=== PATIENT | female | born 1935 | race Caucasian/White ===

== ENCOUNTER 2017-11-30 11:02 | Observation (INO) | payer MEDICARE, BC ==
[2017-11-30 11:38] LABS: #Basophils 0.1 thou/uL (0.0-0.2); #Eosinphils 0.1 thou/uL (0.0-0.7); #Lymphocytes 1.1 thou/uL (1.20-3.40); #Monocytes 0.3 thou/uL (0.11-0.59); #Neutrophils 5.5 thou/uL (1.40-6.50); %Basophils 0.9 % (0.0-1.0); %Eosinophils 1.6 % (0.0-10.0); %Lymphocytes 15.9 % (21.0-51.0); %Monocytes 4.6 % (0.0-10.0); Mean Corpuscular HGB CONC 33.8 g/dL (32.0-36.0); Mean Corpuscular Hemoglobin 32.5 pg (27.0-31.0); Mean Corpuscular Volume 96.4 fL (78.0-98.0); Mean Platelet Volume 7.6 fL (7.4-10.4); Platelet Count 227 thou/uL (130-400); RBC Distribution Width 12.3 % (11.5-14.5); White Blood Cell (WBC) Count 7.1 thou/uL (4.8-10.8)
[2017-11-30 12:03] LABS: ALT (SGPT) 22 U/L (8-55); AST (SGOT) 25 U/L (5-34); Albumin 3.9 g/dL (3.4-4.8); Alkaline Phosphatase 94 U/L (40-150); Anion Gap 17 mmol/L (10-20); BUN (Urea Nitrogen) 90 mg/dL (9.8-20.1); Bilirubin, Total 0.4 mg/dL (0.2-1.2); Calc. Creatinine Clearance 0 mL/min (70-130); Calcium 9.6 mg/dL (7.8-10.44); Carbon Dioxide 29 mmol/L (23-31); Chloride 95 mmol/L (98-107); Estimated GFR-MDRD 16; Globulin 3.6 g/dL (2.4-3.5); Glucose 349 mg/dL (83-110); Potassium 4.6 mmol/L (3.5-5.1); Protein, Total 7.5 g/dL (6.0-8.3); Sodium 136 mmol/L (136-145)
[2017-11-30 12:06] LABS: CKMB 3.1 ng/mL (0-6.6); Troponin I Less than 0.010 ng/mL (< 0.028)
[2017-11-30 13:34] LABS: Bilirubin Negative (Negative); Blood, Urine Negative (Negative); Clarity CLEAR (Clear); Glucose, Urine (Dipstick) 100 mg/dL (Negative); Leukocyte Trace (Negative); Nitrite Negative (Negative); Protein, Urine (Dipstick) Negative (Neg-Trace); Specific Gravity, Urine 1.007 (1.002-1.036); Urobilinogen 0.2 mg/dL (0.2-1.0); pH, Urine 5.5 (5.0-9.0)
--- NOTE | 2017-11-30 13:34 | CT ---
NONCONTRAST CT HEAD: Date: 11-30-17 History: Headache. Weakness. Onset of symptoms 4 days ago. Comparison: 09-17-16 FINDINGS: Again noted are chronic small vessel ischemic changes greater involving the left cerebral hemisphere. Remote lacunar infarctions are also again seen involving each basal ganglia. There is no evidence of an acute cortical infarction, hemorrhage, mass effect or midline shift. Mild cerebral volume loss is present. Ventricular system is normal in size, shape, and position. There is mucosal thickening invo lving left sided ethmoidal air cells. Calvarial structures are intact. There has been no interval matilde nge from the prior exam. IMPRESSION: 1. No acute intracranial abnormalities demonstrated. 2. Chronic small vessel ischemic changes and remote lacunar infarctions in each basal ganglia. 3. Mild cerebral volume loss. POS: [facility]
[2017-11-30 13:36] LABS: Bacteria/HPF None Seen HPF (None Seen); Hyaline Casts/LPF 0-3 HYALINE CAST LPF (0-3 Hyaline); RBC/HPF 0-3 HPF (0-3); Squamous Epithelial 0-3 HPF (0-3); WBC/HPF 0-3 HPF (0-3)
[2017-11-30] MEDS ORDERED: cefTRIAXone\\ROCEPHIN 2 GM VIAL ONE (14:51)
[2017-11-30] MEDS ORDERED: Dextrose 50% Abboject 50 ML SYRINGE IVP PRN (20:06)
[2017-11-30] MEDS ORDERED: Dextrose 5% in Water 1,000 ML IV PRN (20:06)
[2017-11-30] MEDS ORDERED: Acetaminophen 500 MG TAB PO PRN (20:13)
[2017-11-30] MEDS ORDERED: Senokot S 8.6-50 MG TAB PO PRN (20:13)
[2017-11-30] MEDS ORDERED: Oxymetazoline HCl 0.05% ( 15 ML ) NASAL PRN (20:17)
[2017-11-30] MEDS ORDERED: Ondansetron ODT 4 MG TAB PO PRN (20:17)
[2017-11-30] MEDS: Sodium Chloride 0.45% 1,000 ML IV SCH (20:42)
[2017-11-30] MEDS: Atorvastatin Calcium 40 MG TAB PO SCH (20:42)
[2017-11-30] MEDS: Carvedilol 3.125 MG TAB PO SCH (20:43)
[2017-11-30] MEDS: Zolpidem Tartrate 5 MG TAB PO PRN (20:43)
[2017-11-30] MEDS: Citalopram 20 MG TAB PO SCH (20:43)
[2017-11-30] MEDS ORDERED: PRAMIPEXOLE DI HCL 2.25 MG PO SCH (21:00)
--- NOTE | 2017-11-30 23:15 | HP ---
DATE OF OBSERVATION: 11/30/2017 CHIEF COMPLAINT: Fall, hitting head with weakness. HISTORY OF PRESENT ILLNESS: The patient is an 82-year-old female who lives with her son. She has be en following throughout the previous week. She had had a blood sugar over 500 as late as Monday and has had come down somewhat since that time, but she has been having significant weakness coming over the last 4 days with elevated blood sugars. On this particular episode, she had fallen at home, brett ing her head and EMS was called. She is on aspirin and Plavix and in the emergency room, CTs of the head were performed, which did not show any internal bleeding or trauma. She denies nausea, vomiting , diarrhea, fever, and actually feel stronger and better now. She cannot explain why she has been so weak. She has had some dysuria as well, but urinary analysis returned normal. PAST MEDICAL HISTORY: Significant for Restless leg syndrome, multiple falls with mild obstructive sl eep apnea with noncompliance was on CPAP, hypothyroidism, dyslipidemia, insulin-dependent diabetes, c hronic insomnia, renal insufficiency, gastroesophageal reflux disease, osteoarthritis, atrial fibrill ation, history of V-tach, DVT, coronary artery disease, pancreatitis, and episodes of hypoglycemia as recently as 09/27/2016, rectal cancer, recent falls. 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 PAST SURGICAL HISTORY: Includes abdominal hysterectomy, cholecystectomy, rotator cuff repair, barrow ry artery bypass graft, colostomy reversal from removal of her rectal cancer, bilateral cataract garth ramone, fracture of right wrist, no surgical repair. PSYCHIATRIC HISTORY: Anxiety and depression. ALLERGIES: CODEINE. CURRENT MEDICATIONS: Acetaminophen 650 p.r.n. arthritic pain oxymetazoline 0.5% nasal spray 2 sprays a day, MiraLax daily, docusate sodium daily, Talwin 1-1/2 tab q.6 h. p.r.n. pain, Zofran ODT p.r.n. nausea, levothyroxine 75 mcg a day, aspirin 81 mg daily, ferrous sulfate 325 mg daily, Plavix 75 mg d aily, Lyrica 150 mg daily, Protonix 40 mg daily, Mirapex 1-1/2 tabs daily, Lunesta 3 mg daily, Lipito r 80 mg at bedtime, citalopram 40 mg daily, and Coreg 3.125 mg daily. REVIEW OF SYSTEMS: Patient denies any weakness, chills, fever, but does report a lot of lethargy and general malaise. HEENT: Negative for blurred vision, trouble hearing, discharge from ears, nose or throat, mouth pain. Neck: Denies any adenopathy or mass. Chest: Denies shortness of breath or co ugh. Cardiovascular: Denies chest pain or palpitations. Abdomen: Denies nausea, vomiting, diarrhe a. : Reports dysuria, but no blood in urine or stool. Skin: No new rashes or lesions. Neurolog ic: Reports dizziness and headache and tiredness. Endocrine: Negative for edema, lymph nodes. Psy chiatric: No new anxiety, feelings of depression or confusion. PHYSICAL EXAMINATION: VITAL SIGNS: On admission, blood pressure 144/73, pulse 81, respirations 18, temperature 97.7. Pain scale is 0 and O2 saturation is at 97%. GENERAL: This is an obese elderly female, alert, oriented, and cooperative, in no acute distress at this time, states she feels pretty good. HEENT: Normocephalic and atraumatic. Arcus senilis bilaterally with pupils equal, round, and reacti ve to light, with reactivity fixed or slowed. Pupils at 2 mm bilaterally. TMs, nares, pharynx are c lear. NECK: No mass or tenderness. CHEST: Clear to auscultation. Breast exam deferred. HEART: Regular rate and rhythm. ABDOMEN: Soft, nontender, no appreciable organomegaly. GENITOURINARY: Deferred. EXTREMITIES: With only 1+ edema bilaterally. Some mild erythema around a shallow abrasion on the ri ght thornton, but otherwise general mild muscle wasting, but normal range of motion. There is deformity of the previously mentioned fractured wrist. SKIN: The aforementioned erythema at the right thornton otherwise negative. NEUROLOGIC: Cranial nerves are intact. Sensory exam is intact. Mental status is baseline clear and unable to test gait and cerebellar function at this time. LABORATORY AND X-RAY FINDINGS: Lab work thus far shows sodium 136, potassium 4.6, chloride 95, CO2 2 9, BUN 90, creatinine 2.86, glucose 349, total bilirubin 0.4, AST 25, ALT 22, alkaline phosphatase 94 . BNP 101.8. Troponins negative. Urinary analysis unremarkable. WBC 7.1, hemoglobin 12, hematocri t 35.6 with platelets at 227. CT of the brain showed no acute intracranial abnormalities with small vessel disease and remote lacunar infarction in each basal ganglia, mild cerebral volume loss. ASSESSMENT: 1. Generalized weakness with fall. 2. Renal insufficiency with mild dehydration. History a year ago of hospitalization with a BUN of 1 57 and creatinine 4.86, but of recent, she has been running BUN of 40 with a creatinine almost 2. PLAN: Gentle IV hydration, reevaluation of her kidney functions and serial evaluation of her blood s ugars.
[2017-12-01 04:57] LABS: Anion Gap 16 mmol/L (10-20); BUN (Urea Nitrogen) 80 mg/dL (9.8-20.1); Calc. Creatinine Clearance 26 mL/min (70-130); Carbon Dioxide 26 mmol/L (23-31); Cardiac Risk 3.4 (Less than 4.5); Chloride 101 mmol/L (98-107); Cholesterol 139 mg/dl (< 200 Desired); Estimated GFR-MDRD 21; Glucose 143 mg/dL (83-110); HDL Cholesterol 41 mg/dL (>60 Neg Risk); LDL Cholesterol, Calculated 75 mg/dL; Potassium 4.2 mmol/L (3.5-5.1); Sodium 139 mmol/L (136-145); Triglycerides 117 mg/dL (Less than 150)
[2017-12-01] MEDS: Levothyroxine Sodium 75 MCG TAB PO SCH (05:38)
[2017-12-01] MEDS: Sodium Chloride 0.45% 1,000 ML IV SCH ×2 (05:40→18:43)
[2017-12-01] MEDS: Aspirin 81 mg Enteric Coated Tablet PO SCH (08:59)
[2017-12-01] MEDS: Pregabalin 75 MG CAP PO SCH (08:59)
[2017-12-01] MEDS: Clopidogrel Bisulfate 75 MG TAB PO SCH (09:00)
[2017-12-01] MEDS: Calcium Carbonate 500 MG TAB PO SCH ×2 (09:00→18:44)
[2017-12-01] MEDS: Multivitamin W/ Minerals 1 TAB PO SCH (09:00)
[2017-12-01] MEDS: Carvedilol 3.125 MG TAB PO SCH ×2 (09:00→22:24)
[2017-12-01] MEDS: Insulin Glargine 35 UNITS in Pre-Filled Syringe 1 EACH SC SCH (09:00)
[2017-12-01] MEDS: Calcitriol 0.25 MCG CAP PO SCH (09:00)
[2017-12-01] MEDS: Insulin Regular 300 UNITS/3 ML VIAL SC PRN ×3 (11:42→22:25)
[2017-12-01 14:06] VITALS: BMI 34.3
[2017-12-01] MEDS: Atorvastatin Calcium 40 MG TAB PO SCH (22:24)
[2017-12-01] MEDS: Citalopram 20 MG TAB PO SCH (22:24)
[2017-12-01] MEDS: Zolpidem Tartrate 5 MG TAB PO PRN (22:24)
[2017-12-02] MEDS: Sodium Chloride 0.45% 1,000 ML IV SCH (04:57)
[2017-12-02] MEDS: Levothyroxine Sodium 75 MCG TAB PO SCH (04:57)
[2017-12-02 05:16] LABS: Anion Gap 16 mmol/L (10-20); BUN (Urea Nitrogen) 63 mg/dL (9.8-20.1); Calc. Creatinine Clearance 30 mL/min (70-130); Calcium 9.4 mg/dL (7.8-10.44); Carbon Dioxide 26 mmol/L (23-31); Chloride 103 mmol/L (98-107); Estimated GFR-MDRD 24; Glucose 101 mg/dL (83-110); Potassium 4.2 mmol/L (3.5-5.1); Sodium 141 mmol/L (136-145)
[2017-12-02] MEDS: Pregabalin 75 MG CAP PO SCH (07:50)
[2017-12-02] MEDS: Aspirin 81 mg Enteric Coated Tablet PO SCH (07:51)
[2017-12-02] MEDS: Calcitriol 0.25 MCG CAP PO SCH (07:51)
[2017-12-02] MEDS: Calcium Carbonate 500 MG TAB PO SCH (07:51)
[2017-12-02] MEDS: Multivitamin W/ Minerals 1 TAB PO SCH (07:51)
[2017-12-02] MEDS: Clopidogrel Bisulfate 75 MG TAB PO SCH (07:52)
[2017-12-02] MEDS: Carvedilol 3.125 MG TAB PO SCH (07:52)
[2017-12-02] MEDS: Insulin Glargine 35 UNITS in Pre-Filled Syringe 1 EACH SC SCH (07:53)
[2017-12-02 08:20] VITALS: BP 139/66; TEMP 97.4
--- NOTE | 2017-12-02 17:01 | EKG ---
Test Reason : CP Blood Pressure : / mmHG Vent. Rate : 085 BPM Atrial Rate : 085 BPM P-R Int : 000 ms QRS Dur : 076 ms QT Int : 376 ms P-R-T Axes : 000 001 051 degrees QTc Int : 447 ms Normal sinus rhythm ST abnormality Motion artifact Confirmed by MARANDA GRAF DO ([id number]), copy editor KADEEM FONSECA ([id number] on 12/02/2017 5:00:35 PM Referred By: Confirmed By:MARANDA GRAF DO
--- NOTE | 2017-12-04 02:10 | DIS ---
DATE OF INITIAL OBSERVATION: 11/30/2017 DATE OF DISCHARGE: 12/02/2017 CHIEF COMPLAINT ON ADMISSION: Fall, weakness and head trauma. HOSPITAL COURSE: The patient was placed in observation telemetry bed where every heart beat was monitored. Vital signs were monitored as well as blood sugar. Prior to arrival on the floor, she has had a CT of her head which did not show any acute trauma. She was noted to have renal insufficiency from the ER. A year ago, she has been hospitalized with a BUN of 157, creatinine 4.86, but on this hospitalization, her initial BUN and creatinine were 90 and 2.86. Treatment plan included hydration as well as serial reevaluation. Initial blood glucoses were good at 164. After 24 hours of hydration, her BUN came down to 80 and creatinine improved to 2.28. Vital signs remained stable. The patient had no specific complaints and so an additional day of observation to make sure she would continue to improve, was allowed hydration continued and on the day of discharge, her BUN had improved to 63, creatinine has improved to 2. She felt fine, had her strength back, had been walking without difficulty, was ready to be discharged home. DIAGNOSES: At the time of discharge, 1. Acute kidney injury secondary to dehydration. 2. Weakness due to dehydration. 3. Head trauma due to fall due to weakness. 4. Insulin-dependent diabetes. PLAN: The patient will be discharged back to her usual home environment. She lives with her son. She will leave off the daily diuretic that she has been using which was torsemide 20 mg every day. She is now going to use that strictly when she has edema developed in her legs on a short term day basis to discontinue it once the edema resolves. This should help her kidneys rebound doing better; other than that, she will be maintained on her usual medications. She is to follow up with Dr. Doyle in 1-2 weeks for reassessment. The time required to review the chart, examine the patient, answered both the patient and her son's questions completely, then prepare the chart for discharge including reconciliation of all her medication and this dictation came to 40 minutes. She is discharged in stable condition. JANNETH
== END 2017-12-02 08:58 | disposition home or self-care (01) ==
LOC: ERS 11:02 → ERHOLD 14:49 → 2SW 17:53
PROVIDERS: ADMIT Specialist; ATTEND Specialist
DX: E86.0 Dehydration (principal); N17.9 Acute kidney failure, unspecified; R53.1 Weakness; S09.90XA Unspecified injury of head, initial encounter; G25.81 Restless legs syndrome; G47.33 Obstructive sleep apnea (adult) (pediatric); E03.9 Hypothyroidism, unspecified; E78.5 Hyperlipidemia, unspecified; E11.9 Type 2 diabetes mellitus without complications; G47.00 Insomnia, unspecified; K21.9 Gastro-esophageal reflux disease without esophagitis; M19.90 Unspecified osteoarthritis, unspecified site; I48.91 Unspecified atrial fibrillation; F41.8 Other specified anxiety disorders; Z86.718 Personal history of other venous thrombosis and embolism; I25.10 Atherosclerotic heart disease of native coronary artery without angina pectoris; Z86.73 Personal history of transient ischemic attack (TIA), and cerebral infarction without residual deficits; Z85.048 Personal history of other malignant neoplasm of rectum, rectosigmoid junction, and anus; Z91.81 History of falling; Z79.02 Long term (current) use of antithrombotics/antiplatelets; Z79.4 Long term (current) use of insulin; Z79.82 Long term (current) use of aspirin; Z79.899 Other long term (current) drug therapy; Z88.5 Allergy status to narcotic agent; Z91.19 Patient's noncompliance with other medical treatment and regimen; W19.XXXA Unspecified fall, initial encounter
CPT/HCPCS: 70450; 80048 ×2; 80053; 80061; 82553; 82962 ×2; 83880; 84443; 84484; 85025; 87086; 93005; 93306; 94760; 96361 ×4; 96365; 97139; 99285; G0378 ×2; 36415; 36416; 81003; 81015; J0696; J1815

== ENCOUNTER 2017-12-27 10:15 | Inpatient (IN) | payer MEDICARE, BC ==
[2017-12-27 10:52] LABS: Mean Corpuscular HGB CONC 31.8 g/dL (32.0-36.0); Mean Corpuscular Hemoglobin 31.3 pg (27.0-31.0); Mean Corpuscular Volume 98.5 fL (78.0-98.0); Mean Platelet Volume 7.3 fL (7.4-10.4); Platelet Count 310 thou/uL (130-400); RBC Distribution Width 12.8 % (11.5-14.5); Red Blood Cell (RBC) Count 3.21 mill/uL (4.20-5.40); White Blood Cell (WBC) Count 11.3 thou/uL (4.8-10.8)
[2017-12-27 11:06] LABS: Bilirubin Moderate (Negative); Blood, Urine Moderate (Negative); Glucose, Urine (Dipstick) Negative (Negative); Leukocyte Negative (Negative); Nitrite Negative (Negative); Protein, Urine (Dipstick) 100 mg/dL (Neg-Trace); Urobilinogen 0.2 mg/dL (0.2-1.0); pH, Urine 5.5 (5.0-9.0)
[2017-12-27 11:07] LABS: Clarity Hazy (Clear); Specific Gravity, Urine 1.019 (1.002-1.036)
[2017-12-27 11:14] LABS: CKMB 2.1 ng/mL (0-6.6); Troponin I 0.034 ng/mL (< 0.028)
[2017-12-27] MEDS ORDERED: Ondansetron HCl/PF 4 MG/2 ML Vial ONE (11:20)
--- NOTE | 2017-12-27 11:20 | RAD ---
CHEST ONE VIEW: HISTORY: Cough. COMPARISON: Radiograph from 11/29/2016. FINDINGS: Heart size is enlarged. Mild pulmonary vascular congestion. Some patchy infiltrates in the upper lo bes and lower lobes. IMPRESSION: 1. Cardiomegaly with mild pulmonary vascular congestion. 2. Some faint opacities in the upper and lower lobes bilaterally. Symptoms could reflect developing edema or infection. POS: [facility]
[2017-12-27 11:21] LABS: Bacteria/HPF None Seen HPF (None Seen); RBC/HPF 0-3 HPF (0-3); Squamous Epithelial 0-3 HPF (0-3); Transitional Epithelial 0-3 HPF (0-3); WBC/HPF 0-3 HPF (0-3)
[2017-12-27 11:22] LABS: Band 20 % (5-11); Lymphocytes 9 % (21-51); MDiff Complete? YES; Monocytes 2 % (0-10); Neutrophil 69 % (42-75); PLT Morphology Comment Appears Adequate
[2017-12-27 11:22] LABS: Crystals/HPF 3+ AMORPH URATES HPF (Negative); Hyaline Casts/LPF 4-6 HYALINE CAST LPF (0-3 Hyaline); Other Casts/LPF 7-10 COARSE GRAN LPF (0-3 Hyaline)
[2017-12-27 11:40] LABS: ALT (SGPT) 47 U/L (8-55); AST (SGOT) 68 U/L (5-34); Albumin 3.4 g/dL (3.4-4.8); Alkaline Phosphatase 101 U/L (40-150); Anion Gap 20 mmol/L (10-20); BUN (Urea Nitrogen) 49 mg/dL (9.8-20.1); CK (CPK) 195 U/L (29-168); Calc. Creatinine Clearance 0 mL/min (70-130); Calcium 8.4 mg/dL (7.8-10.44); Carbon Dioxide 21 mmol/L (23-31); Chloride 103 mmol/L (98-107); Estimated GFR-MDRD 23; Globulin 3.2 g/dL (2.4-3.5); Glucose 178 mg/dL (83-110); Lipase Less than 4 U/L (8-78); Potassium 3.6 mmol/L (3.5-5.1); Protein, Total 6.6 g/dL (6.0-8.3); Sodium 140 mmol/L (136-145)
[2017-12-27] MEDS ORDERED: Piperacillin/Tazobactam 4.5 GM VIAL ONE (12:34)
[2017-12-27] MEDS ORDERED: Furosemide 20 MG/2 ML VIAL ONE ×2 (12:34→13:52)
--- NOTE | 2017-12-27 13:26 | CT ---
CT OF ABDOMEN AND PELVIS PERFORMED WITHOUT CONTRAST ENHANCEMENT: Date: 12/27/17 HISTORY: Abdominal pain and diarrhea x2 days. FINDINGS: There are some pneumonitis type changes in both lower lobes, lingula, and lateral segment of the righ t middle lobe. This would suggest an infectious type process. The liver and spleen are unremarkable. The pancreas is atrophic. Gallbladder appears to have been rem paco. There is some extrahepatic ductal prominence noted. Right and left adrenal glands are normal in appearance. Right and left kidneys are normal in size and not obstructed. There is some perinephric fat stranding which is symmetric. There are vascular calci fications noted. There is no significant periaortic or mesenteric lymphadenopathy. There are no signs of bowel obstruction. I do not appreciate any bowel wall edema on this examination. There are postop erative changes of the distal ileum region. CT of pelvis was performed without contrast enhancement. There is a small paraumbilical hernia and th ere does appear to be some minimal herniation of bowel, but there is no obstruction associated with t his. The appendix region appears unremarkable. I do not definitively identify an appendix, but see no inflammatory change. There is some sigmoid diverticular disease without evidence of any inflammatory process. There are arthritic changes of the spine. IMPRESSION: 1. Small paraumbilical hernia. 2. Bibasilar lung changes that would suggest infiltrate. This includes some patchy parenchymal larry es in both lower lobes, lingula, and right middle lobe. 3. Extensive vascular calcifications. POS: [facility]
[2017-12-27] MEDS ORDERED: Ondansetron ODT 4 MG TAB SL PRN (15:10)
[2017-12-27] MEDS ORDERED: Ondansetron HCl/PF 4 MG/2 ML Vial IVP PRN (15:10)
[2017-12-27] MEDS ORDERED: HYDROcodone/Acetaminophen 5/325 mg Tablet PO PRN ×2 (15:10)
[2017-12-27] MEDS ORDERED: Acetaminophen 325 MG TAB PO PRN (15:10)
[2017-12-27] MEDS ORDERED: Carvedilol 3.125 MG TAB PO SCH ×2 (19:15→21:30)
[2017-12-27] MEDS ORDERED: Ondansetron ODT 4 MG TAB PO PRN (21:19)
[2017-12-27] MEDS ORDERED: Diphenoxylate HCl/Atropine Tablet PO PRN (21:26)
[2017-12-27] MEDS ORDERED: Citalopram 20 MG TAB PO SCH (21:30)
[2017-12-27] MEDS ORDERED: Zolpidem Tartrate 5 MG TAB PO SCH (21:30)
[2017-12-27] MEDS ORDERED: Pramipexole Di-HCl 1 MG TAB PO SCH (21:30)
[2017-12-27] MEDS: Sodium Chloride 0.45% 1,000 ML IV SCH (23:27)
[2017-12-28] MEDS: Piperacillin/Tazobactam 2.25 GM in Sodium Chloride 0.9% 100 ML IVPB SCH ×5 (00:44→23:36)
--- NOTE | 2017-12-28 00:59 | CON ---
DATE OF CONSULTATION: 12/27/2017 CARDIOLOGY CONSULTATION DATE OF ADMISSION: 12/27/2017 INDICATION FOR CONSULTATION: This is an 82-year-old female with intermittent atrial fibrillation. W e were asked to see her due to the atrial fibrillation with rapid ventricular response. She presente d with some diarrhea and coughing was felt to have possible pneumonia was presented and was admitted to the hospital. We were asked to see her due to the atrial fibrillation. At this time, she remains in sinus rhythm. HISTORY OF PRESENT ILLNESS: This very pleasant 82-year-old female, I have followed for quite some ti me. She recently was in the office back in November of this year and she has been complaining of some discomfort in her lower extremities when she used a walker stating she was getting out and she will h ave some shortness of breath during the day, but otherwise has been doing quite well. She did have a cardiac catheterization in 2009 which showed a 20% stenosis in left anterior descending artery. The stress test in 2013 showed a normal ejection fraction with no evidence of ischemia. She has had a h istory of DVTs and PEs before. She has been on Jantoven, but this was discontinued and her Plavix wa s started due to history of hypertension and PEs. She had a venous duplex study in 12/2016, which sh owed no evidence of DVT. 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 Flores. She had been actually on a trip in [place] a nd she started feeling very badly. She thought she has just sinus congestion, but then she developed some diarrhea, then came home and she continued to have some coughing. She returned from [facility] yesterday and due to her symptoms, she presented to the hospital since she continued to have diar damion. Since being in the hospital, the diarrhea had seemed to have resolved. She was given some I b elieve antibiotics in the emergency room and the coughing also has improved and she is not having any complaints at this time. PAST MEDICAL HISTORY: Significant for dyslipidemia, hypertension, diabetes, history of TIA, CVA. 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 She has had a right hip fracture. She has history of pulmona ry embolus, right lower extremity DVT. She has had a history of rectal cancer with ileostomy, which was later reversed. She has seasonal allergies. ALLERGIES: She is allergic to CODEINE and DIMENHYDRINATE. FAMILY HISTORY: Noncontributory. MEDICATIONS: Prior to admission included Plavix 75 mg a day, citalopram 40 mg half tablet daily, Tyl enol. She was on Coreg 3.125 mg b.i.d. She was taking antacids, calcium plus simethicone, atorvasta tin 80 mg a day, torsemide 20 mg a day, fluconazole 100 mg as needed, Lantus insulin, NovoLog 70/30 i nsulin, calcitriol 1 capsule 0.25 mg daily, iron tablets 325 mg a day, pantoprazole 40 mg a day, Lyri ca 150 mg daily, aspirin 81 mg a day, levothyroxine 75 mcg a day. She also has taken insulin aspart 100 units per mL as needed for sliding scale, Mirapex ER 2.25 mg extended-release, Lunesta 3 mg q.p.m . REVIEW OF SYSTEMS: A 12-point review of systems unremarkable except she has had some problems with s ome floaters in her eyes. She has had some congestion as noted above. She has decreased hearing. S he has had a cough and she has diarrhea. Otherwise, she denied any chest pain or any significant matilde nges in her shortness of breath or other symptoms. PHYSICAL EXAMINATION: GENERAL: Reveals a well-developed, well-nourished female. She does appear to be fatigued. VITAL SIGNS: Her blood pressure 100/50. She is afebrile, heart rate 86 and regular, respiratory rat e 16. O2 saturation 92%. HEENT: Shows head to be normocephalic and atraumatic. Carotid pulses are present. I do not hear an y significant bruits. There is no JVD. The thyroid did not appear to be enlarged. Oral mucosa is a ctually pink and moist. She has no other significant abnormalities. CHEST: I did not hear any rales, rhonchi, or wheezing at this time. CARDIOVASCULAR: Exam reveals a regular rate and rhythm. She has a normal S1, S2. I cannot hear any significant murmurs, heaves, thrills, bruits, or rubs. ABDOMEN: Shows obesity with positive bowel sounds, somewhat hyperactive bowel sounds. Well-healed s urgical incisions are present. EXTREMITIES: Showed no clubbing or cyanosis. She had mild ankle edema, otherwise no significant jethro ma was noted. Pedal pulses are present. NEUROLOGIC: She appears to be intact. SKIN: Warm and dry at this time. LABORATORY DATA: Indicates WBC of 11.3, hemoglobin of 10, platelet count was 310,000. Her chemistri es show sodium of 140, her potassium is 3.6, creatinine is 2.06 with a BUN of 49, blood sugar was 166 . Her troponin I was slightly elevated at 0.034. BNP was 732. Urinalysis, she had no significant b acteria noted. IMPRESSION: 1. Episode of intermittent atrial fibrillation, which appears to have resolved. We will continue he r Plavix and aspirin and monitor very carefully. She may need to have further anticoagulation. Oral anticoagulation in the form of either Coumadin or Eliquis should she continue to have any further emeka uts of atrial fibrillation. 2. History of some congestive heart failure, this appears to be relatively stable at this time. We will ask for an echocardiogram to evaluate her left ventricular systolic function. Her last echocard iogram in the office was 09/2016, which showed ejection fraction of 50%-55% with grade 2 diastolic dy sfunction was moderately dilated left atrium, [id number] mitral and tricuspid valve regurgitati on. Her EKGs in the office previously has showed normal sinus rhythm with no previous history of atr ial fibrillation that I can determine from review of our records from the office, but there was some note previously from the impression and plan in the office that she did have an episode of paroxysmal atrial fibrillation, but she has remained stable. 3. History of hypertension. This is also under good control at this time. 4. History of chronic kidney disease. This appears to be also stable at this time, I would not leonardo ge her medications. She does have slight elevation of the creatinine; however, this appears to have remained stable and actually is doing well compared to what it was in November of this year, which was 2.0 and August it was 2.1, appears to be in line with these measurements and otherwise appears to be doi ng stable. At this time, I would continue her medications. She has been given antibiotics for possi ble pneumonia in the emergency room, these have not been continued. At this time, she is just taking pain medications as well as Tylenol and some Zofran. We will need to reinstate her medications for her hypertension, whereas the blood pressure starts to increase and also she will need to be on insul in for her diabetes. However, at this time, she has not been eating very much and blood sugars not a ppear to be significantly elevated. This will be dealt with by the primary care service. 5. History of some diarrhea, this appears to have been resolved at this time. As far as her other m edications, she is on torsemide as well as atorvastatin, however, she does not need the torsemide at this time since she has been having diarrhea and we can certainly hold off on the Lipitor also at thi s time. Her Coreg, would need to be reinstated and now I will write the order for that for today. F johnther recommendations will depend on the results of the echocardiogram or whether or not she develop s any further arrhythmias.
--- NOTE | 2017-12-28 01:58 | HP ---
DATE OF ADMISSION: 12/27/2017 CHIEF COMPLAINT ON ADMISSION: CHF, DKA, new onset atrial fibrillation and pneumonia. HISTORY OF PRESENT ILLNESS: The patient is an 82-year-old female who just finished a long vacation [facility]. She has gotten back in town the day before admission. Over the last several days, she h as had constant profuse diarrhea that would not stop or respond to Imodium A-D. She also developed a cough while coming back from [place]. It was productive of some phlegm. She states she also had f ever, fatigue, weakness and because of that persistence and no symptoms, her son brought her to the e mergency room for further evaluation. There in the ER, she was noted to have ketones and beta hydrox ybutyrate 2.5. Her white count was slightly elevated at 11.3 with bandemia and her blood sugar was o nly found to be 178 at that time, but her BNP was also elevated at 732. CT scan was ordered of the a [facility] and on that they noted lower lobe opacities bilaterally. On chest x-ray, there was found to b e opacities in the upper and lower lobes bilaterally indicating that she probably had pneumonia and/o r developing pulmonary vascular congestion. With history of fever and productive cough, pneumonia is very likely. Dr. Doyle was contacted for admission and accepted admission. Blood cultures have bee n drawn. Antibiotics have been started and careful hydration is being administered so as to diminish the DKA, yet not put her into heart failure worse than she already is. There is cardiomegaly and mi ld pulmonary vascular congestion noted on the chest x-ray as well. PAST MEDICAL HISTORY: Included a recent hospitalization in 11/30/2017 for fall, hitting her head and general weakness. She also has restless legs syndrome, obstructive sleep apnea with noncompliance. She is adamant that she will not wear a CPAP. 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 PAST SURGICAL HISTORY: Includes hysterectomy, cholecystectomy, rotator cuff repair, coronary artery disease, bypass graft, colostomy, reversal from removal of her rectal cancer, bilateral cataract garth ramone, fracture of her right wrist without surgical correction. PSYCHIATRIC HISTORY: Significant for anxiety and depression. ALLERGIES: She is allergic to CODEINE. MEDICATIONS: On admission include acetaminophen 650 mg q.6 hours as needed for pain, Afrin nasal spr ay 2 sprays daily, MiraLax daily, Colace daily, Talwin 1-1/2 tab q.6 hours p.r.n. pain, Zofran ODT p. r.n. nausea, levothyroxine 75 mcg a day, aspirin 81 mg a day, Calcitriol 0.25 mg daily, ferrous sulfa te 324 mg daily, Plavix 75 mg daily, Lyrica 150 mg daily, Protonix 40 mg daily, Demadex or torsemide 20 mg daily, vitamin D supplementation daily, Mirapex 1.5 mg that she takes -/2 at bedtime, Lunesta 3 mg at bedtime, Lipitor 80 mg at bedtime, citalopram 40 mg at bedtime and Coreg 3.125 mg b.i.d. REVIEW OF SYSTEMS: Patient admits to general weakness, chills, fever, fatigue and diarrhea. HEENT: Denies trouble with her eyes with drainage or pain. Nose has been congested with drainage, but no p haryngeal lesions. Neck: No painful range of motion. Chest: She has had cough and mild shortness of breath, especially with exertion. Cardiovascular: Denies chest pain or palpitations. Gastrointe stinal: Has had profuse diarrhea, occasional nausea, no vomiting. Genitourinary: Denies dysuria or blood in urine or stool. Musculoskeletal: Has general aches and pains all over. Skin: Without ac roberto rashes or lesions, denies that. Endocrine: Has not checked her blood sugar in days and denies e marlo. Neurologic: Denies paresthesias or anesthesias that are not being treated by the Lyrica. She does have a peripheral neuropathy that is responding to that. Psychiatric: Denies any depression o r anxiety at this time. PHYSICAL EXAMINATION: VITAL SIGNS: Blood pressure is 102/56, pulse is 76, respirations 16, temperature 98.7. Pain scale i s 0, O2 at 100% on 3 liters oxygen. GENERAL: This is an obese elderly female, alert and cooperative. HEENT: Normocephalic and atraumatic. Pupils with diminished reactivity to light. Both pupils at 2- 3 mm each. Arcus senilis bilaterally. TMs, nares and pharynx are clear. Membranes are moist. CHEST: Has faint rales bilaterally mixed with upper lobe rhonchi. HEART: Regular rate and rhythm. BREASTS: Exam deferred. ABDOMEN: Soft, no appreciable organomegaly, nontender to exam. GENITOURINARY: Deferred. EXTREMITIES: Without clubbing, cyanosis or edema. Normal range of motion present except for the fra ctured wrist and has deviated wrist. SKIN: Shows good turgor. No acute rashes or lesions. NEUROLOGIC: Cranial nerves are grossly intact. Sensory exam is intact. Unable to test gait and cer ebellar function at this time. Mental status is at baseline, intact and nonfocal. She does show ashish dence of inability to maintain recent memory and cannot recall details of her own illness just within the last couple of days. LABORATORY DATA: Lab work thus far shows WBCs at 11.3, hemoglobin 10, hematocrit 31.6 with platelets at 310,000, 69 segs, 20 bands, 9 lymphs. Sodium is 140, potassium 3.6, chloride 103, CO2 21, BUN 49 , creatinine 2.06, glucose at 178, AST 68. CK at 195. Troponin indeterminate at 0.34. BNP elevated at 732. Urinalysis is positive for ketones at 15 as well as moderate bilirubin and moderate blood. The beta hydroxybutyrate is 2.7. IMAGING: Chest x-ray shows cardiomegaly with upper and lower lobe opacities bilaterally. The CT of the abdomen shows small periumbilical hernia, extensive vascular calcifications and bibasilar lung ch anges suggesting infiltrate involving lingula and right middle lobe. ASSESSMENT: 1. Pneumonia. 2. Diabetic ketoacidosis, early. 3. Dehydration. 4. Profuse diarrhea and weakness. 5. Insulin-dependent diabetic. 6. Obstructive sleep apnea -- noncompliance. 7. Atrial fibrillation. 8. Congestive heart failure, diastolic dysfunction, so it is acute on chronic. PLAN: To continue IV antibiotics, gentle IV hydration, sliding scale insulin. Serial reevaluation. Lomotil for loose stools and complete stool studies to see if she has got Clostridium difficile or i s this the possible side effect of citalopram or Lipitor or one of her regular medicines that are gen thi is causing the intolerance. We will consult Dr. Nogueira for Cardiology opinion.
[2017-12-28] MEDS ORDERED: Insulin Glargine 35 UNITS in Pre-Filled Syringe 1 EACH SC SCH ×2 (02:45→09:00)
[2017-12-28 05:38] LABS: #Eosinphils 0.1 thou/uL (0.0-0.7); #Lymphocytes 0.8 thou/uL (1.20-3.40); #Monocytes 0.7 thou/uL (0.11-0.59); #Neutrophils 7.6 thou/uL (1.40-6.50); %Basophils 0.2 % (0.0-1.0); %Eosinophils 0.7 % (0.0-10.0); %Lymphocytes 8.9 % (21.0-51.0); %Monocytes 7.6 % (0.0-10.0); %Neutrophils 82.6 % (42.0-75.0); Hemoglobin 8.7 g/dL (12.0-16.0); Mean Corpuscular Hemoglobin 31.3 pg (27.0-31.0); Mean Platelet Volume 6.9 fL (7.4-10.4); Platelet Count 244 thou/uL (130-400); RBC Distribution Width 12.7 % (11.5-14.5); Red Blood Cell (RBC) Count 2.76 mill/uL (4.20-5.40); White Blood Cell (WBC) Count 9.2 thou/uL (4.8-10.8)
[2017-12-28] MEDS: Levothyroxine Sodium 75 MCG TAB PO SCH (05:47)
[2017-12-28 05:53] LABS: Anion Gap 16 mmol/L (10-20); BUN (Urea Nitrogen) 53 mg/dL (9.8-20.1); Calc. Creatinine Clearance 25 mL/min (70-130); Calcium 8.3 mg/dL (7.8-10.44); Carbon Dioxide 24 mmol/L (23-31); Cardiac Risk 3.8 (Less than 4.5); Chloride 103 mmol/L (98-107); Cholesterol 83 mg/dl (< 200 Desired); Estimated GFR-MDRD 21; Glucose 142 mg/dL (83-110); HDL Cholesterol 22 mg/dL (>60 Neg Risk); LDL Cholesterol, Calculated 46 mg/dL; Potassium 3.7 mmol/L (3.5-5.1); Sodium 139 mmol/L (136-145); Triglycerides 77 mg/dL (Less than 150)
[2017-12-28] MEDS: Apixaban 2.5 MG TAB PO SCH ×2 (09:44→20:58)
[2017-12-28] MEDS: Carvedilol 3.125 MG TAB PO SCH ×2 (09:44→18:14)
[2017-12-28] MEDS: Sodium Chloride 0.45% 1,000 ML IV SCH ×3 (09:44→21:04)
[2017-12-28] MEDS: Aspirin 81 mg Enteric Coated Tablet PO SCH (09:45)
[2017-12-28] MEDS: Pregabalin 75 MG CAP PO SCH (09:45)
[2017-12-28] MEDS: HumaLOG 300 UNITS/3 ML VIAL SC SCH ×3 (09:46→18:02)
[2017-12-28 10:31] LABS: Bilirubin Small (Negative); Blood, Urine Trace (Negative); Clarity CLOUDY (Clear); Glucose, Urine (Dipstick) Negative (Negative); Leukocyte Moderate (Negative); Nitrite Negative (Negative); Protein, Urine (Dipstick) 100 mg/dL (Neg-Trace); Specific Gravity, Urine 1.022 (1.002-1.036)
[2017-12-28 10:39] LABS: Bacteria/HPF None Seen HPF (None Seen); Pathc Cast-AUWi Flag 1.45 (0-2.49); RBC/HPF 0-3 HPF (0-3); Squamous Epithelial 0-3 HPF (0-3)
[2017-12-28 10:40] LABS: Yeast-AUWi Flag 148.8 (0-25.0)
[2017-12-28 10:54] LABS: Hyaline Casts/LPF 0-3 HYALINE CAST LPF (0-3 Hyaline); Transitional Epithelial 0-3 HPF (0-3)
[2017-12-28 10:55] LABS: Renal Epithelial 0-3 HPF (0-3)
[2017-12-28] MEDS ORDERED: Dextrose 50% Abboject 50 ML SYRINGE IVP PRN (20:59)
[2017-12-28] MEDS: Pramipexole Di-HCl 1 MG TAB PO SCH (20:59)
[2017-12-28] MEDS: Zolpidem Tartrate 5 MG TAB PO SCH (20:59)
[2017-12-28] MEDS ORDERED: Dextrose 5% in Water 1,000 ML IV PRN (20:59)
[2017-12-28] MEDS: Citalopram 20 MG TAB PO SCH (20:59)
[2017-12-28] MEDS ORDERED: Citalopram 20 MG TAB PO SCH (21:00)
[2017-12-29] MEDS: Levothyroxine Sodium 75 MCG TAB PO SCH (06:00)
[2017-12-29] MEDS: Piperacillin/Tazobactam 2.25 GM in Sodium Chloride 0.9% 100 ML IVPB SCH (06:00)
[2017-12-29 06:14] LABS: #Eosinphils 0.1 thou/uL (0.0-0.7); #Lymphocytes 0.8 thou/uL (1.20-3.40); #Monocytes 0.7 thou/uL (0.11-0.59); #Neutrophils 7.5 thou/uL (1.40-6.50); %Basophils 0.3 % (0.0-1.0); %Eosinophils 0.9 % (0.0-10.0); %Lymphocytes 8.7 % (21.0-51.0); %Monocytes 7.8 % (0.0-10.0); %Neutrophils 82.3 % (42.0-75.0); Hemoglobin 8.5 g/dL (12.0-16.0); Mean Corpuscular HGB CONC 30.4 g/dL (32.0-36.0); Mean Corpuscular Hemoglobin 30.5 pg (27.0-31.0); Mean Platelet Volume 7.3 fL (7.4-10.4); Platelet Count 272 thou/uL (130-400); Red Blood Cell (RBC) Count 2.81 mill/uL (4.20-5.40); White Blood Cell (WBC) Count 9.1 thou/uL (4.8-10.8)
[2017-12-29 06:30] LABS: Anion Gap 16 mmol/L (10-20); BUN (Urea Nitrogen) 56 mg/dL (9.8-20.1); Calc. Creatinine Clearance 24 mL/min (70-130); Calcium 8.4 mg/dL (7.8-10.44); Carbon Dioxide 23 mmol/L (23-31); Chloride 101 mmol/L (98-107); Estimated GFR-MDRD 20; Glucose 101 mg/dL (83-110); Potassium 3.5 mmol/L (3.5-5.1); Sodium 136 mmol/L (136-145)
[2017-12-29] MEDS: Pregabalin 75 MG CAP PO SCH (08:32)
[2017-12-29] MEDS: Calcitriol 0.25 MCG CAP PO SCH (08:36)
[2017-12-29] MEDS: Alogliptin 25 MG TAB PO SCH (08:36)
[2017-12-29] MEDS: Aspirin 81 mg Enteric Coated Tablet PO SCH (08:36)
[2017-12-29] MEDS: Bupropion 150 MG XL TAB PO SCH (08:36)
[2017-12-29] MEDS: Apixaban 2.5 MG TAB PO SCH ×2 (08:38→21:30)
[2017-12-29] MEDS: Carvedilol 3.125 MG TAB PO SCH ×2 (08:38→16:09)
[2017-12-29] MEDS: Insulin Glargine 30 UNITS in Pre-Filled Syringe 1 EACH SC SCH (08:39)
[2017-12-29] MEDS: Oxymetazoline HCl 0.05% ( 15 ML ) NASAL SCH (09:43)
[2017-12-29] MEDS: Amoxicillin/Potassium Clav 875 MG TAB PO SCH ×2 (09:43→21:29)
[2017-12-29] MEDS: HYDROcodone/Acetaminophen 5/325 mg Tablet PO PRN ×2 (09:46→16:20)
--- NOTE | 2017-12-29 11:02 | RAD ---
CHEST 2 VIEWS: Date 12/29/17 COMPARISON: 04/12/16, 05/14/16, 12/27/17. HISTORY: New onset CHF or pneumonia. FINDINGS: There is stable atherosclerosis and stable cardiomegaly. Pulmonary vessels are within normal limits. Costophrenic angles are clear. No consolidation or mass. No pneumothorax or osseous abnormalities. IMPRESSION: Cardiomegaly. No acute cardiopulmonary process. POS: [facility]
--- NOTE | 2017-12-29 12:10 | PDOC.CTH ---
<Anastacia Beauchamp - Last Filed: 12/29/17 13:38> Cardiology Progress Note - Subjective The pt seen and examined. No overnight events. NO cardiac complaints. Chronic fatigue and poor appetite; however, she reported her symptoms are slightly improved than yesterday. Contact Isolation for possible Cdiff. - Objective Vital Signs Temp Pulse Resp BP Pulse Ox 12/29/17 08:10 98.5 F 79 17 122/56 L 94 L 12/29/17 04:00 71 20 117/59 L 96 Admit Weight 173 lb 14.4 oz Weight 180 lb 3 oz 12/28/17 12/29/17 12/30/17 06:59 06:59 06:59 Intake Total 1545 2885 Output Total 550 1350 Balance 995 1535 - Physical Examination General/Neuro: alert & oriented x3 Neck: no JVD present Lungs: other: (diminished at bases) Heart: RRR Abdomen: soft Extremities: other: (No edema) - Telemetry Telemetry Rhythm: SR - Labs Result Diagrams: 12/29/17 05:47 12/29/17 05:47 Troponin/CKMB CK-MB (CK-2) 2.1 ng/mL (0-6.6) 12/27/17 10:32 Troponin I 0.034 ng/mL (< 0.028) H 12/27/17 10:32 - Assessment/Plan 1. Paroxysmal Afib - remains in SR. On Coreg and Eliquis 2.5mg BID due to age and CKD. 2. Acute on Chronic Diastolic HF - Stable; On BBlocker. Not on Diuretic due to hypotesive. Not on ADRIAN/ARB due to hx of CKD. 3. CKD - worsened today. Cont. to monitor 4. 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 PNA - stable 6. HTN - hypotensive; cont. to monitor 7. Hyperlipidemia - on Statin 8. Sleep Apea - 9. Hx of TIA/CVA - stable 10. Diarrhea - stable MAR reviewed * Echo in 11/2017 showed EF 50-55%, restrictive diastolic dysfunction, mod bilat. dilated atriums, mild-mod MR, mild MR, mild WI, and mild-mod TR. Review of Systems - Review of Systems Constitutional: reports: weakness EENTM: reports: no symptoms reported Respiratory: reports: no symptoms reported Cardiac (ROS): reports: no symptoms reported ABD/GI: reports: no symptoms reported : reports: no symptoms reported Musculoskeletal: reports: no symptoms reported Skin: reports: no symptoms reported <Jair Barlow - Last Filed: 12/29/17 19:20> Cardiology Progress Note - Objective Vital Signs Temp Pulse Resp BP Pulse Ox 12/29/17 16:15 96.6 F L 73 15 107/51 L 97 12/29/17 12:20 98.3 F 75 15 102/55 L 97 12/29/17 08:10 98.5 F 79 17 122/56 L 94 L Admit Weight 173 lb 14.4 oz Weight 180 lb 3 oz 12/28/17 12/29/17 12/30/17 06:59 06:59 06:59 Intake Total 1545 2885 Output Total 550 1350 Balance 995 1535 - Labs Result Diagrams: 12/29/17 05:47 12/29/17 05:47 Troponin/CKMB CK-MB (CK-2) 2.1 ng/mL (0-6.6) 12/27/17 10:32 Troponin I 0.034 ng/mL (< 0.028) H 12/27/17 10:32 - Assessment/Plan 11. Anemia. Multifactorial. Anemia of chronic disease and assoc. with CKD. Pt. seen and eval. by me. I agree with the A/P by the BI DEVELOPER. She is more alert today but still complains of fatigue. No diarhea or BM's since admission.Overall cardiac function is stable. I will sign off. If any further cardiac problems then please consult me again.I will see her in the office in the next 2-4 weeks.
[2017-12-29] MEDS: Sodium Chloride 0.45% 1,000 ML IV SCH ×2 (14:44→21:31)
[2017-12-29] MEDS: Pramipexole Di-HCl 1 MG TAB PO SCH (21:29)
[2017-12-29] MEDS: Citalopram 20 MG TAB PO SCH (21:30)
[2017-12-29] MEDS: Atorvastatin Calcium 40 MG TAB PO SCH (21:30)
[2017-12-29] MEDS: Zolpidem Tartrate 5 MG TAB PO SCH (21:30)
[2017-12-30] MEDS: Sodium Chloride 0.45% 1,000 ML IV SCH ×2 (05:03→17:29)
[2017-12-30] MEDS: Levothyroxine Sodium 75 MCG TAB PO SCH (05:03)
[2017-12-30 06:14] LABS: Anion Gap 16 mmol/L (10-20); BUN (Urea Nitrogen) 57 mg/dL (9.8-20.1); Calc. Creatinine Clearance 23 mL/min (70-130); Calcium 8.4 mg/dL (7.8-10.44); Carbon Dioxide 20 mmol/L (23-31); Chloride 99 mmol/L (98-107); Estimated GFR-MDRD 19; Glucose 120 mg/dL (83-110); Potassium 3.8 mmol/L (3.5-5.1); Sodium 131 mmol/L (136-145)
[2017-12-30 06:31] LABS: Band 4 % (5-11); Hemoglobin 8.7 g/dL (12.0-16.0); Hypochromia SLIGHT = 6-15 cells (100X) (0-5/hpf); Lymphocytes 7 % (21-51); MDiff Complete? YES; Mean Corpuscular HGB CONC 31.4 g/dL (32.0-36.0); Mean Corpuscular Hemoglobin 31.3 pg (27.0-31.0); Mean Corpuscular Volume 99.6 fL (78.0-98.0); Mean Platelet Volume 7.2 fL (7.4-10.4); Monocytes 2 % (0-10); Neutrophil 87 % (42-75); PLT Morphology Comment Appears Adequate; Platelet Count 320 thou/uL (130-400); RBC Distribution Width 12.9 % (11.5-14.5); Red Blood Cell (RBC) Count 2.78 mill/uL (4.20-5.40); White Blood Cell (WBC) Count 10.8 thou/uL (4.8-10.8)
[2017-12-30] MEDS: Carvedilol 3.125 MG TAB PO SCH ×2 (08:20→16:00)
[2017-12-30] MEDS: Pregabalin 75 MG CAP PO SCH (08:21)
[2017-12-30] MEDS: Alogliptin 25 MG TAB PO SCH (08:21)
[2017-12-30] MEDS: Oxymetazoline HCl 0.05% ( 15 ML ) NASAL SCH (08:21)
[2017-12-30] MEDS: Apixaban 2.5 MG TAB PO SCH ×2 (08:22→21:33)
[2017-12-30] MEDS: Amoxicillin/Potassium Clav 875 MG TAB PO SCH ×2 (08:22→21:33)
[2017-12-30] MEDS: Calcitriol 0.25 MCG CAP PO SCH (08:22)
[2017-12-30] MEDS: Bupropion 150 MG XL TAB PO SCH (08:22)
[2017-12-30] MEDS: Insulin Glargine 30 UNITS in Pre-Filled Syringe 1 EACH SC SCH (08:24)
[2017-12-30] MEDS: HYDROcodone/Acetaminophen 5/325 mg Tablet PO PRN (08:24)
[2017-12-30] MEDS: Benzonatate 100 MG CAP PO SCH ×3 (09:16→21:32)
[2017-12-30] MEDS: Albumin 25% 25 GM/100 ML BOT IVPB SCH ×2 (11:33→17:29)
[2017-12-30 11:59] LABS: Bilirubin Negative (Negative); Blood, Urine Negative (Negative); Clarity CLEAR (Clear); Glucose, Urine (Dipstick) Negative (Negative); Leukocyte Trace (Negative); Nitrite Negative (Negative); Protein, Urine (Dipstick) Trace mg/dL (Neg-Trace); Specific Gravity, Urine 1.014 (1.002-1.036)
[2017-12-30 12:02] LABS: Bacteria/HPF None Seen HPF (None Seen); Hyaline Casts/LPF 0-3 HYALINE CAST LPF (0-3 Hyaline); Pathc Cast-AUWi Flag 0.43 (0-2.49); Squamous Epithelial 0-3 HPF (0-3)
[2017-12-30 12:03] LABS: Yeast-AUWi Flag 26.6 (0-25.0)
[2017-12-30 12:15] LABS: RBC/HPF 0-3 HPF (0-3); Transitional Epithelial 0-3 HPF (0-3); Yeast-All Forms None Seen HPF (None Seen)
--- NOTE | 2017-12-30 12:19 | CON ---
DATE OF CONSULTATION: 12/30/2017 HISTORY OF PRESENT ILLNESS: Ms. Mullen is an 82-year-old white female with known multiple medical pr oblems, chronic renal failure, was admitted with complaints of palpitations. She was found to be hav ing intermittent atrial fibrillation. Also, the consideration for ? of CHF. CT scan was said to hav e been ordered, which showed lower lobe opacities bilaterally. Please note that the chest x-ray on 0 12/29/2017 showed slightly improved finding. She has been treated for CHF and for pneumonia. We are being consulted for her chronic renal failure . I noted the creatinine was worsening. Empiric volume repletion is being given with this patient. This morning, she voices no new complaints, no chest pain, no shortness of breath. REVIEW OF SYSTEMS: No syncopal episode, no productive cough, no fever or chills, no abdominal pain. Appetite and energy level is decreased. No hematochezia, no melena, no dysuria, no urinary frequenc y. MEDICATIONS: [place] 5/325 q.4 p.r.n., alogliptin 25 mg daily, Augmentin 875 mg p.o. b.i.d., Eliquis 2 .5 mg p.o. b.i.d., Lipitor 80 mg at bedtime, Tessalon Perles p.r.n., Wellbutrin XL 75 mg once a day, calcitriol 0.25 mcg tab daily, Coreg 3.125 mg b.i.d., Celexa 40 mg at bedtime, glucagon p.r.n., insul in glargine 30 units subcu q.a.m., Levaquin 250 mg p.o. daily, Synthroid 75 mcg daily, Protonix 40 mg tab once a day, Mirapex 1.5 mg at bedtime, Lyrica 150 mg once a day, half normal saline 100 mL per h alejandro, Sandy p.r.n. PAST MEDICAL HISTORY: 1. Chronic renal failure from diabetic nephropathy. 2. Type 2 diabetes mellitus. 3. Diabetic neuropathy. 4. Rectal cancer in remission. 5. Status post CHF. 6. Intermittent AFib. 7. Restless legs syndrome. 8. Hypertension. 9. Depression. 10. Hyperlipidemia. 11. Diabetic retinopathy. 12. GERD. 13. Hypothyroidism. PAST SURGICAL HISTORY: Status post resection of rectal cancer, status post colonoscopy, status post ileostomy with subsequent takedown, status post cardiac catheterization, status post hysterectomy, st atus post open cholecystectomy, status post excision of skin cancer, status post left rotator cuff lawson rgery, status post laser therapy for diabetic retinopathy. ALLERGIES: CODEINE. TRAUMA: None. IMMUNIZATIONS: Up to date. HOSPITALIZATIONS: Please see past medical history. FAMILY HISTORY: No family history of ESRD. SOCIAL HISTORY: The patient lives in the [place] area. She is and lives with her son. Smoked for 40 years, 1 pack a day. 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 No blood transfusion. No IV drug abuse. Alcoh ol, none. Sedentary lifestyle. Education, high school. PHYSICAL EXAMINATION: VITAL SIGNS: Blood pressure is noted at 114/57, heart rate 73, respiratory rate 16, temperature 98, pulse ox 98%. GENERAL: Noted to be awake, alert, comfortable, not in distress. SKIN: Adequate turgor. HEENT: Pinkish conjunctivae. Anicteric sclerae. NECK: No neck mass, no carotid bruits, no JVD. CHEST: No deformities. LUNGS: Decreased breath sounds. HEART: Normal sinus rhythm. No murmur, no gallops, no rubs. ABDOMEN: Globular, soft, nontender. No masses. EXTREMITIES: No edema, no deformities. LABORATORY DATA: Laboratories of 12/30/2017, white count 10.8, hemoglobin 8.7. Sodium 131, potassiu m 3.8, chloride 99, carbon dioxide 20, BUN 57, creatinine 2.5, glucose 120, calcium 8.4. Further rev iew of her serum creatinine shows the followin12/29/2017, 2.38; 12/28/2017, creatinine 2.27; 12/09, creatinine 2.06. ASSESSMENT AND PLAN: 1. Acute kidney injury -- consider hemodynamically mediated renal dysfunction on top of her chronic renal failure. A repeat urinalysis has been done to rule out an acute tubular necrosis. I have deci ded to add salt poor albumin 25 grams IV q.6 with this patient. Continue to hold off any ADRIAN inhibit ors or ARB. 2. Intermittent atrial fibrillation. I think Cardiology is following. 3. Acute bronchitis -- currently on Levaquin. Agree with supportive management. There is no indication for any dialytic intervention.
--- NOTE | 2017-12-30 12:25 | EKG ---
Test Reason : Blood Pressure : / mmHG Vent. Rate : 100 BPM Atrial Rate : 122 BPM P-R Int : 000 ms QRS Dur : 074 ms QT Int : 364 ms P-R-T Axes : 000 005 105 degrees QTc Int : 469 ms Atrial fibrillation with premature ventricular or aberrantly conducted complexes Nonspecific ST and T wave abnormality Abnormal ECG Confirmed by FRANCISCO BETHEA ([id number]), fan mail editor JANAE DURHAM ([id number]) on 12/30/2017 12:24:54 PM Referred By: Confirmed By:FRANCISCO BETHEA
--- NOTE | 2017-12-30 13:33 | RAD ---
TWO VIEWS OF THE CHEST: COMPARISON: 12/29/17. HISTORY: Pneumonia and atelectasis. FINDINGS: Two views of the chest show an enlarged but stable cardiomediastinal silhouette with atherosclerotic calcifications in the aorta. Increased interstitial markings are present. Opacity is seen on the la teral image in the posterior thorax which may represent an infiltrate in one of the lower lobes. The right lower lobe is favored. Stable wedge compression deformity of a vertebral body at the thoracol umbar junction is seen. IMPRESSION: Posterior pneumonia. POS: [facility]
--- NOTE | 2017-12-30 13:35 | RAD ---
FOUR VIEWS OF THE SINUSES: COMPARISON: None. HISTORY: Coughing and obstructive sleep apnea. FINDINGS: Multiple views of the sinuses show complete aeration of the frontal, maxillary, ethmoid, and sphenoid sinuses. No significant increased density of the bones is seen surrounding the sinuses to suggest c hronic sinus disease. IMPRESSION: No evidence of sinus opacification. POS: [facility]
[2017-12-30] MEDS: Pramipexole Di-HCl 1 MG TAB PO SCH (21:31)
[2017-12-30] MEDS: Atorvastatin Calcium 40 MG TAB PO SCH (21:32)
[2017-12-30] MEDS: Citalopram 20 MG TAB PO SCH (21:33)
[2017-12-30] MEDS: Zolpidem Tartrate 5 MG TAB PO SCH (21:33)
[2017-12-31] MEDS: Albumin 25% 25 GM/100 ML BOT IVPB SCH ×4 (00:52→17:57)
[2017-12-31] MEDS: Benzonatate 100 MG CAP PO SCH ×4 (04:37→22:12)
[2017-12-31 05:59] LABS: #Eosinphils 0.1 thou/uL (0.0-0.7); #Lymphocytes 0.5 thou/uL (1.20-3.40); #Monocytes 0.6 thou/uL (0.11-0.59); #Neutrophils 8.7 thou/uL (1.40-6.50); %Eosinophils 0.7 % (0.0-10.0); %Monocytes 5.7 % (0.0-10.0); %Neutrophils 88.6 % (42.0-75.0); Hemoglobin 8.4 g/dL (12.0-16.0); Mean Corpuscular HGB CONC 31.1 g/dL (32.0-36.0); Mean Corpuscular Hemoglobin 30.7 pg (27.0-31.0); Mean Corpuscular Volume 98.7 fL (78.0-98.0); Mean Platelet Volume 6.7 fL (7.4-10.4); Platelet Count 323 thou/uL (130-400); RBC Distribution Width 12.8 % (11.5-14.5); Red Blood Cell (RBC) Count 2.73 mill/uL (4.20-5.40); White Blood Cell (WBC) Count 9.9 thou/uL (4.8-10.8)
[2017-12-31] MEDS: Levothyroxine Sodium 75 MCG TAB PO SCH (06:06)
[2017-12-31] MEDS: Sodium Chloride 0.45% 1,000 ML IV SCH ×2 (06:07→14:44)
[2017-12-31 06:08] LABS: Anion Gap 16 mmol/L (10-20); BUN (Urea Nitrogen) 55 mg/dL (9.8-20.1); Calc. Creatinine Clearance 26 mL/min (70-130); Calcium 8.7 mg/dL (7.8-10.44); Carbon Dioxide 21 mmol/L (23-31); Chloride 100 mmol/L (98-107); Estimated GFR-MDRD 19; Glucose 151 mg/dL (83-110); Potassium 4.1 mmol/L (3.5-5.1); Sodium 133 mmol/L (136-145)
[2017-12-31] MEDS: Insulin Glargine 30 UNITS in Pre-Filled Syringe 1 EACH SC SCH (08:15)
[2017-12-31] MEDS: Apixaban 2.5 MG TAB PO SCH ×2 (08:22→22:22)
[2017-12-31] MEDS: Pregabalin 75 MG CAP PO SCH (08:22)
[2017-12-31] MEDS: Calcitriol 0.25 MCG CAP PO SCH (08:22)
[2017-12-31] MEDS: Bupropion 150 MG XL TAB PO SCH (08:22)
[2017-12-31] MEDS: Amoxicillin/Potassium Clav 875 MG TAB PO SCH ×2 (08:23→22:12)
[2017-12-31] MEDS: Alogliptin 25 MG TAB PO SCH (08:23)
[2017-12-31] MEDS: Carvedilol 3.125 MG TAB PO SCH ×2 (08:23→17:57)
[2017-12-31] MEDS: Oxymetazoline HCl 0.05% ( 15 ML ) NASAL SCH (08:24)
--- NOTE | 2017-12-31 12:34 | PRG ---
DATE OF SERVICE: 12/31/2017 SERVICE: Renal Medicine. SUBJECTIVE: Ms. Mullen is an 82-year-old white female who was admitted for intermittent palpitation s/atrial fibrillation. We are following this patient for her acute kidney injury on top of her chron ic renal failure. Renal function has been stabilizing. She has been started on salt poor albumin. Of interest on 12/30/2017, chest x-ray showed posterior pneumonia. The patient is currently receivin g antibiotics. No other complaints today. PHYSICAL EXAMINATION: VITAL SIGNS: Blood pressure 153/69, heart rate 76, respiratory rate 16, temperature 98.3, pulse ox 9 3%. GENERAL: Awake, alert, supine, comfortable, not in overt distress. SKIN: Adequate turgor. HEENT: Slightly pale conjunctivae, anicteric sclerae. NECK: No neck mass, no carotid bruits, no JVD. LUNGS: Decreased breath sounds. HEART: Normal sinus rhythm. No murmur, no gallops, no rubs. ABDOMEN: Globular, soft, nontender. EXTREMITIES: No edema, no deformities. MEDICATIONS: Of 12/31/2017 was reviewed. LABORATORY DATA: Of 12/31/2017, sodium 133, potassium 4.1, chloride 100, carbon dioxide 21, BUN 55, creatinine 2.43, GFR 19 mL per minute, glucose 151, calcium 8.7. White count 9.9, hemoglobin 8.4. ASSESSMENT AND PLAN: 1. Acute kidney injury on top of her chronic renal failure - superimposed hemodynamically mediated r enal dysfunction. Currently, on empiric repletion. The urinalysis on 12/30/2017 was relativel y benign. No pigmented granular cast was noted at this time. We will continue current management. No indication for any dialytic intervention. 2. Pneumonia, on antibiotics. 3. Anemia - continue to observe. We will be rechecking base met and CBC in a.m.
[2017-12-31] MEDS: Insulin Regular 300 UNITS/3 ML VIAL SC PRN (18:14)
[2017-12-31] MEDS: Ondansetron ODT 4 MG TAB PO PRN (18:23)
[2017-12-31] MEDS: Atorvastatin Calcium 40 MG TAB PO SCH (22:12)
[2017-12-31] MEDS: Citalopram 20 MG TAB PO SCH (22:13)
[2017-12-31] MEDS: Zolpidem Tartrate 5 MG TAB PO SCH (22:13)
[2017-12-31] MEDS: Pramipexole Di-HCl 1 MG TAB PO SCH (22:16)
[2018-01-01] MEDS: Albumin 25% 25 GM/100 ML BOT IVPB SCH ×5 (01:02→23:35)
[2018-01-01] MEDS: HYDROcodone/Acetaminophen 5/325 mg Tablet PO PRN ×2 (01:03→20:13)
[2018-01-01] MEDS: Benzonatate 100 MG CAP PO SCH ×4 (02:27→20:12)
[2018-01-01 05:47] LABS: Anion Gap 14 mmol/L (10-20); BUN (Urea Nitrogen) 54 mg/dL (9.8-20.1); Calc. Creatinine Clearance 26 mL/min (70-130); Calcium 8.8 mg/dL (7.8-10.44); Carbon Dioxide 22 mmol/L (23-31); Chloride 98 mmol/L (98-107); Estimated GFR-MDRD 20; Glucose 162 mg/dL (83-110); Potassium 4.3 mmol/L (3.5-5.1); Sodium 130 mmol/L (136-145)
[2018-01-01 06:37] LABS: Hemoglobin 8.5 g/dL (12.0-16.0); Hypochromia SLIGHT = 6-15 cells (100X) (0-5/hpf); Lymphocytes 5 % (21-51); MDiff Complete? YES; Mean Corpuscular HGB CONC 31.5 g/dL (32.0-36.0); Mean Corpuscular Hemoglobin 31.1 pg (27.0-31.0); Mean Corpuscular Volume 98.6 fL (78.0-98.0); Mean Platelet Volume 6.7 fL (7.4-10.4); Monocytes 6 % (0-10); Neutrophil 89 % (42-75); PLT Morphology Comment Appears Adequate; Platelet Count 365 thou/uL (130-400); RBC Distribution Width 12.9 % (11.5-14.5); Red Blood Cell (RBC) Count 2.75 mill/uL (4.20-5.40)
[2018-01-01] MEDS: Levothyroxine Sodium 75 MCG TAB PO SCH (06:43)
[2018-01-01] MEDS: Calcitriol 0.25 MCG CAP PO SCH (08:35)
[2018-01-01] MEDS: Carvedilol 3.125 MG TAB PO SCH ×2 (08:35→17:39)
[2018-01-01] MEDS: Pregabalin 75 MG CAP PO SCH (08:36)
[2018-01-01] MEDS: Alogliptin 25 MG TAB PO SCH (08:37)
[2018-01-01] MEDS: Apixaban 2.5 MG TAB PO SCH ×2 (08:39→20:13)
[2018-01-01] MEDS: Amoxicillin/Potassium Clav 875 MG TAB PO SCH ×2 (08:39→20:10)
[2018-01-01] MEDS: Insulin Glargine 30 UNITS in Pre-Filled Syringe 1 EACH SC SCH (08:40)
[2018-01-01] MEDS: Bupropion 150 MG XL TAB PO SCH (08:45)
[2018-01-01] MEDS: Oxymetazoline HCl 0.05% ( 15 ML ) NASAL SCH (08:47)
[2018-01-01] MEDS: Metolazone 5 MG TAB PO SCH (08:47)
[2018-01-01] MEDS: cefTRIAXone\\ROCEPHIN 2 GM in Sodium Chloride 0.9% 100 ML IVPB SCH (08:48)
[2018-01-01] MEDS ORDERED: Furosemide 40 MG/4 ML VIAL SLOW IVP SCH (09:15)
--- NOTE | 2018-01-01 09:26 | PRG ---
DATE OF SERVICE: 01/01/2018 SERVICE: Renal Medicine. SUBJECTIVE: Ms. Mullen is an 82-year-old white female, who was admitted for pneumonia. This morning , she is complaining of some shortness of breath. Denies any chest pain with this. Please note, we will be empirically volume repleting her for volume depletion. OBJECTIVE: VITAL SIGNS: Blood pressure is 169/79, heart rate is 102, respiratory rate 18, temperature 96.1, pul se ox 93%. GENERAL EXAM: Noted to be awake, supine, comfortable, not in overt distress. SKIN: Adequate turgor. HEENT: She has slightly pale conjunctivae, anicteric sclerae. NECK: No neck mass, no carotid bruits, no JVD. CHEST: No deformities. LUNGS: Clear. Decreased breath sounds. HEART: Normal sinus rhythm. No murmur, no gallops, no rubs. ABDOMEN: Globular, soft, nontender, no masses. EXTREMITIES: No edema, no deformities. Medications of 01/01/2018 were reviewed. LABORATORY DATA: Laboratories of 01/01/2018, white count 12, hemoglobin 8.5. Sodium 130, potassium 4.3, chloride 98, carbon dioxide 22, BUN 54, creatinine 2.34, glucose 162, calcium 8.8. ASSESSMENT AND PLAN: 1. Pneumonia, currently on antibiotics. 2. Mild shortness of breath - this could be underlying pneumonia. However, we will empirically give her 1-time dose of Lasix 40 mg IV. Please note, she is off her normal saline and this was discontin ued yesterday. Recheck basic metabolic panel and CBC in a.m.
--- NOTE | 2018-01-01 15:31 | RAD ---
PA AND LATERAL CHEST: HISTORY: Worsening pneumonia. COMPARISON: 12/30/2017 FINDINGS: Heart size is enlarged. Mild vascular engorgement is noted. Parenchymal changes in the right mid ana ng field, which appear to be more related to the posterior segment of the right upper lobe, are perha ps slightly increased. There is increased elevation of the right hemidiaphragm. The changes in the region of the posterior basal segment of the lower lobes appear less prominent than on the prior exam , but it may be that it is just being obscured by the overlying elevated hemidiaphragm and does not r epresent a reveal interval change. IMPRESSION: 1. Cardiomegaly with mild vascular engorgement, slightly increased in appearance to the right upper lobe parenchymal changes seen in the right mid lung field. 2. The right hemidiaphragm is more elevated. There are some infiltrative appearing changes in the p osterior sulcus region on the previous lateral examination. I am not certain whether these are impro nola or just being more obscured by the elevated hemidiaphragm. POS: [facility]
[2018-01-01] MEDS: Insulin Regular 300 UNITS/3 ML VIAL SC PRN (17:39)
[2018-01-01] MEDS: Pramipexole Di-HCl 1 MG TAB PO SCH (20:10)
[2018-01-01] MEDS: Atorvastatin Calcium 40 MG TAB PO SCH (20:14)
[2018-01-01] MEDS: Citalopram 20 MG TAB PO SCH (20:14)
[2018-01-01] MEDS: Zolpidem Tartrate 5 MG TAB PO SCH (20:16)
[2018-01-01] MEDS ORDERED: Docusate 100 MG CAP PO SCH (22:00)
[2018-01-01] MEDS: Docusate 100 MG CAP PO SCH (23:31)
[2018-01-02] MEDS: Benzonatate 100 MG CAP PO SCH ×5 (03:52→21:33)
[2018-01-02] MEDS ORDERED: cloNIDine 0.1 MG TAB PO PRN (04:28)
[2018-01-02] MEDS: Albumin 25% 25 GM/100 ML BOT IVPB SCH (05:25)
[2018-01-02] MEDS: Levothyroxine Sodium 75 MCG TAB PO SCH (05:25)
[2018-01-02 06:01] LABS: Anion Gap 17 mmol/L (10-20); BUN (Urea Nitrogen) 56 mg/dL (9.8-20.1); Calc. Creatinine Clearance 32 mL/min (70-130); Calcium 9.8 mg/dL (7.8-10.44); Carbon Dioxide 22 mmol/L (23-31); Chloride 99 mmol/L (98-107); Estimated GFR-MDRD 23; Glucose 164 mg/dL (83-110); Potassium 4.4 mmol/L (3.5-5.1); Sodium 134 mmol/L (136-145)
[2018-01-02 06:07] LABS: Band 15 % (5-11); Hemoglobin 8.9 g/dL (12.0-16.0); Lymphocytes 1 % (21-51); MDiff Complete? YES; Mean Corpuscular HGB CONC 32.4 g/dL (32.0-36.0); Mean Corpuscular Hemoglobin 31.7 pg (27.0-31.0); Mean Platelet Volume 6.7 fL (7.4-10.4); Monocytes 1 % (0-10); Myelocyte 2 % (0-0); Neutrophil 81 % (42-75); PLT Morphology Comment Appears Adequate; Platelet Count 392 thou/uL (130-400); RBC Distribution Width 13.1 % (11.5-14.5); White Blood Cell (WBC) Count 11.2 thou/uL (4.8-10.8)
[2018-01-02] MEDS: Oxymetazoline HCl 0.05% ( 15 ML ) NASAL SCH (07:59)
[2018-01-02] MEDS: Metolazone 5 MG TAB PO SCH (08:26)
[2018-01-02] MEDS: Amoxicillin/Potassium Clav 875 MG TAB PO SCH ×2 (08:27→21:32)
[2018-01-02] MEDS: Apixaban 2.5 MG TAB PO SCH ×2 (08:27→21:32)
[2018-01-02] MEDS: Carvedilol 3.125 MG TAB PO SCH ×2 (08:27→17:05)
[2018-01-02] MEDS ORDERED: Furosemide 40 MG/4 ML VIAL SLOW IVP SCH (08:30)
[2018-01-02] MEDS: cefTRIAXone\\ROCEPHIN 2 GM in Sodium Chloride 0.9% 100 ML IVPB SCH (08:36)
[2018-01-02] MEDS: Furosemide 100 MG/10 ML VIAL SLOW IVP SCH ×2 (08:57→12:42)
--- NOTE | 2018-01-02 09:01 | PRG ---
DATE OF SERVICE: 01/02/2018 SERVICE: Renal Medicine. SUBJECTIVE: Ms. Mullen is an 82-year-old white female who was seen by the Renal Service for her acut e kidney injury on top of her chronic renal failure. Initially, she was being volume repleted to imp rove renal function, which has improved over time. However, on further evaluation, she also has pneu monia. Last night, the patient was noted to be more short of breath. For this reason, we have start ed the patient on Lasix 80 mg IV q.12 hours. OBJECTIVE: VITAL SIGNS: Blood pressure is noted at 197/88, heart rate is 101, respiratory rate 18, pulse ox 93% on Venturi mask. GENERAL: Noted to be awake, alert, in mild respiratory distress. SKIN: Adequate turgor. HEENT: She has slightly pale conjunctivae, anicteric sclerae. NECK: No neck mass, no carotid bruits, no JVD. CHEST: No deformities. LUNGS: Decreased breath sounds. HEART: Normal sinus rhythm. No murmur, no gallops or rubs. ABDOMEN: Globular, soft, nontender. No masses. EXTREMITIES: No edema. No deformities. LABORATORY DATA: Of 01/02/2018, white count 11.2, hemoglobin 8.9, hematocrit 27.4, sodium 134, potas sium 4.4, chloride 99, carbon dioxide 22, BUN 25, creatinine 2.09, glucose 164, calcium 9.8. ASSESSMENT AND PLAN: 1. Acute kidney injury on top of her chronic renal failure - stable renal function. Creatinine is a ctually slightly improved to 2.09 from 2.34 yesterday. Please note that the patient's creatinine pea ked at the value of 2.5. 2. Shortness of breath - rule out congestive heart failure. Chest x-ray has been ordered. Empiric Lasix 80 mg IV q.12 hours. We have inserted a Stern catheter with this patient. 3. Anemia. Continue to observe. We will recheck base met and CBC in a.m. 4. Pneumonia, on antibiotics.
[2018-01-02] MEDS: Insulin Glargine 30 UNITS in Pre-Filled Syringe 1 EACH SC SCH (09:14)
[2018-01-02] MEDS: Alogliptin 25 MG TAB PO SCH (09:14)
[2018-01-02] MEDS: Pregabalin 75 MG CAP PO SCH (09:14)
[2018-01-02] MEDS: Bupropion 150 MG XL TAB PO SCH (09:15)
[2018-01-02] MEDS: Calcitriol 0.25 MCG CAP PO SCH (09:16)
--- NOTE | 2018-01-02 10:11 | RAD ---
PORTABLE CHEST ONE VIEW: Date: 01-02-18 Time: 7:32 a.m. History: CHF. FINDINGS/IMPRESSION: Comparison is made with exam of previous day. The heart is enlarged. There is mild pulmonary vascular congestion. There is continued elevation of t he right hemidiaphragm. Patchy infiltrates are seen in the right mid and lower lung zones with interv al worsening since the last exam. Small right pleural effusion is seen. No pneumothoraces are identif ied. POS: [facility]
[2018-01-02 11:41] LABS: Actual Bicarbonate (HCO3a) 19.9 mEq/L (22-28); Base Excess (BEa) -7.2 mEq/L (-2.0 to +3.0); CO2 Tension 47.5 mmHg (35.0-45.0); Carboxyhemoglobin (COHb) 1.4 gm% (0.0-3.0); O2 Tension (PaO2) 81.1 mmHg (> 60.0); Potassium - ABG Lab 4.32 mmol/L (3.70-5.30)
[2018-01-02 11:46] LABS: pH, Arterial 7.24 (7.35-7.45)
[2018-01-02 11:47] LABS: ALV-art Gradient 59.165 (0-20); Peep/CPAP 7.3 cmH2O; Puncture Site LRA
--- NOTE | 2018-01-02 12:20 | PRG ---
DATE OF SERVICE: 01/02/2018 Ms. Mullen is complaining of pretty severe back pain and she is having intractable nausea. She has b een hemodynamically stable. Dr. Powers has seen and recommends dialysis today. PHYSICAL EXAMINATION: VITAL SIGNS: Blood pressure is 86/58, heart rate is 105, respirations are 21. She is afebrile. She has had a small urinary void and a bowel movement. ABDOMEN: Her abdomen is soft, it is distended and she has ascites on exam. No guarding or rebound. LABORATORY DATA: White blood cell count is 11, hemoglobin 8.7 that is down from 9.4 on admission. P latelets are 328. Sodium 134, creatinine is 2.93, bilirubin is 1.7. ASSESSMENT: 1. History of metastatic ovarian cancer and carcinomatosis. 2. Splenic laceration, small. PLAN: Continue to watch H&H. She will probably be ready to be discharged from here in the next day or two.
--- NOTE | 2018-01-02 13:59 | PDOC.CTH ---
<QuynhAnastacia - Last Filed: 01/02/18 13:56> Cardiology Progress Note - Subjective The pt seen and examined. No overnight events. No cardiac complaints. She feels better after Lasix and Cpap. Plan to tx to [facility]. - Objective Vital Signs Temp Pulse Resp BP BP Pulse Ox 01/02/18 12:31 100 01/02/18 11:43 97.8 F 88 22 H 166/74 H 100 01/02/18 10:53 73 24 H 92 L 01/02/18 08:28 93 136/67 98 01/02/18 08:24 32 H 100 01/02/18 08:05 97.4 F L 97 24 H 155/74 H 98 01/02/18 06:58 93 L 01/02/18 06:56 101 H 18 94 L 01/02/18 04:45 197/88 H 01/02/18 04:00 96.4 F L 89 22 H 197/88 H 92 L 01/02/18 02:41 92 L Admit Weight 173 lb 14.4 oz Weight 205 lb 1.6 oz 01/01/18 01/02/18 01/03/18 06:59 06:59 06:59 Intake Total 1770 370 Output Total 9044 934 5480 Balance 550 -480 -1000 - Physical Examination General/Neuro: alert & oriented x3 Neck: no JVD present Lungs: other: (diminished at bases) Heart: RRR Abdomen: soft Extremities: other: (No edema) - Telemetry Telemetry Rhythm: SR 80s - Labs Result Diagrams: 01/02/18 05:03 01/02/18 05:03 Troponin/CKMB CK-MB (CK-2) 2.1 ng/mL (0-6.6) 12/27/17 10:32 Troponin I 0.034 ng/mL (< 0.028) H 12/27/17 10:32 - Assessment/Plan 1. Paroxysmal Afib - remains in SR. On Coreg and Eliquis 2.5mg BID due to age and CKD. 2. Acute on Chronic Diastolic HF - lasix IV was increased to 80mg BID by Dr Flores today. Stable. On BBlocker. Not on ADRIAN/ARB due to hx of CKD. 3. CKD - improving; managed by Dr Flores. 4. 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 PNA - cont. IV antibiotics by PCP. 6. HTN - Hypertensive; diuretic was increased from today. cont. to monitor 7. Hyperlipidemia - on Statin 8. Sleep Apea - wearing hoem Cpap now. Instructed to wear Cpap at home. 9. Hx of TIA/CVA - stable 10. Diarrhea - stable 11. Anemia. Multifactorial. Anemia of chronic disease and assoc. with CKD. 12. Constipation - Colace was given MAR reviewed * Echo in 11/2017 showed EF 50-55%, restrictive diastolic dysfunction, mod bilat. dilated atriums, mild-mod MR, mild MR, mild UT, and mild-mod TR. Review of Systems - Review of Systems Constitutional: reports: no symptoms reported EENTM: reports: no symptoms reported Respiratory: reports: no symptoms reported Cardiac (ROS): reports: no symptoms reported ABD/GI: reports: no symptoms reported : reports: no symptoms reported Musculoskeletal: reports: no symptoms reported <Jair Barlow - Last Filed: 01/02/18 16:08> Cardiology Progress Note - Objective Vital Signs Temp Pulse Resp BP BP Pulse Ox 01/02/18 14:50 89 24 H 98 01/02/18 12:31 100 01/02/18 11:43 97.8 F 88 22 H 166/74 H 100 01/02/18 10:53 73 24 H 92 L 01/02/18 08:28 93 136/67 98 01/02/18 08:24 32 H 100 01/02/18 08:05 97.4 F L 97 24 H 155/74 H 98 01/02/18 06:58 93 L 01/02/18 06:56 101 H 18 94 L 01/02/18 04:45 197/88 H Admit Weight 173 lb 14.4 oz Weight 205 lb 1.6 oz 01/01/18 01/02/18 01/03/18 06:59 06:59 06:59 Intake Total 1770 370 Output Total 8005 856 8728 Balance 550 480 1000 - Labs Result Diagrams: 01/02/18 05:03 01/02/18 05:03 Troponin/CKMB CK-MB (CK-2) 2.1 ng/mL (0-6.6) 12/27/17 10:32 Troponin I 0.034 ng/mL (< 0.028) H 09/19/18 10:32 - Assessment/Plan pt. seen and eval. by me. Events of last 24 hours reviewed. She became vol. overloaded. She is responding well to the diuretics. She has diastolic dysfunction and CKD. This makes it difficult to control the vol. status. I agree with the increased diuretics. Continue Coreg and diuretics. I agree with the A/P by the BIOLOGICAL SCIENCES PROFESSOR. we will continue to follow the pt. with you.
[2018-01-02] MEDS: Ondansetron ODT 4 MG TAB PO PRN (18:40)
[2018-01-02] MEDS: Pramipexole Di-HCl 1 MG TAB PO SCH (21:32)
[2018-01-02] MEDS: Atorvastatin Calcium 40 MG TAB PO SCH (21:32)
[2018-01-02] MEDS: Zolpidem Tartrate 5 MG TAB PO SCH (21:32)
[2018-01-02] MEDS: Docusate 100 MG CAP PO SCH (21:32)
[2018-01-02] MEDS: Citalopram 20 MG TAB PO SCH (21:33)
[2018-01-03] MEDS ORDERED: Lorazepam 1 MG TAB PO SCH (00:30)
[2018-01-03] MEDS ORDERED: Furosemide 40 MG/4 ML VIAL SLOW IVP SCH ×3 (00:30→06:00)
[2018-01-03] MEDS: Benzonatate 100 MG CAP PO SCH ×4 (04:08→20:51)
[2018-01-03] MEDS ORDERED: Furosemide 40 MG/4 ML VIAL ONE (04:25)
[2018-01-03 06:03] LABS: #Eosinphils 0.1 thou/uL (0.0-0.7); #Lymphocytes 0.3 thou/uL (1.20-3.40); #Monocytes 0.4 thou/uL (0.11-0.59); #Neutrophils 9.8 thou/uL (1.40-6.50); %Basophils 0.1 % (0.0-1.0); %Eosinophils 0.5 % (0.0-10.0); %Lymphocytes 3.2 % (21.0-51.0); %Monocytes 3.4 % (0.0-10.0); %Neutrophils 92.7 % (42.0-75.0); Mean Corpuscular HGB CONC 31.9 g/dL (32.0-36.0); Mean Corpuscular Hemoglobin 31.3 pg (27.0-31.0); Mean Platelet Volume 6.8 fL (7.4-10.4); Platelet Count 373 thou/uL (130-400); RBC Distribution Width 13.2 % (11.5-14.5); Red Blood Cell (RBC) Count 2.88 mill/uL (4.20-5.40); White Blood Cell (WBC) Count 10.6 thou/uL (4.8-10.8)
[2018-01-03 06:29] LABS: Anion Gap 19 mmol/L (10-20); BUN (Urea Nitrogen) 62 mg/dL (9.8-20.1); Calc. Creatinine Clearance 30 mL/min (70-130); Calcium 9.6 mg/dL (7.8-10.44); Carbon Dioxide 23 mmol/L (23-31); Chloride 97 mmol/L (98-107); Estimated GFR-MDRD 22; Glucose 181 mg/dL (83-110); Potassium 4.3 mmol/L (3.5-5.1); Sodium 135 mmol/L (136-145)
[2018-01-03] MEDS: Levothyroxine Sodium 75 MCG TAB PO SCH ×2 (06:35→06:47)
[2018-01-03] MEDS: Insulin Regular 300 UNITS/3 ML VIAL SC PRN (06:49)
--- NOTE | 2018-01-03 08:53 | PRG ---
DATE OF SERVICE: 01/03/2018 SUBJECTIVE: Ms. Mullen is an 82-year-old white female followed up for her chronic renal failure/acut e kidney injury. Yesterday went into respiratory distress. She was empirically started on IV Lasix at 80 mg IV q.12 hours. She may have gone to diastolic dysfunction leading to some degree of CHF. S he is feeling better. The patient has been seen by her gas engine operator. No new complaints today. PHYSICAL EXAMINATION: VITAL SIGNS: Blood pressure is 117/64, heart rate 125, temperature 97.4, pulse ox 100%, respiratory rate 15. GENERAL: Awake, supine, comfortable, not in overt distress. SKIN: Adequate turgor. HEENT: Slightly pale conjunctivae, anicteric sclerae. NECK: No neck mass, no carotid bruits, no JVD. CHEST: No deformities. LUNGS: Decreased breath sounds. HEART: Tachycardic. ABDOMEN: Globular, soft, nontender. No masses. EXTREMITIES: No edema, no deformities. MEDICATIONS: 01/03/2018 - Reviewed. LABORATORY: 01/03/2018 - White count 10.6, hemoglobin 9, sodium 135, potassium 4.3, chloride 97, car bon dioxide 23, BUN 62, creatinine 2.15, glucose 181, calcium 9.6. 01/02/2018 - Chest x-ray showed mild pulmonary vascular congestion. Patchy infiltrates seen in the r ight and lower lung zones suggestive of pneumonia. . ASSESSMENT AND PLAN: 1. Shortness of breath - consider a superimposed congestive heart failure. Currently on IV Lasix. Adjust as needed. 2. Acute kidney injury/chronic renal failure, stabilizing renal function. No indication for any jasmin lytic intervention. Currently on diuretics. 3. Pneumonia, on antibiotics. We will recheck base met and CBC in a.m.
[2018-01-03] MEDS: Metolazone 5 MG TAB PO SCH (09:35)
[2018-01-03] MEDS: Calcitriol 0.25 MCG CAP PO SCH (09:35)
[2018-01-03] MEDS: Apixaban 2.5 MG TAB PO SCH ×2 (09:35→20:52)
[2018-01-03] MEDS: Bupropion 150 MG XL TAB PO SCH (09:36)
[2018-01-03] MEDS: Pregabalin 75 MG CAP PO SCH (09:36)
[2018-01-03] MEDS: Amoxicillin/Potassium Clav 875 MG TAB PO SCH (09:37)
[2018-01-03] MEDS: Docusate 100 MG CAP PO SCH ×2 (09:37→20:49)
[2018-01-03] MEDS: Carvedilol 3.125 MG TAB PO SCH (09:37)
[2018-01-03] MEDS: cefTRIAXone\\ROCEPHIN 2 GM in Sodium Chloride 0.9% 100 ML IVPB SCH (09:38)
[2018-01-03] MEDS: Furosemide 100 MG/10 ML VIAL SLOW IVP SCH ×2 (09:38→20:51)
[2018-01-03] MEDS: Alogliptin 25 MG TAB PO SCH (09:38)
[2018-01-03] MEDS: Oxymetazoline HCl 0.05% ( 15 ML ) NASAL SCH (09:39)
[2018-01-03] MEDS: Insulin Glargine 30 UNITS in Pre-Filled Syringe 1 EACH SC SCH (09:39)
[2018-01-03] MEDS: Furosemide 100 MG, Admixture Fee 1 EACH in Sodium Chloride 0.9% 90 ML IVPB SCH ×2 (09:40→19:18)
--- NOTE | 2018-01-03 12:25 | PDOC.CTH ---
<Anastacia Beauchamp - Last Filed: 01/03/18 12:23> Cardiology Progress Note - Subjective The pt was seen and examined. Converted back to Afib with HR 110-140s since 1839 on 01/02/18. She did not wear Cpap last night her family's report. The pt is very drowsy. - Objective Vital Signs Temp Pulse Resp BP Pulse Ox 01/03/18 12:00 97 01/03/18 11:38 97.8 F 127 H 19 115/56 L 99 01/03/18 10:47 119 H 20 01/03/18 08:01 125 H 20 01/03/18 07:59 100 01/03/18 07:36 97.4 F L 126 H 15 117/64 100 01/03/18 05:10 98 01/03/18 05:00 117 H 16 100 01/03/18 04:35 97.4 F L 126 H 20 159/92 H 95 01/03/18 04:00 145 H 35 H 195/111 H 88 L 01/03/18 02:32 91 L Admit Weight 173 lb 14.4 oz Weight 198 lb 6.4 oz 01/02/18 01/03/18 01/04/18 06:59 06:59 06:59 Intake Total 370 320 Output Total 850 4600 Balance -480 -4280 - Physical Examination General/Neuro: alert & oriented x3 Neck: no JVD present Lungs: CTA, other: (coarses and diminished at bases) Heart: other: (irregular) Abdomen: soft Extremities: other: (No edema) - Telemetry Telemetry Rhythm: AFib 110-130s - Labs Result Diagrams: 01/03/18 05:51 01/03/18 05:51 Troponin/CKMB CK-MB (CK-2) 2.1 ng/mL (0-6.6) 12/27/17 10:32 Troponin I 0.034 ng/mL (< 0.028) H 12/27/17 10:32 - Assessment/Plan 1. Paroxysmal Afib - converted back to Afib since 1839 on 01/02/18. Increase Coreg from 3.125mg BID to 6.25mg BID. Also Dig 0.5mg IV x1 will be given. On Eliquis 2.5mg BID due to age and CKD. 2. Acute on Chronic Diastolic HF - Lasix IV was changed cont. IV 10mg/h. Not on ADRIAN/ARB due to hx of CKD. 3. CKD - worsened today. Managed by Dr Flores. 4. 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 PNA - cont. IV antibiotics by PCP. 6. HTN - Hypertensive; diuretic was increased from today. cont. to monitor 7. Hyperlipidemia - on Statin 8. Sleep Apea - wearing hoem Cpap now. Instructed to wear Cpap at home. 9. Hx of TIA/CVA - stable 10. Diarrhea - stable 11. Anemia. Multifactorial. Anemia of chronic disease and assoc. with CKD. 12. Constipation - Colace was given MAR reviewed * Echo in 11/2017 showed EF 50-55%, restrictive diastolic dysfunction, mod bilat. dilated atriums, mild-mod MR, mild MR, mild IN, and mild-mod TR. Review of Systems - Review of Systems Constitutional: reports: no symptoms reported, see HPI EENTM: reports: no symptoms reported, see HPI Respiratory: reports: see HPI Cardiac (ROS): reports: see HPI ABD/GI: reports: see HPI : reports: see HPI Musculoskeletal: reports: see HPI <Jair Barlow - Last Filed: 01/03/18 17:45> Cardiology Progress Note - Objective Vital Signs Temp Pulse Resp BP BP Pulse Ox 01/03/18 16:58 104/79 01/03/18 16:00 98 01/03/18 15:50 97.9 F 97 18 133/59 L 94 L 01/03/18 15:43 111 H 24 H 91 L 01/03/18 12:43 121 H 01/03/18 12:00 97 01/03/18 11:38 97.8 F 127 H 19 115/56 L 99 01/03/18 10:47 119 H 20 01/03/18 08:01 125 H 20 01/03/18 07:59 100 01/03/18 07:36 97.4 F L 126 H 15 117/64 100 Admit Weight 173 lb 14.4 oz Weight 198 lb 6.4 oz 01/02/18 01/03/18 01/04/18 06:59 06:59 06:59 Intake Total 370 320 Output Total 850 4600 Balance -374 -7936 - Labs Result Diagrams: 01/03/18 05:51 01/03/18 05:51 Troponin/CKMB CK-MB (CK-2) 2.1 ng/mL (0-6.6) 12/27/17 10:32 Troponin I 0.034 ng/mL (< 0.028) H 12/27/17 10:32 - Assessment/Plan Pt. seen and eval. by me. I agree with the A/P by the TIMBER INSPECTOR.She has diuresed well and is breathing better. Also has a CPAP mask. with hte diastolic dysfunction we will need to be careful not to overdiurese her. Chest: bilateral rales stil present. RRR.Minimal edema.
[2018-01-03] MEDS ORDERED: Digoxin 0.5 MG/2 ML AMP SLOW IVP SCH (12:30)
[2018-01-03] MEDS ORDERED: Carvedilol 3.125 MG TAB PO SCH (12:30)
[2018-01-03] MEDS: Carvedilol 6.25 MG TAB PO SCH (16:58)
[2018-01-03] MEDS ORDERED: Bisacodyl 10 MG SUPP PR SCH (17:45)
[2018-01-03] MEDS: Atorvastatin Calcium 40 MG TAB PO SCH (20:49)
[2018-01-03] MEDS: Zolpidem Tartrate 5 MG TAB PO SCH (20:49)
[2018-01-03] MEDS: Citalopram 20 MG TAB PO SCH (20:49)
[2018-01-03] MEDS: Pramipexole Di-HCl 1 MG TAB PO SCH (20:50)
[2018-01-04] MEDS: Benzonatate 100 MG CAP PO SCH ×4 (02:14→20:05)
[2018-01-04 04:11] LABS: #Eosinphils 0.1 thou/uL (0.0-0.7); #Lymphocytes 0.6 thou/uL (1.20-3.40); #Monocytes 0.5 thou/uL (0.11-0.59); %Basophils 0.2 % (0.0-1.0); %Eosinophils 1.5 % (0.0-10.0); %Lymphocytes 6.1 % (21.0-51.0); %Monocytes 5.4 % (0.0-10.0); %Neutrophils 86.9 % (42.0-75.0); Mean Corpuscular HGB CONC 31.3 g/dL (32.0-36.0); Mean Corpuscular Hemoglobin 30.8 pg (27.0-31.0); Mean Corpuscular Volume 98.3 fL (78.0-98.0); Mean Platelet Volume 6.6 fL (7.4-10.4); Platelet Count 381 thou/uL (130-400); RBC Distribution Width 13.4 % (11.5-14.5); Red Blood Cell (RBC) Count 2.91 mill/uL (4.20-5.40); White Blood Cell (WBC) Count 9.2 thou/uL (4.8-10.8)
[2018-01-04 04:29] LABS: Anion Gap 13 mmol/L (10-20); BUN (Urea Nitrogen) 67 mg/dL (9.8-20.1); Calc. Creatinine Clearance 27 mL/min (70-130); Calcium 9.8 mg/dL (7.8-10.44); Carbon Dioxide 30 mmol/L (23-31); Chloride 99 mmol/L (98-107); Estimated GFR-MDRD 20; Glucose 85 mg/dL (83-110); Potassium 3.9 mmol/L (3.5-5.1); Sodium 138 mmol/L (136-145)
[2018-01-04] MEDS: Levothyroxine Sodium 75 MCG TAB PO SCH (05:39)
[2018-01-04] MEDS: Furosemide 100 MG, Admixture Fee 1 EACH in Sodium Chloride 0.9% 90 ML IVPB SCH (05:39)
--- NOTE | 2018-01-04 09:01 | PDOC.CTH ---
<Anastacia Beauchamp - Last Filed: 01/04/18 08:57> Cardiology Progress Note - Subjective The pt seen and examined. No overnight events. No cardiac complaints. However , she complains of chronic fatigue. She also stated she can breath better this AM since she worn Cpap last night. - Objective Vital Signs Temp Pulse Resp BP BP Pulse Ox 01/04/18 08:13 96.4 F L 84 23 H 130/69 96 01/04/18 08:00 98 01/04/18 07:52 84 22 H 99 01/04/18 07:50 87 19 100 01/04/18 04:00 96.7 F L 87 17 118/55 L 99 01/04/18 02:31 80 16 98 01/04/18 00:35 82 16 100 01/04/18 00:00 96.6 F L 82 17 117/44 L 98 01/03/18 23:15 83 18 97 Admit Weight 173 lb 14.4 oz Weight 199 lb 1.6 oz 01/03/18 01/04/18 01/05/18 06:59 06:59 06:59 Intake Total 320 696.1 Output Total 4600 1500 Balance -4280 -803.9 - Physical Examination General/Neuro: alert & oriented x3 Neck: no JVD present Lungs: other: (coarses) Heart: RRR Abdomen: soft Extremities: other: (1+ pitting BLE edema) - Telemetry Telemetry Rhythm: SR 80s - Labs Result Diagrams: 01/04/18 03:40 01/04/18 03:40 Troponin/CKMB CK-MB (CK-2) 2.1 ng/mL (0-6.6) 12/27/17 10:32 Troponin I 0.034 ng/mL (< 0.028) H 12/27/17 10:32 - Assessment/Plan 1. Paroxysmal Afib - converted back to SR since 1500 on 01/03/18. On Coreg 6.25mg BID and Eliquis 2.5mg BID due to age and CKD. 2. Acute on Chronic Diastolic HF - Lasix IV was changed cont. IV 10mg/h. Output yesterday was > 4600ml. Not on ADRIAN/ARB due to hx of CKD. 3. CKD - worsened today. Managed by Dr Flores. 4. 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 PNA - cont. IV antibiotics by PCP. 6. HTN - stable with current med. Cont. to monitor 7. Hyperlipidemia - on Statin 8. Sleep Apea - wearing mme Cpap now. Instructed to wear Cpap at home. 9. Hx of TIA/CVA - stable 10. Diarrhea - stable 11. Anemia. Multifactorial. Anemia of chronic disease and assoc. with CKD. 12. Constipation - On Colace MAR reviewed * Echo in 11/2017 showed EF 50-55%, restrictive diastolic dysfunction, mod bilat. dilated atriums, mild-mod MR, mild MR, mild MA, and mild-mod TR. Review of Systems - Review of Systems Constitutional: reports: see HPI EENTM: reports: no symptoms reported Respiratory: reports: see HPI Cardiac (ROS): reports: no symptoms reported ABD/GI: reports: no symptoms reported : reports: no symptoms reported Musculoskeletal: reports: back pain Skin: reports: no symptoms reported <Jair Barlow - Last Filed: 01/04/18 17:54> Cardiology Progress Note - Objective Vital Signs Temp Pulse Resp BP BP BP Pulse Ox 01/04/18 17:16 139/55 L 01/04/18 15:51 96.6 F L 82 16 120/41 L 98 01/04/18 14:47 82 16 97 01/04/18 12:00 98.1 F 83 15 133/53 L 95 01/04/18 11:33 96.8 F L 89 21 H 131/53 L 98 01/04/18 11:28 85 18 97 01/04/18 09:23 139/55 L 01/04/18 08:13 96.4 F L 84 23 H 130/69 96 01/04/18 08:00 98 01/04/18 07:52 84 22 H 99 01/04/18 07:50 87 19 100 Admit Weight 173 lb 14.4 oz Weight 199 lb 1.6 oz 01/03/18 01/04/18 01/05/18 06:59 06:59 06:59 Intake Total 320 696.1 Output Total 4600 1500 1300 Balance -4280 -803.9 -1300 - Labs Result Diagrams: 01/04/18 03:40 01/04/18 03:40 Troponin/CKMB CK-MB (CK-2) 2.1 ng/mL (0-6.6) 12/27/17 10:32 Troponin I 0.034 ng/mL (< 0.028) H 12/27/17 10:32 - Assessment/Plan Pt. seen and eval. by me. I agree with the A/P by the RAILROAD WHEELS AND AXLE INSPECTOR. She is fatigued. The CXR continues to indicated congestion. Her renal and fluid management is by Nephrology.
--- NOTE | 2018-01-04 09:18 | PRG ---
DATE OF SERVICE: 01/04/2018 SERVICE: Renal Medicine. SUBJECTIVE: Ms. Mullen is an 82-year-old white female followed up for acute kidney injury on top of her chronic renal failure. In the interim, the patient has developed acute respiratory failure. She has been started on diuretics. Currently, she is on Lasix 80 mg IV b.i.d. She most likely has a di astolic dysfunction. This morning, she feels tired. Denies any worsening shortness of breath. OBJECTIVE: VITAL SIGNS: Blood pressure is 130/69, heart rate 84, respiratory rate 23, temperature 96.4, pulse o x 96%. GENERAL: Noted to be awake, alert, supine, comfortable, not in distress. SKIN: Adequate turgor. HEENT: Pinkish conjunctivae. Anicteric sclerae. NECK: No neck mass, no carotid bruits, no JVD. CHEST: No deformities. LUNGS: Decreased breath sounds. HEART: Normal sinus rhythm. No murmur, no gallops or rubs. ABDOMEN: Globular, soft, nontender. No masses. EXTREMITIES: Trace edema, but no deformities. MEDICATIONS: Of 01/04/2018 was reviewed. LABORATORY DATA: Of 01/04/2018, sodium 138, potassium 3.9, chloride 99, carbon dioxide 30, BUN 67, c reatinine 2.37, glucose 85, calcium 9.8, white count 9.2, hemoglobin 9. ASSESSMENT AND PLAN: 1. Acute respiratory failure - multifactorial etiology. Possibility of a superimposed congestive he art failure. Continue diuretic regimen. The patient is so far stable. Consider rechecking a chest x-ray today. 2. Acute kidney injury/chronic renal failure - superimposed prerenal azotemia. Patient currently on Lasix 80 mg IV q.12 hours. Continue to observe. Renal function is slightly worsened. This is to b e expected with the current diuretic regimen. We will review a chest x-ray and see if we need to adj ust Lasix/furosemide downwards. There is no indication for any emergent dialysis with this patient. Continue supportive care.
[2018-01-04] MEDS: Furosemide 100 MG/10 ML VIAL SLOW IVP SCH (09:22)
--- NOTE | 2018-01-04 09:22 | RAD ---
PORTABLE CHEST: History: Shortness of breath. Comparison: 01-02-18 FINDINGS: Heart size appears slightly enlarged. There has been development of increased mainly parahilar lung m arkings, also opacification of the right base most suggestive of pulmonary edema. IMPRESSION: Cardiomegaly with worsening pulmonary edema type change with opacification of the right base, probabl y related to associated effusion. Right sided infiltrate is not totally excluded. POS: [facility]
[2018-01-04] MEDS: Pregabalin 75 MG CAP PO SCH (09:23)
[2018-01-04] MEDS: Apixaban 2.5 MG TAB PO SCH ×2 (09:23→20:06)
[2018-01-04] MEDS: Calcitriol 0.25 MCG CAP PO SCH (09:23)
[2018-01-04] MEDS: Carvedilol 6.25 MG TAB PO SCH ×2 (09:23→17:16)
[2018-01-04] MEDS: Docusate 100 MG CAP PO SCH ×2 (09:24→20:05)
[2018-01-04] MEDS: Metolazone 5 MG TAB PO SCH (09:24)
[2018-01-04] MEDS: Bupropion 150 MG XL TAB PO SCH (09:24)
[2018-01-04] MEDS: Alogliptin 6.25 MG TAB PO SCH (09:24)
[2018-01-04] MEDS: Oxymetazoline HCl 0.05% ( 15 ML ) NASAL SCH (09:25)
[2018-01-04] MEDS: cefTRIAXone\\ROCEPHIN 2 GM in Sodium Chloride 0.9% 100 ML IVPB SCH (09:25)
[2018-01-04] MEDS: Insulin Glargine 30 UNITS in Pre-Filled Syringe 1 EACH SC SCH (09:26)
[2018-01-04] MEDS: Acetaminophen 325 MG TAB PO PRN (12:46)
--- NOTE | 2018-01-04 16:24 | PDOC.PN ---
- Subjective Encounter Start Date: 01/04/18 Encounter Start Time: 11:30 Subjective: pt up in bed no complains - Objective Vital Signs & Weight: Vital Signs (12 hours) Temp Pulse Resp BP BP BP Pulse Ox 01/04/18 15:51 96.6 F L 82 16 120/41 L 98 01/04/18 14:47 82 16 97 01/04/18 12:00 98.1 F 83 15 133/53 L 95 01/04/18 11:33 96.8 F L 89 21 H 131/53 L 98 01/04/18 11:28 85 18 97 01/04/18 09:23 139/55 L 01/04/18 08:13 96.4 F L 84 23 H 130/69 96 01/04/18 08:00 98 01/04/18 07:52 84 22 H 99 01/04/18 07:50 87 19 100 Weight Admit Weight 173 lb 14.4 oz Weight 199 lb 1.6 oz I&O: 01/03/18 01/04/18 01/05/18 06:59 06:59 06:59 Intake Total 320 696.1 Output Total 4600 1500 Balance -4280 -803.9 Result Diagrams: 01/04/18 03:40 01/04/18 03:40 Additional Labs: Accuchecks 01/04/18 01/04/18 01/03/18 10:27 05:38 19:45 POC Glucose 109 91 122 H 01/03/18 16:28 POC Glucose 133 H Phys Exam - Physical Examination Neck: no nodes, no JVD, supple, full ROM Respiratory: no wheezing, no rales, no rhonchi, wheezing present, clear to auscultation bilateral Cardiovascular: RRR, no significant murmur, no rub, gallop, irregular Gastrointestinal: soft, non-tender, no distention, positive bowel sounds mild to lower ext Dx/Plan (1) Chronic Diastolic Congestive Heart Failure, Nyha Class 4 Code(s): I50.32 - CHRONIC DIASTOLIC (CONGESTIVE) HEART FAILURE Status: Acute Comment: Decompensated- fluid overloaded- lasix 100 mg IVP in clinic today- will increase coreg next week if euvolemic (2) Acute on chronic renal insufficiency Code(s): N28.9 - DISORDER OF KIDNEY AND URETER, UNSPECIFIED; N18.9 - CHRONIC KIDNEY DISEASE, UNSPECIFIED Status: Acute Comment: Check BMP today (3) Hypertension Code(s): I10 - ESSENTIAL (PRIMARY) HYPERTENSION Status: Acute Comment: Fluid overloaded -Increase coreg next week (4) Pneumonia Code(s): J18.9 - PNEUMONIA, UNSPECIFIED ORGANISM Status: Acute - Plan will decrease lasix dose since her creatinine is worsening -: will contine abx -: PT/OT for possible rehab * . Review of Systems - Review of Systems ENT: negative: Ear Pain, Ear Discharge, Nose Pain, Nose Discharge, Nose Congestion, Mouth Pain, Mouth Swelling, Throat Pain, Throat Swelling, Other Respiratory: negative: Cough, Dry, Shortness of Breath, Hemoptysis, SOB with Excertion, Pleuritic Pain, Sputum, Wheezing Cardiovascular: negative: chest pain, palpitations, orthopnea, paroxysmal nocturnal dyspnea, edema, light headedness, other Gastrointestinal: negative: Nausea, Vomiting, Abdominal Pain, Diarrhea, Constipation, Melena, Hematochezia, Other - Medications/Allergies Allergies/Adverse Reactions: Allergies Allergy/AdvReac Type Severity Reaction Status Date / Time codeine Allergy Rash Verified 12/30/17 21:02 Medications: Current Medications Acetaminophen (Tylenol) 650 mg PO Q6H PRN PRN Reason: Pain 1-3 Last Admin: 01/04/18 12:46 Dose: 650 mg Hydrocodone Bitart/Acetaminophen ([place] 5/325) 1 tab PO Q4H PRN PRN Reason: Pain Last Admin: 01/01/18 20:13 Dose: 1 tab Albuterol/Ipratropium (Duoneb) 3 ml NEB QID-RT [facility] Last Admin: 01/04/18 14:47 Dose: 3 ml Albuterol/Ipratropium (Duoneb) 3 ml NEB Q2H PRN PRN Reason: SOB &/or Wheezing Last Admin: 01/01/18 02:46 Dose: 3 ml Alogliptin Benzoate (Alogliptin) 6.25 mg PO DAILY [facility] Last Admin: 01/04/18 09:24 Dose: Not Given Apixaban (Eliquis) 2.5 mg PO BID [facility] Last Admin: 01/04/18 09:23 Dose: 2.5 mg Atorvastatin Calcium (Lipitor) 80 mg PO HS [facility] Last Admin: 01/03/18 20:49 Dose: 80 mg Benzonatate (Tessalon) 100 mg PO 0300,0900,1500,2100 [facility] Last Admin: 01/04/18 16:09 Dose: Not Given Bupropion HCl (Wellbutrin Xl) 75 mg PO DAILY [facility] Last Admin: 01/04/18 09:24 Dose: 75 mg Calcitriol (Rocaltrol) 0.25 mcg PO DAILY [facility] Last Admin: 01/04/18 09:23 Dose: 0.25 mcg Carvedilol (Coreg) 6.25 mg PO BID-[facility] Last Admin: 01/04/18 09:23 Dose: 6.25 mg Citalopram Hydrobromide (Celexa) 40 mg PO HS [facility] Last Admin: 01/03/18 20:49 Dose: 40 mg Clonidine (Catapres) 0.1 mg PO Q1H PRN PRN Reason: SBP > 180 Last Admin: 01/02/18 04:45 Dose: 0.1 mg Dextrose/Water (Dextrose 50%) 25 gm IVP PRN PRN PRN Reason: HYPOGLYCEMIA PROTOCOL Diphenoxylate HCl/Atropine (Lomotil) 1 tab PO PRN PRN PRN Reason: Diarrhea/Loose Stools Docusate Sodium (Colace) 100 mg PO BID [facility] Last Admin: 01/04/18 09:24 Dose: 100 mg Furosemide (Lasix) 80 mg SLOW IVP DAILY [facility] Glucagon (Glucagon) 1 mg IM PRN PRN PRN Reason: HYPOGLYCEMIA PROTOCOL Insulin Glargine 30 units/ (Miscellaneous Medication) 0.3 mls @ 0 mls/hr SC QAM [facility] Last Admin: 01/04/18 09:26 Dose: 0.3 mls Dextrose/Water (D5w) 1,000 mls @ 0 mls/hr IV INF PRN PRN Reason: HYPOGLYCEMIA PROTOCOL Ceftriaxone Sodium 2 gm/ (Sodium Chloride) 100 mls @ 200 mls/hr IVPB Q24HR [facility] Last Admin: 01/04/18 09:25 Dose: 100 mls Levofloxacin 250 mg/ Device 50 mls @ 100 mls/hr IVPB 1000 [facility] Last Admin: 01/04/18 09:22 Dose: 50 mls Insulin Human Regular (Humulin R) 0 units SC .MILD SLIDING PRN; Protocol PRN Reason: MILD SLIDING SCALE Last Admin: 01/03/18 06:49 Dose: 2 units Levothyroxine Sodium (Synthroid) 75 mcg PO 0600 [facility] Last Admin: 01/04/18 05:39 Dose: 75 mcg Metolazone (Zaroxolyn) 5 mg PO 0830 [facility] Last Admin: 01/04/18 09:24 Dose: 5 mg Ondansetron HCl (Zofran Odt) 8 mg PO Q6H PRN PRN Reason: Nausea/Vomiting Last Admin: 01/02/18 18:40 Dose: 8 mg Oxymetazoline HCl (Oxymetazoline Hcl) 0 sprays NASAL DAILY [facility] Last Admin: 01/04/18 09:25 Dose: Not Given Pantoprazole Sodium (Protonix) 40 mg PO DAILY [facility] Last Admin: 01/04/18 09:25 Dose: 40 mg Pramipexole Dihydrochloride (Mirapex) 1.5 mg PO HS [facility] Last Admin: 01/03/18 20:50 Dose: 1.5 mg Pregabalin (Lyrica) 150 mg PO DAILY [facility] Last Admin: 01/04/18 09:23 Dose: 150 mg Sodium Chloride (Flush - Normal Saline) 10 ml IVF Q12HR [facility] Last Admin: 01/04/18 09:26 Dose: 10 ml Sodium Chloride (Flush - Normal Saline) 10 ml IVF PRN PRN PRN Reason: Saline Flush Last Admin: 01/01/18 20:16 Dose: 10 ml Zolpidem Tartrate (Ambien) 5 mg PO HS [facility] Last Admin: 01/03/18 20:49 Dose: 5 mg
[2018-01-04] MEDS: Atorvastatin Calcium 40 MG TAB PO SCH (20:05)
[2018-01-04] MEDS: Zolpidem Tartrate 5 MG TAB PO SCH (20:05)
[2018-01-04] MEDS: Citalopram 20 MG TAB PO SCH (20:05)
[2018-01-04] MEDS: Pramipexole Di-HCl 1 MG TAB PO SCH (20:06)
[2018-01-05] MEDS: Benzonatate 100 MG CAP PO SCH ×4 (03:11→21:40)
[2018-01-05 05:07] LABS: #Lymphocytes 0.6 thou/uL (1.20-3.40); #Monocytes 0.5 thou/uL (0.11-0.59); #Neutrophils 6.6 thou/uL (1.40-6.50); %Basophils 0.5 % (0.0-1.0); %Eosinophils 0.6 % (0.0-10.0); %Lymphocytes 7.2 % (21.0-51.0); %Monocytes 6.9 % (0.0-10.0); %Neutrophils 84.8 % (42.0-75.0); Hemoglobin 9.1 g/dL (12.0-16.0); Mean Corpuscular HGB CONC 31.5 g/dL (32.0-36.0); Mean Corpuscular Hemoglobin 31.2 pg (27.0-31.0); Mean Corpuscular Volume 99.1 fL (78.0-98.0); Mean Platelet Volume 6.5 fL (7.4-10.4); Platelet Count 323 thou/uL (130-400); RBC Distribution Width 13.4 % (11.5-14.5); Red Blood Cell (RBC) Count 2.92 mill/uL (4.20-5.40); White Blood Cell (WBC) Count 7.8 thou/uL (4.8-10.8)
[2018-01-05 05:20] LABS: Anion Gap 13 mmol/L (10-20); BUN (Urea Nitrogen) 75 mg/dL (9.8-20.1); Calc. Creatinine Clearance 25 mL/min (70-130); Calcium 9.6 mg/dL (7.8-10.44); Carbon Dioxide 32 mmol/L (23-31); Chloride 99 mmol/L (98-107); Digoxin 1.03 ng/mL (0.8-2.0); Estimated GFR-MDRD 18; Potassium 3.6 mmol/L (3.5-5.1); Sodium 140 mmol/L (136-145)
[2018-01-05 05:35] LABS: Glucose 54 mg/dL (83-110)
[2018-01-05] MEDS: Levothyroxine Sodium 75 MCG TAB PO SCH (06:07)
[2018-01-05] MEDS: Insulin Glargine 30 UNITS in Pre-Filled Syringe 1 EACH SC SCH (09:30)
[2018-01-05] MEDS: Furosemide 100 MG/10 ML VIAL SLOW IVP SCH (09:31)
[2018-01-05] MEDS: Metolazone 5 MG TAB PO SCH (09:37)
[2018-01-05] MEDS: Carvedilol 6.25 MG TAB PO SCH ×2 (09:38→18:02)
[2018-01-05] MEDS: Pregabalin 75 MG CAP PO SCH (09:38)
[2018-01-05] MEDS: Docusate 100 MG CAP PO SCH ×2 (09:38→21:37)
[2018-01-05] MEDS: Apixaban 2.5 MG TAB PO SCH ×2 (09:40→21:37)
[2018-01-05] MEDS: Alogliptin 6.25 MG TAB PO SCH (09:40)
[2018-01-05] MEDS: Calcitriol 0.25 MCG CAP PO SCH (09:41)
[2018-01-05] MEDS: Bupropion 150 MG XL TAB PO SCH (09:43)
[2018-01-05] MEDS: HYDROcodone/Acetaminophen 5/325 mg Tablet PO PRN ×2 (09:46→18:01)
--- NOTE | 2018-01-05 10:20 | PRG ---
DATE OF SERVICE: 01/05/2018 RENAL MEDICINE SUBJECTIVE: Ms. Mullen is an 82-year-old white female admitted for shortness of breath from pneumoni a. She developed some degree of CHF. During this hospitalization, she was started on diuretics. Du e to the worsening renal dysfunction, Lasix has been adjusted downwards. We are following her up for acute kidney injury on top of her chronic renal failure. This morning, voices no new complaints, bu t still feels tired. Shortness of breath is not any worse. PHYSICAL EXAMINATION: VITAL SIGNS: Blood pressure 130/45, heart rate 83, respiratory rate 14, temperature 97.8, pulse ox 9 7%. GENERAL: Noted to be awake, alert, comfortable, not in distress. SKIN: Adequate turgor. HEENT: She has slightly pale conjunctivae, anicteric sclerae. NECK: No neck mass, no carotid bruits, no JVD. CHEST: No deformities. LUNGS: Decreased breath sounds. HEART: Normal sinus rhythm. No murmurs, no gallops, no rubs. ABDOMEN: Globular, soft, nontender, no masses. EXTREMITIES: Positive for edema. MEDICATIONS: Medications of 01/05/2018 was reviewed. LABORATORY DATA: Laboratories of 01/05/2018; white count 7.8, hemoglobin 9.1. Sodium 140, potassium 3.6, chloride 99, carbon dioxide 32, BUN 75, creatinine 2.56, glucose 54. ASSESSMENT AND PLAN: 1. Acute kidney injury on top of her chronic renal failure, slightly higher creatinine now at 2.56 a nd yesterday this was 2.37. Please note we have adjusted her diuretic regimen. She is now on Lasix at 80 mg daily instead of b.i.d. dosing. My bias is to hold off her metolazone today. We will reche ck another basic metabolic panel and CBC in a.m. 2. Congestive heart failure, clinically improved. 3. Pneumonia, on antibiotics.
--- NOTE | 2018-01-05 10:52 | PDOC.CTH ---
<Anastacia Beauchamp - Last Filed: 01/05/18 10:53> Cardiology Progress Note - Subjective the tp seen and examined. No overnight events. No cardiac complaints. Per family, the pt is very fatigue and she did not wear CPAP over last night. - Objective Vital Signs Temp Pulse Resp BP Pulse Ox 01/05/18 10:43 74 15 99 01/05/18 07:30 97.8 F 83 14 130/45 L 97 01/05/18 06:48 97 01/05/18 06:47 82 14 97 01/05/18 04:00 97.9 F 81 14 130/53 L 99 01/05/18 02:54 78 9 L 97 01/04/18 23:46 96.8 F L 79 20 128/52 L 99 Admit Weight 173 lb 14.4 oz Weight 191 lb 6.4 oz 01/04/18 01/05/18 01/06/18 06:59 06:59 06:59 Intake Total 696.1 500 Output Total 1500 1950 Balance -803.9 -1450 - Physical Examination General/Neuro: alert & oriented x3 Neck: no JVD present Lungs: other: (diminished at bases) Heart: RRR Abdomen: soft Extremities: other: (No edema) - Telemetry Telemetry Rhythm: SR - Labs Result Diagrams: 01/05/18 04:41 01/05/18 04:41 Troponin/CKMB CK-MB (CK-2) 2.1 ng/mL (0-6.6) 12/27/17 10:32 Troponin I 0.034 ng/mL (< 0.028) H 12/27/17 10:32 - Assessment/Plan 1. Paroxysmal Afib - converted back to SR since 1500 on 01/03/18. On Coreg 6.25mg BID and Eliquis 2.5mg BID due to age and CKD. 2. Acute on Chronic Diastolic HF - Lasix IV 10mg/h was changed to Lasix 80mg IV daily. Output yesterday was > 1900ml. Not on ADRIAN/ARB due to hx of CKD. 3. CKD - worsened today. Managed by Dr Flores. 4. 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 PNA - cont. IV antibiotics by PCP. 6. HTN - stable with current med. Cont. to monitor 7. Hyperlipidemia - on Statin 8. Sleep Apea - wearing mme Cpap now. Instructed to wear Cpap at HS and home. 9. Hx of TIA/CVA - stable 10. Diarrhea - stable 11. Anemia. Multifactorial. Anemia of chronic disease and assoc. with CKD. 12. Constipation - On Colace MAR reviewed * Echo in 11/2017 showed EF 50-55%, restrictive diastolic dysfunction, mod bilat. dilated atriums, mild-mod MR, mild MR, mild HI, and mild-mod TR. * Her renal and fluid management is by Nephrology. Review of Systems - Review of Systems Constitutional: reports: weakness EENTM: reports: no symptoms reported Respiratory: reports: no symptoms reported Cardiac (ROS): reports: no symptoms reported ABD/GI: reports: no symptoms reported : reports: no symptoms reported Musculoskeletal: reports: no symptoms reported <Jair Barlow - Last Filed: 01/05/18 14:50> Cardiology Progress Note - Objective Vital Signs Temp Pulse Pulse Pulse Resp BP BP 01/05/18 11:17 97.1 F L 75 12 01/05/18 10:43 74 15 01/05/18 10:23 73 80 107/38 L 131/52 L 01/05/18 07:30 97.8 F 83 14 01/05/18 06:48 01/05/18 06:47 82 14 01/05/18 04:00 97.9 F 81 14 01/05/18 02:54 78 9 L BP Pulse Ox Pulse Ox Pulse Ox 01/05/18 11:17 107/38 L 98 01/05/18 10:43 99 01/05/18 10:23 100 99 01/05/18 07:30 130/45 L 97 01/05/18 06:48 97 01/05/18 06:47 97 01/05/18 04:00 130/53 L 99 01/05/18 02:54 97 Admit Weight 173 lb 14.4 oz Weight 191 lb 6.4 oz 01/04/18 01/05/18 01/06/18 06:59 06:59 06:59 Intake Total 696.1 500 Output Total 1500 1950 Balance -803.9 -1450 - Labs Result Diagrams: 01/05/18 04:41 01/05/18 04:41 Troponin/CKMB CK-MB (CK-2) 2.1 ng/mL (0-6.6) 12/27/17 10:32 Troponin I 0.034 ng/mL (< 0.028) H 12/27/17 10:32 - Assessment/Plan Pt. seen and eval. by me. 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 The CXR yesterday indicated pulm. edema. The Bun:creat is increasing. She seems to be intravascularly depleted and some third spacing. the urine output has decreased. She has diastolic dysfunction and we will have a very difficult time with her vol. status. Exam: NSR. RRR. , decreased inspiratory effort, few basilar rales but likely worse than clinically evaluated. No significant edema. Poor prognosis.
[2018-01-05] MEDS: cefTRIAXone\\ROCEPHIN 2 GM in Sodium Chloride 0.9% 100 ML IVPB SCH (13:17)
[2018-01-05] MEDS: Oxymetazoline HCl 0.05% ( 15 ML ) NASAL SCH (16:07)
--- NOTE | 2018-01-05 17:58 | PDOC.PN ---
- Subjective Encounter Start Date: 01/05/18 Encounter Start Time: 09:00 Pt seen for followup re: acute on chronic diastolic heart failure. Feels weak. Cough+, no fevers. - Objective MAR Reviewed: Yes Vital Signs & Weight: Vital Signs (12 hours) Temp Pulse Pulse Pulse Resp BP BP 01/05/18 16:00 73 01/05/18 15:29 97.5 F L 73 12 01/05/18 15:03 73 16 01/05/18 14:02 136/71 01/05/18 11:17 97.1 F L 75 12 01/05/18 10:43 74 15 01/05/18 10:23 73 80 107/38 L 131/52 L 01/05/18 07:30 97.8 F 83 14 01/05/18 06:48 01/05/18 06:47 82 14 BP Pulse Ox Pulse Ox Pulse Ox 01/05/18 16:00 123/46 L 100 01/05/18 15:29 123/45 L 100 01/05/18 15:03 99 01/05/18 14:02 100 01/05/18 11:17 107/38 L 98 01/05/18 10:43 99 01/05/18 10:23 100 99 01/05/18 07:30 130/45 L 97 01/05/18 06:48 97 01/05/18 06:47 97 Weight Admit Weight 173 lb 14.4 oz Weight 191 lb 6.4 oz I&O: 01/04/18 01/05/18 01/06/18 06:59 06:59 06:59 Intake Total 696.1 500 Output Total 1500 1950 800 Balance -803.9 -1450 -800 Result Diagrams: 01/06/18 09:19 01/06/18 09:19 Additional Labs: Accuchecks 01/05/18 01/05/18 01/05/18 16:57 10:36 06:11 POC Glucose 135 H 123 H 72 01/04/18 20:04 POC Glucose 87 EKG Reviewed by me: Yes (Tele: NSR) Phys Exam - Physical Examination Constitutional: NAD HEENT: moist MMs Neck: supple Jesús crackles Cardiovascular: RRR Gastrointestinal: soft Neurological: moves all 4 limbs Psychiatric: normal affect Dx/Plan (1) Acute on chronic diastolic CHF (congestive heart failure), NYHA class 3 Code(s): I50.33 - ACUTE ON CHRONIC DIASTOLIC (CONGESTIVE) HEART FAILURE Status : Acute Comment: continue IV furosemide (2) Acute renal failure superimposed on stage 4 chronic kidney disease Code(s): N17.9 - ACUTE KIDNEY FAILURE, UNSPECIFIED; N18.4 - CHRONIC KIDNEY DISEASE, STAGE 4 (SEVERE) Status: Acute Comment: creatinine worse today, nephrology following (3) DM2 (diabetes mellitus, type 2) Status: Chronic Comment: Episode of hypoglycemia earlier today, continue to monitor accuchecks. If recurs or if creatinine does not decrease, may need to decrease lantus insulin dose (4) CAP (community acquired pneumonia) Code(s): J18.9 - PNEUMONIA, UNSPECIFIED ORGANISM Status: Acute Comment: continue IV antibiotics as below (5) Hypertension Code(s): I10 - ESSENTIAL (PRIMARY) HYPERTENSION Status: Chronic Comment: controlled (6) PAF (paroxysmal atrial fibrillation) Code(s): I48.0 - PAROXYSMAL ATRIAL FIBRILLATION Status: Chronic Comment: continue carvedilol, apixaban - Plan * . Review of Systems - Review of Systems Constitutional: weakness Respiratory: Cough, Dry. negative: Shortness of Breath, Hemoptysis, SOB with Excertion, Pleuritic Pain, Sputum, Wheezing Cardiovascular: negative: chest pain, palpitations, orthopnea, paroxysmal nocturnal dyspnea, edema, light headedness - Medications/Allergies Allergies/Adverse Reactions: Allergies Allergy/AdvReac Type Severity Reaction Status Date / Time codeine Allergy Rash Verified 12/30/17 21:02 Medications: Current Medications Acetaminophen (Tylenol) 650 mg PO Q6H PRN PRN Reason: Pain 1-3 Last Admin: 01/04/18 12:46 Dose: 650 mg Hydrocodone Bitart/Acetaminophen ([place] 5/325) 1 tab PO Q4H PRN PRN Reason: Pain Last Admin: 01/05/18 09:46 Dose: 1 tab Albuterol/Ipratropium (Duoneb) 3 ml NEB QID-RT [facility] Last Admin: 01/05/18 15:03 Dose: 3 ml Albuterol/Ipratropium (Duoneb) 3 ml NEB Q2H PRN PRN Reason: SOB &/or Wheezing Last Admin: 01/01/18 02:46 Dose: 3 ml Alogliptin Benzoate (Alogliptin) 6.25 mg PO DAILY [facility] Last Admin: 01/05/18 09:40 Dose: Not Given Apixaban (Eliquis) 2.5 mg PO BID [facility] Last Admin: 01/05/18 09:40 Dose: 2.5 mg Atorvastatin Calcium (Lipitor) [address] [facility] Last Admin: 01/04/18 20:05 Dose: 80 mg Benzonatate (Tessalon) 100 mg PO 0300,0900,1500,2100 [facility] Last Admin: 01/05/18 16:11 Dose: 100 mg Bupropion HCl (Wellbutrin Xl) 75 mg PO DAILY [facility] Last Admin: 01/05/18 09:43 Dose: 75 mg Calcitriol (Rocaltrol) 0.25 mcg PO DAILY [facility] Last Admin: 01/05/18 09:41 Dose: 0.25 mcg Carvedilol (Coreg) 6.25 mg PO BID-[facility] Last Admin: 01/05/18 09:38 Dose: 6.25 mg Citalopram Hydrobromide (Celexa) [address] [facility] Last Admin: 01/04/18 20:05 Dose: 40 mg Clonidine (Catapres) 0.1 mg PO Q1H PRN PRN Reason: SBP > 180 Last Admin: 01/02/18 04:45 Dose: 0.1 mg Dextrose/Water (Dextrose 50%) 25 gm IVP PRN PRN PRN Reason: HYPOGLYCEMIA PROTOCOL Diphenoxylate HCl/Atropine (Lomotil) 1 tab PO PRN PRN PRN Reason: Diarrhea/Loose Stools Docusate Sodium (Colace) 100 mg PO BID [facility] Last Admin: 01/05/18 09:38 Dose: 100 mg Furosemide (Lasix) 80 mg SLOW IVP DAILY [facility] Last Admin: 01/05/18 09:31 Dose: 80 mg Glucagon (Glucagon) 1 mg IM PRN PRN PRN Reason: HYPOGLYCEMIA PROTOCOL Insulin Glargine 30 units/ (Miscellaneous Medication) 0.3 mls @ 0 mls/hr SC QAM [facility] Last Admin: 01/05/18 09:30 Dose: Not Given Dextrose/Water (D5w) 1,000 mls @ 0 mls/hr IV INF PRN PRN Reason: HYPOGLYCEMIA PROTOCOL Ceftriaxone Sodium 2 gm/ (Sodium Chloride) 100 mls @ 200 mls/hr IVPB Q24HR [facility] Last Admin: 01/05/18 13:17 Dose: 100 mls Levofloxacin 250 mg/ Device 50 mls @ 100 mls/hr IVPB 1000 [facility] Last Admin: 01/05/18 09:42 Dose: 50 mls Insulin Human Regular (Humulin R) 0 units SC .MILD SLIDING PRN; Protocol PRN Reason: MILD SLIDING SCALE Last Admin: 01/03/18 06:49 Dose: 2 units Levothyroxine Sodium (Synthroid) 75 mcg PO 0600 [facility] Last Admin: 01/05/18 06:07 Dose: 75 mcg Ondansetron HCl (Zofran Odt) 8 mg PO Q6H PRN PRN Reason: Nausea/Vomiting Last Admin: 01/02/18 18:40 Dose: 8 mg Oxymetazoline HCl (Oxymetazoline Hcl) 0 sprays NASAL DAILY [facility] Last Admin: 01/05/18 16:07 Dose: 2 sprays Pantoprazole Sodium (Protonix) 40 mg PO DAILY [facility] Last Admin: 01/05/18 09:39 Dose: 40 mg Pramipexole Dihydrochloride (Mirapex) 1.5 mg PO HS [facility] Last Admin: 01/04/18 20:06 Dose: 1.5 mg Pregabalin (Lyrica) 150 mg PO DAILY [facility] Last Admin: 01/05/18 09:38 Dose: 150 mg Sodium Chloride (Flush - Normal Saline) 10 ml IVF Q12HR [facility] Last Admin: 01/05/18 09:41 Dose: 10 ml Sodium Chloride (Flush - Normal Saline) 10 ml IVF PRN PRN PRN Reason: Saline Flush Last Admin: 01/01/18 20:16 Dose: 10 ml Zolpidem Tartrate (Ambien) 5 mg PO HS [facility] Last Admin: 01/04/18 20:05 Dose: 5 mg
[2018-01-05] MEDS: Zolpidem Tartrate 5 MG TAB PO SCH (21:37)
[2018-01-05] MEDS: Atorvastatin Calcium 40 MG TAB PO SCH (21:37)
[2018-01-05] MEDS: Pramipexole Di-HCl 1 MG TAB PO SCH (21:40)
[2018-01-05] MEDS: Citalopram 20 MG TAB PO SCH (21:40)
[2018-01-06] MEDS: Benzonatate 100 MG CAP PO SCH ×4 (04:22→20:50)
[2018-01-06] MEDS: Levothyroxine Sodium 75 MCG TAB PO SCH (05:12)
[2018-01-06] MEDS: Bupropion 150 MG XL TAB PO SCH (08:37)
[2018-01-06] MEDS: Pregabalin 75 MG CAP PO SCH (08:38)
[2018-01-06] MEDS: Calcitriol 0.25 MCG CAP PO SCH (08:39)
[2018-01-06] MEDS: Carvedilol 6.25 MG TAB PO SCH ×2 (08:39→18:50)
[2018-01-06] MEDS: Docusate 100 MG CAP PO SCH ×2 (08:40→20:49)
[2018-01-06] MEDS: Alogliptin 6.25 MG TAB PO SCH (08:41)
[2018-01-06] MEDS: Apixaban 2.5 MG TAB PO SCH ×2 (08:42→20:50)
[2018-01-06] MEDS: Furosemide 100 MG/10 ML VIAL SLOW IVP SCH (08:43)
[2018-01-06] MEDS: Insulin Glargine 30 UNITS in Pre-Filled Syringe 1 EACH SC SCH (08:51)
[2018-01-06] MEDS: Oxymetazoline HCl 0.05% ( 15 ML ) NASAL SCH (08:52)
[2018-01-06 09:26] LABS: #Basophils 0.1 thou/uL (0.0-0.2); #Lymphocytes 0.6 thou/uL (1.20-3.40); #Monocytes 0.5 thou/uL (0.11-0.59); #Neutrophils 7.7 thou/uL (1.40-6.50); %Basophils 0.7 % (0.0-1.0); %Eosinophils 0.2 % (0.0-10.0); %Lymphocytes 6.8 % (21.0-51.0); %Monocytes 5.8 % (0.0-10.0); %Neutrophils 86.5 % (42.0-75.0); Hemoglobin 9.6 g/dL (12.0-16.0); Mean Corpuscular HGB CONC 30.6 g/dL (32.0-36.0); Mean Corpuscular Hemoglobin 30.4 pg (27.0-31.0); Mean Corpuscular Volume 99.5 fL (78.0-98.0); Mean Platelet Volume 6.5 fL (7.4-10.4); Platelet Count 289 thou/uL (130-400); RBC Distribution Width 13.1 % (11.5-14.5); Red Blood Cell (RBC) Count 3.14 mill/uL (4.20-5.40); White Blood Cell (WBC) Count 8.9 thou/uL (4.8-10.8)
--- NOTE | 2018-01-06 09:27 | PRG ---
DATE OF SERVICE: 01/06/2018 SERVICE: Renal Medicine. SUBJECTIVE: Ms. Mullen is an 82-year-old white female, seen by the Renal service for her acute kidne y injury on top of her chronic renal failure. In the interim, she developed congestive heart failure . Currently, on a diuretic regimen. Due to the slightly worsening renal dysfunction, her diuretics have been adjusted downwards. She continues to receive IV Lasix at 80 mg IV daily. In addition, she is also being treated for a presumptive pneumonia. She is currently on IV antibioti cs. This morning, she is feeling a little better, although the shortness of breath is still there. It is not any worse and actually improved according to the patient. No acute events noted last night . PHYSICAL EXAMINATION: VITAL SIGNS: Blood pressure 138/50, heart rate 75, respiratory rate 16, temperature 97.7, pulse ox 9 9%. GENERAL EXAM: Awake, supine, comfortable, not in overt distress. SKIN: Adequate turgor. HEENT: Slightly pale conjunctivae. Anicteric sclerae. NECK: No neck mass, no carotid bruits, no JVD. CHEST: No deformities. LUNGS: Decreased breath sounds. HEART: Normal sinus rhythm. No murmur, no gallops, no rubs. ABDOMEN: Globular, soft, nontender, no masses. EXTREMITIES: Positive for edema. Medications of 01/06/2018 were reviewed. LABORATORY DATA: Laboratories of 01/05/2018, white count 7.8, hemoglobin 9.1. Sodium 140, potassium 3.6, chloride 99, carbon dioxide 32, BUN 75, creatinine 2.56, calcium 9.6. ASSESSMENT AND PLAN: 1. Acute kidney injury on top of chronic renal failure - superimposed prerenal azotemia, secondary t o a diuretic regimen use as well as congestive heart failure. Continue current diuretic regimen of L asix at 80 mg IV daily. There is no indication for any dialytic intervention with this patient. Con tinue supportive care. 2. Shortness of breath, multifactorial - congestive heart failure/pneumonia. On diuretics and antib iotics. 3. Borderline anemia. Continue to observe. We will be rechecking a basic metabolic panel and CBC t mey and tomorrow.
[2018-01-06 09:45] LABS: Anion Gap 12 mmol/L (10-20); BUN (Urea Nitrogen) 78 mg/dL (9.8-20.1); Calc. Creatinine Clearance 24 mL/min (70-130); Calcium 9.7 mg/dL (7.8-10.44); Carbon Dioxide 35 mmol/L (23-31); Chloride 97 mmol/L (98-107); Estimated GFR-MDRD 19; Glucose 162 mg/dL (83-110); Potassium 3.9 mmol/L (3.5-5.1); Sodium 140 mmol/L (136-145)
[2018-01-06] MEDS: cefTRIAXone\\ROCEPHIN 2 GM in Sodium Chloride 0.9% 100 ML IVPB SCH (12:12)
[2018-01-06] MEDS: Insulin Regular 300 UNITS/3 ML VIAL SC PRN ×2 (12:16→20:53)
--- NOTE | 2018-01-06 13:11 | PDOC.CTH ---
Cardiology Progress Note - Subjective No new issues. Breathing improved. - Objective Vital Signs Temp Pulse Resp BP Pulse Ox 01/06/18 10:28 75 20 97 01/06/18 08:00 138/50 L 01/06/18 07:32 97.7 F 75 16 130/44 L 99 01/06/18 06:21 100 01/06/18 06:18 75 20 100 01/06/18 03:28 97.0 F L 73 17 123/46 L 95 Admit Weight 173 lb 14.4 oz Weight 189 lb 01/05/18 01/06/18 01/07/18 06:59 06:59 06:59 Intake Total 500 240 Output Total 1950 2020 Balance -1450 -1780 - Physical Examination General/Neuro: alert & oriented x3, NAD Neck: no JVD present Lungs: unlabored respirations Heart: other: (Irregular) Abdomen: NT/ND Extremities: other: (no edema) - Telemetry Telemetry Rhythm: Afib HR 80's. - Labs Result Diagrams: 01/06/18 09:19 01/06/18 09:19 Troponin/CKMB CK-MB (CK-2) 2.1 ng/mL (0-6.6) 12/27/17 10:32 Troponin I 0.034 ng/mL (< 0.028) H 12/27/17 10:32 - Assessment/Plan 1. Paroxysmal Afib On Coreg 6.25mg BID and Eliquis 2.5mg BID due to age and CKD. 2. Acute on Chronic Diastolic HF - Lasix 80mg IV daily. Not on ADRIAN/ARB due to CKD. 3. CKD 4. Insulin dependent DM 5. PNA - cont. IV antibiotics by primary team. 6. HTN 7. Hyperlipidemia 8. Sleep [place]a - CPAP. 9. Hx of TIA/CVA
[2018-01-06] MEDS: Ondansetron ODT 4 MG TAB PO PRN (13:34)
--- NOTE | 2018-01-06 14:43 | PDOC.PN ---
- Subjective Encounter Start Date: 01/06/18 Encounter Start Time: 09:40 Pt seen for followup re: acute on chronic diastolic congestive heart failure. Denies chest pain. Shortness of breath is better. - Objective MAR Reviewed: Yes Vital Signs & Weight: Vital Signs (12 hours) Temp Pulse Resp BP Pulse Ox 01/06/18 13:58 73 20 99 01/06/18 13:54 98.1 F 73 20 136/53 L 99 01/06/18 10:28 75 20 97 01/06/18 08:00 138/50 L 01/06/18 07:32 97.7 F 75 16 130/44 L 99 01/06/18 06:21 100 01/06/18 06:18 75 20 100 01/06/18 03:28 97.0 F L 73 17 123/46 L 95 Weight Admit Weight 173 lb 14.4 oz Weight 189 lb I&O: 01/05/18 01/06/18 01/07/18 06:59 06:59 06:59 Intake Total 500 240 Output Total 1950 2019 Balance -1450 -1780 Result Diagrams: 01/07/18 03:48 01/07/18 03:48 Additional Labs: Accuchecks 01/06/18 01/06/18 01/05/18 11:43 06:00 20:13 POC Glucose 191 H 129 H 125 H 01/05/18 16:57 POC Glucose 135 H EKG Reviewed by me: Yes (Tele: NSR) Phys Exam - Physical Examination Obese HEENT: sclera anicteric Neck: supple Jesús crackles Cardiovascular: RRR Gastrointestinal: soft Neurological: moves all 4 limbs Psychiatric: normal affect Dx/Plan (1) Acute on chronic diastolic CHF (congestive heart failure), NYHA class 3 Code(s): I50.33 - ACUTE ON CHRONIC DIASTOLIC (CONGESTIVE) HEART FAILURE Status : Acute Comment: ACC/AHA class C. Improving, continue IV furosemide (2) Acute renal failure superimposed on stage 4 chronic kidney disease Code(s): N17.9 - ACUTE KIDNEY FAILURE, UNSPECIFIED; N18.4 - CHRONIC KIDNEY DISEASE, STAGE 4 (SEVERE) Status: Acute Comment: creatinine improved to 2.49 today, likely due to diuretics, nephrology following (3) DM2 (diabetes mellitus, type 2) Status: Chronic Comment: No recurrence of hypoglycemia, continue to monitor accuchecks. (4) CAP (community acquired pneumonia) Code(s): J18.9 - PNEUMONIA, UNSPECIFIED ORGANISM Status: Acute Comment: continue IV antibiotics as below (5) Hypertension Code(s): I10 - ESSENTIAL (PRIMARY) HYPERTENSION Status: Chronic Comment: controlled (6) PAF (paroxysmal atrial fibrillation) Code(s): I48.0 - PAROXYSMAL ATRIAL FIBRILLATION Status: Chronic Comment: continue carvedilol, apixaban - Plan * . Review of Systems - Review of Systems Respiratory: negative: Cough, Shortness of Breath, SOB with Excertion, Pleuritic Pain, Wheezing Cardiovascular: negative: chest pain, palpitations, orthopnea, paroxysmal nocturnal dyspnea, edema, light headedness - Medications/Allergies Allergies/Adverse Reactions: Allergies Allergy/AdvReac Type Severity Reaction Status Date / Time codeine Allergy Rash Verified 12/30/17 21:02 Medications: Current Medications Acetaminophen (Tylenol) 650 mg PO Q6H PRN PRN Reason: Pain 1-3 Last Admin: 01/04/18 12:46 Dose: 650 mg Hydrocodone Bitart/Acetaminophen ([place] 5/325) 1 tab PO Q4H PRN PRN Reason: Pain Last Admin: 01/05/18 18:01 Dose: 1 tab Albuterol/Ipratropium (Duoneb) 3 ml NEB QID-RT [facility] Last Admin: 01/06/18 13:58 Dose: 3 ml Albuterol/Ipratropium (Duoneb) 3 ml NEB Q2H PRN PRN Reason: SOB &/or Wheezing Last Admin: 01/01/18 02:46 Dose: 3 ml Alogliptin Benzoate (Alogliptin) 6.25 mg PO DAILY [facility] Last Admin: 01/06/18 08:41 Dose: 6.25 mg Apixaban (Eliquis) 2.5 mg PO BID [facility] Last Admin: 01/06/18 08:42 Dose: 2.5 mg Atorvastatin Calcium (Lipitor) 80 mg PO HS [facility] Last Admin: 01/05/18 21:37 Dose: 80 mg Benzonatate (Tessalon) 100 mg PO 0300,0900,1500,2100 [facility] Last Admin: 01/06/18 08:41 Dose: 100 mg Bupropion HCl (Wellbutrin Xl) 75 mg PO DAILY [facility] Last Admin: 01/06/18 08:37 Dose: 75 mg Calcitriol (Rocaltrol) 0.25 mcg PO DAILY [facility] Last Admin: 01/06/18 08:39 Dose: 0.25 mcg Carvedilol (Coreg) 6.25 mg PO BID-[facility] Last Admin: 01/06/18 08:39 Dose: 6.25 mg Citalopram Hydrobromide (Celexa) 40 mg PO HS [facility] Last Admin: 01/05/18 21:40 Dose: 40 mg Clonidine (Catapres) 0.1 mg PO Q1H PRN PRN Reason: SBP > 180 Last Admin: 01/02/18 04:45 Dose: 0.1 mg Dextrose/Water (Dextrose 50%) 25 gm IVP PRN PRN PRN Reason: HYPOGLYCEMIA PROTOCOL Diphenoxylate HCl/Atropine (Lomotil) 1 tab PO PRN PRN PRN Reason: Diarrhea/Loose Stools Docusate Sodium (Colace) 100 mg PO BID [facility] Last Admin: 01/06/18 08:40 Dose: 100 mg Furosemide (Lasix) 80 mg SLOW IVP DAILY [facility] Last Admin: 01/06/18 08:43 Dose: 80 mg Glucagon (Glucagon) 1 mg IM PRN PRN PRN Reason: HYPOGLYCEMIA PROTOCOL Insulin Glargine 30 units/ (Miscellaneous Medication) 0.3 mls @ 0 mls/hr SC QAM [facility] Last Admin: 01/06/18 08:51 Dose: 0.3 mls Dextrose/Water (D5w) 1,000 mls @ 0 mls/hr IV INF PRN PRN Reason: HYPOGLYCEMIA PROTOCOL Ceftriaxone Sodium 2 gm/ (Sodium Chloride) 100 mls @ 200 mls/hr IVPB Q24HR [facility] Last Admin: 01/06/18 12:12 Dose: 100 mls Levofloxacin 250 mg/ Device 50 mls @ 100 mls/hr IVPB 1000 [facility] Last Admin: 01/06/18 08:48 Dose: 50 mls Insulin Human Regular (Humulin R) 0 units SC .MILD SLIDING PRN; Protocol PRN Reason: MILD SLIDING SCALE Last Admin: 01/06/18 12:16 Dose: 2 units Levothyroxine Sodium (Synthroid) 75 mcg PO 0600 [facility] Last Admin: 01/06/18 05:12 Dose: 75 mcg Ondansetron HCl (Zofran Odt) 8 mg PO Q6H PRN PRN Reason: Nausea/Vomiting Last Admin: 01/06/18 13:34 Dose: 8 mg Oxymetazoline HCl (Oxymetazoline Hcl) 0 sprays NASAL DAILY [facility] Last Admin: 01/06/18 08:52 Dose: 2 sprays Pantoprazole Sodium (Protonix) 40 mg PO DAILY [facility] Last Admin: 01/06/18 08:39 Dose: 40 mg Pramipexole Dihydrochloride (Mirapex) 1.5 mg PO HS [facility] Last Admin: 01/05/18 21:40 Dose: 1.5 mg Pregabalin (Lyrica) 150 mg PO DAILY [facility] Last Admin: 01/06/18 08:38 Dose: 150 mg Sodium Chloride (Flush - Normal Saline) 10 ml IVF Q12HR [facility] Last Admin: 01/06/18 12:15 Dose: Not Given Sodium Chloride (Flush - Normal Saline) 10 ml IVF PRN PRN PRN Reason: Saline Flush Last Admin: 01/01/18 20:16 Dose: 10 ml Zolpidem Tartrate (Ambien) 5 mg PO HS [facility] Last Admin: 01/05/18 21:37 Dose: 5 mg
[2018-01-06] MEDS: Pramipexole Di-HCl 1 MG TAB PO SCH (20:48)
[2018-01-06] MEDS: Atorvastatin Calcium 40 MG TAB PO SCH (20:50)
[2018-01-06] MEDS: Citalopram 20 MG TAB PO SCH (20:51)
[2018-01-06] MEDS: Zolpidem Tartrate 5 MG TAB PO SCH (20:51)
[2018-01-07] MEDS: Benzonatate 100 MG CAP PO SCH ×4 (03:09→20:37)
[2018-01-07 04:39] LABS: #Eosinphils 0.1 thou/uL (0.0-0.7); #Monocytes 0.6 thou/uL (0.11-0.59); #Neutrophils 6.5 thou/uL (1.40-6.50); %Basophils 0.4 % (0.0-1.0); %Eosinophils 0.8 % (0.0-10.0); %Lymphocytes 11.8 % (21.0-51.0); %Monocytes 7.7 % (0.0-10.0); %Neutrophils 79.3 % (42.0-75.0); Hemoglobin 9.2 g/dL (12.0-16.0); Mean Corpuscular HGB CONC 30.9 g/dL (32.0-36.0); Mean Corpuscular Hemoglobin 30.9 pg (27.0-31.0); Mean Platelet Volume 6.9 fL (7.4-10.4); Platelet Count 285 thou/uL (130-400); RBC Distribution Width 13.1 % (11.5-14.5); Red Blood Cell (RBC) Count 2.99 mill/uL (4.20-5.40); White Blood Cell (WBC) Count 8.2 thou/uL (4.8-10.8)
[2018-01-07 04:52] LABS: BUN (Urea Nitrogen) 78 mg/dL (9.8-20.1); Calc. Creatinine Clearance 26 mL/min (70-130); Calcium 9.9 mg/dL (7.8-10.44); Estimated GFR-MDRD 20; Glucose 144 mg/dL (83-110)
[2018-01-07 05:02] LABS: Anion Gap 17 mmol/L (10-20); Carbon Dioxide 34 mmol/L (23-31); Chloride 97 mmol/L (98-107); Potassium 3.9 mmol/L (3.5-5.1); Sodium 144 mmol/L (136-145)
[2018-01-07] MEDS: Levothyroxine Sodium 75 MCG TAB PO SCH (05:33)
[2018-01-07] MEDS: Apixaban 2.5 MG TAB PO SCH ×2 (08:30→20:37)
[2018-01-07] MEDS: Alogliptin 6.25 MG TAB PO SCH (08:30)
[2018-01-07] MEDS: Calcitriol 0.25 MCG CAP PO SCH (08:30)
[2018-01-07] MEDS: Furosemide 100 MG/10 ML VIAL SLOW IVP SCH (08:31)
[2018-01-07] MEDS: Insulin Glargine 30 UNITS in Pre-Filled Syringe 1 EACH SC SCH (08:31)
[2018-01-07] MEDS: Pregabalin 75 MG CAP PO SCH (08:31)
[2018-01-07] MEDS: Carvedilol 6.25 MG TAB PO SCH ×2 (08:32→17:11)
[2018-01-07] MEDS: Docusate 100 MG CAP PO SCH ×2 (08:32→20:36)
[2018-01-07] MEDS: Oxymetazoline HCl 0.05% ( 15 ML ) NASAL SCH (08:33)
[2018-01-07] MEDS: cefTRIAXone\\ROCEPHIN 2 GM in Sodium Chloride 0.9% 100 ML IVPB SCH (08:41)
[2018-01-07] MEDS: Bupropion 150 MG XL TAB PO SCH (08:42)
--- NOTE | 2018-01-07 09:54 | PRG ---
DATE OF SERVICE: 01/07/2018 SERVICE: Renal Medicine. SUBJECTIVE: Ms. Mullen is an 82-year-old female who was seen by the Renal Service for her acute kidn ey injury on top of her chronic renal failure. She was initially admitted for presumed pneumonia. S he developed congestive heart failure. Diuretics have been started. Due to the slightly worsening r enal dysfunction, diuretics have been adjusted downwards. No new complaints today. She is feeling b radha. The shortness of breath is slightly improved today. Last cardiac echo showed a normal EF wit h this patient. Her appetite is slightly improved this morning. OBJECTIVE: VITAL SIGNS: Blood pressure 138/43, heart rate 82, respiratory rate 18, temperature 98.7, pulse ox 9 5%. GENERAL: Awake, supine, comfortable, not in distress SKIN: Adequate turgor. HEENT: She has slightly pale conjunctivae, anicteric sclerae. NECK: No neck mass, no carotid bruits, no JVD. CHEST: No deformities. LUNGS: Decreased breath sounds. No wheezing, no crackles. HEART: Normal sinus rhythm. No murmur, no gallops, no rubs. ABDOMEN: Globular, soft, nontender. No masses. EXTREMITIES: Trace edema. MEDICATIONS: Of 01/07/2018 was reviewed. LABORATORY DATA: Of 01/07/2018, white count 8.2, hemoglobin 9.2. Sodium 144, potassium 3.9, chlorid e 97, carbon dioxide 34, BUN 78, creatinine 2.32, glucose 144, calcium is 9.9. ASSESSMENT AND PLAN: 1. Acute kidney injury on top of her chronic renal failure - superimposed hemodynamically mediated r enal dysfunction. There is no indication for any dialytic intervention. Renal function is actually slightly improved. Adjustments of diuretics have been made. 2. Shortness of breath - multifactorial. Superimposed congestive heart failure/pneumonia. Continui ng IV diuretics. Currently on Lasix at 80 mg IV daily. Also on antibiotics at the present time. 3. Borderline anemia. Continue to observe. P.r.n. blood transfusion. Overall, agree with current management. We will be rechecking base met and CBC in a.m.
[2018-01-07] MEDS: Insulin Regular 300 UNITS/3 ML VIAL SC PRN ×2 (11:54→17:11)
--- NOTE | 2018-01-07 12:51 | PDOC.PN ---
- Subjective Encounter Start Date: 01/07/18 Encounter Start Time: 10:00 Pt seen for followup re: diastolic CHF exacerbation. Feels better. No chest pain, fevers or chills. - Objective MAR Reviewed: Yes Vital Signs & Weight: Vital Signs (12 hours) Temp Pulse Resp BP BP Pulse Ox 01/07/18 10:44 97.3 F L 76 20 135/51 L 100 01/07/18 10:14 75 20 100 01/07/18 08:32 138/43 L 01/07/18 07:12 98.7 F 80 18 111/52 L 95 01/07/18 06:16 98 01/07/18 06:15 83 20 98 01/07/18 03:47 98.1 F 73 18 116/56 L 97 01/07/18 03:07 97 Weight Admit Weight 173 lb 14.4 oz Weight 187 lb 9.6 oz I&O: 01/06/18 01/07/18 01/08/18 06:59 06:59 06:59 Intake Total 240 320 Output Total 2019 2399 Balance -1779 Result Diagrams: 01/07/18 03:48 01/07/18 03:48 Additional Labs: Accuchecks 01/07/18 01/07/18 01/06/18 10:26 05:34 20:38 POC Glucose 208 H 143 H 214 H 01/06/18 17:46 POC Glucose 166 H EKG Reviewed by me: Yes (Tele: NSR) Phys Exam - Physical Examination Constitutional: NAD HEENT: moist MMs Neck: supple Jesús crackles Cardiovascular: RRR Neurological: moves all 4 limbs Psychiatric: normal affect Dx/Plan (1) Acute on chronic diastolic CHF (congestive heart failure), NYHA class 3 Code(s): I50.33 - ACUTE ON CHRONIC DIASTOLIC (CONGESTIVE) HEART FAILURE Status : Acute Comment: ACC/AHA class C. Improving, continue IV furosemide 80 mg daily (2) Acute renal failure superimposed on stage 4 chronic kidney disease Code(s): N17.9 - ACUTE KIDNEY FAILURE, UNSPECIFIED; N18.4 - CHRONIC KIDNEY DISEASE, STAGE 4 (SEVERE) Status: Acute Comment: creatinine improved to 2.33 today (3) DM2 (diabetes mellitus, type 2) Status: Chronic Comment: continue accuchecks, insulin sliding scale (4) CAP (community acquired pneumonia) Code(s): J18.9 - PNEUMONIA, UNSPECIFIED ORGANISM Status: Acute Comment: continue IV ceftriaxone, levofloxacin (5) Hypertension Code(s): I10 - ESSENTIAL (PRIMARY) HYPERTENSION Status: Chronic Comment: controlled (6) PAF (paroxysmal atrial fibrillation) Code(s): I48.0 - PAROXYSMAL ATRIAL FIBRILLATION Status: Chronic Comment: will continue carvedilol, apixaban - Plan * . Review of Systems - Review of Systems Respiratory: SOB with Excertion. negative: Cough, Shortness of Breath, Pleuritic Pain, Wheezing Cardiovascular: negative: chest pain, palpitations, orthopnea, paroxysmal nocturnal dyspnea, edema, light headedness - Medications/Allergies Allergies/Adverse Reactions: Allergies Allergy/AdvReac Type Severity Reaction Status Date / Time codeine Allergy Rash Verified 12/30/17 21:02 Medications: Current Medications Acetaminophen (Tylenol) 650 mg PO Q6H PRN PRN Reason: Pain 1-3 Last Admin: 01/04/18 12:46 Dose: 650 mg Albuterol/Ipratropium (Duoneb) 3 ml NEB QID-RT [facility] Last Admin: 01/07/18 10:14 Dose: 3 ml Albuterol/Ipratropium (Duoneb) 3 ml NEB Q2H PRN PRN Reason: SOB &/or Wheezing Last Admin: 01/01/18 02:46 Dose: 3 ml Alogliptin Benzoate (Alogliptin) 6.25 mg PO DAILY [facility] Last Admin: 01/07/18 08:30 Dose: 6.25 mg Apixaban (Eliquis) 2.5 mg PO BID [facility] Last Admin: 01/07/18 08:30 Dose: 2.5 mg Atorvastatin Calcium (Lipitor) 80 mg PO HS [facility] Last Admin: 01/06/18 20:50 Dose: 80 mg Benzonatate (Tessalon) 100 mg PO 0300,0900,1500,2100 [facility] Last Admin: 01/07/18 08:32 Dose: 100 mg Bupropion HCl (Wellbutrin Xl) 75 mg PO DAILY [facility] Last Admin: 01/07/18 08:42 Dose: 75 mg Calcitriol (Rocaltrol) 0.25 mcg PO DAILY [facility] Last Admin: 01/07/18 08:30 Dose: 0.25 mcg [facility]vedilol (Coreg) 6.25 mg PO BID[facility] Last Admin: 01/07/18 08:32 Dose: 6.25 mg Citalopram Hydrobromide (Celexa) 40 mg PO HS [facility] Last Admin: 01/06/18 20:51 Dose: 40 mg Clonidine (Catapres) 0.1 mg PO Q1H PRN PRN Reason: SBP > 180 Last Admin: 01/02/18 04:45 Dose: 0.1 mg Dextrose/Water (Dextrose 50%) 25 gm IVP PRN PRN PRN Reason: HYPOGLYCEMIA PROTOCOL Diphenoxylate HCl/Atropine (Lomotil) 1 tab PO PRN PRN PRN Reason: Diarrhea/Loose Stools Docusate Sodium (Colace) 100 mg PO BID [facility] Last Admin: 01/07/18 08:32 Dose: 100 mg Furosemide (Lasix) 80 mg SLOW IVP DAILY [facility] Last Admin: 01/07/18 08:31 Dose: 80 mg Glucagon (Glucagon) 1 mg IM PRN PRN PRN Reason: HYPOGLYCEMIA PROTOCOL Insulin Glargine 30 units/ (Miscellaneous Medication) 0.3 mls @ 0 mls/hr SC QAM [facility] Last Admin: 01/07/18 08:31 Dose: 0.3 mls Dextrose/Water (D5w) 1,000 mls @ 0 mls/hr IV INF PRN PRN Reason: HYPOGLYCEMIA PROTOCOL Ceftriaxone Sodium 2 gm/ (Sodium Chloride) 100 mls @ 200 mls/hr IVPB Q24HR [facility] Last Admin: 01/07/18 08:41 Dose: 100 mls Levofloxacin 250 mg/ Device 50 mls @ 100 mls/hr IVPB 1000 [facility] Last Admin: 01/07/18 08:33 Dose: 50 mls Insulin Human Regular (Humulin R) 0 units SC .MILD SLIDING PRN; Protocol PRN Reason: MILD SLIDING SCALE Last Admin: 01/07/18 11:54 Dose: 3 units Levothyroxine Sodium (Synthroid) 75 mcg PO 0600 [facility] Last Admin: 01/07/18 05:33 Dose: 75 mcg Ondansetron HCl (Zofran Odt) 8 mg PO Q6H PRN PRN Reason: Nausea/Vomiting Last Admin: 01/06/18 13:34 Dose: 8 mg Oxymetazoline HCl (Oxymetazoline Hcl) 0 sprays NASAL DAILY [facility] Last Admin: 01/07/18 08:33 Dose: 2 sprays Pantoprazole Sodium (Protonix) 40 mg PO DAILY [facility] Last Admin: 01/07/18 08:32 Dose: 40 mg Pramipexole Dihydrochloride (Mirapex) 1.5 mg PO HS [facility] Last Admin: 01/06/18 20:48 Dose: 1.5 mg Pregabalin (Lyrica) 150 mg PO DAILY [facility] Last Admin: 01/07/18 08:31 Dose: 150 mg Sodium Chloride (Flush - Normal Saline) 10 ml IVF Q12HR [facility] Last Admin: 01/07/18 08:34 Dose: 10 ml Sodium Chloride (Flush - Normal Saline) 10 ml IVF PRN PRN PRN Reason: Saline Flush Last Admin: 01/01/18 20:16 Dose: 10 ml Zolpidem Tartrate (Ambien) 5 mg PO HS [facility] Last Admin: 01/06/18 20:51 Dose: 5 mg
--- NOTE | 2018-01-07 17:50 | PDOC.CTH ---
Cardiology Progress Note - Subjective No new issues. Breathing at baseline. - Objective Vital Signs Temp Pulse Resp BP BP Pulse Ox 01/07/18 17:11 138/43 L 01/07/18 14:59 97.9 F 69 18 117/48 L 100 01/07/18 14:16 67 20 100 01/07/18 10:44 97.3 F L 76 20 135/51 L 100 01/07/18 10:14 75 20 100 01/07/18 08:32 138/43 L 01/07/18 07:12 98.7 F 80 18 111/52 L 95 01/07/18 06:16 98 01/07/18 06:15 83 20 98 Admit Weight 173 lb 14.4 oz Weight 187 lb 9.6 oz 01/06/18 01/07/18 01/08/18 06:59 06:59 06:59 Intake Total 240 320 Output Total 2019 2399 Balance -1779 -2079 - Physical Examination General/Neuro: alert & oriented x3, NAD Neck: no JVD present Lungs: unlabored respirations Heart: RRR Abdomen: NT/ND Extremities: other: (on edema) - Telemetry Telemetry Rhythm: Afib -->NSR - Labs Result Diagrams: 01/07/18 03:48 01/07/18 03:48 Troponin/CKMB CK-MB (CK-2) 2.1 ng/mL (0-6.6) 12/27/17 10:32 Troponin I 0.034 ng/mL (< 0.028) H 12/27/17 10:32 - Assessment/Plan 1. Paroxysmal Afib On Coreg 6.25mg BID and Eliquis 2.5mg BID due to age and CKD. 2. Acute on Chronic Diastolic HF - Lasix to PO. 3. CKD 4. Insulin dependent DM 5. PNA - cont. IV antibiotics by primary team. 6. HTN 7. Hyperlipidemia 8. Sleep Apea - CPAP. 9. Hx of TIA/CVA
[2018-01-07] MEDS: Citalopram 20 MG TAB PO SCH (20:36)
[2018-01-07] MEDS: Atorvastatin Calcium 40 MG TAB PO SCH (20:36)
[2018-01-07] MEDS: Pramipexole Di-HCl 1 MG TAB PO SCH (20:36)
[2018-01-07] MEDS: Zolpidem Tartrate 5 MG TAB PO SCH (20:37)
[2018-01-07] MEDS: Acetaminophen 325 MG TAB PO PRN (20:37)
[2018-01-08 03:53] LABS: #Basophils 0.1 thou/uL (0.0-0.2); #Lymphocytes 1.1 thou/uL (1.20-3.40); #Monocytes 0.6 thou/uL (0.11-0.59); #Neutrophils 8.2 thou/uL (1.40-6.50); %Basophils 0.7 % (0.0-1.0); %Eosinophils 0.2 % (0.0-10.0); %Lymphocytes 11.1 % (21.0-51.0); %Monocytes 6.3 % (0.0-10.0); %Neutrophils 81.6 % (42.0-75.0); Hemoglobin 10.1 g/dL (12.0-16.0); Mean Corpuscular HGB CONC 30.5 g/dL (32.0-36.0); Mean Corpuscular Hemoglobin 30.5 pg (27.0-31.0); Mean Corpuscular Volume 99.9 fL (78.0-98.0); Mean Platelet Volume 6.7 fL (7.4-10.4); Platelet Count 256 thou/uL (130-400); RBC Distribution Width 13.2 % (11.5-14.5)
[2018-01-08 04:14] LABS: BUN (Urea Nitrogen) 79 mg/dL (9.8-20.1); Calc. Creatinine Clearance 25 mL/min (70-130); Calcium 9.9 mg/dL (7.8-10.44); Estimated GFR-MDRD 20; Glucose 160 mg/dL (83-110)
[2018-01-08 04:24] LABS: Anion Gap 19 mmol/L (10-20); Carbon Dioxide 32 mmol/L (23-31); Chloride 97 mmol/L (98-107); Potassium 4.1 mmol/L (3.5-5.1); Sodium 144 mmol/L (136-145)
[2018-01-08] MEDS: Benzonatate 100 MG CAP PO SCH ×4 (04:55→20:28)
[2018-01-08] MEDS: Levothyroxine Sodium 75 MCG TAB PO SCH (05:21)
--- NOTE | 2018-01-08 09:46 | PRG ---
DATE OF SERVICE: 01/08/2018 SUBJECTIVE: Ms. Mullen is an 82-year-old white female who was admitted for shortness of breath. Ini michelle, it was felt that she may have a pneumonia. Cardiology reevaluated the patient and the jono g that she may also have developed CHF. She was started on IV diuretics. Diuretics have now been de creased in dose and placed on p.o. due to the improved CHF. She is feeling better this morning. Alecia rtness of breath is not any worse, it is at baseline. No chest pain. Appetite is slowly improving. OBJECTIVE: VITAL SIGNS: Blood pressure 142/56, heart rate 76, respiratory rate 18, temperature 98.1, pulse ox 9 7%. GENERAL: Awake, alert, supine, comfortable, not in distress. SKIN: Adequate turgor. HEENT: Slightly pale conjunctivae, anicteric sclerae. NECK: No neck mass, no carotid bruits, no JVD. CHEST: No deformities. LUNGS: Decreased breath sounds. HEART: Normal sinus rhythm. No murmur, no gallops, no rubs. ABDOMEN: Globular, soft, nontender, no masses. EXTREMITIES: No edema, no deformities. MEDICATIONS: 01/08/2018 - Reviewed. LABORATORY: 01/08/2018 - White count 10, hemoglobin 10.1. Sodium 144, potassium 4.1, chloride 97, c arbon dioxide 32, BUN 79, creatinine 2.38, glucose 160, calcium 9.9. ASSESSMENT AND PLAN: 1. Acute kidney injury on top of her chronic renal failure, stabilizing renal function. Creatinine 2.38 - stable. Currently, on p.o. diuretic regimen. Lasix has been converted to 40 mg p.o. No nellie cation for any dialytic intervention. I agree with current management. Continue current diuretic re gimen. 2. Congestive heart failure, clinically improved. 3. Pneumonia, on IV antibiotics. 4. Anemia. Continue to observe. No indication for any blood transfusion. We will recheck a base met and CBC in a.m.
[2018-01-08] MEDS: Furosemide 40 MG TAB PO SCH ×2 (10:29→14:27)
[2018-01-08] MEDS: Bupropion 150 MG XL TAB PO SCH (10:29)
[2018-01-08] MEDS: Docusate 100 MG CAP PO SCH ×2 (10:29→20:29)
[2018-01-08] MEDS: Calcitriol 0.25 MCG CAP PO SCH (10:29)
[2018-01-08] MEDS: Carvedilol 6.25 MG TAB PO SCH ×2 (10:29→17:14)
[2018-01-08] MEDS: Pregabalin 75 MG CAP PO SCH (10:30)
[2018-01-08] MEDS: Alogliptin 6.25 MG TAB PO SCH (10:34)
[2018-01-08] MEDS: Apixaban 2.5 MG TAB PO SCH ×2 (10:35→20:28)
[2018-01-08] MEDS: cefTRIAXone\\ROCEPHIN 2 GM in Sodium Chloride 0.9% 100 ML IVPB SCH (10:35)
[2018-01-08] MEDS: Insulin Glargine 30 UNITS in Pre-Filled Syringe 1 EACH SC SCH (10:41)
[2018-01-08] MEDS ORDERED: Metolazone 5 MG TAB PO SCH (10:45)
[2018-01-08] MEDS: Insulin Regular 300 UNITS/3 ML VIAL SC PRN ×2 (12:52→18:31)
[2018-01-08] MEDS: Oxymetazoline HCl 0.05% ( 15 ML ) NASAL SCH (13:05)
--- NOTE | 2018-01-08 14:21 | PDOC.CTH ---
Cardiology Progress Note - Subjective Pt. seen and eval. More alert today than when I saw her on Monday. No new events. - Objective Vital Signs Temp Pulse Pulse Pulse Resp BP BP 01/08/18 10:54 67 17 01/08/18 09:50 70 73 128/51 L 135/53 L 01/08/18 08:03 01/08/18 08:02 76 18 01/08/18 07:33 98.1 F 79 20 01/08/18 03:49 97.6 F 68 18 BP Pulse Ox Pulse Ox Pulse Ox 01/08/18 10:54 99 01/08/18 09:50 97 99 01/08/18 08:03 97 01/08/18 08:02 97 01/08/18 07:33 142/56 H 98 01/08/18 03:49 116/54 L 98 Admit Weight 173 lb 14.4 oz Weight 188 lb 1.6 oz 01/07/18 01/08/18 01/09/18 06:59 06:59 06:59 Intake Total 320 1090 Output Total 2400 1650 425 Balance -2080 -560 -425 - Physical Examination General/Neuro: alert & oriented x3 Neck: no JVD present Lungs: CTA Heart: RRR Abdomen: NT/ND Extremities: other: (minimal edema.) - Telemetry Telemetry Rhythm: sinus.7 beats WCTachy yest. AM. - Labs Result Diagrams: 01/08/18 03:48 01/08/18 03:48 Troponin/CKMB CK-MB (CK-2) 2.1 ng/mL (0-6.6) 12/27/17 10:32 Troponin I 0.034 ng/mL (< 0.028) H 12/27/17 10:32 - Assessment/Plan 1. Paroxysmal Afib On Coreg 6.25mg BID and Eliquis 2.5mg BID due to age and CKD. 2. Acute on Chronic Diastolic HF - Lasix to PO. Zaroxolyn was added. Watch for urine output and renal function. 3. CKD 4. Insulin dependent DM 5. PNA - cont. IV antibiotics by primary team. 6. HTN 7. Hyperlipidemia 8. Sleep Apea - CPAP. 9. Hx of TIA/CVA 10. deconditioned. Meds reviewed.
[2018-01-08] MEDS: Citalopram 20 MG TAB PO SCH (20:28)
[2018-01-08] MEDS: Atorvastatin Calcium 40 MG TAB PO SCH (20:28)
[2018-01-08] MEDS: Zolpidem Tartrate 5 MG TAB PO SCH (20:29)
[2018-01-08] MEDS: Pramipexole Di-HCl 1 MG TAB PO SCH (20:31)
[2018-01-09 04:22] LABS: #Eosinphils 0.1 thou/uL (0.0-0.7); #Lymphocytes 1.2 thou/uL (1.20-3.40); #Monocytes 0.6 thou/uL (0.11-0.59); #Neutrophils 8.2 thou/uL (1.40-6.50); %Basophils 0.3 % (0.0-1.0); %Eosinophils 0.6 % (0.0-10.0); %Lymphocytes 11.5 % (21.0-51.0); %Monocytes 6.1 % (0.0-10.0); %Neutrophils 81.6 % (42.0-75.0); Hemoglobin 9.9 g/dL (12.0-16.0); Mean Corpuscular HGB CONC 30.5 g/dL (32.0-36.0); Mean Corpuscular Hemoglobin 30.5 pg (27.0-31.0); Platelet Count 251 thou/uL (130-400); RBC Distribution Width 13.3 % (11.5-14.5); Red Blood Cell (RBC) Count 3.23 mill/uL (4.20-5.40)
[2018-01-09 04:38] LABS: BUN (Urea Nitrogen) 74 mg/dL (9.8-20.1); Calc. Creatinine Clearance 30 mL/min (70-130); Calcium 10.4 mg/dL (7.8-10.44); Estimated GFR-MDRD 24; Glucose 127 mg/dL (83-110)
[2018-01-09] MEDS: Benzonatate 100 MG CAP PO SCH ×4 (04:52→20:08)
[2018-01-09 04:53] LABS: Chloride 96 mmol/L (98-107); Potassium 4.1 mmol/L (3.5-5.1); Sodium 144 mmol/L (136-145)
[2018-01-09 04:56] LABS: Anion Gap 18 mmol/L (10-20); Carbon Dioxide 34 mmol/L (23-31)
[2018-01-09] MEDS: Levothyroxine Sodium 75 MCG TAB PO SCH (06:24)
--- NOTE | 2018-01-09 09:22 | PRG ---
DATE OF SERVICE: 01/09/2018 SUBJECTIVE: Ms. Mullen is an 82-year-old white female, who was admitted for shortness of breath. Sh smith was initially treated for pneumonia. During this hospitalization developed CHF. She currently und erwent diuretic regimen, which improved shortness of breath. In addition, diuretics had been adjuste d downwards. Patient is currently on furosemide at 40 mg tab b.i.d. She continues to receive IV ant ibiotics. The patient states that she is feeling better, denies any chest pain, shortness of breath. OBJECTIVE: VITAL SIGNS: Blood pressure 120/46, heart rate 80, respiratory rate 15, temperature 97.9, pulse ox 9 7%. GENERAL: Noted to be awake, supine, comfortable, not in distress. SKIN: Adequate turgor. HEENT: She has slightly pale conjunctivae, anicteric sclerae. NECK: No neck mass, no carotid bruits, no JVD. CHEST: No deformities. LUNGS: Decreased breath sounds. HEART: Normal sinus rhythm. No murmur, no gallops, no rubs. ABDOMEN: Globular, soft, nontender, no masses. EXTREMITIES: No edema, no deformities. MEDICATIONS: On 01/09/2018 - reviewed. LABORATORY DATA: On 01/09/2018 - White count 10, hemoglobin 9.9, hematocrit 32.4. Sodium 144, potas sium 4.1, chloride 96, carbon dioxide 34, BUN 74, creatinine 2, glucose 127, calcium 10.4. ASSESSMENT AND PLAN: 1. Acute kidney injury on top of her chronic renal failure - superimposed prerenal azotemia, much im proved. Most recent creatinine now is noted at 2.0. Please note that creatinine peaked at the value of 2.56. Diuretics have been adjusted. There is no indication for any dialytic intervention. Cont inue supportive care. 2. Shortness of breath, multifactorial etiology. Pneumonia/heart failure. Currently on antibiotics and diuretics. 3. Anemia, stable. Continue to observe. We will recheck base met and CBC in a.m. Agree with current management.
[2018-01-09] MEDS: Alogliptin 6.25 MG TAB PO SCH (09:40)
[2018-01-09] MEDS: Insulin Glargine 30 UNITS in Pre-Filled Syringe 1 EACH SC SCH (09:40)
[2018-01-09] MEDS: Pregabalin 75 MG CAP PO SCH (09:41)
[2018-01-09] MEDS: Furosemide 40 MG TAB PO SCH ×2 (09:41→15:22)
[2018-01-09] MEDS: Metolazone 5 MG TAB PO SCH (09:42)
[2018-01-09] MEDS: Docusate 100 MG CAP PO SCH ×2 (09:42→20:08)
[2018-01-09] MEDS: Calcitriol 0.25 MCG CAP PO SCH (09:42)
[2018-01-09] MEDS: Bupropion 150 MG XL TAB PO SCH (09:42)
[2018-01-09] MEDS: Carvedilol 6.25 MG TAB PO SCH ×2 (09:43→17:46)
[2018-01-09] MEDS: Oxymetazoline HCl 0.05% ( 15 ML ) NASAL SCH (09:43)
[2018-01-09] MEDS: Cefdinir 300 MG CAP PO SCH ×2 (09:53→20:08)
[2018-01-09] MEDS: cefTRIAXone\\ROCEPHIN 2 GM in Sodium Chloride 0.9% 100 ML IVPB SCH (11:06)
[2018-01-09] MEDS: Apixaban 2.5 MG TAB PO SCH ×2 (11:49→20:07)
[2018-01-09] MEDS: Insulin Regular 300 UNITS/3 ML VIAL SC PRN ×2 (11:49→20:42)
--- NOTE | 2018-01-09 13:05 | PDOC.CTH ---
<Anastacia Beauchamp - Last Filed: 01/09/18 13:03> Cardiology Progress Note - Subjective The pt seen and examined. No overnight events. No cardiac complaints. She is more alerted today. She stated she has more energy today. - Objective Vital Signs Temp Pulse Resp BP BP BP Pulse Ox 01/09/18 11:17 98.3 F 73 12 133/53 L 97 01/09/18 10:51 76 16 93 L 01/09/18 09:43 133/59 L 01/09/18 08:00 100 01/09/18 07:40 97.9 F 80 15 120/46 L 97 01/09/18 06:45 77 18 98 01/09/18 04:00 97.6 F 75 16 141/50 H 100 Admit Weight 173 lb 14.4 oz Weight 188 lb 11.2 oz 01/08/18 01/09/18 01/10/18 06:59 06:59 06:59 Intake Total 1090 190 Output Total 1650 2175 Balance -560 -1984 - Physical Examination General/Neuro: alert & oriented x3 Neck: no JVD present Lungs: other: (diminished at bases) Heart: RRR Abdomen: soft Extremities: other: (No edema) - Telemetry Telemetry Rhythm: SR 70-80s - Labs Result Diagrams: 01/09/18 03:31 01/09/18 03:31 Troponin/CKMB CK-MB (CK-2) 2.1 ng/mL (0-6.6) 12/27/17 10:32 Troponin I 0.034 ng/mL (< 0.028) H 12/27/17 10:32 - Assessment/Plan 1. Paroxysmal Afib - converted back to SR since 1500 on 01/03/18. On Coreg 6.25mg BID and Eliquis 2.5mg BID due to age and CKD. 2. Acute on Chronic Diastolic HF - Stable with Lasix 40mg PO BID. Not on ADRIAN/ ARB due to hx of CKD. 3. CKD - improving; Managed by Dr Flores. 4. 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 PNA - cont. IV antibiotics by PCP. 6. HTN - stable with current med. Cont. to monitor 7. Hyperlipidemia - on Statin 8. Sleep Apea - wearing Cpap now. Instructed to wear Cpap at HS and home. 9. Hx of TIA/CVA - stable 10. Diarrhea - stable 11. Anemia. Multifactorial. Anemia of chronic disease and assoc. with CKD. 12. Constipation - On Colace MAR reviewed * Echo in 11/2017 showed EF 50-55%, restrictive diastolic dysfunction, mod bilat. dilated atriums, mild-mod MR, mild MR, mild NC, and mild-mod TR. * Her renal and fluid management is by Nephrology. Review of Systems - Review of Systems Constitutional: reports: see HPI, weakness EENTM: reports: no symptoms reported Respiratory: reports: no symptoms reported Cardiac (ROS): reports: no symptoms reported ABD/GI: reports: no symptoms reported : reports: no symptoms reported <Jair Barlow - Last Filed: 01/10/18 15:27> Cardiology Progress Note - Objective Vital Signs Temp Pulse Pulse Pulse Pulse Resp BP 01/10/18 15:21 97.6 F 73 18 01/10/18 15:03 79 16 01/10/18 11:00 74 16 01/10/18 10:54 97.9 F 71 18 01/10/18 10:08 116/47 L 01/10/18 09:53 116/47 L 01/10/18 09:02 79 76 81 01/10/18 08:00 01/10/18 07:58 75 16 01/10/18 07:43 97.7 F 75 19 01/10/18 04:18 97.0 F L 79 14 BP BP BP BP BP BP Pulse Ox 01/10/18 15:21 88/46 L 94 L 01/10/18 15:03 01/10/18 11:00 97 01/10/18 10:54 121/49 L 01/10/18 10:08 01/10/18 09:53 01/10/18 09:02 121/53 L 123/47 L 114/42 L 114/44 L 01/10/18 08:00 97 01/10/18 07:58 01/10/18 07:43 116/48 L 01/10/18 04:18 129/47 L 96 Pulse Ox Pulse Ox Pulse Ox 01/10/18 15:21 01/10/18 15:03 01/10/18 11:00 01/10/18 10:54 01/10/18 10:08 01/10/18 09:53 01/10/18 09:02 95 99 91 L 01/10/18 08:00 01/10/18 07:58 01/10/18 07:43 01/10/18 04:18 Admit Weight 173 lb 14.4 oz Weight 190 lb 01/09/18 01/10/18 01/11/18 06:59 06:59 06:59 Intake Total 190 1000 Output Total 2295 1384 Balance -1984 - Labs Result Diagrams: 01/10/18 03:38 01/10/18 03:38 Troponin/CKMB CK-MB (CK-2) 2.1 ng/mL (0-6.6) 12/27/17 10:32 Troponin I 0.034 ng/mL (< 0.028) H 12/27/17 10:32 - Assessment/Plan Pt. seen and eval. by me.I agree with the A/P by the EXERCISE EQUIPMENT SPECIALIST. She did sit in the chair today. The BUN:Creat is increasing. She may be intravascularly dry. No further edema. Will need to be careful with the diuretics not to dehydrate with the diastolic dysfunction.
[2018-01-09] MEDS: Atorvastatin Calcium 40 MG TAB PO SCH (20:07)
[2018-01-09] MEDS: Pramipexole Di-HCl 1 MG TAB PO SCH (20:08)
[2018-01-09] MEDS: Zolpidem Tartrate 5 MG TAB PO SCH (20:08)
[2018-01-09] MEDS: Citalopram 20 MG TAB PO SCH (20:08)
[2018-01-10] MEDS: Benzonatate 100 MG CAP PO SCH ×4 (03:20→20:09)
[2018-01-10 04:22] LABS: #Basophils 0.1 thou/uL (0.0-0.2); #Lymphocytes 1.3 thou/uL (1.20-3.40); #Monocytes 0.6 thou/uL (0.11-0.59); #Neutrophils 8.6 thou/uL (1.40-6.50); %Basophils 0.6 % (0.0-1.0); %Eosinophils 0.4 % (0.0-10.0); %Lymphocytes 12.2 % (21.0-51.0); %Monocytes 5.6 % (0.0-10.0); %Neutrophils 81.3 % (42.0-75.0); Hemoglobin 9.4 g/dL (12.0-16.0); Mean Corpuscular HGB CONC 30.9 g/dL (32.0-36.0); Mean Corpuscular Hemoglobin 30.9 pg (27.0-31.0); Mean Platelet Volume 7.1 fL (7.4-10.4); Platelet Count 213 thou/uL (130-400); RBC Distribution Width 13.2 % (11.5-14.5); Red Blood Cell (RBC) Count 3.05 mill/uL (4.20-5.40); White Blood Cell (WBC) Count 10.5 thou/uL (4.8-10.8)
[2018-01-10 04:25] LABS: BUN (Urea Nitrogen) 79 mg/dL (9.8-20.1); Calc. Creatinine Clearance 30 mL/min (70-130); Calcium 10.3 mg/dL (7.8-10.44); Estimated GFR-MDRD 24; Glucose 142 mg/dL (83-110)
[2018-01-10 04:35] LABS: Anion Gap 18 mmol/L (10-20); Carbon Dioxide 37 mmol/L (23-31); Chloride 93 mmol/L (98-107); Potassium 4.2 mmol/L (3.5-5.1); Sodium 144 mmol/L (136-145)
[2018-01-10] MEDS: Levothyroxine Sodium 75 MCG TAB PO SCH (05:53)
[2018-01-10] MEDS ORDERED: Carvedilol 6.25 MG TAB PO SCH (08:00)
[2018-01-10] MEDS ORDERED: Furosemide 40 MG/4 ML VIAL SLOW IVP SCH (09:15)
--- NOTE | 2018-01-10 09:42 | PRG ---
DATE OF SERVICE: 01/10/2018 SUBJECTIVE: Ms. Mullen is an 82-year-old white female seen for her acute kidney injury on top of her chronic renal failure. She was initially admitted for a presumed pneumonia. She developed CHF duri ng this hospitalization. She was diuresed. Renal function has been stabilizing. She is feeling str onger and better. Appetite is improving. No new complaints today. PHYSICAL EXAMINATION: VITAL SIGNS: Blood pressure 116/48, heart rate 75, respiratory rate 19, temperature 97.7, pulse ox i s 96%. GENERAL: Awake, supine, comfortable, not in distress. SKIN: Adequate turgor. HEENT: She has slightly pale conjunctivae, anicteric sclerae. NECK: No neck mass, no carotid bruits, no JVD. CHEST: No deformities. LUNGS: Decreased breath sounds. HEART: Normal sinus rhythm. No murmur, no gallops or rubs. ABDOMEN: Globular, soft, nontender. EXTREMITIES: No edema. MEDICATIONS: 01/10/2018 - Reviewed. LABORATORY DATA: 01/10/2018 - Was also reviewed. ASSESSMENT AND PLAN: Acute kidney injury/chronic renal failure, stable. Creatinine noted at 2.0. T here is no indication for any dialytic intervention. Continue current management. Diuretics have be en adjusted in the past and currently furosemide has been discontinued. Overall, I agree with current management. No indication for any dialytic intervention.
[2018-01-10] MEDS: Insulin Glargine 30 UNITS in Pre-Filled Syringe 1 EACH SC SCH (09:45)
[2018-01-10] MEDS: Oxymetazoline HCl 0.05% ( 15 ML ) NASAL SCH (09:45)
[2018-01-10] MEDS: Pregabalin 75 MG CAP PO SCH (09:46)
[2018-01-10] MEDS: Bupropion 150 MG XL TAB PO SCH (09:46)
[2018-01-10] MEDS: Docusate 100 MG CAP PO SCH ×2 (09:46→20:08)
[2018-01-10] MEDS: Cefdinir 300 MG CAP PO SCH ×2 (09:46→20:09)
[2018-01-10] MEDS: Metolazone 5 MG TAB PO SCH ×2 (09:47→10:08)
[2018-01-10] MEDS: Calcitriol 0.25 MCG CAP PO SCH (09:47)
[2018-01-10] MEDS: Alogliptin 6.25 MG TAB PO SCH (09:48)
[2018-01-10] MEDS: Apixaban 2.5 MG TAB PO SCH ×2 (09:48→20:10)
[2018-01-10] MEDS: Furosemide 40 MG TAB PO SCH ×2 (09:49→15:17)
[2018-01-10] MEDS: Carvedilol 6.25 MG TAB PO SCH ×2 (10:08→17:37)
[2018-01-10] MEDS: Insulin Regular 300 UNITS/3 ML VIAL SC PRN ×2 (11:16→21:10)
--- NOTE | 2018-01-10 15:32 | PDOC.CTH ---
Cardiology Progress Note - Objective Vital Signs Temp Pulse Pulse Pulse Pulse Resp BP 01/10/18 15:21 97.6 F 73 18 01/10/18 15:03 79 16 01/10/18 11:00 74 16 01/10/18 10:54 97.9 F 71 18 01/10/18 10:08 116/47 L 01/10/18 09:53 116/47 L 01/10/18 09:02 79 76 81 01/10/18 08:00 01/10/18 07:58 75 16 01/10/18 07:43 97.7 F 75 19 01/10/18 04:18 97.0 F L 79 14 BP BP BP BP BP BP Pulse Ox 01/10/18 15:21 88/46 L 94 L 01/10/18 15:03 01/10/18 11:00 97 01/10/18 10:54 121/49 L 01/10/18 10:08 01/10/18 09:53 01/10/18 09:02 121/53 L 123/47 L 114/42 L 114/44 L 01/10/18 08:00 97 01/10/18 07:58 01/10/18 07:43 116/48 L 01/10/18 04:18 129/47 L 96 Pulse Ox Pulse Ox Pulse Ox 01/10/18 15:21 01/10/18 15:03 01/10/18 11:00 01/10/18 10:54 01/10/18 10:08 01/10/18 09:53 01/10/18 09:02 95 99 91 L 01/10/18 08:00 01/10/18 07:58 01/10/18 07:43 01/10/18 04:18 Admit Weight 173 lb 14.4 oz Weight 190 lb 01/09/18 01/10/18 01/11/18 06:59 06:59 06:59 Intake Total 190 1000 Output Total 4684 5342 Balance -1984 -763 - Labs Result Diagrams: 01/10/18 03:38 01/10/18 03:38 Troponin/CKMB CK-MB (CK-2) 2.1 ng/mL (0-6.6) 12/27/17 10:32 Troponin I 0.034 ng/mL (< 0.028) H 12/27/17 10:32 - Assessment/Plan 1. Paroxysmal Afib - converted back to SR since 1500 on 01/03/18. On Coreg 6.25mg BID and Eliquis 2.5mg BID due to age and CKD. 2. Acute on Chronic Diastolic HF - Stable with Lasix 40mg PO BID. Not on ADRIAN/ ARB due to hx of CKD. 3. CKD - improving; Managed by Dr Flores. the BUN: creat. is elevated indicating that she may be becoming dehydrated. She has responded well to the diuretics. She will probably need PRN zaroxolyn and daily lasix.. 4. 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 PNA - cont. IV antibiotics by PCP. 6. HTN - hypotensive with current med. I will decrease the dose of the Coreg and try to increase in the future if the BP tolerates.Cont. to monitor 7. Hyperlipidemia - on Statin 8. Sleep Apea - wearing Cpap now. Instructed to wear Cpap at HS and home. 9. Hx of TIA/CVA - stable 10. Diarrhea - stable 11. Anemia. Multifactorial. Anemia of chronic disease and assoc. with CKD. 12. Constipation - On Colace MAR reviewed * Echo in 11/2017 showed EF 50-55%, restrictive diastolic dysfunction, mod bilat. dilated atriums, mild-mod MR, mild MR, mild NH, and mild-mod TR. * Her renal and fluid management is by Nephrology. She will likely be going to rehab soon. I will see her back in the office in 2- 4 weeks.
[2018-01-10] MEDS: Zolpidem Tartrate 5 MG TAB PO SCH (20:08)
[2018-01-10] MEDS: Citalopram 20 MG TAB PO SCH (20:08)
[2018-01-10] MEDS: Atorvastatin Calcium 40 MG TAB PO SCH (20:08)
[2018-01-10] MEDS: Pramipexole Di-HCl 1 MG TAB PO SCH (20:10)
[2018-01-11] MEDS: Benzonatate 100 MG CAP PO SCH ×4 (03:20→20:54)
[2018-01-11 03:49] LABS: #Basophils 0.1 thou/uL (0.0-0.2); #Lymphocytes 1.5 thou/uL (1.20-3.40); #Monocytes 0.7 thou/uL (0.11-0.59); #Neutrophils 7.2 thou/uL (1.40-6.50); %Basophils 0.6 % (0.0-1.0); %Eosinophils 0.5 % (0.0-10.0); %Lymphocytes 15.8 % (21.0-51.0); %Monocytes 7.5 % (0.0-10.0); %Neutrophils 75.6 % (42.0-75.0); Hemoglobin 9.2 g/dL (12.0-16.0); Mean Corpuscular HGB CONC 30.8 g/dL (32.0-36.0); Mean Corpuscular Hemoglobin 30.8 pg (27.0-31.0); Mean Corpuscular Volume 99.9 fL (78.0-98.0); Mean Platelet Volume 7.3 fL (7.4-10.4); Platelet Count 170 thou/uL (130-400); RBC Distribution Width 13.1 % (11.5-14.5); Red Blood Cell (RBC) Count 2.97 mill/uL (4.20-5.40); White Blood Cell (WBC) Count 9.5 thou/uL (4.8-10.8)
[2018-01-11 04:07] LABS: BUN (Urea Nitrogen) 84 mg/dL (9.8-20.1); Calc. Creatinine Clearance 31 mL/min (70-130); Calcium 10.4 mg/dL (7.8-10.44); Estimated GFR-MDRD 24; Glucose 86 mg/dL (83-110)
[2018-01-11 04:16] LABS: Anion Gap 14 mmol/L (10-20); Chloride 92 mmol/L (98-107); Potassium 4.2 mmol/L (3.5-5.1); Sodium 143 mmol/L (136-145)
[2018-01-11 04:20] LABS: Carbon Dioxide Greater than 37 mmol/L (23-31)
[2018-01-11] MEDS: Levothyroxine Sodium 75 MCG TAB PO SCH (05:54)
--- NOTE | 2018-01-11 09:09 | PRG ---
DATE OF SERVICE: 01/11/2018 SUBJECTIVE: Ms. Mullen is an 82-year-old white female followed up by the Renal Service for her chron ic renal failure/acute kidney injury, stabilizing renal function. Patient diagnosed with pneumonia w ith a superimposed congestive heart failure. Diuretics have been given. Adjustment with the diureti cs being done. Due to the very high bicarbonate with this patient, I decided to hold off the metolaz one temporarily. However, she will continue with the current Lasix at 40 mg p.o. b.i.d. No complaints of chest pain. Shortness of breath is not any worse. OBJECTIVE: VITAL SIGNS: Blood pressure is 127/42, heart rate 81, respiratory rate 12, temperature 97.8, pulse o x 94% on 1 liter. GENERAL: Noted to be awake, sitting comfortable, not in overt distress. SKIN: Adequate turgor. HEENT: She has slightly pale conjunctivae, anicteric sclerae. NECK: No neck mass, no carotid bruits, no JVD. CHEST: No deformities. LUNGS: Decreased breath sounds. HEART: Normal sinus rhythm. No murmur, no gallops or rubs. ABDOMEN: Globular, soft, nontender. No masses. EXTREMITIES: Trace edema. MEDICATIONS: Medications 01/11/2018 reviewed. LABORATORY DATA: Labs of 01/11/2018 white count 9.5, hemoglobin 9.2. Sodium 143, potassium 4.2, chl oride 92, carbon dioxide is greater than 37, BUN is 84, creatinine 2.0, glucose 86, calcium 10.4. ASSESSMENT AND PLAN: 1. Acute kidney injury/chronic renal failure -- superimposed prerenal azotemia. No indication for a ny dialytic intervention. Creatinine is relatively stable. I have adjusted the diuretics some more. Due to the worsening bicarbonate, I have held off the Zaroxolyn temporarily. 2. Congestive heart failure, clinically asymptomatic. On Lasix 40 mg b.i.d. The patient has underl maribell diastolic dysfunction with a normal EF in the past. Please note due to the increased bicarbonat e, the metolazone has been placed on hold temporarily today. Overall doing better. Awaiting senior living facility/rehab placement. 2. We will check base met and CBC in a.m. and we will do a chest x-ray today.
[2018-01-11] MEDS: Alogliptin 6.25 MG TAB PO SCH (09:45)
[2018-01-11] MEDS: Pregabalin 75 MG CAP PO SCH (09:45)
[2018-01-11] MEDS: Calcitriol 0.25 MCG CAP PO SCH (09:46)
[2018-01-11] MEDS: Cefdinir 300 MG CAP PO SCH ×2 (09:46→20:54)
[2018-01-11] MEDS: Furosemide 40 MG TAB PO SCH ×2 (09:46→13:13)
[2018-01-11] MEDS: Carvedilol 6.25 MG TAB PO SCH ×2 (09:46→17:16)
[2018-01-11] MEDS: Apixaban 2.5 MG TAB PO SCH ×2 (09:46→20:53)
[2018-01-11] MEDS: Docusate 100 MG CAP PO SCH ×2 (09:46→20:55)
[2018-01-11] MEDS: Oxymetazoline HCl 0.05% ( 15 ML ) NASAL SCH (09:47)
[2018-01-11] MEDS: Bupropion 150 MG XL TAB PO SCH (09:51)
--- NOTE | 2018-01-11 09:53 | RAD ---
PA AND LATERAL CHEST RADIOGRAPH: Date: 01-11-18 History: CHF. Comparison: 01-04-18, 01-01-18 FINDINGS: Cardiac silhouette is at the upper limits of normal to borderline enlarged. Pulmonary vasculature has improved from the prior study. Perihilar interstitial densities from the prior exam have also improv ed. Opacity in the right lung has improved, likely related to improvement in right pleural effusion, but there is persistent small right pleural effusion as well as probable left pleural effusion presen t. Vascular calcification in the thoracic aorta. Degenerative changes are again noted in the spine. There is exaggerated kyphosis of the thoracic spine with a stable wedge shaped compression fracture o f the T12 vertebral body. [place] screw overlies the left humeral head. No other interval change. IMPRESSION: 1. Improvement in pulmonary vascular congestion as well as improvement in pulmonary edema. 2. Improvement in right pleural effusion with only a small right pleural effusion seen on today's exa m, primarily at the posterior costophrenic angle with tiny left pleural effusion present. Persistent linear density seen in the right midlung zone which may be related to either minimal scarring or atel ectasis. 3. Wedge shaped compression fracture of T12 vertebral body with exaggerated kyphosis of the thoracic spine at the thoracolumbar junction. POS: [facility]
[2018-01-11] MEDS: Metolazone 5 MG TAB PO SCH (10:06)
[2018-01-11] MEDS: Insulin Glargine 30 UNITS in Pre-Filled Syringe 1 EACH SC SCH (13:12)
[2018-01-11] MEDS: Insulin Regular 300 UNITS/3 ML VIAL SC PRN ×2 (13:12→18:00)
[2018-01-11 13:43] VITALS: BMI 33.7
[2018-01-11] MEDS: Atorvastatin Calcium 40 MG TAB PO SCH (20:53)
[2018-01-11] MEDS: Citalopram 20 MG TAB PO SCH (20:53)
[2018-01-11] MEDS: Zolpidem Tartrate 5 MG TAB PO SCH (20:54)
[2018-01-11] MEDS: Pramipexole Di-HCl 1 MG TAB PO SCH (20:54)
[2018-01-12] MEDS: Benzonatate 100 MG CAP PO SCH ×4 (04:09→21:11)
[2018-01-12 05:12] LABS: #Lymphocytes 1.1 thou/uL (1.20-3.40); #Monocytes 0.8 thou/uL (0.11-0.59); #Neutrophils 11.8 thou/uL (1.40-6.50); %Basophils 0.3 % (0.0-1.0); %Eosinophils 0.3 % (0.0-10.0); %Lymphocytes 8.1 % (21.0-51.0); %Monocytes 5.7 % (0.0-10.0); %Neutrophils 85.5 % (42.0-75.0); Hemoglobin 9.4 g/dL (12.0-16.0); Mean Corpuscular HGB CONC 30.9 g/dL (32.0-36.0); Mean Corpuscular Hemoglobin 30.8 pg (27.0-31.0); Mean Corpuscular Volume 99.7 fL (78.0-98.0); Mean Platelet Volume 8.3 fL (7.4-10.4); Platelet Count 152 thou/uL (130-400); RBC Distribution Width 13.1 % (11.5-14.5); Red Blood Cell (RBC) Count 3.07 mill/uL (4.20-5.40); White Blood Cell (WBC) Count 13.8 thou/uL (4.8-10.8)
[2018-01-12 05:17] LABS: BUN (Urea Nitrogen) 83 mg/dL (9.8-20.1); Calc. Creatinine Clearance 28 mL/min (70-130); Calcium 10.6 mg/dL (7.8-10.44); Estimated GFR-MDRD 24; Glucose 167 mg/dL (83-110)
[2018-01-12 05:26] LABS: Anion Gap 17 mmol/L (10-20); Carbon Dioxide 38 mmol/L (23-31); Chloride 90 mmol/L (98-107); Sodium 141 mmol/L (136-145)
[2018-01-12] MEDS: Levothyroxine Sodium 75 MCG TAB PO SCH (07:16)
[2018-01-12] MEDS: cefTRIAXone\\ROCEPHIN 1 GM in Sodium Chloride 0.9% 100 ML IVPB SCH (09:13)
[2018-01-12] MEDS: Bupropion 150 MG XL TAB PO SCH (09:14)
[2018-01-12] MEDS: Insulin Glargine 30 UNITS in Pre-Filled Syringe 1 EACH SC SCH (09:14)
[2018-01-12] MEDS: Apixaban 2.5 MG TAB PO SCH ×2 (09:14→21:11)
[2018-01-12] MEDS: Pregabalin 75 MG CAP PO SCH (09:17)
[2018-01-12] MEDS: Furosemide 40 MG TAB PO SCH ×2 (09:17→14:50)
[2018-01-12] MEDS: Calcitriol 0.25 MCG CAP PO SCH (09:19)
[2018-01-12] MEDS: Alogliptin 6.25 MG TAB PO SCH (09:19)
[2018-01-12] MEDS: Carvedilol 6.25 MG TAB PO SCH ×2 (09:20→17:56)
[2018-01-12] MEDS: Docusate 100 MG CAP PO SCH ×2 (09:21→21:11)
[2018-01-12] MEDS: Oxymetazoline HCl 0.05% ( 15 ML ) NASAL SCH (09:22)
[2018-01-12] MEDS: Piperacillin/Tazobactam 4.5 GM in Sodium Chloride 0.9% 100 ML IVPB SCH ×2 (12:59→17:56)
[2018-01-12] MEDS: Insulin Regular 300 UNITS/3 ML VIAL SC PRN ×2 (13:07→16:40)
[2018-01-12] MEDS: Pramipexole Di-HCl 1 MG TAB PO SCH (21:10)
[2018-01-12] MEDS: Atorvastatin Calcium 40 MG TAB PO SCH (21:11)
[2018-01-12] MEDS: Citalopram 20 MG TAB PO SCH (21:11)
[2018-01-12] MEDS: Zolpidem Tartrate 5 MG TAB PO SCH (21:11)
[2018-01-13] MEDS: Piperacillin/Tazobactam 4.5 GM in Sodium Chloride 0.9% 100 ML IVPB SCH ×3 (00:18→12:39)
[2018-01-13] MEDS: Benzonatate 100 MG CAP PO SCH ×2 (03:36→08:33)
[2018-01-13] MEDS: Levothyroxine Sodium 75 MCG TAB PO SCH (05:52)
[2018-01-13] MEDS: Bupropion 150 MG XL TAB PO SCH (08:33)
[2018-01-13] MEDS: Alogliptin 6.25 MG TAB PO SCH (08:33)
[2018-01-13] MEDS: Carvedilol 6.25 MG TAB PO SCH (08:33)
[2018-01-13] MEDS: Calcitriol 0.25 MCG CAP PO SCH (08:33)
[2018-01-13] MEDS: Docusate 100 MG CAP PO SCH (08:33)
[2018-01-13] MEDS: Pregabalin 75 MG CAP PO SCH (08:34)
[2018-01-13] MEDS: Oxymetazoline HCl 0.05% ( 15 ML ) NASAL SCH (08:34)
[2018-01-13] MEDS: Furosemide 40 MG TAB PO SCH (08:34)
[2018-01-13] MEDS: cefTRIAXone\\ROCEPHIN 1 GM in Sodium Chloride 0.9% 100 ML IVPB SCH (08:34)
[2018-01-13] MEDS ORDERED: Insulin Glargine 35 UNITS in Pre-Filled Syringe 1 EACH SC SCH (09:00)
[2018-01-13] MEDS: Apixaban 2.5 MG TAB PO SCH (09:33)
[2018-01-13] MEDS: Insulin Regular 300 UNITS/3 ML VIAL SC PRN (12:42)
[2018-01-13 13:48] VITALS: BP 100/63; TEMP 97.4
[2018-01-18 02:15] LABS: Routine O & P Final report (.)
== END 2018-01-13 13:50 | DRG 193 ==
LOC: ERS 10:15 → ERHOLD 13:41 → 2NO 15:08 → IMCU/EMU 01-03 04:43 → T4-A 01-11 10:02
PROVIDERS: ADMIT Specialist; ATTEND Specialist
DX: J18.9 Pneumonia, unspecified organism (principal); E11.10 Type 2 diabetes mellitus with ketoacidosis without coma; I50.33 Acute on chronic diastolic (congestive) heart failure; J96.00 Acute respiratory failure, unspecified whether with hypoxia or hypercapnia; I13.0 Hypertensive heart and chronic kidney disease with heart failure and stage 1 through stage 4 chronic kidney disease, or unspecified chronic kidney disease; N17.9 Acute kidney failure, unspecified; N18.4 Chronic kidney disease, stage 4 (severe); I48.0 Paroxysmal atrial fibrillation; I25.10 Atherosclerotic heart disease of native coronary artery without angina pectoris; E11.22 Type 2 diabetes mellitus with diabetic chronic kidney disease; E11.40 Type 2 diabetes mellitus with diabetic neuropathy, unspecified; E86.0 Dehydration; R19.7 Diarrhea, unspecified; D63.1 Anemia in chronic kidney disease; G47.33 Obstructive sleep apnea (adult) (pediatric); E03.9 Hypothyroidism, unspecified; E78.5 Hyperlipidemia, unspecified; K21.9 Gastro-esophageal reflux disease without esophagitis; G25.81 Restless legs syndrome; K59.00 Constipation, unspecified; M19.90 Unspecified osteoarthritis, unspecified site; F41.8 Other specified anxiety disorders; Z86.718 Personal history of other venous thrombosis and embolism; Z86.711 Personal history of pulmonary embolism; Z85.048 Personal history of other malignant neoplasm of rectum, rectosigmoid junction, and anus; Z86.73 Personal history of transient ischemic attack (TIA), and cerebral infarction without residual deficits; Z79.02 Long term (current) use of antithrombotics/antiplatelets; Z79.4 Long term (current) use of insulin; Z79.82 Long term (current) use of aspirin; Z87.891 Personal history of nicotine dependence
CPT/HCPCS: 36415; 36416; 51701; 70220; 71045; 71046; 74176; 80048; 80053; 80061; 80162; 81001; 81003; 81015; 82010; 82550; 82553; 82805; 83605; 83690; 83880; 84443; 84484; 85025; 87040; 87045; 87046; 87086; 87177; 87324; 87449; 87804; 87899; 93005; 93798; 94640; 94660; 96365; 96375; A4353; G8978-GP-CL; G8978-GP-CM; G8979-GP-CJ; G8979-GP-CK; G8987-GO-CL; G8988-GO-CJ; J0696; J1160; J1815; J1940; J1956; J2270; J2405; J2543; J7050; J7620; P9047; Q0162

== ENCOUNTER 2018-01-19 05:18 | Observation (INO) | payer MEDICARE, BC ==
[2018-01-19] MEDS ORDERED: Acetaminophen 500 MG TAB ONE (07:42)
--- NOTE | 2018-01-19 12:36 | RAD ---
PORTABLE CHEST: HISTORY: Fall. COMPARISON: 01/04/2018 FINDINGS: The heart is mildly enlarged. Mild vascular engorgement. The lungs show no evidence of focal infilt rate or significant edema. The osseous structures appear intact. IMPRESSION: No acute process identified. POS: [facility]
--- NOTE | 2018-01-19 12:38 | RAD ---
LEFT SHOULDER 3 VIEWS: HISTORY: Fall with injury to shoulder. FINDINGS: Radiopaque anchor is seen in the humeral head from prior surgical procedure. There is no evidence of fracture or dislocation. AC joint is normally aligned. IMPRESSION: No acute osseous abnormality identified. POS: [facility]
--- NOTE | 2018-01-19 12:53 | CT ---
CT HEAD NONCONTRAST: INDICATIONS: Fall. Hematoma. FINDINGS: There is multifocal hypoattenuation, indicating chronic ischemic disease, with superimposed lacunar i nfarctions bilaterally, involving the white matter and the bilateral basal ganglia. There is a thin, linear hyperdensity of the medial left frontal parietal region. The possibility of a small volume o f acute minimal subarachnoid hemorrhage is not excluded. No mass effect or midline shift. There is bilateral mastoid fluid. Scattered areas of paranasal sinus opacification are also present. There i s a moderate sized left posterior parietal scalp hematoma. IMPRESSION: Linear increased density of the medial high left frontal lobe region, which may relate to a small vol ume of acute subarachnoid hemorrhage, in light of the patient's recent head injury. Recommend short term follow-up CT head imaging to confirm stability. Findings were conveyed to the trauma care provider, Ted Woodall, at the time of the dictation. POS: [facility]
--- NOTE | 2018-01-19 13:11 | CT ---
CT CERVICAL SPINE NONCONTRAST: Date: 01/19/18 Time: 0641 hours HISTORY: 82-year-old female status post acute cervical trauma from fall. Because of IT malfunction, this study is being submitted for dictation for the first time in the [facility] of 01/19/18. Dr. aNidu gave a preliminary verbal report. FINDINGS: There are no jumped or perched facets. There is no evidence of acute fracture. The vertebral body hei ghts are maintained. There is no prevertebral soft tissue swelling. There is high grade degenerative disc disease at C3-4, C5-6, and C6-7. No high grade degenerative facet changes. There is opacificatio n of most of the bilateral mastoid air cells, left greater than right. IMPRESSION: 1. No evidence of acute fracture or acute traumatic subluxation. 2. Cervical spondylosis: severe degenerative disc disease at 3 levels. cristian [] POS: [facility]
--- NOTE | 2018-01-19 16:24 | CT ---
CT HEAD NONCONTRAST: HISTORY: Intracranial hemorrhage. Followup. COMPARISON: Earlier exam on the same date. FINDINGS: A small, gyriform type focus of increased density along the medial aspect of the left frontal lobe, w ith subtle surrounding edema, is similar in appearance to the prior study. No new areas of hemorrhag e are evident. Old lacunar infarcts and chronic ischemic small vessel disease is stable. The septum pellucidum is midline. The visualized paranasal sinuses remain well aerated. IMPRESSION: Stable CT appearance of the small focus of subarachnoid hemorrhage at the medial aspect of the left f rontal lobe. No new hemorrhage. No new abnormalities. POS: [facility]
[2018-01-19 17:09] LABS: ALT (SGPT) 21 U/L (8-55); AST (SGOT) 30 U/L (5-34); Albumin 3.8 g/dL (3.4-4.8); Alkaline Phosphatase 80 U/L (40-150); BUN (Urea Nitrogen) 70 mg/dL (9.8-20.1); Bilirubin, Total 0.6 mg/dL (0.2-1.2); CK (CPK) 32 U/L (29-168); Calc. Creatinine Clearance 0 mL/min (70-130); Calcium 10.4 mg/dL (7.8-10.44); Carbon Dioxide 36 mmol/L (23-31); Chloride 91 mmol/L (98-107); Estimated GFR-MDRD 21; Globulin 3.5 g/dL (2.4-3.5); Glucose 83 mg/dL (83-110); Protein, Total 7.3 g/dL (6.0-8.3); Sodium 140 mmol/L (136-145)
[2018-01-19 17:10] LABS: Anion Gap 17 mmol/L (10-20)
[2018-01-19 17:22] LABS: Clarity CLOUDY (Clear); Leukocyte Trace (Negative); Specific Gravity, Urine 1.007 (1.002-1.036)
[2018-01-19 17:23] LABS: Bacteria/HPF Rare-Few HPF (None Seen); Bilirubin Negative (Negative); Blood, Urine Negative (Negative); Glucose, Urine (Dipstick) Negative (Negative); Hyaline Casts/LPF 0-3 HYALINE CAST LPF (0-3 Hyaline); Nitrite Negative (Negative); Protein, Urine (Dipstick) Trace mg/dL (Neg-Trace); RBC/HPF 0-3 HPF (0-3); Squamous Epithelial 0-3 HPF (0-3); Urobilinogen 0.2 mg/dL (0.2-1.0); WBC/HPF 0-3 HPF (0-3)
[2018-01-19 17:33] LABS: #Eosinphils 0.1 thou/uL (0.0-0.7); #Monocytes 0.4 thou/uL (0.11-0.59); #Neutrophils 6.3 thou/uL (1.40-6.50); %Basophils 0.6 % (0.0-1.0); %Eosinophils 1.7 % (0.0-10.0); %Lymphocytes 13.1 % (21.0-51.0); %Monocytes 5.5 % (0.0-10.0); %Neutrophils 79.1 % (42.0-75.0); Hemoglobin 9.3 g/dL (12.0-16.0); Mean Corpuscular HGB CONC 31.2 g/dL (32.0-36.0); Mean Corpuscular Hemoglobin 30.8 pg (27.0-31.0); Mean Corpuscular Volume 98.9 fL (78.0-98.0); Mean Platelet Volume 8.2 fL (7.4-10.4); Platelet Count 138 thou/uL (130-400); RBC Distribution Width 12.7 % (11.5-14.5); Red Blood Cell (RBC) Count 3.01 mill/uL (4.20-5.40); White Blood Cell (WBC) Count 7.9 thou/uL (4.8-10.8)
[2018-01-19 18:43] VITALS: BMI 33.7
[2018-01-19 18:57] LABS: Troponin I 0.019 ng/mL (< 0.028)
[2018-01-19 20:13] VITALS: BP 106/58; TEMP 97.8
--- NOTE | 2018-01-19 22:45 | SS ---
DATE OF ADMISSION: 01/19/2018 DATE OF DISCHARGE: 01/19/2018 ADMISSION DIAGNOSES: 1. Status post ground level fall. 2. Small volume acute subarachnoid hemorrhage. 3. Left shoulder contusion. 4. Multiple comorbidities. CONSULTATIONS: Neurosurgery, Dr. Steele. PROCEDURES: None. SUMMARY: The patient is an 82-year-old female who reportedly had a ground level fall in which she st ruck the back of her head. She reported feeling dazed afterwards. She was brought to the emergency department and underwent evaluation and examination and was noted to have the above injuries. She wa s admitted to the surgical floor and have a repeat head CT during the afternoon, which showed stable intracranial hemorrhage. After discussion with Neurosurgery was decided the patient was stable for d ischarge and she will follow up with them in their clinic. At time of discharge, the patient was brayan erating a diet. Her pain was controlled with nonnarcotic pain medicine. She denied dizziness or any syncopal type events. The patient may follow up with the Trauma Clinic as needed. The neurosurgica l clinic will contact her to arrange for followup in 2-3 weeks again sooner as needed.
--- NOTE | 2018-01-27 10:34 | EKG ---
Test Reason : Blood Pressure : / mmHG Vent. Rate : 097 BPM Atrial Rate : 097 BPM P-R Int : 130 ms QRS Dur : 084 ms QT Int : 366 ms P-R-T Axes : 067 006 055 degrees QTc Int : 464 ms Normal sinus rhythm Normal ECG Confirmed by FRANCISCO BETHEA ([id number]), movie editor JANAE DURHAM ([id number]) on 01/27/2018 10:34:35 AM Referred By: Confirmed By:FRANCISCO BETHEA
== END 2018-01-19 21:10 ==
LOC: ERS 05:18 → SJJU 08:55
PROVIDERS: ADMIT Surgery; ATTEND Surgery
DX: S06.6X9A Traumatic subarachnoid hemorrhage with loss of consciousness of unspecified duration, initial encounter (principal); S40.012A Contusion of left shoulder, initial encounter; Z88.5 Allergy status to narcotic agent; Z79.4 Long term (current) use of insulin; Z79.82 Long term (current) use of aspirin; Z79.899 Other long term (current) drug therapy; W19.XXXA Unspecified fall, initial encounter
CPT/HCPCS: 70450; 71045; 72125; 73030; 80053; 82550; 82553; 84484; 85025; 93005; 99284; G0378; 81003; 81015

== ENCOUNTER 2018-02-08 10:23 | Outpatient (CLI) | payer MEDICARE, BC ==
--- NOTE | 2018-02-08 12:30 | CT ---
CT HEAD: 02/08/2018 HISTORY: Subdural hematoma. Recent fall. COMPARISON: 01/19/2018 TECHNIQUE: Serial axial CT imaging obtained at 5 mm intervals, from the skull base through the vertex, without c ontrast. FINDINGS: The imaged paranasal sinuses/mastoid air cells appear well aerated. There is atherosclerotic calcifi cation of the cavernous carotid arteries and the distal vertebral arteries. There is no displaced ca lvarial fracture. The periventricular hypodensity and the hypodensity in the region of the basal ganglia bilaterally lawson ggests small vessel disease/prior infarction. The prior examination demonstrated small volume subarachnoid blood at the medial aspect of the left f rontal lobe. That finding has resolved. No evidence for intracranial hemorrhage is seen. IMPRESSION: No intracranial hemorrhage noted. POS: [facility]
== END 2018-02-08 10:24 | disposition home or self-care (01) ==
LOC: CT 10:23
PROVIDERS: ATTEND Neurological Surgery
DX: S06.5X0A Traumatic subdural hemorrhage without loss of consciousness, initial encounter (principal)
CPT/HCPCS: 70450

== ENCOUNTER 2018-03-15 10:48 | Inpatient (IN) | payer MEDICARE, BC ==
[2018-03-15] MEDS ORDERED: Diltiazem 125 MG/25 ML ONE (11:41)
[2018-03-15 11:44] LABS: Lactate 0.74 mmol/L (0.50-2.20)
[2018-03-15 12:03] LABS: ALT (SGPT) 13 U/L (8-55); AST (SGOT) 18 U/L (5-34); Albumin 3.3 g/dL (3.4-4.8); Alkaline Phosphatase 83 U/L (40-150); Anion Gap 16 mmol/L (10-20); BUN (Urea Nitrogen) 51 mg/dL (9.8-20.1); Bilirubin, Total 0.6 mg/dL (0.2-1.2); Calc. Creatinine Clearance 0 mL/min (70-130); Calcium 9.2 mg/dL (7.8-10.44); Carbon Dioxide 25 mmol/L (23-31); Chloride 103 mmol/L (98-107); Estimated GFR-MDRD 25; Globulin 3.6 g/dL (2.4-3.5); Glucose 71 mg/dL (83-110); Potassium 4.1 mmol/L (3.5-5.1); Protein, Total 6.9 g/dL (6.0-8.3); Sodium 140 mmol/L (136-145)
[2018-03-15 12:24] LABS: Band 8 % (5-11); Lymphocytes 4 % (21-51); MDiff Complete? YES; Mean Corpuscular HGB CONC 32.2 g/dL (32.0-36.0); Mean Corpuscular Volume 96.1 fL (78.0-98.0); Mean Platelet Volume 7.3 fL (7.4-10.4); Monocytes 5 % (0-10); Neutrophil 83 % (42-75); Platelet Count 252 thou/uL (130-400); Platelet Morphology Comment Appears Adequate; RBC Distribution Width 13.2 % (11.5-14.5); Red Blood Cell (RBC) Count 3.21 mill/uL (4.20-5.40); White Blood Cell (WBC) Count 14.3 thou/uL (4.8-10.8)
[2018-03-15 12:30] LABS: Bilirubin Negative (Negative); Blood, Urine Small (Negative); Clarity CLEAR (Clear); Glucose, Urine (Dipstick) Negative (Negative); Leukocyte Trace (Negative); Nitrite Negative (Negative); Protein, Urine (Dipstick) 30 mg/dL (Neg-Trace); Specific Gravity, Urine 1.017 (1.002-1.036); Urobilinogen 0.2 mg/dL (0.2-1.0); pH, Urine 5.5 (5.0-9.0)
[2018-03-15 12:33] LABS: Bacteria/HPF None Seen HPF (None Seen); Hyaline Casts/LPF 0-3 HYALINE CAST LPF (0-3 Hyaline); Pathc Cast-AUWi Flag 0.14 (0-2.49); RBC/HPF 0-3 HPF (0-3); Squamous Epithelial 0-3 HPF (0-3); WBC/HPF None Seen HPF (0-3)
--- NOTE | 2018-03-15 13:34 | RAD ---
PORTABLE CHEST: Date: 03/15/18 PROVIDED CLINICAL HISTORY: Fever, body aches, and loss of appetite. COMPARISON: 01/19/18. FINDINGS: Cardiac silhouette remains enlarged. Vascular calcification involves the aortic arch. No focal consol idation, pleural fluid, or pneumothorax apparent. IMPRESSION: No evidence for an acute cardiopulmonary process. POS: [facility]
--- NOTE | 2018-03-15 15:02 | CT ---
CT OF ABDOMEN AND PELVIS: Date; 03/15/18 COMPARISON: 12/27/17. HISTORY: Diarrhea for 3 weeks. TECHNIQUE: Serial axial CT imaging at 5 mm intervals from lung bases through pubic symphysis without contrast. C oronal reformatted imaging obtained. FINDINGS: The lack of contrast media limits assessment of the viscera, bowel, vascular structures, and for lymp hadenopathy. There is a new, small, incompletely imaged pleural effusion on the right. There is incompletely assessed atherosclerotic calcification of the coronary arteries. No pneumothorax. The liver, spleen, and pancreas appear grossly unremarkable. The gallbladder is not discretely visualized, suggesting prior cholecystectomy. There is a round area of fluid density in the ivis hepatis best seen on coronal image 65 and axial image 30, stable and o f uncertain etiology. This could represent a prominent biliary structure following cholecystectomy. A duplication cyst or mesenteric cyst is a possibility as well. This is also stable when compared to a CT performed 09/25/13. Adrenal gland is unremarkable on the left. There is a small adrenal nodule on the right laterally, measuring approximately 1.1 cm, unchanged sin ce the 2014 examination. 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 Neither kidney appears obstruction. There are vascular calcifications involving the renal arterial st ructures bilaterally. Uterus appears surgically absent. There is a colonic suture line at the level of the rectum. There is abnormal inflammatory stranding of the presacral fat. The colon is diffusely thick-walled, from the level of the cecum through the level of the rectum, and there is extensive pericolonic inflammatory f at stranding, most prominent in the region of the transverse colon and the sigmoid colon. These findi ngs are new and suggest a nonspecific diffuse pancolitis. Limited assessment of the vascular structures without IV contrast demonstrates extensive atherosclero tic calcification of the abdominal aorta and its branches. No evidence for bowel obstruction. Review of the osseous structures demonstrates no worrisome lytic or blastic bone lesion. There is an old anterior wedge compression fracture of T12. There is multilevel degenerative change n oted throughout the imaged spine and involving bilateral hips. IMPRESSION: 1. There is extensive wall thickening of the colon from the level of the cecum through the level of the rectum with extensive pericolonic fat stranding consistent with a prominent nonspecific pancoliti s. No free intraperitoneal air or evidence of bowel obstruction. 2. Atherosclerotic disease. 3. Small, new, incompletely imaged right pleural effusion. POS: [facility]
[2018-03-15] MEDS ORDERED: Ondansetron PF 4 MG/2 ML Vial ONE (15:46)
[2018-03-15] MEDS ORDERED: metroNIDAZOLE 250 MG TAB ONE ×2 (16:29→16:34)
[2018-03-15] MEDS ORDERED: metroNIDAZOLE 500 MG TAB PO SCH (16:45)
[2018-03-15] MEDS ORDERED: Vancomycin HCl 25 MG/ML Oral PO SCH ×2 (16:45→22:00)
[2018-03-15] MEDS ORDERED: Acetaminophen 325 MG TAB ONE (17:35)
[2018-03-15] MEDS ORDERED: Sodium Chloride 0.9% 1,000 ML IV SCH (18:30)
[2018-03-15] MEDS ORDERED: metroNIDAZOLE 500 MG in Premix Bag 1 BAG IVPB SCH (19:00)
[2018-03-15] MEDS ORDERED: Ondansetron PF 4 MG/2 ML Vial IVP PRN (19:36)
[2018-03-15] MEDS ORDERED: Dextrose 50% Abboject 50 ML SYRINGE IVP PRN (19:37)
[2018-03-15] MEDS ORDERED: Dextrose 5% in Water 1,000 ML IV PRN (19:37)
[2018-03-15] MEDS: metroNIDAZOLE 500 MG in Premix Bag 1 BAG IVPB SCH ×2 (19:56→20:14)
[2018-03-15] MEDS: Sodium Chloride 0.45% 1,000 ML IV SCH (20:14)
[2018-03-15] MEDS ORDERED: Insulin Glargine 40 UNITS in Pre-Filled Syringe 1 EACH SC SCH (21:00)
[2018-03-15] MEDS: Carvedilol 3.125 MG TAB PO SCH (21:22)
[2018-03-15] MEDS: Vancomycin HCl 25 MG/ML Oral PO SCH (21:23)
[2018-03-15] MEDS: traMADol HCl 50 MG TAB PO PRN (23:42)
[2018-03-15] MEDS: Acetaminophen 325 MG TAB PO PRN (23:42)
[2018-03-16] MEDS: Sodium Chloride 0.45% 1,000 ML IV SCH (02:58)
[2018-03-16] MEDS: Levothyroxine Sodium 75 MCG TAB PO SCH (02:58)
[2018-03-16] MEDS: Acetaminophen 325 MG TAB PO PRN (04:48)
[2018-03-16] MEDS: metroNIDAZOLE 500 MG in Premix Bag 1 BAG IVPB SCH ×3 (04:48→21:16)
[2018-03-16 06:27] LABS: Hemoglobin A1c 5.6 % (4.0-6.0)
[2018-03-16 06:35] LABS: Anion Gap 19 mmol/L (10-20); BUN (Urea Nitrogen) 47 mg/dL (9.8-20.1); Calc. Creatinine Clearance 35 mL/min (70-130); Calcium 8.2 mg/dL (7.8-10.44); Carbon Dioxide 18 mmol/L (23-31); Chloride 106 mmol/L (98-107); Estimated GFR-MDRD 25; Potassium 4.6 mmol/L (3.5-5.1)
[2018-03-16 06:38] LABS: Glucose 40 mg/dL (83-110)
[2018-03-16 06:45] LABS: Sodium 138 mmol/L (136-145)
[2018-03-16 06:56] LABS: Hemoglobin 8.4 g/dL (12.0-16.0); Mean Corpuscular HGB CONC 31.1 g/dL (32.0-36.0); Mean Corpuscular Volume 96.4 fL (78.0-98.0); Mean Platelet Volume 7.3 fL (7.4-10.4); Platelet Count 210 thou/uL (130-400); RBC Distribution Width 13.1 % (11.5-14.5); Red Blood Cell (RBC) Count 2.78 mill/uL (4.20-5.40); White Blood Cell (WBC) Count 16.5 thou/uL (4.8-10.8)
[2018-03-16 07:54] LABS: Band 28 % (5-11); Lymphocytes 7 % (21-51); MDiff Complete? YES; Monocytes 4 % (0-10); Neutrophil 61 % (42-75); Platelet Morphology Comment Appears Adequate; Polychromasia SLIGHT = 2-3 cells (100X) (0-2/hpf)
[2018-03-16] MEDS: Pregabalin 75 MG CAP PO SCH (08:04)
[2018-03-16] MEDS: Carvedilol 3.125 MG TAB PO SCH ×2 (08:04→21:17)
[2018-03-16] MEDS: Clopidogrel Bisulfate 75 MG TAB PO SCH (08:04)
[2018-03-16] MEDS: Vancomycin HCl 25 MG/ML Oral PO SCH ×4 (08:05→21:38)
--- NOTE | 2018-03-16 08:41 | RAD ---
UPRIGHT PORTABLE CHEST 1 VIEW: Date: 03/16/18 HISTORY: 82-year-old female with history of abdominal pain, diarrhea, follow-up pneumonia. COMPARISON: 03/15/18. FINDINGS: There is some mild bilateral vascular congestion, worsening from the prior study. There are increased markings in the right infrahilar region, which appear to be new or more prominent, probably related to some subsegmental atelectasis, with some blunting of the right costophrenic angle, evidence for ri ght pleural effusion. The left chest is stable. Heart size is within normal limits. IMPRESSION: Evidence for small right pleural effusion with some progressive and worsening vascular congestion, an d some increased markings in the right infrahilar region, possibly subsegmental atelectasis or minima l developing pneumonia or pneumonitis. Stable left chest. Continue short-term follow-up. POS: [facility]
--- NOTE | 2018-03-16 11:06 | HP ---
CHIEF COMPLAINT ON ADMISSION: Pancolitis secondary to C difficile disease and dehydration. HISTORY OF PRESENT ILLNESS: The patient is an 82-year-old female who has been having loose stools for 3-4 weeks now. She was actually discharged from the hospital with pneumonia. Actually on January 19 and basically since the antibiotics from that hospitalization, has had diarrhea and loose stools 4-5 days. She came to see Dr. Doyle on the day prior to coming to the ER where a pyogenic granuloma was removed from her left elbow, and medicines were discontinued and was thought that she might have a side effect of medication causing her diarrhea. She can no longer stand the abdominal pain, swelling, bloating, and developed a fever. Her son brought her to the ER for further evaluation. In the ER, temperatures had gotten from [address] of the abdomen revealed extensive wall thickening of the colon from the level of the cecum through the level of the rectum with extensive pericolonic fat stranding consistent with prominent nonspecific pancolitis. She also has a small right pleural effusion. PAST MEDICAL HISTORY: This patient's most recent hospitalization was January 19 for a ground level fall creating a small acute subarachnoid hemorrhage. She was watched and then released. A followup CT will be rechecked at this time. Also, as previously mentioned, she was hospitalized recently for pneumonia and early diabetic ketoacidosis with dehydration. She was noted to have profuse diarrhea and weakness even at that hospitalization in the middle of December. 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 PAST SURGICAL HISTORY: Includes hysterectomy, cholecystectomy, rotator cuff repair, coronary artery disease bypass grafting, colostomy reversal from removal of her rectal cancer, bilateral cataract removal, fracture of her right wrist without surgical intervention and persistent deformity. PSYCHIATRIC HISTORY: Significant for anxiety and depression. ALLERGIES: CODEINE. MEDICATION ON ADMISSION: Includes, 1. Regular use of Afrin on a nightly basis to each nostril. 2. Recent use of polyethylene glycol 17 g per dose. 3. Levothyroxine 75 mcg daily. 4. Aspirin 81 mg daily. 5. Calcitriol 0.25 mg once a day. 6. Ferrous gluconate 324 mg. 7. Plavix 75 mg daily. 8. Lyrica 150 mg daily. 9. Torsemide 20 mg q.a.m. 10. Mirapex 1.5 tablet, she takes 1-1/2 tablets at bedtime. 11. Lunesta 3 mg p.o. at bedtime. 12. Carvedilol 3.125 mg b.i.d. 13. Lantus SoloStar 35 units subcu daily. 14. Humalog, she will take anywhere from 3 to 28 units subcutaneously with meals. REVIEW OF SYSTEMS: CONSTITUTIONAL: She is reporting fever, diffuse weakness, and fatigue. HEENT: Eyes without drainage or discharge or vision changes. ENT; no sores or discharge. CARDIOVASCULAR: Denies any chest pain, tachycardia, palpitations. RESPIRATORY: Denies cough or shortness of breath. GI: Has diffuse abdominal bloating and pain associated with diarrhea. No visible blood in the stool. GENITOURINARY: No painful urination or frequency. No blood in the urine. MUSCULOSKELETAL: Chronic deformity of the left wrist. No acute muscle aches or pains. SKIN: Recently had surgery on the left elbow, removal of pyogenic granuloma. No other acute lesions or rashes noted. NEUROLOGIC: Denies headaches, anesthesia or paresthesias. HEMOLYMPHATIC/LYMPH: She is developing edema in her lower extremities with some oozing, but no acute lesions or lymph nodes noted. PHYSICAL EXAMINATION: VITAL SIGNS: At the time of admission, blood pressure 133/69, pulse 104, respirations 22, temperature 101.4. GENERAL: This is a well-developed and well-nourished female, alert, oriented, and cooperative. HEENT: Normocephalic, atraumatic. Pupils with diminished reactivity to light. Arcus senilis bilaterally. TMs, nares clear. Pharynx with moist mucous membranes. NECK: Supple. CHEST: Clear to auscultation. BREASTS: Deferred. HEART: Regular rate and rhythm. Tachycardic. ABDOMEN: Diffuse bloating and tenderness. No guarding or rebound. : Deferred. EXTREMITIES: With swelling of the lower extremities. Some mild skin breakdown in the right lower extremity with some clear water oozing. Left upper extremity elbow with well healing surgical site. No erythema, heat, or unusual swelling noted. NEUROLOGIC: Cranial nerves are intact. Mental status is at baseline. Sensory is grossly normal. Unable to test gait and cerebellar function. SKIN: With the aforementioned lesions in the right lower extremity and left elbow. LABORATORY DATA: On admission, WBC is 14.3, hemoglobin 10.0, hematocrit 30.9 with platelets of 252. Sodium 140, potassium 4.4, chloride 103, CO2 of 25, BUN 51, creatinine 1.96 with a glucose of 71. BNP slightly elevated to 539. Troponin negative at 0.22. Liver functions unremarkable. Urinary analysis shows ketones of 15, no other acute findings. C diff antigen positive. Campylobacter Shigella toxins are negative. Stool occult is negative. CT of the abdomen showing diffuse pancolitis with early right pulmonary effusion. Chest x-ray shows no evidence of any acute cardiopulmonary process. ASSESSMENT: 1. Pancolitis with diffuse diarrhea due to Clostridium difficile. 2. Insulin-dependent diabetes. 3. Dehydration. 4. Anemia. 5. Renal insufficiency. PLAN: Care for rehydration as to avoid exacerbation of CHF. IV metronidazole and p.o. vancomycin. Serial re-evaluation. Job ID: [id number] [facility]
[2018-03-16] MEDS: traMADol HCl 50 MG TAB PO PRN (13:08)
--- NOTE | 2018-03-16 14:33 | PQF ---
CLINICAL DOCUMENTATION IMPROVEMENT CLARIFICATION FORM: ICD-10 Updated PLEASE DO AN ADDENDUM TO THE PROGRESS NOTE WITH ANY DOCUMENTATION UPDATES OR ADDITIONS AND CARRY THROUGH TO DC SUMMARY. THANK YOU. DATE: 03/16/18 ATTN: DR. DICKERSON Please exercise your independent, professional judgment in responding to the clarification form. Clinical indicators are provided on the bottom of this form for your review Please check appropriate box(es): [ x ] Sepsis due to: (Pna, UTI, gangrenous gall bladder, etc.) ___Pancolitis from C. difficile Due to: [ ] Device (please specify) [ ] Implant [ ] Graft [ ] Infusion [ ] SIRS due to non-infectious process (please specify etiology) [ ] with organ dysfunction [ ] without organ dysfunction [ ] Severe sepsis with acute organ dysfunction of: (Examples: respiratory failure, encephalopathy, acute kidney failure, other) [ ] Septic Shock [ ] Localized infection without sepsis [ ] Other diagnosis [ ] Unable to determine In addition, please specify: Present on Admission (POA): [ x ] Yes [ ] No [ ] Unable to determine For continuity of documentation, please document condition throughout progress notes and discharge summary. Thank You. CLINICAL INDICATORS - SIGNS / SYMPTOMS / LABS TEMP 101.4 PULSE 113 /6: WBC 14.3 / 03/16: 16.5 12/6: BANDS 8 03/16: 28 RISKS: CDIFF COLITIS RECENT HOSPITALIZATION MULTIPLE COMORBIDITIES ADVANCED AGE TREATMENT: PO VANCOMYCIN (ER-PRESENT) PO FLAGYL (ER-PRESENT) IV FLUIDS (ER-PRESENT) BLOOD, URINE AND STOOL CULTURES SAP Early Childhood [employer] Winform Viewer (This form is maintained as a part of the permanent medical record) 2014 [employer]. All Rights Reserved [email or web address] [email or web address] Office: [phone] JANNETH
[2018-03-16] MEDS ORDERED: Insulin Glargine 40 UNITS in Pre-Filled Syringe 1 EACH SC SCH (21:00)
[2018-03-17] MEDS: metroNIDAZOLE 500 MG in Premix Bag 1 BAG IVPB SCH ×3 (05:47→22:36)
[2018-03-17] MEDS: Levothyroxine Sodium 75 MCG TAB PO SCH (05:47)
[2018-03-17 06:30] LABS: #Eosinphils 0.3 thou/uL (0.0-0.7); #Lymphocytes 0.9 thou/uL (1.20-3.40); #Monocytes 0.8 thou/uL (0.11-0.59); #Neutrophils 17.5 thou/uL (1.40-6.50); %Basophils 0.2 % (0.0-1.0); %Eosinophils 1.4 % (0.0-10.0); %Lymphocytes 4.7 % (21.0-51.0); %Monocytes 4.2 % (0.0-10.0); %Neutrophils 89.5 % (42.0-75.0); Hemoglobin 8.9 g/dL (12.0-16.0); Mean Corpuscular HGB CONC 31.2 g/dL (32.0-36.0); Mean Corpuscular Hemoglobin 30.3 pg (27.0-31.0); Mean Corpuscular Volume 97.2 fL (78.0-98.0); Mean Platelet Volume 7.1 fL (7.4-10.4); Platelet Count 241 thou/uL (130-400); RBC Distribution Width 13.5 % (11.5-14.5); Red Blood Cell (RBC) Count 2.93 mill/uL (4.20-5.40); White Blood Cell (WBC) Count 19.6 thou/uL (4.8-10.8)
[2018-03-17 06:52] LABS: Anion Gap 13 mmol/L (10-20); BUN (Urea Nitrogen) 52 mg/dL (9.8-20.1); Calc. Creatinine Clearance 28 mL/min (70-130); Carbon Dioxide 23 mmol/L (23-31); Chloride 103 mmol/L (98-107); Estimated GFR-MDRD 19; Glucose 175 mg/dL (83-110); Sodium 135 mmol/L (136-145)
[2018-03-17] MEDS: Clopidogrel Bisulfate 75 MG TAB PO SCH (07:52)
[2018-03-17] MEDS: Carvedilol 3.125 MG TAB PO SCH ×2 (07:52→21:04)
[2018-03-17] MEDS: Pregabalin 75 MG CAP PO SCH (07:52)
[2018-03-17] MEDS: Sodium Chloride 0.45% 1,000 ML IV SCH ×2 (07:53→21:02)
[2018-03-17] MEDS: Vancomycin HCl 25 MG/ML Oral PO SCH ×4 (10:38→21:00)
--- NOTE | 2018-03-17 12:18 | EKG ---
Test Reason : ABD PAIN, DIARRHEA Blood Pressure : / mmHG Vent. Rate : 101 BPM Atrial Rate : 119 BPM P-R Int : 000 ms QRS Dur : 078 ms QT Int : 344 ms P-R-T Axes : 000 000 018 degrees QTc Int : 446 ms Atrial fibrillation with rapid ventricular response with premature ventricular or aberrantly conducte d complexes Low voltage QRS Leftward axis Abnormal ECG Confirmed by GEETA MCDANIEL, BAILEE Lou ([id number]), desk editor JANAE DURHAM ([id number]) on 03/17/2018 12:17:57 PM Referred By: Confirmed By:BAILEE CONNOR MD
[2018-03-18] MEDS: traMADol HCl 50 MG TAB PO PRN ×2 (01:27→22:17)
[2018-03-18] MEDS: Sodium Chloride 0.45% 1,000 ML IV SCH (01:45)
[2018-03-18] MEDS: metroNIDAZOLE 500 MG in Premix Bag 1 BAG IVPB SCH ×3 (05:22→22:05)
[2018-03-18] MEDS: Levothyroxine Sodium 75 MCG TAB PO SCH (05:24)
[2018-03-18 08:02] LABS: Anion Gap 12 mmol/L (10-20); BUN (Urea Nitrogen) 60 mg/dL (9.8-20.1); Calc. Creatinine Clearance 25 mL/min (70-130); Calcium 8.1 mg/dL (7.8-10.44); Carbon Dioxide 23 mmol/L (23-31); Chloride 104 mmol/L (98-107); Estimated GFR-MDRD 17; Glucose 125 mg/dL (83-110); Potassium 4.1 mmol/L (3.5-5.1); Sodium 135 mmol/L (136-145)
[2018-03-18 08:23] LABS: Band 16 % (5-11); Hemoglobin 8.6 g/dL (12.0-16.0); Lymphocytes 5 % (21-51); MDiff Complete? YES; Mean Corpuscular HGB CONC 31.1 g/dL (32.0-36.0); Mean Corpuscular Hemoglobin 30.4 pg (27.0-31.0); Mean Corpuscular Volume 97.9 fL (78.0-98.0); Mean Platelet Volume 7.2 fL (7.4-10.4); Monocytes 1 % (0-10); Neutrophil 78 % (42-75); Platelet Count 247 thou/uL (130-400); RBC Distribution Width 13.5 % (11.5-14.5); Red Blood Cell (RBC) Count 2.84 mill/uL (4.20-5.40); White Blood Cell (WBC) Count 14.8 thou/uL (4.8-10.8)
[2018-03-18] MEDS: Pregabalin 75 MG CAP PO SCH (08:34)
[2018-03-18] MEDS: Clopidogrel Bisulfate 75 MG TAB PO SCH (08:35)
[2018-03-18] MEDS: Vancomycin HCl 25 MG/ML Oral PO SCH ×4 (08:35→22:06)
[2018-03-18] MEDS: Carvedilol 3.125 MG TAB PO SCH ×2 (08:39→10:20)
[2018-03-18] MEDS ORDERED: Hyoscyamine Sulfate SL 0.125 mg Tablet SL PRN (10:29)
[2018-03-18] MEDS ORDERED: Insulin Glargine 20 UNITS in Pre-Filled Syringe 1 EACH SC SCH (10:30)
[2018-03-18] MEDS ORDERED: Hyoscyamine Sulfate SL 0.125 mg Tablet SL SCH (10:30)
--- NOTE | 2018-03-18 12:16 | RAD ---
AP VIEW CHEST: HISTORY: Congestive heart failure. FINDINGS: AP view chest is obtained on 03/18/2018. Comparison is made to previous exam from 03/16/2018. AP view chest demonstrates some calcification of the aorta. Mild cardiomegaly is seen. Pulmonary va scular congestion is seen. A small right-sided pleural effusion is seen. There are areas of right perihilar and right lung base as well as minimal left lung base areas of opa cification compatible with pulmonary edema or pneumonia. IMPRESSION: Right perihilar and bibasilar areas of opacities compatible with pneumonia or pulmonary edema. POS: [facility]
[2018-03-18] MEDS: Insulin Regular 300 UNITS/3 ML VIAL SC PRN ×2 (13:17→17:17)
[2018-03-19 05:38] LABS: #Eosinphils 0.2 thou/uL (0.0-0.7); #Lymphocytes 0.7 thou/uL (1.20-3.40); #Monocytes 0.6 thou/uL (0.11-0.59); #Neutrophils 9.7 thou/uL (1.40-6.50); %Basophils 0.4 % (0.0-1.0); %Eosinophils 1.7 % (0.0-10.0); %Lymphocytes 6.6 % (21.0-51.0); %Monocytes 5.1 % (0.0-10.0); %Neutrophils 86.1 % (42.0-75.0); Mean Corpuscular HGB CONC 31.6 g/dL (32.0-36.0); Mean Platelet Volume 6.8 fL (7.4-10.4); Platelet Count 277 thou/uL (130-400); RBC Distribution Width 13.5 % (11.5-14.5); Red Blood Cell (RBC) Count 2.92 mill/uL (4.20-5.40); White Blood Cell (WBC) Count 11.2 thou/uL (4.8-10.8)
[2018-03-19] MEDS: metroNIDAZOLE 500 MG in Premix Bag 1 BAG IVPB SCH ×3 (05:58→20:46)
[2018-03-19] MEDS: Levothyroxine Sodium 75 MCG TAB PO SCH (05:59)
[2018-03-19 06:17] LABS: Anion Gap 11 mmol/L (10-20); BUN (Urea Nitrogen) 64 mg/dL (9.8-20.1); Calc. Creatinine Clearance 25 mL/min (70-130); Carbon Dioxide 25 mmol/L (23-31); Chloride 103 mmol/L (98-107); Estimated GFR-MDRD 16; Glucose 136 mg/dL (83-110); Potassium 4.2 mmol/L (3.5-5.1); Sodium 135 mmol/L (136-145)
--- NOTE | 2018-03-19 08:01 | CON ---
DATE OF CONSULTATION: 03/18/2018 CONSULTING PHYSICIAN: Jenifer Millard MD. REQUESTING PHYSICIAN: Brandon Doyle MD. REASON FOR CONSULTATION: Acute on chronic kidney disease. IMPRESSION: 1. Acute on chronic kidney disease. This is likely in the context of GI loss of fluid due to persistent diarrhea. 2. Chronic kidney disease with a baseline level 4 kidney disease. PLAN: 1. We will continue renal supportive measures. 2. We will hold all antihypertensive medications for now to allow the patient's hemodynamics to improve as relatively low blood pressure in this patient will perpetuate the renal dysfunction; therefore, we will discontinue the carvedilol. 3. The patient seems to be leaning towards hypervolemia. We will discontinue the IV fluid for now. HISTORY: An 82-year-old female patient, who was recently hospitalized and treated for pneumonia with antibiotics, sent home on these antibiotics. However, the patient has been having diarrhea, may continue with all her medications. Recently evaluated for what has been described as pyoderma and sent over because of persistent abdominal discomfort. The patient now has been diagnosed with Clostridium difficile colitis, currently on treatment. Because of the elevation in creatinine above the patient's baseline creatinine level, decision has been taken to involve Renal in the management of this case. PAST MEDICAL HISTORY: Significant for chronic kidney disease, stage 4, followed by Dr. Flores. Recent diagnosis of pneumonia, diabetes mellitus, obstructive sleep apnea, reflux disease, osteoarthritis, DVT, pancreatitis, rectal caner, CVA, hypothyroidism, and dyslipidemia. MEDICATIONS: Reviewed and as documented on [facility]. ALLERGIES: TO CODEINE. REVIEW OF SYSTEMS: As documented in the body of the history. All the other systems were reviewed and found not to be significantly related to present illness. PHYSICAL EXAMINATION: GENERAL: The patient was found not to be in any serious physical or respiratory distress. VITAL SIGNS: Noted with the following vital signs; on admission, temperature of 101.4, respiratory rate of 22, blood pressure 132/69, and pulse of 104. HEENT: Unremarkable. Moist oral mucosa. Neck was supple. No conjunctival injection or icterus. CARDIOVASCULAR: First and second heart sounds were heard. RESPIRATORY: Clear to auscultation anteriorly. DIGESTIVE: Revealed an obese abdomen with some areas of tenderness. EXTREMITIES: Showed mild peripheral edema. SKIN: No new gross rash. LYMPHATICS: No peripheral lymphadenopathy. SUMMARY: An 82-year-old female patient, who presented here with abdominal discomfort, diagnosed with Clostridium difficile colitis and has been having diarrhea, noted with elevated creatinine above her baseline. Thank you for this consultation. We will follow with you. Job ID: [id number]
[2018-03-19] MEDS: Clopidogrel Bisulfate 75 MG TAB PO SCH (09:12)
[2018-03-19] MEDS: Pregabalin 75 MG CAP PO SCH (09:12)
[2018-03-19] MEDS: Vancomycin HCl 25 MG/ML Oral PO SCH ×4 (09:12→20:46)
[2018-03-19] MEDS: Insulin Glargine 20 UNITS in Pre-Filled Syringe 1 EACH SC SCH (09:13)
[2018-03-19] MEDS ORDERED: Fluconazole 100 MG TAB PO ONE (10:45)
[2018-03-19] MEDS ORDERED: Furosemide 40 MG/4 ML VIAL SLOW IVP SCH (11:00)
[2018-03-19 16:10] VITALS: BMI 38.7
--- NOTE | 2018-03-19 16:31 | RAD ---
CHEST 1 VIEW: COMPARISON: 03/18/2018. HISTORY: Pneumonia followup. FINDINGS: Atherosclerosis of the aorta. Stable cardiac silhouette. Stable interstitial and alveolar opacities . No pneumothorax or osseous abnormalities. IMPRESSION: No significant interval change. Persistent predominantly right perihilar interstitial and alveolar i nfiltrate. POS: [facility]
--- NOTE | 2018-03-19 17:20 | CON ---
DATE OF CONSULTATION: 03/19/2018 CONSULTING PHYSICIAN: Dr. Brandon Doyle. REASON FOR CONSULTATION: Clostridium difficile colitis. HISTORY OF PRESENT ILLNESS: The patient is an 82-year-old female with past medical history of diabetes; obstructive sleep apnea; atrial fibrillation, on anticoagulation; congestive heart failure with diastolic dysfunction; hypothyroidism; hyperlipidemia; insomnia; chronic renal insufficiency; GERD; osteoarthritis; deep vein thrombosis; coronary artery disease; prior bout of pancreatitis; TIA/CVA with recent subarachnoid hemorrhage; and rectal cancer, status post treatment, presenting with complaints of diarrhea. Per the chart review, the patient was admitted to the hospital in December 2017, with complaints of cough and findings consistent with pneumonia at that time. She also had a mild increase in her serum creatinine concerning for renal dysfunction. She was ultimately treated with IV fluids and antibiotics with improving of her clinical status. However, upon shortly before that hospitalization, during that hospitalization, and after that hospitalization, she states that she had been having frequent semi-solid to liquid bowel movements per day having approximately 5 to 6 episodes of this. This continued through to the current day, where over the last 2 to 3 weeks, she was having more frequent accidents characterized as soiling her clothes with fecal material. However, also over the last 2 to 3 weeks, she started to experience increased mid epigastric/periumbilical abdominal pain, that would radiate to the right upper quadrant, would characterize as a cramping-type sensation, was intermittent, and would reach a severity of 8/10. There were no clear alleviating or exacerbating factors, but did mildly improve with having her frequent bowel movements. This was associated with increased nausea without overt vomiting. Bright red blood per rectum/hematochezia did occur 2 to 3 times with bright red blood present only on the toilet paper as well as fever over the last 2 days. She also endorsed the appearance of darker-colored stools, that have occurred approximately 4 to 5 times over the last 2 to 3 weeks, but have not been consistent in terms of their appearance. With the development of fever, she was ultimately brought to the [facility] Emergency Room for further evaluation. On evaluation in the ER, she was noted to have a temperature of 101.9 as well as a CT of the abdomen and pelvis revealing extensive wall thickening of the entire colon from the cecum to the rectum, consistent with a nonspecific pancolitis. Microbiology testing was ultimately positive for Clostridium difficile, and she was admitted to the hospital for treatment regarding Clostridium difficile colitis. Today, she states that she is doing better with decreased frequency of stool having approximately 1 to 2 semi-solid to liquid bowel movements today as well as significant improvement of her abdominal pain. She currently denies any nausea, vomiting, fevers, chills, GI bleeding, dysphagia, or odynophagia. REVIEW OF SYSTEMS: A 10-category review of systems was obtained with all responses negative except for the pertinent positives as listed in the HPI. PAST MEDICAL HISTORY: As per HPI. PAST SURGICAL HISTORY: Hysterectomy, cholecystectomy, rotator cuff repair, coronary artery bypass graft, rectal resection with colostomy placement and ultimate reversal with reanastomosis, bilateral cataract removal, and fracture of her left wrist without surgical intervention and persistent deformity. FAMILY HISTORY: Denies any other family members with GI malignancy. SOCIAL HISTORY: Denies any tobacco, alcohol, or illicit drug use. OUTPATIENT MEDICATIONS: Reviewed. ALLERGIES: CODEINE. PHYSICAL EXAMINATION: VITAL SIGNS: Temperature 97.5, pulse 74, blood pressure 97/61, respiratory rate 19, and saturating 98% on room air. GENERAL: The patient was lying in bed, in no acute distress, alert and oriented x4. HEENT: Neck supple. No JVD noted. No scleral icterus noted. CARDIOVASCULAR: Regular rate and rhythm with no discernible murmurs, gallops, or rubs. RESPIRATORY: Clear to auscultation in the upper lung benitez, but mild end-expiratory wheezes heard in the bilateral lower lung benitez. ABDOMEN: Normal active to slightly higher-pitched bowel sounds, especially within the periumbilical region. The abdomen was soft with mild abdominal distention. Tenderness to palpation in the mid epigastric and right upper quadrant regions only. EXTREMITIES: 1+ bilateral lower extremity edema extending to mid thornton. Otherwise, no cyanosis or clubbing. LABORATORY DATA: CBC with a white blood cell count of 11.2, hemoglobin 9, hematocrit 28.6, platelets 277. Chemistry with a sodium of 135, potassium 4.2, chloride 103, CO2 of 25, BUN 64, creatinine 2.81, glucose 136. Albumin on admission was 3.3. IMAGING DATA: A CT of the abdomen and pelvis was obtained on March 15, 2018, which showed diffuse thickening of the entire colon from the level of the cecum through the rectum with extensive pericolonic inflammatory fat stranding with most prominent region in the transverse and sigmoid colon consistent with nonspecific diffuse pancolitis. ASSESSMENT AND PLAN: The patient is an 82-year-old female with past medical history of diabetes, obstructive sleep apnea, atrial fibrillation, congestive heart failure with diastolic dysfunction, hypothyroidism, hyperlipidemia, chronic renal insufficiency, gastroesophageal reflux disease, osteoarthritis, coronary artery disease, prior bout of pancreatitis, cerebrovascular accident, and rectal cancer, status post surgical resection, presenting with Clostridium difficile colitis as well as renal insufficiency. Clostridium difficile colitis. 1. The patient states that she has been having increased liquid bowel movements, that have been present for the last 4 to 6 weeks characterized as having approximately 5 to 6 semi-solid to liquid bowel movements per day with no difficulty with defecation. This was associated with increased fecal soiling of her clothes/fecal urgency as well as subjective nausea without vomiting, bright red blood per rectum only on the toilet paper, and intermittent occurrences of darker/black-colored stools. For the last 2 to 3 days prior to admission, she was also developing fever, which is what ultimately brought her to the emergency room for evaluation. In the ER, she was noted to have a significantly elevated white blood cell count in addition to acute on chronic renal failure/insufficiency in addition to imaging findings consistent with pancolitis. Microbiology testing was positive for Clostridium difficile, and she was ultimately placed on antibiotics. At this point, the symptoms coming on after the onset of broad-spectrum antibiotics related to treatment of pneumonia in December 2017, are most consistent with Clostridium difficile colitis. She does not exhibit any signs of toxicity or megacolon at this time, but given her elevated white blood cell count, elevated BUN/creatinine, and advanced age as well as fever, I would consider this as a complicated/severe course of Clostridium difficile colitis. RECOMMENDATIONS: 1. We would continue to trend H and H and transfuse as necessary to maintain an H and H of 7/21. 2. Continue to monitor clinically for signs of active GI bleeding. 3. We would continue with IV metronidazole 3 times daily as well as oral vancomycin 500 mg four times daily given her severe C. diff colitis. 4. We would obtain serial abdominal exams daily with a possibility of obtaining KUBs daily to assess for worsening of her condition including toxic megacolon. 5. If she does develop symptoms of megacolon, we would consider urgent General Surgery evaluation for total colectomy at that time, although, it is not currently indicated at this time. 6. We would consider addition of Florastor (probiotic) to her current regimen as adjunctive therapy. We will continue to follow. Please call with any questions. Job ID: [id number]
[2018-03-19] MEDS: Insulin Regular 300 UNITS/3 ML VIAL SC PRN (18:37)
[2018-03-19] MEDS: traMADol HCl 50 MG TAB PO PRN (20:45)
--- NOTE | 2018-03-19 21:56 | PRG ---
DATE OF SERVICE: 03/19/2018 OBJECTIVE: VITAL SIGNS: The patient noted with the following vital signs. Temperature 97.6, pulse 76, respiratory rate of 16, O2 saturation 98%, blood pressure 103/66. HEENT EXAMINATION: Unremarkable. CARDIOVASCULAR SYSTEM: First and second heart sounds are well heard. RESPIRATORY SYSTEM: Clear to auscultation. DIGESTIVE SYSTEM: Benign abdomen. EXTREMITIES: No new gross rash. No significant peripheral edema. LABORATORY INVESTIGATION: Showed a hemoglobin of 9.0. Chemistry showed a creatinine of 2.81, BUN of 64. IMPRESSION: 1. Acute on chronic kidney disease, likely component of acute tubular necrosis due to intravascular depletion from acute gastrointestinal loss. 2. Chronic kidney disease stage 4, more or less at baseline. PLAN: 1. Continue current renal supportive measures. Avoid potentially nephrotoxic agents. 2. No indication for renal replacement therapy. In any case, the patient seems to be more or less close to her baseline chronic kidney disease stage 4. Job ID: [id number]
[2018-03-19] MEDS ORDERED: Pramipexole Di-HCl 1 MG TAB PO SCH (22:45)
[2018-03-19] MEDS ORDERED: Furosemide 20 MG/2 ML VIAL SLOW IVP SCH (22:45)
[2018-03-20 05:50] LABS: #Eosinphils 0.2 thou/uL (0.0-0.7); #Lymphocytes 0.8 thou/uL (1.20-3.40); #Monocytes 0.6 thou/uL (0.11-0.59); #Neutrophils 7.6 thou/uL (1.40-6.50); %Basophils 0.5 % (0.0-1.0); %Eosinophils 1.8 % (0.0-10.0); %Lymphocytes 8.3 % (21.0-51.0); %Monocytes 6.9 % (0.0-10.0); %Neutrophils 82.4 % (42.0-75.0); Hemoglobin 8.9 g/dL (12.0-16.0); Mean Corpuscular HGB CONC 30.2 g/dL (32.0-36.0); Mean Corpuscular Hemoglobin 29.7 pg (27.0-31.0); Mean Corpuscular Volume 98.2 fL (78.0-98.0); Platelet Count 305 thou/uL (130-400); RBC Distribution Width 13.4 % (11.5-14.5); White Blood Cell (WBC) Count 9.2 thou/uL (4.8-10.8)
[2018-03-20 05:56] LABS: Anion Gap 11 mmol/L (10-20); BUN (Urea Nitrogen) 67 mg/dL (9.8-20.1); Calc. Creatinine Clearance 27 mL/min (70-130); Carbon Dioxide 24 mmol/L (23-31); Chloride 107 mmol/L (98-107); Estimated GFR-MDRD 17; Glucose 156 mg/dL (83-110); Potassium 4.5 mmol/L (3.5-5.1); Sodium 137 mmol/L (136-145)
[2018-03-20] MEDS: Levothyroxine Sodium 75 MCG TAB PO SCH (06:19)
[2018-03-20] MEDS: metroNIDAZOLE 500 MG in Premix Bag 1 BAG IVPB SCH ×3 (06:19→22:22)
[2018-03-20] MEDS: Insulin Regular 300 UNITS/3 ML VIAL SC PRN ×3 (06:22→17:37)
[2018-03-20] MEDS: Phenazopyridine HCl 97.5 MG TABLET PO SCH ×3 (09:00→17:38)
[2018-03-20] MEDS: Pregabalin 75 MG CAP PO SCH (09:04)
[2018-03-20] MEDS: Clopidogrel Bisulfate 75 MG TAB PO SCH (09:04)
[2018-03-20] MEDS: Fluconazole 100 MG TAB PO SCH (09:04)
[2018-03-20] MEDS: Insulin Glargine 20 UNITS in Pre-Filled Syringe 1 EACH SC SCH (09:05)
[2018-03-20] MEDS: Vancomycin HCl 25 MG/ML Oral PO SCH ×4 (09:09→20:50)
[2018-03-20] MEDS ORDERED: Saccharomyces boulardii 250 MG CAP PO SCH ×2 (14:45→15:00)
[2018-03-20 15:20] LABS: Bilirubin Negative (Negative); Blood, Urine Negative (Negative); Clarity CLEAR (Clear); Glucose, Urine (Dipstick) Negative (Negative); Leukocyte Small (Negative); Nitrite Negative (Negative); Protein, Urine (Dipstick) Negative (Neg-Trace); Urobilinogen 0.2 mg/dL (0.2-1.0)
[2018-03-20 15:21] LABS: Bacteria/HPF None Seen HPF (None Seen); Hyaline Casts/LPF 0-3 HYALINE CAST LPF (0-3 Hyaline); Pathc Cast-AUWi Flag 0.72 (0-2.49); RBC/HPF 0-3 HPF (0-3); Squamous Epithelial 0-3 HPF (0-3); WBC/HPF 21-50 HPF (0-3)
[2018-03-20] MEDS: Pramipexole Di-HCl 1 MG TAB PO SCH (20:50)
--- NOTE | 2018-03-20 21:43 | PRG ---
DATE OF SERVICE: 03/20/2018 OBJECTIVE: VITAL SIGNS: The patient noted with the following vital signs. Temperature 97.7, pulse 76, respiratory rate of 16, O2 saturation 98%, and blood pressure 101/64. HEENT: Unremarkable. CARDIOVASCULAR: First and second heart sounds are well heard. RESPIRATORY SYSTEM: Clear to auscultation. DIGESTIVE SYSTEM: Revealed a benign abdomen. Positive bowel sounds. EXTREMITIES: No peripheral edema. SKIN: No new gross rash. LYMPHATICS: No peripheral lymphadenopathy. LABORATORY INVESTIGATION: Showed a hemoglobin of 8.9. Chemistry showed a creatinine of 2.63, and BUN of 67. IMPRESSION: Acute on chronic kidney disease, stage 4. PLAN: 1. Continue current renal supportive measures. 2. Avoid potential nephrotoxic agents. 3. Further management to be dependent on the clinical course. Job ID: [id number]
[2018-03-20] MEDS: traMADol HCl 50 MG TAB PO PRN (23:18)
--- NOTE | 2018-03-21 02:25 | PRG ---
DATE OF SERVICE: 03/20/2018 REASON FOR CONSULTATION: Clostridium difficile colitis. SUBJECTIVE: The patient did well overnight with no acute events or problems during that time. Today, she states that she continues to have mild abdominal pain, but much improved when compared to the pain experienced on admission. She did have 1 loose bowel movement yesterday evening, but as of the interview with me today, she has not had any subsequent bowel movements. She does complain of some mild abdominal distention, but is currently nonpainful and not any worse than it was on admission. Currently, she denies any nausea, vomiting, fevers, chills, GI bleeding, or constipation. OBJECTIVE: VITAL SIGNS: Temperature 97.6, pulse 76, blood pressure 128/69, respiratory rate 22, and saturating 98% on 1 L nasal cannula. GENERAL: The patient was lying in bed, in no acute distress. Alert and oriented x4. CARDIOVASCULAR: Regular rate and rhythm. RESPIRATORY: Clear to auscultation bilaterally in the upper lung benitez with mild wheezes heard at the bilateral lower lung benitez. ABDOMEN: Normoactive bowel sounds. Soft. Mild tenderness to palpation in the periumbilical region. EXTREMITIES: 1+ bilateral lower extremity edema extending the mid thornton. LABORATORY DATA: CBC with a white blood cell count of 9.2, hemoglobin 8.9, hematocrit 29.4, and platelets 305. Chemistry with a sodium of 137, potassium 4.5, chloride 107, CO2 of 24, BUN 67, creatinine 2.63, and glucose 156. IMAGING DATA: No current GI imaging is available for review. ASSESSMENT AND PLAN: The patient is an 82-year-old female with past medical history of diabetes, obstructive sleep apnea, atrial fibrillation, congestive heart failure with diastolic dysfunction, hypothyroidism, hyperlipidemia, chronic renal insufficiency, gastroesophageal reflux disease, osteoarthritis, coronary artery disease, prior bout of pancreatitis, cerebrovascular accident, and rectal cancer, status post surgical resection, presenting with Clostridium difficile colitis. Clostridium difficile colitis. The patient initially presented with increasing diarrheal bowel movements that had been present for approximately 4 to 6 weeks prior to admission. On admission, infectious stool studies were noted to be positive for Clostridium difficile colitis. Given her advanced age, renal insufficiency, elevated white blood cell count and fever, this was deemed to be a more severe case of Clostridium difficile associated colitis and put on IV metronidazole and oral vancomycin. With the initiation of antibiotic therapy, she has done well with significant decrease in the amount of abdominal pain and having no bowel movements on examination today. At this time, she does not exhibit any signs of toxicity or megacolon making sequelae or complication of this infection unlikely at this time. RECOMMENDATIONS: 1. We would continue IV metronidazole 3 times daily as well as oral vancomycin 500 mg four times daily given her severe C diff colitis. 2. We would obtain serial abdominal exams daily to assess for worsening of her condition. 3. We would add Florastor to her current regimen as adjunctive therapy. We will continue to follow. Please call with any questions. Job ID: [id number]
[2018-03-21] MEDS: metroNIDAZOLE 500 MG in Premix Bag 1 BAG IVPB SCH ×3 (05:28→21:59)
[2018-03-21] MEDS: Levothyroxine Sodium 75 MCG TAB PO SCH (05:29)
[2018-03-21 05:55] LABS: Anion Gap 12 mmol/L (10-20); BUN (Urea Nitrogen) 64 mg/dL (9.8-20.1); Calc. Creatinine Clearance 32 mL/min (70-130); Calcium 8.1 mg/dL (7.8-10.44); Carbon Dioxide 23 mmol/L (23-31); Chloride 107 mmol/L (98-107); Estimated GFR-MDRD 22; Glucose 130 mg/dL (83-110); Potassium 4.6 mmol/L (3.5-5.1); Sodium 137 mmol/L (136-145)
[2018-03-21 06:40] LABS: Mean Corpuscular HGB CONC 30.5 g/dL (32.0-36.0); Mean Corpuscular Hemoglobin 29.8 pg (27.0-31.0); Mean Corpuscular Volume 97.6 fL (78.0-98.0); Mean Platelet Volume 6.8 fL (7.4-10.4); Platelet Count 342 thou/uL (130-400); RBC Distribution Width 13.6 % (11.5-14.5); Red Blood Cell (RBC) Count 3.01 mill/uL (4.20-5.40); White Blood Cell (WBC) Count 10.3 thou/uL (4.8-10.8)
[2018-03-21 06:42] LABS: Band 7 % (5-11); Eosinophils 6 % (0-10); Lymphocytes 12 % (21-51); MDiff Complete? YES; Monocytes 4 % (0-10); Neutrophil 71 % (42-75)
[2018-03-21] MEDS: Fluconazole 100 MG TAB PO SCH (09:25)
[2018-03-21] MEDS: Insulin Glargine 20 UNITS in Pre-Filled Syringe 1 EACH SC SCH (09:25)
[2018-03-21] MEDS: Clopidogrel Bisulfate 75 MG TAB PO SCH (09:25)
[2018-03-21] MEDS: Pregabalin 75 MG CAP PO SCH (09:26)
[2018-03-21] MEDS: Vancomycin HCl 25 MG/ML Oral PO SCH ×4 (09:27→20:40)
[2018-03-21] MEDS: Saccharomyces boulardii 250 MG CAP PO SCH (09:27)
[2018-03-21] MEDS: PRAMIPEXOLE PO SCH ×2 (12:43→12:44)
[2018-03-21] MEDS: Insulin Regular 300 UNITS/3 ML VIAL SC PRN (13:53)
--- NOTE | 2018-03-21 17:57 | PRG ---
DATE OF SERVICE: 03/21/2018 REASON FOR CONSULTATION: Clostridium difficile colitis. SUBJECTIVE: The patient did well overnight with no acute events or problems during that time. However, today she states that she has been having frequent bowel movements to the point where she could not count them. However, the stool consistency has improved with her stool now being more semisolid as opposed to liquid as compared to on admission. Currently, she denies any nausea, vomiting, fevers, chills, GI bleeding, or constipation. OBJECTIVE: VITAL SIGNS: Temperature 97.6, pulse 79, blood pressure 116/66, respiratory rate is 18, and saturating 97% on room air. GENERAL: The patient was lying in bed, in no acute distress. Alert and oriented x4. CARDIOVASCULAR: Regular rate and rhythm. RESPIRATORY: Clear to auscultation bilaterally. ABDOMEN: Normoactive bowel sounds. Soft. Mild tenderness to palpation in the periumbilical region. EXTREMITIES: 1+ bilateral lower extremity edema extending the mid thornton. LABORATORY DATA: CBC with a white blood cell count of 10.3, hemoglobin 9, hematocrit 29.4, and platelets 342. Chemistry with a sodium of 137, potassium 4.6, chloride 107, CO2 23, BUN 64, creatinine 2.17, glucose 130. Imaging data; no current GI imaging is available for review. ASSESSMENT AND PLAN: The patient is an 82-year-old female with multiple medical comorbidities, presenting with Clostridium difficile colitis. Clostridium difficile colitis. The patient initially presented with increased diarrhea characterized as having anywhere between 4 to 6 liquid bowel movements per day for the last 4 to 6 weeks prior to admission. On admission, she was noted to have positive infectious stool studies for Clostridium difficile colitis as well as elevated white blood cell count and elevated creatinine concerning for severe disease. She was subsequently placed on IV metronidazole and oral vancomycin with improvement in her clinical status to this day. She does continue to have frequent bowel movements, but in terms of stool consistency, has improved dramatically since admission. At this time, she does not exhibit any signs of toxicity or megacolon making sequelae or complication of this infection unlikely at this time. RECOMMENDATIONS: 1. We would continue IV metronidazole 3 times daily, but consider discontinuation within the next 24 to 48 hours and transfer to oral vancomycin as monotherapy given her response so far and solidification of her stools. 2. Would continue to obtain serial abdominal exams daily to assess for worsening condition. 3. We would continue for short-term current regimen as adjunctive therapy. We will continue to follow. Please call with any questions. Job ID: [id number]
--- NOTE | 2018-03-21 20:10 | PRG ---
DATE OF SERVICE: 03/21/2018 SUBJECTIVE: The patient is seen and examined with no new complaints. Noted with the following vital signs. OBJECTIVE: VITAL SIGNS: Afebrile, temperature 97.4; pulse 72; respiratory rate of 18; O2 saturation 97% with a blood pressure of 116/69. HEENT: Unremarkable. CARDIOVASCULAR SYSTEM: First and second heart sounds were heard. RESPIRATORY SYSTEM: Clear to auscultation. DIGESTIVE SYSTEM: Revealed a benign abdomen. EXTREMITIES: No peripheral edema. SKIN: No new gross rash. LYMPHATICS: No peripheral lymphadenopathy. LABORATORY INVESTIGATION: Showed a creatinine down to 2.17, BUN of 64. IMPRESSION: 1. Acute on chronic kidney disease, which seems to be improving. 2. Clostridium difficile colitis, on treatment. PLAN: 1. Continue current renal supportive measures. 2. Further management to be dependent on the clinical course. Job ID: [id number]
[2018-03-21] MEDS: Pramipexole Di-HCl 1 MG TAB PO SCH (20:40)
[2018-03-22] MEDS: metroNIDAZOLE 500 MG in Premix Bag 1 BAG IVPB SCH ×2 (05:26→13:10)
[2018-03-22] MEDS: Levothyroxine Sodium 75 MCG TAB PO SCH (05:26)
[2018-03-22 06:10] LABS: #Basophils 0.1 thou/uL (0.0-0.2); #Eosinphils 0.2 thou/uL (0.0-0.7); #Lymphocytes 0.9 thou/uL (1.20-3.40); #Monocytes 0.6 thou/uL (0.11-0.59); #Neutrophils 6.7 thou/uL (1.40-6.50); %Basophils 0.7 % (0.0-1.0); %Eosinophils 2.2 % (0.0-10.0); %Lymphocytes 10.2 % (21.0-51.0); %Monocytes 7.5 % (0.0-10.0); %Neutrophils 79.4 % (42.0-75.0); Hemoglobin 8.9 g/dL (12.0-16.0); Mean Corpuscular HGB CONC 31.2 g/dL (32.0-36.0); Mean Corpuscular Hemoglobin 30.7 pg (27.0-31.0); Mean Corpuscular Volume 98.6 fL (78.0-98.0); Mean Platelet Volume 6.7 fL (7.4-10.4); Platelet Count 344 thou/uL (130-400); RBC Distribution Width 13.7 % (11.5-14.5); White Blood Cell (WBC) Count 8.4 thou/uL (4.8-10.8)
[2018-03-22 06:13] LABS: Anion Gap 11 mmol/L (10-20); BUN (Urea Nitrogen) 57 mg/dL (9.8-20.1); Calc. Creatinine Clearance 38 mL/min (70-130); Calcium 8.4 mg/dL (7.8-10.44); Carbon Dioxide 25 mmol/L (23-31); Chloride 108 mmol/L (98-107); Estimated GFR-MDRD 26; Glucose 113 mg/dL (83-110); Potassium 4.4 mmol/L (3.5-5.1); Sodium 140 mmol/L (136-145)
[2018-03-22] MEDS: Pregabalin 75 MG CAP PO SCH (09:46)
[2018-03-22] MEDS: Clopidogrel Bisulfate 75 MG TAB PO SCH (09:46)
[2018-03-22] MEDS: Insulin Glargine 20 UNITS in Pre-Filled Syringe 1 EACH SC SCH (09:46)
[2018-03-22] MEDS: Fluconazole 100 MG TAB PO SCH (09:46)
[2018-03-22] MEDS: Vancomycin HCl 25 MG/ML Oral PO SCH ×4 (09:47→20:56)
[2018-03-22] MEDS: Saccharomyces boulardii 250 MG CAP PO SCH (09:47)
--- NOTE | 2018-03-22 16:21 | PRG ---
DATE OF SERVICE: 03/22/2018 SUBJECTIVE: The patient is seen and examined, noted with the following vital signs. OBJECTIVE: VITAL SIGNS: Afebrile, temperature 97.6, pulse 76, respiratory rate of 18, O2 saturation of 98%, with blood pressure of 114/68. HEENT: As mentioned, unremarkable. CARDIOVASCULAR: First and second heart sounds were heard. RESPIRATORY: Clear to auscultation. DIGESTIVE: Revealed a benign abdominal with positive bowel sounds. EXTREMITIES: No peripheral edema. SKIN: As mentioned, no new gross rash. LYMPHATICS: No peripheral lymphadenopathy. LABORATORY INVESTIGATION: Showed hemoglobin 8.9. Chemistry showed a creatinine down to 1.87. IMPRESSION: Acute on chronic kidney disease, which seems to be improving, more or less of the patient's, if not below the patient's known baseline. PLAN: 1. Continue current renal supportive measures. 2. Further management to be dependent on the clinical course. Job ID: [id number]
--- NOTE | 2018-03-22 19:24 | PRG ---
DATE OF SERVICE: 03/22/2018 REASON FOR CONSULTATION: Clostridium difficile colitis. SUBJECTIVE: The patient is doing well today with no acute events or problems overnight. She states that the abdominal pain that she had worsening yesterday has completely resolved today. She states that she has had one solid to semi-solid bowel movement today with no difficulty with defecation. She currently denies any nausea, vomiting, fevers, chills, GI bleeding, constipation, or abdominal pain. OBJECTIVE: VITAL SIGNS: Temperature 98.2, pulse 84, blood pressure 144/77, respiratory rate 18, and saturating 100% on room air. GENERAL: The patient lying in bed, in no acute distress. Alert and oriented x4. CARDIOVASCULAR: Regular rate and rhythm. RESPIRATORY: Clear to auscultation bilaterally. ABDOMEN: Normoactive bowel sounds. Soft, nontender, nondistended. EXTREMITIES: Trace bilateral lower extremity edema extending to mid thornton. LABORATORY DATA: CBC with a white blood cell count of 8.4, hemoglobin 8.9, hematocrit 28.5, and platelets 344. Chemistry with a sodium of 140, potassium 4.4, chloride 108, CO2 of 25, BUN 57, creatinine 1.87, and glucose 113. IMAGING DATA: No current GI imaging is available for review. ASSESSMENT AND PLAN: The patient is an 82-year-old female with multiple medical comorbidities, presenting with Clostridium difficile colitis. Clostridium difficile colitis. The patient initially presented with increased diarrhea, characterizes having anywhere between 4 and 6 liquid bowel movements per day for the last 4 to 6 weeks after her discharge from the hospital. On admission, she was noted to have positive infectious stool studies for Clostridium difficile as well as an elevated white blood cell count, fever, and elevated creatinine concerning for severe disease. She was subsequently placed on IV metronidazole and oral vancomycin, and has had a significant improvement in her clinical status. At this point, her stools have solidified indicating good response to treatment at which point, the oral vancomycin is the more power of the 2 medications. Given her improvement in her clinical status, discharge from the hospital soon would be reasonable. RECOMMENDATIONS: 1. Would discontinue the IV metronidazole, but continue the oral vancomycin as monotherapy for a total therapy duration of 10 days. 2. Continue Florastor for adjunctive therapy. 3. Would follow up in the GI clinic in the next 2 to 3 weeks for further management. We will sign off at this time. Please call with any additional questions. Job ID: [id number]
[2018-03-22] MEDS: Pramipexole Di-HCl 1 MG TAB PO SCH (20:55)
[2018-03-23] MEDS: traMADol HCl 50 MG TAB PO PRN (01:46)
[2018-03-23 04:53] LABS: #Basophils 0.1 thou/uL (0.0-0.2); #Eosinphils 0.2 thou/uL (0.0-0.7); #Lymphocytes 1.1 thou/uL (1.20-3.40); #Monocytes 0.6 thou/uL (0.11-0.59); #Neutrophils 5.4 thou/uL (1.40-6.50); %Basophils 0.7 % (0.0-1.0); %Eosinophils 2.5 % (0.0-10.0); %Lymphocytes 15.4 % (21.0-51.0); %Monocytes 8.7 % (0.0-10.0); %Neutrophils 72.7 % (42.0-75.0); Hemoglobin 8.7 g/dL (12.0-16.0); Mean Corpuscular Hemoglobin 30.5 pg (27.0-31.0); Mean Corpuscular Volume 98.3 fL (78.0-98.0); Mean Platelet Volume 6.4 fL (7.4-10.4); Platelet Count 383 thou/uL (130-400); RBC Distribution Width 13.9 % (11.5-14.5); Red Blood Cell (RBC) Count 2.85 mill/uL (4.20-5.40); White Blood Cell (WBC) Count 7.4 thou/uL (4.8-10.8)
[2018-03-23 05:13] LABS: Anion Gap 10 mmol/L (10-20); BUN (Urea Nitrogen) 48 mg/dL (9.8-20.1); Calc. Creatinine Clearance 44 mL/min (70-130); Calcium 8.6 mg/dL (7.8-10.44); Carbon Dioxide 27 mmol/L (23-31); Chloride 110 mmol/L (98-107); Estimated GFR-MDRD 31; Glucose 118 mg/dL (83-110); Potassium 4.6 mmol/L (3.5-5.1); Sodium 142 mmol/L (136-145)
[2018-03-23] MEDS: Levothyroxine Sodium 75 MCG TAB PO SCH (05:50)
[2018-03-23] MEDS: Clopidogrel Bisulfate 75 MG TAB PO SCH (09:53)
[2018-03-23] MEDS: Fluconazole 100 MG TAB PO SCH (09:53)
[2018-03-23] MEDS: Saccharomyces boulardii 250 MG CAP PO SCH (09:53)
[2018-03-23] MEDS: Pregabalin 75 MG CAP PO SCH (09:54)
[2018-03-23] MEDS: Insulin Glargine 20 UNITS in Pre-Filled Syringe 1 EACH SC SCH (09:55)
[2018-03-23] MEDS: Vancomycin HCl 25 MG/ML Oral PO SCH ×3 (10:58→16:14)
[2018-03-23 13:15] VITALS: BP 131/72; TEMP 97.5
--- NOTE | 2018-03-26 09:32 | DIS ---
DATE OF ADMISSION: 03/15/2018 DATE OF DISCHARGE: 03/23/2018 CHIEF COMPLAINT ON ADMISSION: Pancolitis secondary to C diff disease and dehydration. History and physical had previously been dictated. I will resume from there with hospital course. HOSPITAL COURSE: By 03/16, she had 3 loose stools over the last p.m. Her temperature was 99.8, weight at 209. WBC up to 16.5. Abdomen still swollen, tender and firm. We decreased IV fluids to avoid going into fluid overload. By 03/17, she aroused easily, still no appetite, temperature 99.9, weight 208. WBC up to 19.6. Abdomen with decreased swelling, decreased tenderness, and appeared to be overall improving. We tried to begin to get her out of bed. By 03/18, she was much more alert. She was having stomach cramps. White count had finally come down to 14.8. BNP had decreased to 316. Abdomen, tender in the gastric area, but decreased bloating and decreased tenderness overall. We consulted Dr. Flores about her renal functions. The BUN was 60, creatinine 2.73. By 03/19, alert, feeling much better. Vital signs stable. WBC down to 11.2, BUN improved to 64 and 2.3 on creatinine. Portable chest x-ray suggested pulmonary edema, so Lasix was given. Dr. Burgess saw the patient was placed to Dr. Flores who was on vacation. He felt it was acute on chronic kidney disease secondary to GI losses. He did not recommend any specific change in therapy and said he will follow along with this. Also on this date, Dr. Rueda was consulted concerning her C diff. He thought that we should continue to trend the H and H and transfuse if she goes below 7/21 and monitor for active bleeding. Continue the IV Flagyl and oral vancomycin 500 four times daily and use a probiotic to restore her gut farrukh. By 03/20, episodes of dyspnea occurred along with some dysuria. She was generally weak. Aggressive physical therapy was begun as well as Florastor. By 03/21, had rested well, 2 loose stools, decreased pain , WBC down to 10. Abdomen, soft and nontender at this point. The rest of physical therapy was begun and we continued the IV metronidazole as well as the oral vancomycin. By 03/22, WBC down to 8.4. We had to discontinue the thought of IV metronidazole and went with oral treatment. She was able to be discharged home on 03/23. She will be continued on the oral vancomycin 4 times a day for an additional week. She will stay on the metronidazole as well. She was discharged in stable condition. DISCHARGE DIAGNOSES: The diagnoses at the time of discharge were: 1) pancolitis due to Clostridium difficile, 2) insulin-dependent diabetes, 3) pulmonary edema, 4)severe deconditioning, 5) acute on chronic kidney disease, now returned to baseline. The time required to review the chart, examine the patient, answer the patient' s and her son's questions, reconcile all her medications and then write prescriptions and dictation came to 45 minutes. DISCHARGE MEDICATIONS: Vancomycin 250 mg capsules 2 q.i.d. for 10 total days of treatment. FOLLOWUP: She will follow up with Dr. Doyle in 1 week. CONDITION ON DISCHARGE: She was discharged in stable condition. Job ID: [id number] [id number]
== END 2018-03-23 16:35 | disposition home or self-care (01) | DRG 871 ==
LOC: ERS 10:48 → T4-B 16:49
PROVIDERS: ADMIT Specialist; ATTEND Specialist
DX: A41.4 Sepsis due to anaerobes (principal); N17.0 Acute kidney failure with tubular necrosis; A04.72 Enterocolitis due to Clostridium difficile, not specified as recurrent; N18.4 Chronic kidney disease, stage 4 (severe); I13.0 Hypertensive heart and chronic kidney disease with heart failure and stage 1 through stage 4 chronic kidney disease, or unspecified chronic kidney disease; I50.32 Chronic diastolic (congestive) heart failure; E11.22 Type 2 diabetes mellitus with diabetic chronic kidney disease; Z79.4 Long term (current) use of insulin; G47.33 Obstructive sleep apnea (adult) (pediatric); K21.9 Gastro-esophageal reflux disease without esophagitis; M19.90 Unspecified osteoarthritis, unspecified site; Z86.73 Personal history of transient ischemic attack (TIA), and cerebral infarction without residual deficits; Z85.048 Personal history of other malignant neoplasm of rectum, rectosigmoid junction, and anus; E03.9 Hypothyroidism, unspecified; E78.5 Hyperlipidemia, unspecified; Z88.6 Allergy status to analgesic agent; I48.91 Unspecified atrial fibrillation; Z79.01 Long term (current) use of anticoagulants; I25.10 Atherosclerotic heart disease of native coronary artery without angina pectoris; Z95.1 Presence of aortocoronary bypass graft; Z79.82 Long term (current) use of aspirin; E86.0 Dehydration; Z86.718 Personal history of other venous thrombosis and embolism; I25.2 Old myocardial infarction; Z90.49 Acquired absence of other specified parts of digestive tract
CPT/HCPCS: 36415; 36416; 51701; 71045; 74176; 80048; 80053; 81001; 81003; 81015; 82274; 83036; 83605; 83880; 84443; 84484; 85025; 87040; 87045; 87046; 87086; 87149; 87324; 87449; 87899; 90471; 90662; 93005; 94640; 96361; 96374; A4353; G0008; G8978-GP-CK; G8979-GP-CI; J1815; J1940; J2405; J7620

== ENCOUNTER 2018-04-13 11:06 | Observation (INO) | payer MEDICARE, BC ==
[2018-04-13 12:01] LABS: #Eosinphils 0.2 thou/uL (0.0-0.7); #Lymphocytes 0.9 thou/uL (1.20-3.40); #Monocytes 0.7 thou/uL (0.11-0.59); #Neutrophils 4.1 thou/uL (1.40-6.50); %Basophils 0.7 % (0.0-1.0); %Eosinophils 4.1 % (0.0-10.0); %Monocytes 11.6 % (0.0-10.0); %Neutrophils 68.6 % (42.0-75.0); Hemoglobin 10.3 g/dL (12.0-16.0); Mean Corpuscular HGB CONC 31.4 g/dL (32.0-36.0); Mean Corpuscular Hemoglobin 29.8 pg (27.0-31.0); Mean Corpuscular Volume 94.8 fL (78.0-98.0); Mean Platelet Volume 8.2 fL (7.4-10.4); Platelet Count 204 thou/uL (130-400); RBC Distribution Width 14.2 % (11.5-14.5); Red Blood Cell (RBC) Count 3.47 mill/uL (4.20-5.40)
[2018-04-13 12:33] LABS: ALT (SGPT) 10 U/L (8-55); AST (SGOT) 17 U/L (5-34); Albumin 3.5 g/dL (3.4-4.8); Alkaline Phosphatase 78 U/L (40-150); Anion Gap 17 mmol/L (10-20); BUN (Urea Nitrogen) 59 mg/dL (9.8-20.1); Bilirubin, Total 0.5 mg/dL (0.2-1.2); Calc. Creatinine Clearance 0 mL/min (70-130); Calcium 9.5 mg/dL (7.8-10.44); Carbon Dioxide 27 mmol/L (23-31); Chloride 99 mmol/L (98-107); Estimated GFR-MDRD 18; Globulin 4.2 g/dL (2.4-3.5); Glucose 90 mg/dL (83-110); Lipase 4 U/L (8-78); Protein, Total 7.7 g/dL (6.0-8.3); Sodium 139 mmol/L (136-145)
[2018-04-13 12:41] LABS: Bilirubin Negative (Negative); Blood, Urine Small (Negative); Clarity CLOUDY (Clear); Glucose, Urine (Dipstick) Negative (Negative); Leukocyte Moderate (Negative); Nitrite Negative (Negative); Protein, Urine (Dipstick) 30 mg/dL (Neg-Trace); Specific Gravity, Urine 1.016 (1.002-1.036); Urobilinogen 0.2 mg/dL (0.2-1.0); pH, Urine 5.5 (5.0-9.0)
[2018-04-13 12:44] LABS: Bacteria/HPF 2+ HPF (None Seen); Hyaline Casts/LPF 0-3 HYALINE CAST LPF (0-3 Hyaline); Pathc Cast-AUWi Flag 0.14 (0-2.49); RBC/HPF 0-3 HPF (0-3); Squamous Epithelial None Seen HPF (0-3); WBC/HPF 21-50 HPF (0-3)
--- NOTE | 2018-04-13 14:31 | CT ---
CT ABDOMEN AND PELVIS WITHOUT CONTRAST: HISTORY: Abdominal cramping and diarrhea. Recently diagnosed with Clostridium difficile when in the hospital two weeks ago. COMPARISON: 03/15/2018 FINDINGS: Absence of oral and IV contrast reduces the sensitivity of the exam, particularly for evaluation of s olid organs involved. Interval resolution of the right-sided pleural effusion has occurred. Right adrenal myelolipoma is s table. No free air or free fluid is seen in the abdomen or pelvis. There are vascular calcification s without evidence of aneurysmal dilatation of the abdominal aorta. No calculi are noted in the kidn eys, ureters, or urinary bladder. No hydroureteronephrosis is seen on either side. There are degene rative changes in the spine. Old compression fracture of T12 is again seen. There is thickening of the wall of the colon and pericolonic inflammatory changes, which appear impro nola compared to the previous study. IMPRESSION: Interval improvement without complete resolution of pancolitis since 03/15/2018. POS: [facility]
[2018-04-13] MEDS ORDERED: cefTRIAXone\\ROCEPHIN 2 GM VIAL ONE (15:29)
[2018-04-13] MEDS ORDERED: metroNIDAZOLE 500 MG in Premix Bag 1 BAG IVPB SCH (16:30)
[2018-04-13] MEDS ORDERED: Acetaminophen 325 MG TAB PO PRN (17:08)
[2018-04-13] MEDS ORDERED: Ondansetron ODT 4 MG TAB SL PRN (17:08)
[2018-04-13] MEDS ORDERED: Ondansetron PF 4 MG/2 ML Vial IVP PRN ×2 (17:08→19:06)
[2018-04-13] MEDS ORDERED: Sodium Chloride 0.9% 1,000 ML IV SCH (17:08)
[2018-04-13 18:48] VITALS: BMI 30.7
[2018-04-13] MEDS ORDERED: Dextrose 50% Abboject 50 ML SYRINGE IVP PRN (19:05)
[2018-04-13] MEDS ORDERED: Dextrose 5% in Water 1,000 ML IV PRN (19:05)
[2018-04-13] MEDS ORDERED: Pramipexole Di-HCl 0.25 MG TAB PO SCH (19:15)
[2018-04-13] MEDS ORDERED: Pramipexole Di-HCl 1 MG TAB PO SCH (19:15)
[2018-04-13] MEDS: Carvedilol 3.125 MG TAB PO SCH (20:15)
[2018-04-13] MEDS: Zolpidem Tartrate 5 MG TAB PO SCH (20:15)
[2018-04-13] MEDS: Sodium Chloride 0.45% 1,000 ML IV SCH (20:21)
[2018-04-13] MEDS: Acetaminophen 325 MG TAB PO PRN (21:45)
[2018-04-13] MEDS ORDERED: Vancomycin HCl 25 MG/ML Oral PO SCH (21:45)
--- NOTE | 2018-04-14 01:30 | HP ---
CHIEF COMPLAINT: Protracted diarrhea and generalized weakness along with acute renal insufficiency and UTI. HISTORY OF PRESENT ILLNESS: The patient is an 82-year-old female recently discharged from [facility] for C diff associated with pancolitis and protracted diarrhea at that time. The patient was treated with IV metronidazole and vancomycin, and when she had steady improvement, was switched to oral vancomycin and oral metronidazole and discharged. She followed up with Dr. Doyle in the office approximately a week later and has continued to have diarrhea since that time with 10 stools today alone. The history is different from that given to the ER physician, where she states that she had actually improved and the diarrhea began 3 days ago. The historians are her daughter and son-in-law. She has crampy, dull pain across her abdomen. The stools have slime and mucus in them, but no blood. She denies any fever, but the symptoms are now worsening causing her to come to the ER. Nothing has relieved her diarrhea. PAST MEDICAL HISTORY: 1. As previously mentioned, C diff with pancolitis, hospitalized in March for such. 2. Hospitalized prior to that in January 2018 after a ground-level fall creating a small subarachnoid hemorrhage. She was OBs and discharged. 3. She most recently has been hospitalized prior to the c diff hospitalization for pneumonia and early diabetic ketoacidosis and dehydration. Diarrhea was noted during that hospitalization as well. 4. 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 PAST SURGICAL HISTORY: Includes hysterectomy, cholecystectomy, rotator cuff repair, coronary artery disease bypass grafting, colostomy and reversal from removal of her rectal cancer, bilateral cataract removal, fracture of her right wrist without surgical intervention and persistent right arm deformity, diabetic neuropathy. PSYCHIATRIC HISTORY: Significant for anxiety and depression. ALLERGIES: TO CODEINE. MEDICATIONS ON ADMISSION: Include: 1. Oxymetazoline spray 0.05% nasal one spray each nostril 2 times a day. 2. Polyethylene glycol 17 g per day as needed, which she has not needed. 3. Levothyroxine 75 mcg daily. 4. Calcitriol 0.25 mcg orally once a day. 5. Ferrous gluconate 324 mg daily. 6. Plavix 75 mg daily. 7. Lyrica 150 mg once a day for diabetic neuropathy. 8. Demadex 20 mg once a day. 9. Mirapex 1.5 mg, she takes 1-1/2 at bedtime. 10. Lunesta 3 mg at bedtime. 11. Carvedilol 3.125 mg b.i.d. 12. Lantus SoloSTAR, she takes 35 units subcu daily with Humalog JayashreePen, where she will give herself 3-28 units on a sliding scale. REVIEW OF SYSTEMS: At the time of admission: CONSTITUTIONALLY: She has had no fever, malaise, has been generally weak. HEENT: Eyes without drainage or pain or blurred vision. ENT; no sores or drainage from the ear, nose, or throat. CARDIOVASCULAR: Denies chest pain or palpitations. RESPIRATORY: Denies dyspnea, shortness of breath, or cough. GI: Complains of diffuse abdominal bloating and pain with persistent diarrhea. : Reports dysuria, but no blood in the urine or stool. MUSCULOSKELETAL: Denies any significant aches and pains at this time in any of her major joints or muscle groups. SKIN: No acute rashes or lesions. NEUROLOGICAL: Denies headaches and areas of anesthesia, but she does have lower extremity paresthesias. ALLERGIC/IMMUNOLOGIC: No new rashes. HEMOLYTIC/LYMPH: No areas of edema, ecchymosis, or swelling. PHYSICAL EXAMINATION: At the time of admission: VITAL SIGNS: Blood pressure 120/58, pulse 97, respirations 18, temperature 98.2. Pain scale 5/10. O2 saturation 94% on room air. GENERALLY: This is a pale, alert, oriented, cooperative, obese, female. HEENT: Normocephalic, atraumatic. Pupils with diminished reactivity to light at 2-3 mm each with arcus senilis bilaterally. TMs, nares are clear. Pharynx somewhat dry. NECK: Supple. Trachea midline. No mass. CHEST: With good breath sounds bilaterally. BREASTS: Deferred. HEART: Regular rate and rhythm without murmur. ABDOMEN: Diffusely tender, but no specific areas. No guarding or rebound. No hepatosplenomegaly is appreciated. : Deferred. EXTREMITIES: Without clubbing, cyanosis. There is mild 1+ edema in the lower extremities. Upper extremities are normal. Both show normal range of motion. SKIN: Pale. No acute rashes or lesions. LABORATORY DATA: Lab work on admission showed CT scan with actually improved pancolitis. WBCs 6.0, hemoglobin 10.3, hematocrit 32.9 with 204,000 platelets. Sodium 139, potassium 4.0, chloride 99, CO2 27, BUN 59, and creatinine 2.55 with a glucose of 90. Liver functions unremarkable, although lipase is 4. UA shows moderate leukocyte esterase, small amount of blood with 21-50 wbc's. C difficile antigen shows antigen positive for PCR testing performed for toxin and toxigenic C difficile detected by PCR. Campylobacter antigen negative. ASSESSMENT: 1. Persistent treatment-resistant diarrhea with Clostridium difficile. 2. Pancolitis with some improvement. 3. Urinary tract infection. 4. Insulin-dependent diabetic. 5. Mild dehydration. TREATMENT PLAN: GI has been consulted. Dr. Beckwith has already been given a brief case history to let him choose the appropriate treatment for the pancolitis and C diff. She will continue the Rocephin for the urinary tract infection until we have her cultures back to treat her more specifically. We will slowly rehydrate her, so as not to exacerbate her CHF, and we will keep her on a sliding scale with consistent carb diet. Job ID: [id number]
--- NOTE | 2018-04-14 04:21 | CON ---
DATE OF CONSULTATION: 04/13/2018 CHIEF COMPLAINT: Diarrhea and weakness. HISTORY OF PRESENT ILLNESS: Ms. Mullen is an 82-year-old woman who was treated for pneumonia back in December. She in February and March, had several weeks of diarrhea until ultimately she was admitted to the hospital around 03/15/2018 and was diagnosed with C diff colitis. She was treated with IV metronidazole and vancomycin 500 mg four times daily in the hospital initially for severe and complicated C diff. She had a CT scan that showed severe thickening throughout the colon and associated inflammatory changes. She improved after the vancomycin was started. She was ultimately discharged on 03/22/2018. For the first week after discharge, her bowel movements were formed and three times a day; however, after that she started having intermittent diarrhea again, up until this last week, she has had liquidy stools again 5 to 6 times per day. She felt very weak and ultimately came back to the emergency room today for further care. She has had no nausea or vomiting. She gets some cramping diffuse abdominal pain several times a day that lasts for around 30 minutes at a time. She has had no blood in the stool. No chest pain or shortness of breath. No fever. She has been able to still tolerate oral intake. It sounds like she was just taking the vancomycin twice a day after she was discharged and took it for around 6 or 7 days after discharge to complete a 10-day course. PAST MEDICAL HISTORY: Recent C diff colitis, pneumonia back in December around about, obstructive sleep apnea, atrial fibrillation, diabetes mellitus; congestive heart failure with diastolic dysfunction, on chronic anticoagulation; hypothyroidism, hyperlipidemia, chronic renal insufficiency, gastroesophageal reflux disease, insomnia, arthritis, history of DVT, coronary artery disease, past episode of pancreatitis, hemorrhagic stroke, and history of rectal cancer. PAST SURGICAL HISTORY: Hysterectomy, cholecystectomy, shoulder surgery, coronary artery bypass graft, colon resection and colostomy followed by colostomy takedown, and cataract surgery. FAMILY HISTORY: Negative for GI malignancy. SOCIAL HISTORY: No alcohol, tobacco, or drugs. ALLERGIES: CODEINE. MEDICATIONS: Prior to admission, 1. Torsemide. 2. Lyrica. 3. Mirapex. 4. Pentazocine with naloxone. 5. Multiple vitamin. 6. Levothyroxine. 7. Insulin. 8. Ferrous gluconate. 9. Plavix. 10. Lunesta. 11. Cholestyramine. 12. Cholecalciferol. 13. Carvedilol. 14. Calcitriol. 15. Aspirin. 16. Acetaminophen. REVIEW OF SYSTEMS: Negative x10 systems reviewed except as stated in history of present illness. PHYSICAL EXAMINATION: VITAL SIGNS: Temperature 98.8, pulse 111, and blood pressure 119/58. GENERAL: She is in no acute distress. She is alert and oriented x3. HEENT: Eyes have no scleral icterus. Oropharynx is clear without lesions. No cervical or supraclavicular lymphadenopathy. LUNGS: Clear to auscultation bilaterally. HEART: Tachycardic, S1 and S2 without murmur. ABDOMEN: Soft, nontender, nondistended. Bowel sounds are present. EXTREMITIES: No lower extremity edema. NEUROLOGIC: Cranial nerves are grossly intact. LABORATORY DATA: White blood cell count 6.0, hemoglobin 10.3, and platelets 204. INR 1.0. Creatinine 2.55. Bilirubin 0.5, AST 17, ALT 10, alkaline phosphatase 78, albumin 3.5. IMPRESSION: 1. First relapse of Clostridium difficile colitis. She originally was treated with antibiotics for pneumonia back in December and then had several weeks of diarrhea before presenting with severe and complicated Clostridium difficile colitis in March. She did improve with vancomycin treatment; however, after discharge, it does not appear that she took a complete course of the vancomycin, was just taking it twice daily. Her symptoms still did improve and she was having solid stools for the first week after discharge, but then the diarrhea relapsed. Relapse is common with this and retreatment with a longer course of vancomycin is appropriate at this point. Her symptoms are not as severe with this episode; however, she did present with severe dehydration and acute kidney injury. She did have a CT scan today that showed again some thickening of the rojo of the colon and pericolonic inflammatory changes; however, these appeared to improve compared to the prior CT. 2. Acute kidney injury. 3. Coronary artery disease. 4. Congestive heart failure. 5. Atrial fibrillation. 6. Diabetes mellitus. 7. Obstructive sleep apnea. RECOMMENDATIONS: 1. Start vancomycin 250 mg four times daily. When she improves as an inpatient, then she can discharge home on 125 mg four times daily; however, I would complete a 14-day course and verify she has taken four times daily with this episode. If she relapses again, then alternative treatment with Dificid could be considered versus more prolonged vancomycin taper versus fecal transplant. For now, she should respond adequately to a repeat course of vancomycin for 2 weeks. 2. We will add probiotic as well. Job ID: [id number]
[2018-04-14 05:13] LABS: #Eosinphils 0.3 thou/uL (0.0-0.7); #Lymphocytes 1.2 thou/uL (1.20-3.40); #Monocytes 0.6 thou/uL (0.11-0.59); #Neutrophils 2.3 thou/uL (1.40-6.50); %Basophils 0.7 % (0.0-1.0); %Eosinophils 6.6 % (0.0-10.0); %Lymphocytes 26.7 % (21.0-51.0); %Monocytes 12.9 % (0.0-10.0); %Neutrophils 53.1 % (42.0-75.0); Mean Corpuscular Hemoglobin 30.5 pg (27.0-31.0); Mean Corpuscular Volume 95.3 fL (78.0-98.0); Platelet Count 175 thou/uL (130-400); Red Blood Cell (RBC) Count 2.94 mill/uL (4.20-5.40); White Blood Cell (WBC) Count 4.3 thou/uL (4.8-10.8)
[2018-04-14 05:17] LABS: Hemoglobin A1c 6.1 % (4.0-6.0)
[2018-04-14 05:31] LABS: Anion Gap 13 mmol/L (10-20); BUN (Urea Nitrogen) 49 mg/dL (9.8-20.1); Calc. Creatinine Clearance 31 mL/min (70-130); Calcium 8.5 mg/dL (7.8-10.44); Carbon Dioxide 29 mmol/L (23-31); Cardiac Risk 3.4 (Less than 4.5); Chloride 102 mmol/L (98-107); Cholesterol 115 mg/dl (< 200 Desired); Estimated GFR-MDRD 24; Glucose 65 mg/dL (83-110); HDL Cholesterol 34 mg/dL (>60 Neg Risk); LDL Cholesterol, Calculated 60 mg/dL; Potassium 3.4 mmol/L (3.5-5.1); Sodium 141 mmol/L (136-145); Triglycerides 106 mg/dL (Less than 150)
[2018-04-14] MEDS: Levothyroxine Sodium 75 MCG TAB PO SCH (05:45)
[2018-04-14] MEDS: Sodium Chloride 0.45% 1,000 ML IV SCH ×2 (05:46→15:09)
[2018-04-14] MEDS: Vancomycin HCl 25 MG/ML Oral PO SCH ×4 (08:19→20:57)
[2018-04-14] MEDS: Cholestyramine/Aspartame 4 gm Packet PO SCH (08:19)
[2018-04-14] MEDS: Calcitriol 0.25 MCG CAP PO SCH (08:20)
[2018-04-14] MEDS: Clopidogrel Bisulfate 75 MG TAB PO SCH (08:20)
[2018-04-14] MEDS: Pregabalin 75 MG CAP PO SCH (08:21)
[2018-04-14] MEDS: Carvedilol 3.125 MG TAB PO SCH ×2 (08:21→20:56)
[2018-04-14] MEDS ORDERED: Insulin Glargine 35 UNITS in Pre-Filled Syringe 1 EACH SC SCH (09:00)
[2018-04-14] MEDS: Saccharomyces boulardii 250 MG CAP PO SCH ×2 (09:26→20:55)
[2018-04-14] MEDS: Insulin Glargine 20 UNITS in Pre-Filled Syringe 1 EACH SC SCH (11:05)
[2018-04-14] MEDS: Insulin Regular 300 UNITS/3 ML VIAL SC PRN ×3 (11:06→20:56)
[2018-04-14] MEDS: Acetaminophen 325 MG TAB PO PRN (15:05)
--- NOTE | 2018-04-14 15:25 | PRG ---
DATE OF SERVICE: 04/14/2018 SUBJECTIVE: Ms. Mullen is feeling better today. She has had 3 or 4 liquidy bowel movements. She has had no nausea or vomiting. She is tolerating an oral diet so far. OBJECTIVE: VITAL SIGNS: Temperature 97.8, pulse 90, and blood pressure 125/69. GENERAL: She is in no acute distress. Alert and oriented x3. LUNGS: Clear to auscultation bilaterally. HEART: Regular rate and rhythm without murmur. ABDOMEN: Soft, nontender currently, nondistended. Bowel sounds are present. EXTREMITIES: No lower extremity edema. LABORATORY DATA: White blood cell count 4.3, hemoglobin 9.0, and platelets 175. Creatinine 1.98 down from 2.55 yesterday. IMPRESSION: 1. Recurrence or relapse of Clostridium difficile colitis. This episode appears to be milder than previous admission. 2. Acute kidney disease secondary to dehydration from the diarrhea. RECOMMENDATIONS: 1. She continues to improve. Tomorrow, she can be potentially discharged home on vancomycin 125 mg by mouth 4 times daily for a total of 14 days. 2. She can be discharged home on Florastor 250 mg once daily. 3. I will sign off for now. Please call if GI can be of assistance. Job ID: [id number]
[2018-04-14] MEDS: Zolpidem Tartrate 5 MG TAB PO SCH (20:55)
[2018-04-14] MEDS ORDERED: Pramipexole Di-HCl 0.25 MG TAB PO SCH (21:00)
[2018-04-14] MEDS ORDERED: Pramipexole Di-HCl 1 MG TAB PO SCH (21:00)
[2018-04-15] MEDS: Sodium Chloride 0.45% 1,000 ML IV SCH (02:16)
[2018-04-15] MEDS: Levothyroxine Sodium 75 MCG TAB PO SCH (05:30)
[2018-04-15 08:26] VITALS: TEMP 98.1
[2018-04-15] MEDS: Pregabalin 75 MG CAP PO SCH (08:30)
[2018-04-15] MEDS: Saccharomyces boulardii 250 MG CAP PO SCH (08:30)
[2018-04-15] MEDS: Clopidogrel Bisulfate 75 MG TAB PO SCH (08:30)
[2018-04-15] MEDS: Calcitriol 0.25 MCG CAP PO SCH (08:30)
[2018-04-15] MEDS: Carvedilol 3.125 MG TAB PO SCH (08:30)
[2018-04-15] MEDS: Cholestyramine/Aspartame 4 gm Packet PO SCH (08:32)
[2018-04-15] MEDS: Insulin Glargine 20 UNITS in Pre-Filled Syringe 1 EACH SC SCH (08:34)
[2018-04-15 10:18] VITALS: BP 102/59
== END 2018-04-15 11:41 | disposition home or self-care (01) ==
LOC: ERS 11:06 → 2SW 14:47 → SURG B 04-14 09:55
PROVIDERS: ADMIT Specialist; ATTEND Specialist
DX: K52.9 Noninfective gastroenteritis and colitis, unspecified (principal); B96.7 Clostridium perfringens [C. perfringens] as the cause of diseases classified elsewhere; N17.9 Acute kidney failure, unspecified; E86.0 Dehydration; K51.00 Ulcerative (chronic) pancolitis without complications; N39.0 Urinary tract infection, site not specified; I48.91 Unspecified atrial fibrillation; I25.10 Atherosclerotic heart disease of native coronary artery without angina pectoris; E11.9 Type 2 diabetes mellitus without complications; E03.9 Hypothyroidism, unspecified; E78.5 Hyperlipidemia, unspecified; G47.33 Obstructive sleep apnea (adult) (pediatric); K21.9 Gastro-esophageal reflux disease without esophagitis; M19.90 Unspecified osteoarthritis, unspecified site; G47.00 Insomnia, unspecified; F41.9 Anxiety disorder, unspecified; F32.9 Major depressive disorder, single episode, unspecified; Z86.718 Personal history of other venous thrombosis and embolism; Z85.048 Personal history of other malignant neoplasm of rectum, rectosigmoid junction, and anus; Z86.73 Personal history of transient ischemic attack (TIA), and cerebral infarction without residual deficits; Z87.01 Personal history of pneumonia (recurrent); Z91.19 Patient's noncompliance with other medical treatment and regimen; Z90.710 Acquired absence of both cervix and uterus; Z90.49 Acquired absence of other specified parts of digestive tract; Z95.1 Presence of aortocoronary bypass graft; Z88.5 Allergy status to narcotic agent; Z79.02 Long term (current) use of antithrombotics/antiplatelets; Z79.4 Long term (current) use of insulin; Z79.82 Long term (current) use of aspirin; Z79.899 Other long term (current) drug therapy; Z98.890 Other specified postprocedural states
CPT/HCPCS: 74176; 80048; 80053; 80061; 82962 ×3; 83036; 83690; 83880; 85025 ×2; 87045; 87046; 87324; 87449 ×2; 87493; 87899 ×2; 96361 ×3; 96365; 96366; 96367; 99285; G0378 ×2; 36415; 36416; 81003; 81015; A4353; J0696

== ENCOUNTER 2018-05-09 11:12 | Emergency (ER) | payer MEDICARE, BC ==
[2018-05-09 12:08] LABS: Bilirubin Negative (Negative); Blood, Urine Trace (Negative); Clarity CLEAR (Clear); Glucose, Urine (Dipstick) Negative (Negative); Leukocyte Trace (Negative); Nitrite Negative (Negative); Protein, Urine (Dipstick) Negative (Neg-Trace); Specific Gravity, Urine 1.007 (1.002-1.036); Urobilinogen 0.2 mg/dL (0.2-1.0); pH, Urine 6.5 (5.0-9.0)
[2018-05-09 12:10] LABS: Bacteria/HPF None Seen HPF (None Seen); Hyaline Casts/LPF 0-3 HYALINE CAST LPF (0-3 Hyaline); Squamous Epithelial None Seen HPF (0-3)
--- NOTE | 2018-05-09 12:20 | CT ---
CT BRAIN WITHOUT CONTRAST: Date: 05/09/18 INDICATION: History of fall with head injury. COMPARISON: Prior exam dated 02/08/18. FINDINGS: Remote bilateral lacunar infarcts involving the basal ganglia are similar appearing. Chronic small ve ssel white matter ischemic change is similar appearing. No acute infarct, hemorrhage, or hydrocephalu s is present. Septum pellucidum and third ventricle are midline. There are mild partial mastoid effus ions bilaterally. There is mild mucosal thickening within the ethmoid air cells. IMPRESSION: 1. No acute intracranial abnormality. 2. Stable chronic ischemic change. 3. Mild bilateral mastoid effusions appear slightly improved from the prior exam dated 02/08/18. 4. Mild paranasal sinus disease. POS: [facility]
[2018-05-09 12:35] LABS: #Basophils 0.1 thou/uL (0.0-0.2); #Eosinphils 0.2 thou/uL (0.0-0.7); #Lymphocytes 1.2 thou/uL (1.20-3.40); #Monocytes 0.4 thou/uL (0.11-0.59); #Neutrophils 3.1 thou/uL (1.40-6.50); %Basophils 1.1 % (0.0-1.0); %Eosinophils 3.6 % (0.0-10.0); %Lymphocytes 24.5 % (21.0-51.0); %Monocytes 7.7 % (0.0-10.0); %Neutrophils 63.1 % (42.0-75.0); Hemoglobin 10.3 g/dL (12.0-16.0); Mean Corpuscular HGB CONC 31.2 g/dL (32.0-36.0); Mean Corpuscular Hemoglobin 29.6 pg (27.0-31.0); Mean Corpuscular Volume 94.6 fL (78.0-98.0); Platelet Count 195 thou/uL (130-400); Red Blood Cell (RBC) Count 3.47 mill/uL (4.20-5.40)
[2018-05-09 13:00] LABS: ALT (SGPT) 16 U/L (8-55); AST (SGOT) 20 U/L (5-34); Albumin 3.8 g/dL (3.4-4.8); Alkaline Phosphatase 68 U/L (40-150); Anion Gap 16 mmol/L (10-20); BUN (Urea Nitrogen) 112 mg/dL (9.8-20.1); Bilirubin, Total 0.4 mg/dL (0.2-1.2); Calc. Creatinine Clearance 0 mL/min (70-130); Calcium 9.9 mg/dL (7.8-10.44); Carbon Dioxide 28 mmol/L (23-31); Chloride 99 mmol/L (98-107); Estimated GFR-MDRD 11; Globulin 3.9 g/dL (2.4-3.5); Glucose 108 mg/dL (83-110); Potassium 4.5 mmol/L (3.5-5.1); Protein, Total 7.7 g/dL (6.0-8.3); Sodium 138 mmol/L (136-145)
--- NOTE | 2018-05-09 14:33 | RAD ---
RIGHT WRIST 3 VIEWS: INDICATION: History of fall with right wrist pain. IMPRESSION: No acute fracture or subluxation is evident. There is advanced 1st CMC osteoarthrosis. There is uln ar minus configuration of the DRUJ. There is soft tissue swelling of the dorsal wrist. COMMENTS: No comparisons are available. POS: [facility]
== END 2018-05-09 15:10 | disposition home or self-care (01) ==
LOC: ERS 11:12
DX: M25.531 Pain in right wrist (principal); N18.9 Chronic kidney disease, unspecified; E11.9 Type 2 diabetes mellitus without complications; E03.9 Hypothyroidism, unspecified; E78.2 Mixed hyperlipidemia; Z86.73 Personal history of transient ischemic attack (TIA), and cerebral infarction without residual deficits; Z87.891 Personal history of nicotine dependence; Z79.899 Other long term (current) drug therapy; Z79.4 Long term (current) use of insulin; W19.XXXA Unspecified fall, initial encounter
CPT/HCPCS: 36415; 70450; 80053; 81003; 81015; 84484; 85025; 87086; 93005

== ENCOUNTER 2018-09-10 08:23 | Inpatient (IN) | payer MEDICARE, BC ==
--- NOTE | 2018-09-10 09:18 | RAD ---
EXAM: Single view of the chest HISTORY: Fall with chest pain COMPARISON: 03/19/2018 FINDINGS: Single view of the chest shows an enlarged but stable cardiomediastinal silhouette. Athero sclerotic calcific lesions are seen in the aorta. Increased interstitial markings are present. Bilateral perihilar fullness is seen. There is no evidence of consolidation, mass, or pleural effusio n. The bones are unremarkable. IMPRESSION: Cardiomegaly and bilateral perihilar fullness may be secondary to congestive heart failjohn melendrez
[2018-09-10 09:27] LABS: Bilirubin Negative (Negative); Blood, Urine Negative (Negative); Clarity CLOUDY (Clear); Glucose, Urine (Dipstick) Negative (Negative); Leukocyte Small (Negative); Nitrite Negative (Negative); Protein, Urine (Dipstick) Negative (Neg-Trace); Specific Gravity, Urine 1.019 (1.002-1.036); Urobilinogen 0.2 mg/dL (0.2-1.0)
[2018-09-10 09:29] LABS: Bacteria/HPF None Seen HPF (None Seen); RBC/HPF 0-3 HPF (0-3); WBC/HPF 0-3 HPF (0-3)
--- NOTE | 2018-09-10 09:32 | CT ---
CT BRAIN NONCONTRAST: DATE: 09/10/2018 HISTORY: 83-year-old female status post head trauma from fall, with dizziness and headache. COMPARISON: 05/09/2018 FINDINGS: There is no evidence of acute intra-axial or extra-axial hemorrhage. There is no midline shift or any other mass effect. There is no extra-axial fluid collection. There is no evidence of obstructive hydrocephalus. Calvarium is intact. There are multiple small/tiny old lacunar infarctions in the bila teral basal ganglia, internal capsules, and external capsule. There is an approximately 2.5 x 1 cm patch of encephalomalacia and gliosis involving the left basal ganglia, anterior limb of left interna l capsule, adjacent portion of left caudate body and adjacent periventricular white matter. There has been no significant interval change. IMPRESSION: 1. No acute intracranial findings. 2. Small old infarction of left corpus striatum. 3. Multiple tiny old lacunar infarctions of bilateral corpus striatum.
[2018-09-10 09:36] LABS: Pathc Cast-AUWi Flag 2.58 (0-2.49)
[2018-09-10 09:44] LABS: Hyaline Casts/LPF 0-3 HYALINE CAST LPF (0-3 Hyaline); Manual Microscopic Reviewed? No Path Casts Seen; Renal Epithelial 0-3 HPF (0-3); Transitional Epithelial 0-3 HPF (0-3)
[2018-09-10 09:46] LABS: AST (SGOT) 67 U/L (5-34); Anion Gap 15 mmol/L (10-20); Bilirubin, Total 0.7 mg/dL (0.2-1.2); Calcium 8.8 mg/dL (7.8-10.44); Carbon Dioxide 26 mmol/L (23-31); Chloride 107 mmol/L (98-107); Magnesium 1.5 mg/dL (1.6-2.6); Potassium 4.6 mmol/L (3.5-5.1); Sodium 143 mmol/L (136-145)
[2018-09-10 09:49] LABS: Albumin 3.3 g/dL (3.4-4.8)
[2018-09-10 09:51] LABS: #Eosinphils 0.1 thou/uL (0.0-0.7); #Monocytes 0.5 thou/uL (0.11-0.59); #Neutrophils 5.5 thou/uL (1.40-6.50); %Basophils 0.4 % (0.0-1.0); %Eosinophils 1.7 % (0.0-10.0); %Lymphocytes 13.9 % (21.0-51.0); %Monocytes 6.7 % (0.0-10.0); %Neutrophils 77.3 % (42.0-75.0); Hemoglobin 8.4 g/dL (12.0-16.0); Mean Corpuscular HGB CONC 31.9 g/dL (32.0-36.0); Mean Corpuscular Hemoglobin 31.9 pg (27.0-31.0); Mean Platelet Volume 8.2 fL (7.4-10.4); Platelet Count 137 thou/uL (130-400); RBC Distribution Width 14.7 % (11.5-14.5); Red Blood Cell (RBC) Count 2.63 mill/uL (4.20-5.40)
[2018-09-10 09:52] LABS: Globulin 2.6 g/dL (2.4-3.5); Glucose 109 mg/dL (83-110); Protein, Total 5.9 g/dL (6.0-8.3)
[2018-09-10 09:53] LABS: CKMB 2.8 ng/mL (0-6.6)
[2018-09-10 09:54] LABS: Alkaline Phosphatase 82 U/L (40-150)
[2018-09-10 09:55] LABS: Calc. Creatinine Clearance 0 mL/min (70-130); Estimated GFR-MDRD 14
[2018-09-10 09:56] LABS: BUN (Urea Nitrogen) 103 mg/dL (9.8-20.1)
[2018-09-10 09:57] LABS: ALT (SGPT) 70 U/L (8-55)
[2018-09-10] MEDS ORDERED: Ondansetron ODT 4 MG TAB SL PRN (10:00)
[2018-09-10] MEDS ORDERED: Ondansetron PF 4 MG/2 ML Vial IVP PRN (10:00)
[2018-09-10] MEDS ORDERED: Magnesium 2 GM/50 ML BAG (IN WATER) ONE (10:32)
[2018-09-10] MEDS ORDERED: Aspirin Chewable 81 MG TAB ONE (10:32)
[2018-09-10 12:25] LABS: Troponin I 0.045 ng/mL (< 0.028)
[2018-09-10] MEDS ORDERED: Dextrose 5% in Water 1,000 ML IV PRN (14:59)
[2018-09-10] MEDS ORDERED: Dextrose 50% Abboject 50 ML SYRINGE IVP PRN (14:59)
[2018-09-10 15:42] LABS: Troponin I 0.032 ng/mL (< 0.028)
[2018-09-10] MEDS ORDERED: Albumin 25% 25 GM/100 ML BOT IVPB SCH (17:30)
[2018-09-10] MEDS: Ferrous Sulfate 325 MG TAB PO SCH (18:59)
[2018-09-10] MEDS ORDERED: Zolpidem Tartrate 5 MG TAB PO PRN (21:00)
[2018-09-10] MEDS: EPOETIN ALFA-EPBX (ESRD) 4,000 UNIT/ML VIAL SC SCH (22:07)
[2018-09-10] MEDS: Pramipexole Di-HCl 1 MG TAB PO SCH (22:08)
[2018-09-10] MEDS: Atorvastatin Calcium 40 MG TAB PO SCH (22:08)
--- NOTE | 2018-09-11 00:22 | HP ---
CHIEF COMPLAINT ON ADMISSION: Fall with closed head injury and second-degree type 2 heart block as well as acute kidney injury and congestive heart failure exacerbation. HISTORY OF PRESENT ILLNESS: The patient is an 83-year-old female who was in her usual state of health on the day of admission until she was rising to get up when she felt a sudden jerk in her body, which caused her to fall back and hit her head all the way down. Since that time, she has been having dizziness and headache. The leg pain as mentioned is a chronic leg pain she has had from neuropathy, it is not new. She denies loss of consciousness stating she was able to consciously hear and remember everything that happened. She occasionally gets IV Lasix at her home by home health as outpatient treatment for CHF. She had not had that, nor had she had any of her insulin that day. When EMS arrived, they said that she was 30 and they proceeded to give her IV glucose. She arrived in the emergency room with a higher glucose; however, by the time she got into the floor, it dropped back down in the 50s again. She was symptomatic again and required eating crackers and she used to bring it back up. She has a history of numerous falls and while she was in the ER having this worked up, a CT scan was performed that failed to show any acute injuries, but she was noted to be in a type 2 heart block necessitating further workup. It was also noted that her renal functions were significantly worse than usual, yet there was no ketones on evaluation of her urine, so it was felt this was not due to dehydration, but rather end-stage renal disease from a diabetic origin. She is not being compliant with her diet throughout the years that she has been under care and has been very difficult to control her blood sugars and blood pressure. She has multiple risk factors such as hypertension, diabetes, CHF, multiple TIAs/strokes and requires further evaluation. PAST MEDICAL HISTORY: As mentioned above, has insulin-dependent diabetes mellitus, hypertension, hyperlipidemia, anxiety disorder, general medical noncompliance with care, and diet, history of pancolitis due to C. diff, history of small subarachnoid hemorrhage after a fall, obstructive sleep apnea, which she is completely noncompliant, atrial fibrillation, congestive heart failure, potassium with diastolic dysfunction, hypothyroidism, dyslipidemia, chronic insomnia, renal insufficiency, GERD, osteoarthritis, history of ventricular tachycardia, history of DVTs, pancreatitis, coronary artery disease, frequent episodes of hypoglycemia, history of rectal cancer, TIAs with CVAs with bilateral old basal ganglia infarcts, diabetic neuropathy, restless legs syndrome. PAST SURGICAL HISTORY: Includes hysterectomy, cholecystectomy, rotator cuff repair, coronary artery disease, bypass grafting, colostomy and reversal from removal of her rectal cancer, bilateral cataract removal, left arm deformity without surgical intervention, diabetic neuropathy. PSYCHIATRIC HISTORY: Significant for anxiety and depression. ALLERGIES: TO CODEINE. MEDICATION: On admission, this includes: 1. Protonix 40 mg daily. 2. Aspirin 81 mg daily. 3. Citalopram 40 mg daily. 4. Lipitor 80 mg at bedtime. 5. Humalog KwikPen 3-28 units depending on what she is eating for meal. 6. Lantus SoloSTAR 20 units subcu once daily. Carvedilol 3.125 mg b.i.d. 7. Lunesta 3 mg at bedtime. 8. Mirapex 1.5 tablets, she takes one half tablet at bedtime. 9. Torsemide 20 mg q.a.m. 10. Lyrica 150 mg daily. 11. Plavix 75 mg daily. 12. Ferrous gluconate 324 mg daily. 13. Calcitriol 0.25 mcg once daily. 14. Levothyroxine 75 mcg daily. REVIEW OF SYSTEMS: At the time of admission: CONSTITUTIONALLY: Denies fever, chills or general malaise. HEENT: Denies drainage from ears, nose, or throat or pain from such areas. CARDIOVASCULAR: Denies chest pain or shortness of breath. RESPIRATORY: Denies coughing or shortness of breath. GI: Denies nausea, vomiting, or diarrhea. : Denies dysuria, frequency, blood in urine or stool. MUSCULOSKELETAL: Has chronic leg pain and arthritis pain in both knees. SKIN: No new rashes or lesions. NEUROLOGIC: She has dizziness and has a headache and neuropathic changes in her lower extremity. ENDOCRINE: She denies any new edema or ecchymosis. PSYCHIATRIC: There is no new depression or anxiety. PHYSICAL EXAMINATION: At the time of admission: VITAL SIGNS: Blood pressure 115/63, pulse 76, respirations 14, temperature 98.3, pain scale is 0 at the time of admission, O2 saturation 95% on 2 L oxygen. GENERAL: This is an obese, elderly female, alert, oriented, cooperative, complaining of occipital headache. HEENT: Normocephalic, atraumatic. Pupils with diminished reactivity to light at 1-2 mm. Arcus senilis bilaterally. TMs, nares, and pharynx are clear. NECK: Supple. Trachea midline. No mass. No bruit. CHEST: Good breath sounds bilaterally. HEART: Regular rate and rhythm without murmur. ABDOMEN: Obese, nontender, unable to appreciate organomegaly. BREASTS: Deferred. : Deferred. EXTREMITIES: With deformity in the left upper wrist. Otherwise, no clubbing or cyanosis or edema at this time. SKIN: With good turgor. No new bruising. NEUROLOGIC: She has burning and neuropathy changes in the lower extremities. Sensory exam is otherwise intact. Mental status clear. Unable to test gait and cerebellar function at this time. LABORATORY DATA: On admission shows WBC 7, hemoglobin 8.4, hematocrit 26.3 with platelets at 137. Troponins have been indeterminate at 0.45, 0.32. BNP is elevated at 47. Glucose point of care was 30 at home with EMS of 56 at noon. She is now running 99 and 157. Sodium 143, potassium 4.6, chloride 107, CO2 of 26, BUN 103 with a creatinine of 3.25, a GFR of 14. Liver functions slightly elevated at 67 of AST and ALT of 70. Urinalysis unremarkable with small leukocyte esterase. ASSESSMENT: 1. Multiple falls with closed head injury and history of subarachnoid hemorrhage in the past. 2. End-stage renal disease, acute exacerbation. 3. Type 2 Mobitz block. 4. Ulcer. 5. Hypoglycemia. 6. Congestive heart failure. 7. Diastolic dysfunction, mild exacerbation. PLAN: Plan will be serial re-evaluation for monitoring of mental status changes and BUN and creatinine function. Dr. Flores has been consulted concerning her diminished renal function. He has ordered salt poor albumin. We will also monitor her blood sugars off insulin since she may be in a diabetic honeymoon. We will serially re-evaluate her. Job ID: [id number]
[2018-09-11] MEDS: Albumin 25% 25 GM/100 ML BOT IVPB SCH ×3 (05:38→16:07)
[2018-09-11] MEDS: Levothyroxine Sodium 75 MCG TAB PO SCH (05:44)
[2018-09-11 06:09] LABS: #Eosinphils 0.1 thou/uL (0.0-0.7); #Lymphocytes 0.9 thou/uL (1.20-3.40); #Monocytes 0.4 thou/uL (0.11-0.59); #Neutrophils 3.8 thou/uL (1.40-6.50); %Basophils 0.8 % (0.0-1.0); %Eosinophils 2.5 % (0.0-10.0); %Lymphocytes 17.3 % (21.0-51.0); %Monocytes 7.4 % (0.0-10.0); %Neutrophils 72.1 % (42.0-75.0); Hemoglobin 8.5 g/dL (12.0-16.0); Mean Corpuscular HGB CONC 31.6 g/dL (32.0-36.0); Mean Corpuscular Hemoglobin 31.6 pg (27.0-31.0); Mean Platelet Volume 8.2 fL (7.4-10.4); Platelet Count 135 thou/uL (130-400); RBC Distribution Width 14.8 % (11.5-14.5); White Blood Cell (WBC) Count 5.3 thou/uL (4.8-10.8)
[2018-09-11 06:27] LABS: Anion Gap 15 mmol/L (10-20); BUN (Urea Nitrogen) 102 mg/dL (9.8-20.1); Calc. Creatinine Clearance 21 mL/min (70-130); Calcium 8.9 mg/dL (7.8-10.44); Carbon Dioxide 24 mmol/L (23-31); Chloride 108 mmol/L (98-107); Estimated GFR-MDRD 14; Glucose 123 mg/dL (83-110); Potassium 4.5 mmol/L (3.5-5.1); Sodium 142 mmol/L (136-145)
[2018-09-11] MEDS: Ferrous Sulfate 325 MG TAB PO SCH ×2 (08:51→16:07)
[2018-09-11] MEDS: Clopidogrel Bisulfate 75 MG TAB PO SCH (08:51)
[2018-09-11] MEDS: Citalopram 20 MG TAB PO SCH (08:51)
[2018-09-11] MEDS: Pregabalin 75 MG CAP PO SCH (08:52)
[2018-09-11] MEDS: Aspirin Chewable 81 MG TAB PO SCH (08:53)
--- NOTE | 2018-09-11 11:07 | CON ---
DATE OF CONSULTATION: HISTORY OF PRESENT ILLNESS: Ms. Mullen is an 83-year-old white female, who was admitted for a fall with a closed head injury. She was also found to be in mild CHF with some degree of worsening of her chronic renal failure. We were consulted for further management of this chronic renal failure. She was started on albumin infusion yesterday. We have decided not to give normal saline due to the increased lung markings on the chest x-ray suggesting some degree of mild CHF. She was also noted to be hypoglycemic. The feeling is that the hypoglycemia may have caused some degree of partial loss of consciousness for her to have the fall. She was also noted to be on type 2 heart block. REVIEW OF SYSTEMS: Positive for a fall. No chest pain or shortness of breath. Positive for near syncopal episode. No nausea. No vomiting. No diarrhea. No constipation. No productive cough. No dysuria. No urinary frequency. Appetite and energy level are decreased. Occasional joint pains. Occasional leg edema. No diplopia. Denies any overt shortness of breath. MEDICATIONS: The patient is currently on the following, 1. Albumin infusion 25 g IV q.6. 2. Aspirin 81 mg tablet daily. 3. Atorvastatin 80 mg tablet at bedtime. 4. Celexa 40 mg daily. 5. Clopidogrel 75 mg once a day. 6. Epogen 7500 units subcu q.week. 7. Ferrous sulfate 325 mg p.o. b.i.d. 8. Humalog sliding scale. 9. Levothyroxine 75 mcg daily. 10. Protonix 40 mg tablet once a day. 11. Mirapex 1.5 mg p.o. at bedtime. PAST MEDICAL HISTORY: Includes chronic renal failure from diabetic nephropathy, diabetic neuropathy, type 2 diabetes mellitus, GERD, diabetic retinopathy, hyperlipidemia, status post CHF from diastolic dysfunction, intermittent atrial fibrillation, restless legs syndrome, depression, and rectal cancer-remission. PAST SURGICAL HISTORY: Includes status post colonoscopy, status post ileostomy with subsequent takedown, status post resection of rectal cancer, status post cardiac catheterization, status post hysterectomy, status post open cholecystectomy, status post excision of skin cancer, status post laser therapy of retina for diabetic retinopathy, status post left rotator cuff surgery. ALLERGIES: CODEINE. TRAUMA: None. IMMUNIZATION: Up-to-date. HOSPITALIZATION: Please see past medical history. FAMILY HISTORY: No family history of ESRD. SOCIAL HISTORY: The patient lives in [place]. She is , lives with her son. She smoked for 40 years 1 pack a day, currently not smoking. 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 No blood transfusion. No IV drug abuse. Alcohol none. Sedentary lifestyle. Education, high school. PHYSICAL EXAMINATION: VITAL SIGNS: Blood pressure is noted at 103/50, heart rate 98, respiratory rate 17, temperature 97.7, and pulse ox 98%. GENERAL: Awake, alert, comfortable, not in distress. SKIN: Adequate turgor. HEENT: Slightly pale conjunctivae. Anicteric sclerae. NECK: No neck mass. No carotid bruits. No JVD. CHEST: No deformities. LUNGS: Clear breath sounds. HEART: Normal sinus rhythm. No murmur. No gallops. No rubs. ABDOMEN: Globular, soft, nontender. No masses. EXTREMITIES: Trace edema. No deformities. NEUROLOGICAL: Awake, arousable, following commands. LABORATORY DATA: Laboratories of September 11, 2018, white count 5.3, hemoglobin 8.5. Sodium 142, potassium 4.5, chloride 108, carbon dioxide 24, BUN 102, creatinine 3.28, GFR 14 mL/minute, glucose 123, and calcium 8.9. On September 10, 2018, BUN 103, creatinine 3.25. On July 13, 2018, BUN 75, creatinine 2.69. ASSESSMENT AND PLAN: 1. Acute kidney injury on top of her chronic renal failure. Consider a superimposed prerenal azotemia. Off diuretics. Agree to continue current albumin infusion 25 g IV q.6 hours. Please note, blood pressure is also on the low side. This maybe contributing in her worsening renal dysfunction. No indication for any dialytic intervention. Continue supportive care. 2. Anemia. Started on iron supplementation as well as on Epogen. 3. Status post fall. Continue supportive care. 4. History of congestive heart failure-? diastolic dysfunction. Cardiac echo has been reordered to determine most recent ejection fraction. Overall, agree with current management. Job ID: [id number] MTDD
[2018-09-11] MEDS: HumaLOG 300 UNITS/3 ML VIAL SC PRN ×2 (12:18→17:17)
[2018-09-11] MEDS ORDERED: Loratadine 10 MG TAB PO SCH (20:00)
[2018-09-11] MEDS: Atorvastatin Calcium 40 MG TAB PO SCH (21:54)
[2018-09-11] MEDS: Pramipexole Di-HCl 1 MG TAB PO SCH (21:54)
[2018-09-12 05:53] LABS: #Eosinphils 0.1 thou/uL (0.0-0.7); #Lymphocytes 0.9 thou/uL (1.20-3.40); #Monocytes 0.5 thou/uL (0.11-0.59); #Neutrophils 4.4 thou/uL (1.40-6.50); %Basophils 0.4 % (0.0-1.0); %Eosinophils 2.2 % (0.0-10.0); %Lymphocytes 15.8 % (21.0-51.0); %Monocytes 7.8 % (0.0-10.0); %Neutrophils 73.8 % (42.0-75.0); Hemoglobin 8.5 g/dL (12.0-16.0); Mean Corpuscular HGB CONC 31.5 g/dL (32.0-36.0); Mean Corpuscular Hemoglobin 31.6 pg (27.0-31.0); Mean Platelet Volume 8.1 fL (7.4-10.4); Platelet Count 136 thou/uL (130-400); RBC Distribution Width 14.7 % (11.5-14.5); Red Blood Cell (RBC) Count 2.68 mill/uL (4.20-5.40)
[2018-09-12 06:11] LABS: Anion Gap 15 mmol/L (10-20); BUN (Urea Nitrogen) 97 mg/dL (9.8-20.1); Calc. Creatinine Clearance 22 mL/min (70-130); Carbon Dioxide 25 mmol/L (23-31); Chloride 107 mmol/L (98-107); Estimated GFR-MDRD 14; Glucose 122 mg/dL (83-110); Potassium 4.7 mmol/L (3.5-5.1); Sodium 142 mmol/L (136-145)
[2018-09-12] MEDS: Levothyroxine Sodium 75 MCG TAB PO SCH (06:20)
[2018-09-12] MEDS: Loratadine 10 MG TAB PO SCH (09:17)
[2018-09-12] MEDS: Ferrous Sulfate 325 MG TAB PO SCH ×2 (09:17→17:26)
[2018-09-12] MEDS: Clopidogrel Bisulfate 75 MG TAB PO SCH (09:17)
[2018-09-12] MEDS: Citalopram 20 MG TAB PO SCH (09:17)
[2018-09-12] MEDS: Aspirin Chewable 81 MG TAB PO SCH (09:18)
[2018-09-12] MEDS ORDERED: Albumin 25% 25 GM/100 ML BOT IVPB ONE (09:18)
[2018-09-12] MEDS: Pregabalin 75 MG CAP PO SCH (09:18)
--- NOTE | 2018-09-12 10:02 | PRG ---
DATE OF SERVICE: 09/12/2018 SUBJECTIVE: Ms. Mullen is an 83-year-old white female, who was seen by the Renal Service for acute kidney injury on top of her chronic renal failure. The patient was initially admitted due to a fall and closed head injury. This morning, she is feeling better. She denies any complaints of chest pain or shortness of breath. We have started her on albumin infusion. Diuretics are on hold. OBJECTIVE: VITAL SIGNS: Blood pressure is 121/63, heart rate 81, respiratory rate 18, temperature 97.9, and pulse ox 94%. GENERAL: Noted to be awake, alert, and comfortable, not in distress. SKIN: Adequate turgor. HEENT: Slightly pale conjunctivae. Anicteric sclerae. NECK: No neck mass. No carotid bruits. No JVD. CHEST: No deformities. LUNGS: Clear breath sounds. No wheezing. No crackles. HEART: Normal sinus rhythm. No murmurs. No gallops. No rubs. ABDOMEN: Globular, soft, and nontender. EXTREMITIES: Trace edema. MEDICATIONS: Medications of September 12, 2018, reviewed. LABORATORY DATA: Laboratories of September 12, 2018; sodium 142, potassium 4.7, chloride 107, carbon dioxide 25, BUN 97, creatinine 3.16, glucose 122, calcium 9. Cortisol 9.7 and TSH 0.89. ASSESSMENT AND PLAN: 1. Acute kidney injury on top of her chronic renal failure - superimposed hemodynamically-mediated renal dysfunction. We will continue to hold diuretics. Continue albumin infusion 25 g IV q.6. No indication for any dialytic intervention. 2. Anemia - Epogen and iron supplementation have been started. Continue current management. 3. Status post fall - the patient is stable, neurologically intact. 4. Recheck basic metabolic and CBC in a.m. Job ID: [id number]
[2018-09-12] MEDS: Albumin 25% 25 GM/100 ML BOT IVPB SCH ×3 (10:21→21:07)
--- NOTE | 2018-09-12 17:36 | PDOC.CTH ---
Cardiology Progress Note - Subjective The pt seen and examined. No overnight events. No cardiac complaints. - Objective Vital Signs Temp Pulse Pulse Pulse Resp BP BP 09/12/18 16:00 97.5 F L 92 18 09/12/18 13:55 80 97 125/80 156/85 H 09/12/18 11:52 97.9 F 80 18 09/12/18 08:00 97.9 F 81 18 BP BP Pulse Ox 09/12/18 16:00 138/73 91 L 09/12/18 13:55 09/12/18 11:52 125/80 90 L 09/12/18 08:00 121/63 94 L Admit Weight 222 lb 9 oz Weight 222 lb 9 oz 09/11/18 09/12/18 09/13/18 06:59 06:59 06:59 Intake Total 1280 360 Output Total 1011 600 350 Balance 269 -240 -350 - Physical Examination General/Neuro: alert & oriented x3 Neck: no JVD present Lungs: CTA Heart: RRR Abdomen: soft Extremities: other: (No edema) - Telemetry Telemetry Rhythm: SR - Labs Result Diagrams: 09/12/18 04:50 09/12/18 04:50 Troponin/CKMB CK-MB (CK-2) 2.8 ng/mL (0-6.6) 09/10/18 09:00 Troponin I 0.032 ng/mL (< 0.028) H 09/10/18 15:02 - Assessment/Plan 1. Parox. Afib - Intermittent afib and SR with PACs; On ASA 81mg qd 2/2 hx of multiple falls. will start Coreg 3.125mg BID from tonight 2. s/p of multiple falls with s/p subarachnoid hemorrhage on 09/10/2018 - 3. ANGELICA on CKD - managed by Dr Flores 4. DM type 2 - managed by PCP 5. Chronic Diastolic HF with grade III dd in 11/2017 - stable; not on ADRIAN/ARB due to hx of CKD; not on BBlocker 2/2 hypot 6. HTN - will start Coreg 3.125mg BID from tonight 7. HLD - 8. Hypothyroidism - 9. Anemia - On Epogen and Iron supplement 10. 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 Hx of TIA/CVA - MAR reviewed * Echo in 11/2017 with EF 50-55%, restrictive diastolic dysfunction (grade III dd), mod ERA, mild-mod MR and TR, mild AR and TN. Pt. seen and eval. by me. I agree with the A/P by the ANIMAL [employer] CODE ENFORCEMENT OFFICER. Chest clear. RRR at this time. No edema. Remains in NSR. Review of Systems - Review of Systems Constitutional: reports: no symptoms reported EENTM: reports: no symptoms reported Respiratory: reports: no symptoms reported Cardiac (ROS): reports: no symptoms reported ABD/GI: reports: no symptoms reported : reports: no symptoms reported Musculoskeletal: reports: no symptoms reported
[2018-09-12] MEDS ORDERED: Carvedilol 3.125 MG TAB PO SCH (18:30)
[2018-09-12] MEDS: HumaLOG 300 UNITS/3 ML VIAL SC PRN ×2 (18:58→21:07)
--- NOTE | 2018-09-12 20:28 | EKG ---
Test Reason : Blood Pressure : / mmHG Vent. Rate : 083 BPM Atrial Rate : 074 BPM P-R Int : 000 ms QRS Dur : 082 ms QT Int : 376 ms P-R-T Axes : 000 020 058 degrees QTc Int : 441 ms Atrial fibrillation Low voltage QRS Abnormal ECG When compared with ECG of 10-SEP-2018 08:44, (Unconfirmed) No significant change was found Confirmed by JORGE MCDANIEL, . SCipriano ([id number]) on 09/12/2018 8:28:12 PM Referred By: Liliana DICKERSON Confirmed By:DR. Shawna PATEL MD
[2018-09-12] MEDS: Atorvastatin Calcium 40 MG TAB PO SCH (21:06)
[2018-09-12] MEDS: Pramipexole Di-HCl 1 MG TAB PO SCH (21:06)
[2018-09-13] MEDS: Levothyroxine Sodium 75 MCG TAB PO SCH (05:28)
[2018-09-13] MEDS: Albumin 25% 25 GM/100 ML BOT IVPB SCH (05:28)
[2018-09-13 06:15] LABS: #Eosinphils 0.1 thou/uL (0.0-0.7); #Lymphocytes 0.6 thou/uL (1.20-3.40); #Monocytes 0.4 thou/uL (0.11-0.59); #Neutrophils 6.7 thou/uL (1.40-6.50); %Basophils 0.3 % (0.0-1.0); %Eosinophils 1.7 % (0.0-10.0); %Lymphocytes 7.8 % (21.0-51.0); %Monocytes 5.2 % (0.0-10.0); Hemoglobin 9.1 g/dL (12.0-16.0); Mean Corpuscular HGB CONC 31.8 g/dL (32.0-36.0); Mean Corpuscular Hemoglobin 31.3 pg (27.0-31.0); Mean Corpuscular Volume 98.6 fL (78.0-98.0); Mean Platelet Volume 8.1 fL (7.4-10.4); Platelet Count 144 thou/uL (130-400); RBC Distribution Width 14.6 % (11.5-14.5); White Blood Cell (WBC) Count 7.8 thou/uL (4.8-10.8)
[2018-09-13 06:35] LABS: Anion Gap 15 mmol/L (10-20); BUN (Urea Nitrogen) 89 mg/dL (9.8-20.1); Calc. Creatinine Clearance 25 mL/min (70-130); Calcium 9.8 mg/dL (7.8-10.44); Carbon Dioxide 24 mmol/L (23-31); Chloride 109 mmol/L (98-107); Estimated GFR-MDRD 16; Glucose 132 mg/dL (83-110); Potassium 4.7 mmol/L (3.5-5.1); Sodium 143 mmol/L (136-145)
[2018-09-13] MEDS ORDERED: Milk Of Magnesia 30 ML UDCUP PO SCH (08:00)
[2018-09-13] MEDS ORDERED: Carvedilol 3.125 MG TAB PO SCH (08:00)
[2018-09-13] MEDS ORDERED: Ondansetron PF 4 MG/2 ML Vial IVP PRN (08:00)
--- NOTE | 2018-09-13 08:19 | RAD ---
Chest one view HISTORY: CHF. Dyspnea. COMPARISON: 09/10/2018. FINDINGS: Cardiac silhouette is magnified and upper limits of normal in size. Pulmonary vasculature r emains engorged with bilateral perihilar and patchy bibasilar infiltrates similar in appearance to the previous exam. Mediastinum is midline with aortic calcification. No evidence of pneumothorax. Car diac monitor leads overlie the chest. IMPRESSION: Cardiomegaly, pulmonary edema, and other findings are stable.
[2018-09-13] MEDS: Pregabalin 75 MG CAP PO SCH (08:24)
[2018-09-13] MEDS: Docusate Calcium (SURFAK) 240 MG CAP PO SCH ×2 (08:24→20:51)
[2018-09-13] MEDS: Ferrous Sulfate 325 MG TAB PO SCH ×2 (08:25→17:15)
[2018-09-13] MEDS: Loratadine 10 MG TAB PO SCH (08:25)
[2018-09-13] MEDS: Aspirin Chewable 81 MG TAB PO SCH (08:25)
[2018-09-13] MEDS: Citalopram 20 MG TAB PO SCH (08:25)
[2018-09-13] MEDS: Clopidogrel Bisulfate 75 MG TAB PO SCH (08:25)
[2018-09-13] MEDS ORDERED: Furosemide 100 MG/10 ML VIAL SLOW IVP SCH (09:00)
--- NOTE | 2018-09-13 10:33 | PDOC.CTH ---
Cardiology Progress Note - Subjective The pt seen and examined. No overnight events. She complains of pressure to epigastric area. Lasix 40mg IV push will be given today for SOB - Objective Vital Signs Temp Pulse Resp BP BP Pulse Ox 09/13/18 07:43 97.5 F L 89 22 H 146/77 H 94 L 09/13/18 03:53 98.1 F 91 18 140/55 L 90 L 09/13/18 00:00 97.9 F 86 18 138/76 92 L Admit Weight 222 lb 9 oz Weight 221 lb 1 oz 09/12/18 09/13/18 09/14/18 06:59 06:59 06:59 Intake Total 360 120 240 Output Total 600 1825 Balance -240 -1705 240 - Physical Examination General/Neuro: alert & oriented x3 Neck: no JVD present Lungs: other: (diminished at bases) Heart: RRR Abdomen: soft Extremities: other: (2+ pitting edema to BLE around ankles) - Labs Result Diagrams: 09/13/18 06:08 09/13/18 06:08 Troponin/CKMB CK-MB (CK-2) 2.8 ng/mL (0-6.6) 09/10/18 09:00 Troponin I 0.032 ng/mL (< 0.028) H 09/10/18 15:02 - Assessment/Plan 1. Parox. Afib - has been in SR; On ASA 81mg qd 2/2 hx of multiple falls. will increase Coreg from 3.125mg to 6.25mg BID from tonight 2. S/p of multiple falls with s/p subarachnoid hemorrhage on 09/10/2018 - 3. ANGELICA on CKD - managed by Dr Flores 4. DM type 2 - managed by PCP 5. Chronic Diastolic HF with grade III dd in 11/2017 - Lasix 40mg IV x1 today by Dr Flores; On BBlocker; not on ADRIAN/ARB due to hx of CKD; 6. HTN - stable 7. HLD - On Lipitor 80mg qd 8. Hypothyroidism - 9. Anemia - On Epogen and Iron supplement 10. 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 Hx of TIA/CVA - on Plavix MAR reviewed * Echo in 11/2017 with EF 50-55%, restrictive diastolic dysfunction (grade III dd), mod ERA, mild-mod MR and TR, mild AR and NV. * Echo on 09/12/2018 with EF 45-50%, mild ERV, mod-severe dilated LA, mod ERA, mod MR, mild AR, mild NV, and severe TR. Pt. seen and eval. by me.I agree with the A/P by the CRITICAL SYSTEMS TECHNICIAN. She is sleeping a lot today after being given anti-emetic. No chest pain. RRR. chest clear. Mild edema. gjmays Review of Systems - Review of Systems Constitutional: reports: weakness EENTM: reports: no symptoms reported Respiratory: reports: see HPI Cardiac (ROS): reports: no symptoms reported ABD/GI: reports: no symptoms reported : reports: no symptoms reported Musculoskeletal: reports: no symptoms reported
--- NOTE | 2018-09-13 11:35 | PRG ---
DATE OF SERVICE: 09/13/2018 SERVICE: Renal Medicine. SUBJECTIVE: Ms. Mullen is an 83-year-old white female who was admitted for a fall - no acute intracranial bleed was noted, and was noted to be in acute kidney injury on top of her chronic renal failure. She was empirically volume repleted in the last few days; however, this morning, she was complaining of shortness of breath. A chest x-ray was done, which showed chronic CHF, but no worsening. Due to her symptoms, her plan is to give her one time dose of Lasix. Her IV fluid has been placed on hold. No other complaints. No chest pain. OBJECTIVE: VITAL SIGNS: Blood pressure 146/77, heart rate 89, respiratory rate 22, temperature 97.5, and pulse ox is 94%. GENERAL: Noted to be awake, alert, comfortable, not in overt distress. SKIN: Adequate turgor. HEENT: She has slightly pale conjunctivae. Anicteric sclerae. No neck mass. No carotid bruits. No JVD. CHEST: No deformities. LUNGS: Decreased breath sounds. HEART: Normal sinus rhythm. No murmur. No gallops. No rubs. ABDOMEN: Globular, soft, nontender. No masses. EXTREMITIES: No edema. MEDICATIONS: Medications of September 13, 2018, were reviewed. LABORATORY DATA: Laboratories of September 13, 2018, white count 7.8, hemoglobin 9.1. Sodium 143, potassium 4.7, chloride 109, carbon dioxide 24, BUN 89, creatinine 2.77, glucose 132, and calcium 9.8. BNP is 881.6. ASSESSMENT AND PLAN: 1. Mild shortness of breath - we will give a one time dose of Lasix 80 mg IV now. We will also start this patient DuoNeb q.6 as needed. 2. Acute kidney injury/chronic renal failure, improved renal function. She had a superimposed prerenal azotemia. Most recent creatinine was 2.77 and this was noted to have peaked at a value of 3.25. 3. No indication for any dialytic intervention with this patient. 4. Anemia - currently continuing weekly Epogen with the patient. We will recheck basic metabolic and CBC in a.m. Job ID: [id number]
[2018-09-13 13:31] VITALS: BMI 39.1
[2018-09-13] MEDS: Carvedilol 6.25 MG TAB PO SCH (17:15)
[2018-09-13] MEDS: HumaLOG 300 UNITS/3 ML VIAL SC PRN (17:15)
[2018-09-13] MEDS: Atorvastatin Calcium 40 MG TAB PO SCH (20:51)
[2018-09-13] MEDS: Pramipexole Di-HCl 1 MG TAB PO SCH (20:51)
[2018-09-13] MEDS: Acetaminophen 325 MG TAB PO PRN (21:01)
[2018-09-14 05:47] LABS: #Basophils 0.1 thou/uL (0.0-0.2); #Eosinphils 0.1 thou/uL (0.0-0.7); #Lymphocytes 0.9 thou/uL (1.20-3.40); #Monocytes 0.5 thou/uL (0.11-0.59); #Neutrophils 5.4 thou/uL (1.40-6.50); %Basophils 0.7 % (0.0-1.0); %Eosinophils 1.4 % (0.0-10.0); %Monocytes 7.2 % (0.0-10.0); %Neutrophils 77.7 % (42.0-75.0); Hemoglobin 9.1 g/dL (12.0-16.0); Mean Corpuscular HGB CONC 31.6 g/dL (32.0-36.0); Mean Corpuscular Hemoglobin 31.6 pg (27.0-31.0); Mean Platelet Volume 8.2 fL (7.4-10.4); Platelet Count 147 thou/uL (130-400); RBC Distribution Width 14.9 % (11.5-14.5); Red Blood Cell (RBC) Count 2.88 mill/uL (4.20-5.40); White Blood Cell (WBC) Count 6.9 thou/uL (4.8-10.8)
[2018-09-14 06:01] LABS: Anion Gap 17 mmol/L (10-20); BUN (Urea Nitrogen) 94 mg/dL (9.8-20.1); Calc. Creatinine Clearance 24 mL/min (70-130); Calcium 9.5 mg/dL (7.8-10.44); Carbon Dioxide 24 mmol/L (23-31); Chloride 108 mmol/L (98-107); Estimated GFR-MDRD 15; Glucose 120 mg/dL (83-110); Potassium 5.5 mmol/L (3.5-5.1); Sodium 143 mmol/L (136-145)
[2018-09-14] MEDS: Levothyroxine Sodium 75 MCG TAB PO SCH (06:08)
[2018-09-14] MEDS ORDERED: Milk Of Magnesia 30 ML UDCUP PO SCH (08:15)
[2018-09-14] MEDS: Citalopram 20 MG TAB PO SCH (08:33)
[2018-09-14] MEDS: Aspirin Chewable 81 MG TAB PO SCH (08:36)
[2018-09-14] MEDS: Pregabalin 75 MG CAP PO SCH (08:36)
[2018-09-14] MEDS: Loratadine 10 MG TAB PO SCH (08:36)
[2018-09-14] MEDS: Clopidogrel Bisulfate 75 MG TAB PO SCH (08:36)
[2018-09-14] MEDS: Carvedilol 6.25 MG TAB PO SCH ×2 (08:36→17:37)
[2018-09-14] MEDS: Docusate Calcium (SURFAK) 240 MG CAP PO SCH ×2 (08:39→22:17)
--- NOTE | 2018-09-14 10:07 | PRG ---
DATE OF SERVICE: 09/14/2018 SUBJECTIVE: Ms. Mullen is an 83-year-old white female, seen by the Renal Service for acute kidney injury over chronic renal failure. She had a prerenal azotemia, which improved with IV volume repletion. However, developed shortness of breath a few days later. She received a one time dose of furosemide at 80 mg IV. The plan is to resume torsemide 10 mg tablet once a day. She also receive neb treatment. She is feeling better this morning. OBJECTIVE: VITAL SIGNS: Blood pressure 126/70, heart rate 80, respiratory rate 18, temperature 98, and pulse ox 93%. GENERAL: Awake, alert, and comfortable, not in distress, sitting. HEENT: Pinkish conjunctivae. Anicteric sclerae. NECK: No neck mass. No carotid bruits. No JVD. CHEST: No deformities. LUNGS: Decreased breath sounds. HEART: Normal sinus rhythm. No murmurs. No gallops. No rubs. ABDOMEN: Globular, soft, and nontender. No masses. EXTREMITIES: Trace edema. MEDICATIONS: Medications of September 14, 2018, reviewed. LABORATORY DATA: Laboratories of September 14, 2018; hemoglobin 9.1. Potassium 5.5, chloride 108, carbon dioxide 24, sodium 143, BUN 94, creatinine 2.95, and calcium 9.5. ASSESSMENT AND PLAN: 1. Acute kidney injury/chronic renal failure. Creatinine noted to be at 2.95, which is higher from yesterday at 2.77. This is probably a reflection of the IV furosemide. Continue to observe. Due to the shortness of breath/diastolic dysfunction, we will start torsemide 10 mg tablet once a day. 2. Congestive heart failure. Resume torsemide 10 mg tablet once a day. 3. Anemia. Continuing weekly Epogen. Agree with current management. No indication for any dialytic intervention. Job ID: [id number]
--- NOTE | 2018-09-14 10:46 | PDOC.CTH ---
Cardiology Progress Note - Subjective The pt seen and examined. No overnight events. No cardiac complaints. She sits at bedside without any difficulties. She stated she felt better today and wants to go home. - Objective Vital Signs Temp Pulse Resp BP BP Pulse Ox 09/14/18 08:36 126/70 09/14/18 07:51 98.0 F 80 18 126/70 93 L 09/14/18 04:00 97.9 F 81 18 131/72 95 09/14/18 00:00 97.5 F L 72 16 119/62 96 Admit Weight 222 lb 9 oz Weight 221 lb 1 oz 09/13/18 09/14/18 09/15/18 06:59 06:59 06:59 Intake Total 120 1420 Output Total 1825 1050 250 Balance -1705 370 -250 - Physical Examination General/Neuro: alert & oriented x3 Neck: no JVD present Lungs: CTA Heart: RRR Abdomen: soft Extremities: other: (no edema) - Telemetry Telemetry Rhythm: SR with PACs - Labs Result Diagrams: 09/14/18 05:08 09/14/18 05:08 Troponin/CKMB CK-MB (CK-2) 2.8 ng/mL (0-6.6) 09/10/18 09:00 Troponin I 0.032 ng/mL (< 0.028) H 09/10/18 15:02 - Assessment/Plan 1. Parox. Afib - has been in SR; On ASA 81mg qd 2/2 hx of multiple falls. On Coreg 6.25mg BID 2. S/p of multiple falls with s/p subarachnoid hemorrhage on 09/10/2018 - 3. ANGELICA on CKD - managed by Dr Flores 4. DM type 2 - managed by PCP 5. Chronic Diastolic HF with grade III dd in 11/2017 - Lasix 80mg IV x1 today by Dr Flores; Torsemide 10mg qd was resumed from today; On BBlocker; not on ADRIAN/ ARB due to hx of CKD; 6. HTN - stable 7. HLD - On Lipitor 80mg qd 8. Hypothyroidism - 9. Anemia - On Epogen and Iron supplement 10. 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 Hx of TIA/CVA - on Plavix MAR reviewed * Echo in 11/2017 with EF 50-55%, restrictive diastolic dysfunction (grade III dd), mod ERA, mild-mod MR and TR, mild AR and CA. * Echo on 09/12/2018 with EF 45-50%, mild ERV, mod-severe dilated LA, mod ERA, mod MR, mild AR, mild CA, and severe TR. Pt. seen and eval. by me. She is improved since yesterday. No new c/o. Chest : bibasilar rales. RRR. CHF shows some improvement but still lower extremity edema. Review of Systems - Review of Systems Constitutional: reports: no symptoms reported EENTM: reports: no symptoms reported Respiratory: reports: no symptoms reported Cardiac (ROS): reports: no symptoms reported ABD/GI: reports: no symptoms reported : reports: no symptoms reported
[2018-09-14] MEDS: Ferrous Sulfate 325 MG TAB PO SCH ×2 (12:22→17:38)
[2018-09-14] MEDS: HumaLOG 300 UNITS/3 ML VIAL SC PRN ×2 (12:22→17:37)
--- NOTE | 2018-09-14 13:16 | PQF ---
CLINICAL DOCUMENTATION IMPROVEMENT CLARIFICATION FORM: ICD-10 Updated PLEASE DO AN ADDENDUM TO THE PROGRESS NOTE WITH ANY DOCUMENTATION UPDATES OR ADDITIONS AND CARRY THROUGH TO DC SUMMARY. THANK YOU. DATE: 09/14/2018 ATTN: Dr. Brandon Doyle Please exercise your independent, professional judgment in responding to the clarification form. Clinical indicators are provided on the bottom of this form for your review Please check appropriate box(s): [ ] Acute Renal Failure (ARF) / Acute Kidney Injury (ANGELICA) [ x ] Acute on Chronic Renal Failure please specify Stage of CKD ____IV____ (see below) [ ] CKD without ARF/ANGELICA please specify Stage of CKD [ ] ESRD [ ] Other diagnosis [ ] Unable to determine In addition, please specify: Present on Admission (POA): [ x ] Yes [ ] No [ ] Unable to determine For continuity of documentation, please document condition throughout progress notes and discharge summary. Thank You. CLINICAL INDICATORS - SIGNS / SYMPTOMS / LABS 09/13 (Mark) Acute kidney injury/ chronic renal failure, improved renal function. She had a superimposed prerenal azotemia. Most recent creatinine was 2.77 and this was noted to have peaked at a value of 3.25. No indication for any dialytic intervention with this patient. 09/13 (Vivek) CHF exacerbation ESRD RISKS: H&P 09/10: 83 yo. has insulin-dependent diabetes mellitus, HTN. Hx of small subarachnoid hemorrhage after a fall, atrial fibrillation, CHF. renal unsufficiency. TREATMENT: Order 09/10: Renal Consult Order for CMP 09/10 Order for BMP 09/11, 09/12, 09/13, 09/14, 09/15 National Kid[employer] Guidelines for CKD Staging Stage I Kidney damage with normal or increased GFR GFR > 90 Stage II Kidney damage with mildly decreased GFR GFR 60-89 Stage III Kidney damage with moderately decreased GFR GFR 30-59 Stage IV Kidney damage with severely decreased GFR GFR 16-29 Stage V Kidney failure GFR < 15 ESRD End Stage Renal Disease On dialysis Acute Renal Failure/Acute Kidney Failure defined as: Increases in SCr by (>) 0.3 mg/dl within 48 hours OR- Increases in SCr by (>) 1.5 times baseline, known or presumed to have occurred within the prior 7 days OR- Urine volume < 0.5 ml/kg/hour for 6 hours (KDIGO supplement 2012 for RIFLE/DAVID criteria) Thank you, Sobia (This form is maintained as a part of the permanent medical record) 2014 [employer] All Rights Reserved Sobia Kelley RN, BSN [email or web address] Office: [phone] [facility] [email or web address]
[2018-09-14] MEDS: Atorvastatin Calcium 40 MG TAB PO SCH (22:17)
[2018-09-14] MEDS: Pramipexole Di-HCl 1 MG TAB PO SCH (22:18)
[2018-09-14] MEDS: Acetaminophen 325 MG TAB PO PRN (22:19)
[2018-09-15 06:08] LABS: Anion Gap 16 mmol/L (10-20); BUN (Urea Nitrogen) 97 mg/dL (9.8-20.1); Calc. Creatinine Clearance 24 mL/min (70-130); Calcium 9.6 mg/dL (7.8-10.44); Carbon Dioxide 24 mmol/L (23-31); Chloride 109 mmol/L (98-107); Estimated GFR-MDRD 15; Glucose 124 mg/dL (83-110); Potassium 5.7 mmol/L (3.5-5.1); Sodium 143 mmol/L (136-145)
[2018-09-15 06:28] LABS: Band 2 % (5-11); Eosinophils 2 % (0-10); Hemoglobin 8.9 g/dL (12.0-16.0); Lymphocytes 22 % (21-51); MDiff Complete? YES; Mean Corpuscular HGB CONC 31.4 g/dL (32.0-36.0); Mean Corpuscular Hemoglobin 31.8 pg (27.0-31.0); Mean Platelet Volume 7.8 fL (7.4-10.4); Monocytes 9 % (0-10); Neutrophil 65 % (42-75); Platelet Count 134 thou/uL (130-400); RBC Distribution Width 14.8 % (11.5-14.5); Red Blood Cell (RBC) Count 2.79 mill/uL (4.20-5.40); White Blood Cell (WBC) Count 5.8 thou/uL (4.8-10.8)
[2018-09-15] MEDS: Levothyroxine Sodium 75 MCG TAB PO SCH (07:00)
--- NOTE | 2018-09-15 09:17 | RAD ---
XR Chest 1 View Portable History: [Congestive heart failure] Comparison: Radiograph 2 days prior Findings: Heart size is enlarged. Moderate effusions. Moderate pulmonary edema. No pneumothorax. Impression: Similar examination of the chest.
[2018-09-15] MEDS: Citalopram 20 MG TAB PO SCH (09:30)
[2018-09-15] MEDS: Loratadine 10 MG TAB PO SCH (09:30)
[2018-09-15] MEDS: Torsemide 10 MG TAB PO SCH (09:30)
[2018-09-15] MEDS: Clopidogrel Bisulfate 75 MG TAB PO SCH (09:30)
[2018-09-15] MEDS: Carvedilol 6.25 MG TAB PO SCH (09:31)
[2018-09-15] MEDS: Aspirin Chewable 81 MG TAB PO SCH (09:31)
[2018-09-15] MEDS: Ferrous Sulfate 325 MG TAB PO SCH ×2 (09:31→17:45)
[2018-09-15] MEDS: Pregabalin 75 MG CAP PO SCH (09:38)
[2018-09-15] MEDS: Docusate Calcium (SURFAK) 240 MG CAP PO SCH ×2 (09:39→21:00)
[2018-09-15] MEDS: Gentamicin Ophth Soln 0.3% 5 ml Bottle EA EYE SCH ×3 (09:42→21:00)
[2018-09-15] MEDS ORDERED: Furosemide 40 MG/4 ML VIAL SLOW IVP SCH (11:30)
--- NOTE | 2018-09-15 11:44 | PRG ---
DATE OF SERVICE: 09/15/2018 SUBJECTIVE: Ms. Mullen is an 83-year-old white female followed up by the Renal Service for her acute kidney injury on top of her chronic renal failure. Initially, we felt that she had a hemodynamically-mediated renal dysfunction. Creatinine improved with gentle volume repletion. However, in the last few days, she has been having intermittent shortness of breath. We have resumed her torsemide 10 mg tablet once a day. She also received a breathing treatment which helped with her shortness of breath. My plan is to give her a one time dose of Lasix again 40 mg IV. She is to continue her torsemide. OBJECTIVE: VITAL SIGNS: Blood pressure is 125/68, heart rate 83, respiratory rate 20, temperature 98.1, and pulse ox 92%. GENERAL: The patient is sleeping, arousable, comfortable, obese, not in distress. SKIN: Adequate turgor. HEENT: Slightly pale conjunctivae. Anicteric sclerae. No neck mass. No carotid bruits. No JVD. CHEST: No deformities. LUNGS: Decreased breath sounds. HEART: Normal sinus rhythm. No murmur. No gallops or rubs. ABDOMEN: Globular, soft, nontender. No masses. EXTREMITIES: No edema no deformities. MEDICATIONS: Medications of September 15, 2018, reviewed. LABORATORY DATA: Laboratories of September 15, 2018, white count 5.8, hemoglobin 8.9, sodium 143, potassium 5.7, chloride 109, carbon dioxide 24, BUN 97, creatinine 2.94, glucose 124, calcium 9.6, GFR 15 mL/minute. Chest x-ray shows CHF, but relatively stable. ASSESSMENT/PLAN: 1. Shortness of breath, multifactorial etiology. Agree with neb treatment q.6. In addition, we will give one time dose of Lasix 40 mg IV x1 dose. Continue torsemide 10 mg tablet once a day. 2. Acute kidney injury/chronic renal failure. Stable renal function. No indication for any dialytic intervention. Continue supportive care. 3. Anemia, continuing weekly Epogen. 4. Recheck basic metabolic profile and CBC in a.m. Job ID: [id number]
[2018-09-15] MEDS: HumaLOG 300 UNITS/3 ML VIAL SC PRN (12:58)
--- NOTE | 2018-09-15 16:02 | PDOC.CTH ---
Cardiology Progress Note - Subjective The pt seen and examined. No overnight events. Worsening of fatigue this AM. Per family and RN, she has not had enough fluid lately. - Objective Vital Signs Temp Pulse Resp BP BP BP BP 09/15/18 15:45 97.4 F L 67 14 114/64 09/15/18 13:29 87 16 09/15/18 12:10 09/15/18 12:00 106/71 09/15/18 11:55 86/57 L 09/15/18 11:00 97.4 F L 67 18 102/54 L 09/15/18 10:19 83 20 09/15/18 09:31 109/71 09/15/18 08:10 09/15/18 07:00 98.1 F 77 18 125/68 Pulse Ox 09/15/18 15:45 98 09/15/18 13:29 94 L 09/15/18 12:10 97 09/15/18 12:00 09/15/18 11:55 09/15/18 11:00 97 09/15/18 10:19 92 L 09/15/18 09:31 09/15/18 08:10 93 L 09/15/18 07:00 93 L Admit Weight 222 lb 9 oz Weight 221 lb 1 oz 09/14/18 09/15/18 09/16/18 06:59 06:59 06:59 Intake Total 1420 480 150 Output Total 1050 650 Balance 370 -170 150 - Physical Examination General/Neuro: alert & oriented x3 Neck: no JVD present Lungs: other: (diminished at bases) Heart: RRR Abdomen: soft Extremities: other: (1-2+ pitting BLE edema) - Telemetry Telemetry Rhythm: SR 70s - Labs Result Diagrams: 09/15/18 04:26 09/15/18 04:26 Troponin/CKMB CK-MB (CK-2) 2.8 ng/mL (0-6.6) 09/10/18 09:00 Troponin I 0.032 ng/mL (< 0.028) H 09/10/18 15:02 - Assessment/Plan 1. Parox. Afib - has been in SR; On ASA 81mg qd 2/2 hx of multiple falls. On Coreg 6.25mg BID 2. S/p of multiple falls with s/p subarachnoid hemorrhage on 09/10/2018 - 3. ANGELICA on CKD - managed by Dr Flores 4. DM type 2 - managed by PCP 5. Chronic Diastolic HF with grade III dd in 11/2017 - On Torsemide 10mg qd; On BBlocker; not on ADRIAN/ARB due to hx of CKD; 6. HTN - Lasix IV push was held due to Hypotentensive this AM 7. HLD - On Lipitor 80mg qd 8. Hypothyroidism - 9. Anemia - On Epogen and Iron supplement 10. 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 Hx of TIA/CVA - on Plavix MAR reviewed * Echo in 11/2017 with EF 50-55%, restrictive diastolic dysfunction (grade III dd), mod ERA, mild-mod MR and TR, mild AR and [place]. * Echo on 09/12/2018 with EF 45-50%, mild ERV, mod-severe dilated LA, mod ERA, mod MR, mild AR, mild MO, and severe TR. ( diastolic dysfunction still persists) . Pt. seen and eval. by me. I agree with the A/P by the RUBBER AND POUNDER. Deconditioned. Poor prognosis due to multiple medical problems. Continue support. Decreased insp. effort. Sleep apnea. She has a CPAP machine at the bedside and the nurse will help her with the management. [email or web address] Review of Systems - Review of Systems Constitutional: reports: see HPI EENTM: reports: no symptoms reported Respiratory: reports: no symptoms reported Cardiac (ROS): reports: no symptoms reported ABD/GI: reports: no symptoms reported
[2018-09-15] MEDS: Carvedilol 3.125 MG TAB PO SCH (17:45)
[2018-09-15] MEDS: Acetaminophen 325 MG TAB PO PRN (17:45)
[2018-09-15] MEDS: Pramipexole Di-HCl 1 MG TAB PO SCH (20:59)
[2018-09-15] MEDS: Atorvastatin Calcium 40 MG TAB PO SCH (21:00)
[2018-09-15] MEDS: Zolpidem Tartrate 5 MG TAB PO SCH (22:34)
[2018-09-16 06:00] LABS: Anion Gap 18 mmol/L (10-20); BUN (Urea Nitrogen) 102 mg/dL (9.8-20.1); Calc. Creatinine Clearance 23 mL/min (70-130); Calcium 9.1 mg/dL (7.8-10.44); Carbon Dioxide 22 mmol/L (23-31); Chloride 108 mmol/L (98-107); Estimated GFR-MDRD 15; Glucose 122 mg/dL (83-110); Potassium 5.5 mmol/L (3.5-5.1); Sodium 142 mmol/L (136-145)
[2018-09-16] MEDS: Levothyroxine Sodium 75 MCG TAB PO SCH (06:10)
[2018-09-16 06:18] LABS: #Eosinphils 0.2 thou/uL (0.0-0.7); #Monocytes 0.5 thou/uL (0.11-0.59); #Neutrophils 3.9 thou/uL (1.40-6.50); %Basophils 0.5 % (0.0-1.0); %Eosinophils 3.4 % (0.0-10.0); %Lymphocytes 17.4 % (21.0-51.0); %Monocytes 8.9 % (0.0-10.0); %Neutrophils 69.8 % (42.0-75.0); Hemoglobin 9.4 g/dL (12.0-16.0); Mean Corpuscular HGB CONC 31.4 g/dL (32.0-36.0); Mean Corpuscular Hemoglobin 31.8 pg (27.0-31.0); Mean Platelet Volume 8.3 fL (7.4-10.4); Platelet Count 123 thou/uL (130-400); RBC Distribution Width 14.9 % (11.5-14.5); Red Blood Cell (RBC) Count 2.94 mill/uL (4.20-5.40); White Blood Cell (WBC) Count 5.6 thou/uL (4.8-10.8)
[2018-09-16] MEDS: Citalopram 20 MG TAB PO SCH (09:37)
[2018-09-16] MEDS: Aspirin Chewable 81 MG TAB PO SCH (09:37)
[2018-09-16] MEDS: Ferrous Sulfate 325 MG TAB PO SCH ×2 (09:39→16:46)
[2018-09-16] MEDS: Pregabalin 75 MG CAP PO SCH (09:44)
[2018-09-16] MEDS: Torsemide 10 MG TAB PO SCH (09:46)
[2018-09-16] MEDS: Carvedilol 3.125 MG TAB PO SCH ×2 (09:46→16:46)
[2018-09-16] MEDS: Clopidogrel Bisulfate 75 MG TAB PO SCH (09:47)
[2018-09-16] MEDS: Loratadine 10 MG TAB PO SCH (09:48)
[2018-09-16] MEDS: Gentamicin Ophth Soln 0.3% 5 ml Bottle EA EYE SCH ×3 (09:48→20:01)
[2018-09-16] MEDS: Docusate Calcium (SURFAK) 240 MG CAP PO SCH ×2 (09:48→20:00)
--- NOTE | 2018-09-16 10:15 | PRG ---
DATE OF SERVICE: 09/16/2018 SUBJECTIVE: Ms. Mullen is an 83-year-old white female, seen by the Renal Service for her acute kidney injury on top of her chronic renal failure. She was empirically given volume repletion. This improved her creatinine. Unfortunately, she developed some shortness of breath. IV fluid has been placed on hold. She is now being placed on maintenance torsemide 10 mg tablet once a day. She also continues to have DuoNeb. We attempted to give her IV Lasix yesterday, but blood pressure was low, and for that reason, the IV Lasix was placed on hold. This morning, she denies any worsening shortness of breath. She continues to receive her breathing treatments. No chest pain. OBJECTIVE: VITAL SIGNS: Blood pressure 125/77, heart rate 85, respiratory rate 18, temperature 97.5, pulse ox 94%. GENERAL: Awake, alert, comfortable, not in distress. SKIN: Adequate turgor. HEENT: She has a slightly pale conjunctivae. Anicteric sclerae. No neck mass. No carotid bruits. No JVD. CHEST: No deformities. LUNGS: Clear breath sounds. No wheezing. No crackles. HEART: Normal sinus rhythm. No murmur. No gallops. No rubs. ABDOMEN: Globular, soft, nontender. No masses. EXTREMITIES: No edema. No deformities. MEDICATIONS: Medications of September 16, 2018, were reviewed. LABORATORY DATA: Laboratories of September 16, 2018, white count of 5.6, hemoglobin 9.4. Sodium 142, potassium 5.5, chloride 108, carbon dioxide 22, BUN 102, creatinine 3, glucose 122, calcium 9.1. ASSESSMENT AND PLAN: 1. Acute kidney injury/chronic renal failure, fluctuating creatinine. Creatinine today is noted at 3.0 and yesterday this was 2.95. We will continue to observe. Should the renal function further worsen, we can place a hold on torsemide. We will hold off any IV Lasix today. 2. Congestive heart failure, clinically stable. Chest x-ray did not worsen when compared to the last previous x-rays. We will continue current DuoNeb treatment with this patient. Continue torsemide. 3. Anemia. Continuing weekly Epogen. 4. Acute kidney injury/chronic renal failure. She had a superimposed prerenal azotemia on top of her chronic renal failure. Continue supportive care. No indication for any dialytic intervention. Job ID: [id number]
--- NOTE | 2018-09-16 10:18 | PDOC.CTH ---
Cardiology Progress Note - Subjective The pt seen and examined. No overnight events. No cardiac complaints. However , she is still very lethargic and easy to fall sleep during conversation although she worn Cpap last night per family. - Objective Vital Signs Temp Pulse Resp BP BP Pulse Ox 09/16/18 07:42 97.5 F L 85 18 125/77 94 L 09/16/18 06:22 80 16 90 L 09/16/18 04:00 98.3 F 66 16 137/74 95 09/16/18 01:07 109/51 L 09/16/18 00:00 97.4 F L 58 L 12 97 Admit Weight 222 lb 9 oz Weight 215 lb 14.4 oz 09/15/18 09/16/18 09/17/18 06:59 06:59 06:59 Intake Total 480 730 Output Total 650 925 Balance -170 -195 - Physical Examination General/Neuro: alert & oriented x3 Neck: no JVD present Lungs: other: (diminished at bases) Heart: RRR Abdomen: soft Extremities: other: (1+ pitting BLE edema) - Telemetry Telemetry Rhythm: SR - Labs Result Diagrams: 09/16/18 05:06 09/16/18 05:06 Troponin/CKMB CK-MB (CK-2) 2.8 ng/mL (0-6.6) 09/10/18 09:00 Troponin I 0.032 ng/mL (< 0.028) H 09/10/18 15:02 - Assessment/Plan 1. Parox. Afib - has been in SR; On ASA 81mg qd 2/2 hx of multiple falls. On Coreg 6.25mg BID 2. S/p of multiple falls with s/p subarachnoid hemorrhage on 09/10/2018 - 3. ANGELICA on CKD - managed by Dr Flores 4. DM type 2 - managed by PCP 5. Chronic Diastolic HF with grade III dd in 11/2017 - On Torsemide 10mg qd; On BBlocker; not on ADRIAN/ARB due to hx of CKD; 6. HTN - Lasix IV push was held due to Hypotentensive this AM 7. HLD - On Lipitor 80mg qd 8. Hypothyroidism - 9. Anemia - On Epogen and Iron supplement 10. 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 Hx of TIA/CVA - on Plavix MAR reviewed * Echo in 11/2017 with EF 50-55%, restrictive diastolic dysfunction (grade III dd), mod ERA, mild-mod MR and TR, mild AR and [place]. * Echo on 09/12/2018 with EF 45-50%, mild ERV, mod-severe dilated LA, mod ERA, mod MR, mild AR, mild [place], and severe TR. ( diastolic dysfunction still persists) . Review of Systems - Review of Systems Constitutional: reports: no symptoms reported EENTM: reports: no symptoms reported Respiratory: reports: no symptoms reported Cardiac (ROS): reports: no symptoms reported ABD/GI: reports: no symptoms reported : reports: no symptoms reported Musculoskeletal: reports: no symptoms reported
--- NOTE | 2018-09-16 11:21 | PDOC.CTH ---
Cardiology Progress Note - Subjective Pt. seen and eval. by me. no new events. still lethargic. sleeping most of the day. Doesn't want to get out of bed.No cardiac complaints. - Objective Vital Signs Temp Pulse Resp BP BP Pulse Ox 09/16/18 11:06 77 16 98 09/16/18 07:42 97.5 F L 85 18 125/77 94 L 09/16/18 06:22 80 16 90 L 09/16/18 04:00 98.3 F 66 16 137/74 95 09/16/18 01:07 109/51 L 09/16/18 00:00 97.4 F L 58 L 12 97 Admit Weight 222 lb 9 oz Weight 215 lb 14.4 oz 09/15/18 09/16/18 09/17/18 06:59 06:59 06:59 Intake Total 480 730 Output Total 650 925 Balance -170 -195 - Physical Examination General/Neuro: other: (lethargic.) Neck: no JVD present Lungs: CTA Heart: RRR Abdomen: soft - Telemetry Telemetry Rhythm: NSR - Labs Result Diagrams: 09/16/18 05:06 09/16/18 05:06 Troponin/CKMB CK-MB (CK-2) 2.8 ng/mL (0-6.6) 09/10/18 09:00 Troponin I 0.032 ng/mL (< 0.028) H 09/10/18 15:02 - Assessment/Plan 1. Parox. Afib - has been in SR; On ASA 81mg qd 2/2 hx of multiple falls. On Coreg 6.25mg BID 2. S/p of multiple falls with s/p subarachnoid hemorrhage on 09/10/2018 - 3. ANGELICA on CKD - managed by Dr Flores 4. DM type 2 - managed by PCP 5. Chronic Diastolic HF with grade III dd in 11/2017 - On Torsemide 10mg qd; On BBlocker; not on ADRIAN/ARB due to hx of CKD; 6. HTN - stable but on the low side. 7. HLD - On Lipitor 80mg qd 8. Hypothyroidism - 9. Anemia - On Epogen and Iron supplement 10. 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 Hx of TIA/CVA - on Plavix MAR reviewed * Echo in 11/2017 with EF 50-55%, restrictive diastolic dysfunction (grade III dd), mod ERA, mild-mod MR and TR, mild AR and [place]. * Echo on 09/12/2018 with EF 45-50%, mild ERV, mod-severe dilated LA, mod ERA, mod MR, mild AR, mild SD, and severe TR. ( diastolic dysfunction still persists) .
[2018-09-16] MEDS: HumaLOG 300 UNITS/3 ML VIAL SC PRN (16:44)
[2018-09-16] MEDS ORDERED: Milk Of Magnesia 30 ML UDCUP PO SCH (19:45)
[2018-09-16] MEDS: Pramipexole Di-HCl 1 MG TAB PO SCH (19:59)
[2018-09-16] MEDS: Atorvastatin Calcium 40 MG TAB PO SCH (20:00)
[2018-09-16] MEDS: Zolpidem Tartrate 5 MG TAB PO SCH (20:00)
[2018-09-17 05:19] LABS: #Eosinphils 0.1 thou/uL (0.0-0.7); #Lymphocytes 0.9 thou/uL (1.20-3.40); #Monocytes 0.4 thou/uL (0.11-0.59); #Neutrophils 4.9 thou/uL (1.40-6.50); %Basophils 0.7 % (0.0-1.0); %Lymphocytes 13.9 % (21.0-51.0); %Monocytes 5.8 % (0.0-10.0); %Neutrophils 77.6 % (42.0-75.0); Hemoglobin 8.9 g/dL (12.0-16.0); Mean Corpuscular HGB CONC 31.4 g/dL (32.0-36.0); Mean Corpuscular Hemoglobin 31.9 pg (27.0-31.0); Platelet Count 158 thou/uL (130-400); RBC Distribution Width 15.1 % (11.5-14.5); White Blood Cell (WBC) Count 6.3 thou/uL (4.8-10.8)
[2018-09-17 05:46] LABS: Anion Gap 16 mmol/L (10-20); BUN (Urea Nitrogen) 97 mg/dL (9.8-20.1); Calc. Creatinine Clearance 24 mL/min (70-130); Calcium 9.3 mg/dL (7.8-10.44); Carbon Dioxide 23 mmol/L (23-31); Chloride 107 mmol/L (98-107); Estimated GFR-MDRD 16; Glucose 104 mg/dL (83-110); Potassium 5.1 mmol/L (3.5-5.1); Sodium 141 mmol/L (136-145)
[2018-09-17] MEDS: Levothyroxine Sodium 75 MCG TAB PO SCH (06:05)
[2018-09-17] MEDS ORDERED: Gabapentin 100 MG CAP PO PRN (07:52)
[2018-09-17] MEDS: Ferrous Sulfate 325 MG TAB PO SCH ×2 (08:43→16:44)
[2018-09-17] MEDS: Carvedilol 3.125 MG TAB PO SCH ×2 (08:44→16:44)
[2018-09-17] MEDS: Aspirin Chewable 81 MG TAB PO SCH (08:44)
[2018-09-17] MEDS: Torsemide 10 MG TAB PO SCH (08:44)
[2018-09-17] MEDS: Citalopram 20 MG TAB PO SCH (08:45)
[2018-09-17] MEDS: Clopidogrel Bisulfate 75 MG TAB PO SCH (08:46)
[2018-09-17] MEDS: Loratadine 10 MG TAB PO SCH (08:46)
[2018-09-17] MEDS: Gentamicin Ophth Soln 0.3% 5 ml Bottle EA EYE SCH ×2 (08:47→14:40)
[2018-09-17] MEDS: Docusate Calcium (SURFAK) 240 MG CAP PO SCH (08:48)
--- NOTE | 2018-09-17 09:49 | PRG ---
DATE OF SERVICE: 09/17/2018 SUBJECTIVE: Ms. Mullen is an 83-year-old white female with known history of chronic renal failure/seen for her acute kidney injury. This was a hemodynamically-mediated dysfunction. She was empirically given volume repletion, but eventually this was placed on hold due to a mild shortness of breath. She was resumed back on torsemide at a smaller dose. Renal function has been remaining stable. This morning, she is more awake. She voices no new complaints. She has no chest pain or shortness of breath. A cardiac echo was recently done. It showed a normal EF with some evidence of diastolic dysfunction. OBJECTIVE: VITAL SIGNS: Blood pressure 142/71, heart rate 97, respiratory rate 20, temperature 98.2, and pulse ox 94%. GENERAL: She is noted to be awake, alert, comfortable, not in distress. SKIN: Adequate turgor. HEENT: Slightly pale conjunctivae. Anicteric sclerae. NECK: No neck mass. No carotid bruits. No JVD. CHEST: No deformities. LUNGS: Clear breath sounds. HEART: Normal sinus rhythm. No murmur. No gallops. No rubs. ABDOMEN: Globular, soft, nontender. No masses. EXTREMITIES: Trace edema. MEDICATIONS: Medications of September 17, 2018. LABORATORY DATA: Laboratories of September 17, 2018, white count 6.2, hemoglobin 8.9. Sodium 141, potassium 5.1, chloride 107, carbon dioxide 23, BUN 97, creatinine 2.8, glucose 104, calcium 9.3. ASSESSMENT AND PLAN: 1. Acute kidney injury/chronic renal failure. Stable renal function. Creatinine noted at 2.8, which is near baseline. Continue low-dose torsemide. No indication for any dialytic intervention. 2. Congestive heart failure-diastolic dysfunction-stable clinically asymptomatic on low- dose torsemide. 3. Anemia-on weekly Epogen. The patient encouraged to follow up with her roustabout head for Procrit shots. From a renal point of view, the patient can be discharged. Job ID: [id number]
--- NOTE | 2018-09-17 12:47 | PDOC.CTH ---
Cardiology Progress Note - Subjective The pt seen and examined. No overnight events. No cardiac complaints. She is more Alerted this AM. - Objective Vital Signs Temp Pulse Resp BP BP Pulse Ox 09/17/18 12:00 97.4 F L 91 20 123/77 93 L 09/17/18 10:32 95 16 95 09/17/18 08:31 94 L 09/17/18 07:53 98.2 F 97 20 142/71 H 94 L 09/17/18 07:52 90 16 09/17/18 04:00 98.4 F 79 20 135/69 93 L Admit Weight 222 lb 9 oz Weight 216 lb 12.8 oz 09/16/18 09/17/18 09/18/18 06:59 06:59 06:59 Intake Total 730 1020 Output Total 925 1125 Balance -195 -105 - Physical Examination General/Neuro: alert & oriented x3 Neck: no JVD present Lungs: other: (diminished at bases) Heart: RRR Abdomen: soft Extremities: other: (1+ pitting BLE edema) - Telemetry Telemetry Rhythm: SR with PACs - Labs Result Diagrams: 09/17/18 04:35 09/17/18 04:35 Troponin/CKMB CK-MB (CK-2) 2.8 ng/mL (0-6.6) 09/10/18 09:00 Troponin I 0.032 ng/mL (< 0.028) H 09/10/18 15:02 - Assessment/Plan 1. Parox. Afib - has been in SR; On ASA 81mg qd 2/2 hx of multiple falls. On Coreg 6.25mg BID 2. S/p of multiple falls with s/p subarachnoid hemorrhage on 09/10/2018 - 3. ANGELICA on CKD - stable; managed by Dr Flores 4. DM type 2 - managed by PCP 5. Chronic Diastolic HF with grade III dd in 11/2017 - On Torsemide 10mg qd; On BBlocker; not on ADRIAN/ARB due to hx of CKD; 6. HTN - stable 7. HLD - On Lipitor 80mg qd 8. Hypothyroidism - 9. Anemia - On Epogen qwk and Iron supplement 10. 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 Hx of TIA/CVA - on Plavix 12. Sleep Apnea with Cpap at HS - strongly encourage cont. Cpap at HS. MAR reviewed * Echo in 11/2017 with EF 50-55%, restrictive diastolic dysfunction (grade III dd), mod ERA, mild-mod MR and TR, mild AR and [place]. * Echo on 09/12/2018 with EF 45-50%, mild ERV, mod-severe dilated LA, mod ERA, mod MR, mild AR, mild MS, and severe TR. ( diastolic dysfunction still persists) . Pt. seen and eval. by me. I agree with the A/P by the COMMERCIAL REAL ESTATE BROKER. She was feeling better today after a bath but very fatigued. gjmays Review of Systems - Review of Systems Constitutional: reports: weakness EENTM: reports: no symptoms reported Respiratory: reports: no symptoms reported Cardiac (ROS): reports: no symptoms reported ABD/GI: reports: no symptoms reported : reports: no symptoms reported
[2018-09-17] MEDS: HumaLOG 300 UNITS/3 ML VIAL SC PRN ×2 (12:55→16:59)
[2018-09-17 15:47] VITALS: BP 153/89; TEMP 97.7
[2018-09-17] MEDS: EPOETIN ALFA-EPBX (ESRD) 4,000 UNIT/ML VIAL SC SCH (19:36)
== END 2018-09-17 20:17 | disposition home health service (06) | DRG 682 ==
LOC: ERS 08:23 → 2SE 10:03
PROVIDERS: ADMIT Specialist; ATTEND Specialist
DX: N17.9 Acute kidney failure, unspecified (principal); I50.33 Acute on chronic diastolic (congestive) heart failure; I13.0 Hypertensive heart and chronic kidney disease with heart failure and stage 1 through stage 4 chronic kidney disease, or unspecified chronic kidney disease; E11.40 Type 2 diabetes mellitus with diabetic neuropathy, unspecified; N18.4 Chronic kidney disease, stage 4 (severe); E78.5 Hyperlipidemia, unspecified; F41.9 Anxiety disorder, unspecified; G47.33 Obstructive sleep apnea (adult) (pediatric); E03.9 Hypothyroidism, unspecified; G47.00 Insomnia, unspecified; K21.9 Gastro-esophageal reflux disease without esophagitis; M19.90 Unspecified osteoarthritis, unspecified site; I25.10 Atherosclerotic heart disease of native coronary artery without angina pectoris; G25.81 Restless legs syndrome; R29.6 Repeated falls; E11.649 Type 2 diabetes mellitus with hypoglycemia without coma; F32.9 Major depressive disorder, single episode, unspecified; D64.9 Anemia, unspecified; W18.30XA Fall on same level, unspecified, initial encounter; S09.8XXA Other specified injuries of head, initial encounter; I48.0 Paroxysmal atrial fibrillation; E11.22 Type 2 diabetes mellitus with diabetic chronic kidney disease; Z86.718 Personal history of other venous thrombosis and embolism; Z79.82 Long term (current) use of aspirin; Z79.4 Long term (current) use of insulin; Z86.73 Personal history of transient ischemic attack (TIA), and cerebral infarction without residual deficits; Z87.891 Personal history of nicotine dependence; Z79.899 Other long term (current) drug therapy; Z88.5 Allergy status to narcotic agent
CPT/HCPCS: 36415; 36416; 51701; 70450; 71045; 80048; 80053; 81003; 81015; 82533; 82553; 83735; 83880; 84443; 84484; 85025; 93005; 93010; 93306; 93798; 94640; 96365; A4353; J1940; J2405; J3475; J7620; P9047; Q5105

== ENCOUNTER 2019-01-29 06:11 | Emergency (ER) | payer MEDICARE, BC ==
[2019-01-29 07:38] LABS: ALT (SGPT) 24 U/L (8-55); AST (SGOT) 23 U/L (5-34); Albumin 3.3 g/dL (3.4-4.8); Alkaline Phosphatase 60 U/L (40-110); Anion Gap 13 mmol/L (10-20); BUN (Urea Nitrogen) 87 mg/dL (9.8-20.1); Bilirubin, Total 0.5 mg/dL (0.2-1.2); Calc. Creatinine Clearance 0 mL/min (70-130); Carbon Dioxide 29 mmol/L (23-31); Chloride 102 mmol/L (98-107); Estimated GFR-MDRD 16; Globulin 3.6 g/dL (2.4-3.5); Glucose 131 mg/dL (83-110); Potassium 4.2 mmol/L (3.5-5.1); Protein, Total 6.9 g/dL (6.0-8.3); Sodium 140 mmol/L (136-145)
--- NOTE | 2019-01-29 07:39 | RAD ---
Portable frontal chest radiograph: 01/29/2019 COMPARISON: 09/15/2018 HISTORY: Shortness of breath FINDINGS: Mild pulmonary vascular prominence. Heart and mediastinal contours are stable. No lobar con solidation or alveolar edema. Stable postoperative anchor overlies left humeral head. IMPRESSION: No focal consolidation or alveolar edema.
--- NOTE | 2019-01-29 07:40 | RAD ---
EXAM: 3 views of the left wrist HISTORY: Wrist pain; history of distal radius fracture. 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 Surroundin g deformity and soft tissue swelling are seen. Vascular calcifications are present. IMPRESSION: Nonunion of distal radius fracture.
[2019-01-29 07:42] LABS: #Basophils 0.1 thou/uL (0.0-0.2); #Lymphocytes 0.5 thou/uL (1.20-3.40); #Monocytes 0.6 thou/uL (0.11-0.59); #Neutrophils 6.6 thou/uL (1.40-6.50); %Basophils 1.5 % (0.0-1.0); %Eosinophils 0.2 % (0.0-10.0); %Lymphocytes 5.9 % (21.0-51.0); %Monocytes 7.5 % (0.0-10.0); %Neutrophils 84.9 % (42.0-75.0); Hemoglobin 10.7 g/dL (12.0-16.0); MDiff Complete? YES; Mean Corpuscular HGB CONC 31.1 g/dL (32.0-36.0); Mean Corpuscular Volume 96.5 fL (78.0-98.0); Platelet Count 102 thou/uL (130-400); Platelet Morphology Comment Appears Decreased; Polychromasia SLIGHT = 2-3 cells (100X) (0-2/hpf); RBC Distribution Width 14.6 % (11.5-14.5); Red Blood Cell (RBC) Count 3.55 mill/uL (4.20-5.40); Schistocytes SLIGHT = 2-5 cells (100X) (0-1/hpf); White Blood Cell (WBC) Count 7.7 thou/uL (4.8-10.8)
--- NOTE | 2019-01-29 07:50 | CT ---
PRELIMINARY REPORT/[facility]/EMERGENCY AFTER HOURS PROCEDURE PROCEDURE INFORMATION: Exam: CT Lumbar Spine Without Contrast\ Exam date and time: 01/29/2019 6:38 AM Clinical history: 83 years old, female; Injury or trauma; Fall; Initial encounter; Sprain or strain, lumbar ligaments; Additional info: Vr. Er 9. Fell several days ago getting out of bed. Lower back pa in since then TECHNIQUE: Imaging protocol: Computed tomography images of the lumbar spine without contrast. COMPARISON: No relevant prior studies available. FINDINGS: Vertebrae: Compression fracture at T12 is noted resulting in approximately 55% loss of vertebral body height. There is mild anterior wedge deformity resulting from the T12 fracture with slightly increased kyphotic angle of the thoracic spine and 4 mm retropulsion. No significant spinal canal stenosis. Discs/Spinal canal/Neural foramina: See Vertebrae Finding. Vasculature: Vascular calcifications are present. Soft tissues: There are calcifications noted within the subcutaneous fat posterior to the sacrum. IMPRESSION: Compression fracture at T12 is noted resulting in approximately 55% loss of vertebral body height. Thank you for allowing us to participate in the care of your patient. Dictated and Authenticated by: King Sen MD 01/29/2019 6:58 AM Central Time ([place] & [place]) FINAL REPORT FINDINGS/IMPRESSION: I agree with the findings and impression given in the preliminary report per the [facility] physician. T12 compression fracture. Transcribed Date/Time: 01/29/2019 7:53 AM
--- NOTE | 2019-01-29 07:55 | CT ---
PRELIMINARY REPORT/[facility]/EMERGENCY AFTER HOURS PROCEDURE: PROCEDURE INFORMATION: Exam: CT Thoracic Spine Without Contrast Exam date and time: 01/29/2019 6:35 AM Clinical history: 83 years old, female; Injury or trauma; Fall; Initial encounter; Sprain or strain; Additional info: [facility]. Er 9. Fell several days ago getting out of bed. Lower back pain since then TECHNIQUE: Imaging protocol: Computed tomography images of the thoracic spine without contrast. COMPARISON: No relevant prior studies available. FINDINGS: Vertebrae: There is a compression fracture at T12 with approximately 55% loss of vertebral body heigh t. There is mildly abnormal kyphotic alignment of the thoracic spine. Discs/Spinal canal/Neural foramina: No spinal stenosis. Soft tissues: Unremarkable. Pleural space: There are small right pleural effusion. IMPRESSION: 1. compression fracture at T12 with approximately 55% loss of vertebral body height. . 2. is small right pleural effusion. Thank you for allowing us to participate in the care of your patient. Dictated and Authenticated by: King Sen MD 01/29/2019 6:54 AM Central Time ([place] & [place]) FINAL REPORT EMERGENT AFTER HOURS CT OF THORACIC SPINE WITHOUT CONTRAST: FINDINGS/IMPRESSION: I agree with the findings and impression given in the preliminary report per [facility] physician. 1. T12 compression fracture. 2. Small right pleural effusion. POS: [facility]
[2019-01-29 08:01] LABS: CKMB 1.1 ng/mL (0-6.6)
[2019-01-29] MEDS ORDERED: HYDROcodone/Acetaminophen 5/325 mg Tablet ONE (08:45)
[2019-01-29] MEDS ORDERED: Ondansetron ODT 8 MG TAB ONE (08:45)
== END 2019-01-29 11:38 | disposition home or self-care (01) ==
LOC: ERS 06:11
DX: S22.089A Unspecified fracture of T11-T12 vertebra, initial encounter for closed fracture (principal); I48.91 Unspecified atrial fibrillation; E11.9 Type 2 diabetes mellitus without complications; E03.9 Hypothyroidism, unspecified; Z86.73 Personal history of transient ischemic attack (TIA), and cerebral infarction without residual deficits; Z87.891 Personal history of nicotine dependence; W06.XXXA Fall from bed, initial encounter
CPT/HCPCS: 36415; 71045; 72128; 72131; 80053; 82553; 83880; 84484; 85025; 93005

== ENCOUNTER 2019-02-02 11:14 | Inpatient (IN) | payer MEDICARE, BC ==
[~2019-02-02 11:14] MED LIST: Heparin 10,000 UNITS/ 10 ML VIAL ONE
[2019-02-02 11:45] LABS: #Basophils 0.1 thou/uL (0.0-0.2); #Lymphocytes 0.2 thou/uL (1.20-3.40); #Monocytes 0.5 thou/uL (0.11-0.59); #Neutrophils 11.2 thou/uL (1.40-6.50); %Basophils 0.5 % (0.0-1.0); %Eosinophils 0.3 % (0.0-10.0); %Monocytes 4.5 % (0.0-10.0); %Neutrophils 92.7 % (42.0-75.0); Hemoglobin 11.1 g/dL (12.0-16.0); Mean Corpuscular Hemoglobin 30.3 pg (27.0-31.0); Mean Corpuscular Volume 97.9 fL (78.0-98.0); Mean Platelet Volume 8.9 fL (7.4-10.4); Platelet Count 111 thou/uL (130-400); RBC Distribution Width 14.3 % (11.5-14.5); Red Blood Cell (RBC) Count 3.65 mill/uL (4.20-5.40); White Blood Cell (WBC) Count 12.1 thou/uL (4.8-10.8)
--- NOTE | 2019-02-02 11:50 | RAD ---
Portable frontal chest radiograph: 02/02/2019 COMPARISON: 01/29/2019 HISTORY: Altered mental status, cough FINDINGS: There is atherosclerotic calcification of the aortic arch. No pneumothorax or pleural fluid . No focal consolidation or alveolar edema. Stable prominence of the cardiac silhouette. There is atherosclerotic calcification of the aortic arch. IMPRESSION: Stable appearance of the chest.
[2019-02-02 12:03] LABS: ALT (SGPT) 26 U/L (8-55); AST (SGOT) 26 U/L (5-34); Albumin 3.5 g/dL (3.4-4.8); Alkaline Phosphatase 74 U/L (40-110); Anion Gap 17 mmol/L (10-20); BUN (Urea Nitrogen) 97 mg/dL (9.8-20.1); Bilirubin, Total 0.6 mg/dL (0.2-1.2); Calc. Creatinine Clearance 0 mL/min (70-130); Calcium 9.1 mg/dL (7.8-10.44); Carbon Dioxide 28 mmol/L (23-31); Chloride 103 mmol/L (98-107); Estimated GFR-MDRD 14; Glucose 148 mg/dL (83-110); Potassium 5.1 mmol/L (3.5-5.1); Protein, Total 7.5 g/dL (6.0-8.3); Sodium 143 mmol/L (136-145)
--- NOTE | 2019-02-02 12:32 | CT ---
CT ABDOMEN AND PELVIS WITHOUT IV CONTRAST: Date: 02/02/19 HISTORY: Vomiting, fever, shortness of breath, cough. FINDINGS: Comparison made with exam of 04/13/18. There is a moderate size right and tiny left pleural effusion. No free air or free fluid seen in the abdomen or pelvis. No calculi seen in the kidneys, ureters, or urinary bladder. No hydroureteronephro sis noted on either side. There is colonic diverticulosis without diverticulitis. Right adrenal nodule is stable. There are vas cular calcifications without evidence of aneurysmal dilatation of the abdominal aorta. Perinephric in flammatory changes demonstrate interval worsening. There is edema in the subcutaneous fat. There are vascular calcifications without evidence of aneurysmal dilatation of the abdominal aorta. There are d egenerative changes in the spine. Old compression fracture of T12 vertebra is again seen. The small b owel loops are not abnormally dilated. IMPRESSION: 1. Bilateral pleural effusions, right larger than left. 2. No CT evidence of ureteral calculi or obstruction. 3. Colonic diverticulosis. 4. Increased perinephric inflammatory changes since last exam. The possibility of UTI should be cons idered. POS: OFF
[2019-02-02] MEDS ORDERED: Azithromycin 500 MG VIAL ONE (12:47)
[2019-02-02 13:01] LABS: Bacteria/HPF 4+ HPF (None Seen); Bilirubin Negative (Negative); Blood, Urine 1+ (Negative); Clarity Turbid (Clear); Glucose, Urine (Dipstick) Normal (Negative); Leukocyte Negative Leu/uL (Negative); Nitrite Negative (Negative); Protein, Urine (Dipstick) 200 mg/dL (Neg-Trace); RBC/HPF 0-3 HPF (0-3); Squamous Epithelial 0-3 HPF (0-3); Urobilinogen Normal mg/dL (Less than 2); WBC/HPF None Seen HPF (0-3)
[2019-02-02] MEDS ORDERED: cefTRIAXone\\ROCEPHIN 2 GM VIAL ONE (13:17)
[2019-02-02] MEDS ORDERED: valACYclovir 500 MG TAB PO SCH (13:30)
[2019-02-02] MEDS ORDERED: Acetaminophen 325 MG TAB PO PRN (15:25)
[2019-02-02] MEDS ORDERED: Ondansetron PF 4 MG/2 ML Vial SLOW IVP PRN (20:53)
[2019-02-02] MEDS ORDERED: Oxymetazoline HCl 0.05% (30 ML BOT) NS PRN (20:56)
[2019-02-02] MEDS ORDERED: FLU VACC TS2019-20(65YR UP)/PF 180 MCG/0.5 ML SYRINGE IM ONE (21:00)
[2019-02-02] MEDS ORDERED: HumaLOG 300 UNITS/3 ML VIAL SC PRN (21:04)
[2019-02-02] MEDS ORDERED: Dextrose 5% in Water 1,000 ML IV PRN (21:06)
[2019-02-02] MEDS: Sodium Chloride 0.9% 1,000 ML IV SCH (21:43)
[2019-02-02] MEDS: Pramipexole Di-HCl 1 MG TAB PO SCH (21:44)
[2019-02-02] MEDS: Atorvastatin Calcium 40 MG TAB PO SCH (21:44)
[2019-02-02] MEDS: Citalopram 20 MG TAB PO SCH (21:44)
[2019-02-02] MEDS: Pregabalin 75 MG CAP PO SCH (21:45)
[2019-02-02] MEDS: Zolpidem Tartrate 5 MG TAB PO SCH (21:45)
[2019-02-02] MEDS: Carvedilol 25 MG TAB PO SCH (21:45)
[2019-02-03 06:10] LABS: #Lymphocytes 0.5 thou/uL (1.20-3.40); #Monocytes 0.7 thou/uL (0.11-0.59); #Neutrophils 9.9 thou/uL (1.40-6.50); %Basophils 0.2 % (0.0-1.0); %Eosinophils 0.4 % (0.0-10.0); %Lymphocytes 4.2 % (21.0-51.0); %Monocytes 6.3 % (0.0-10.0); %Neutrophils 88.9 % (42.0-75.0); Hemoglobin 10.2 g/dL (12.0-16.0); Mean Corpuscular Hemoglobin 30.5 pg (27.0-31.0); Mean Corpuscular Volume 98.5 fL (78.0-98.0); Mean Platelet Volume 8.8 fL (7.4-10.4); Platelet Count 93 thou/uL (130-400); RBC Distribution Width 14.4 % (11.5-14.5); Red Blood Cell (RBC) Count 3.34 mill/uL (4.20-5.40); White Blood Cell (WBC) Count 11.1 thou/uL (4.8-10.8)
[2019-02-03 06:17] LABS: Anion Gap 17 mmol/L (10-20); BUN (Urea Nitrogen) 102 mg/dL (9.8-20.1); Calc. Creatinine Clearance 22 mL/min (70-130); Calcium 8.8 mg/dL (7.8-10.44); Carbon Dioxide 26 mmol/L (23-31); Chloride 105 mmol/L (98-107); Estimated GFR-MDRD 13; Glucose 115 mg/dL (83-110); Sodium 143 mmol/L (136-145)
[2019-02-03] MEDS: Levothyroxine Sodium 75 MCG TAB PO SCH (06:24)
[2019-02-03] MEDS: Acetaminophen 325 MG TAB PO PRN (08:49)
[2019-02-03] MEDS: Torsemide 20 MG TAB PO SCH ×2 (08:49→10:25)
[2019-02-03] MEDS: Clopidogrel Bisulfate 75 MG TAB PO SCH (08:50)
[2019-02-03] MEDS: Carvedilol 25 MG TAB PO SCH ×2 (08:50→20:23)
[2019-02-03] MEDS: Lactinex Tablet PO SCH (08:50)
[2019-02-03] MEDS: Multivitamin W/ Minerals 1 TAB PO SCH (08:50)
[2019-02-03] MEDS: Aspirin Chewable 81 MG TAB PO SCH (08:50)
[2019-02-03] MEDS: Sodium Chloride 0.9% 1,000 ML IV SCH (08:51)
[2019-02-03] MEDS: Insulin Glargine 15 UNITS in Pre-Filled Syringe 1 EACH SC SCH ×2 (08:56→12:16)
[2019-02-03] MEDS: cefTRIAXone\\ROCEPHIN 1 GM in Sodium Chloride 0.9% 100 ML IVPB SCH (12:20)
--- NOTE | 2019-02-03 12:24 | PRG ---
DATE OF SERVICE: 02/03/2019 SERVICE: Renal Medicine. HISTORY OF PRESENT ILLNESS: Ms. Mullen is an 83-year-old white female, who came in for shortness of breath. According to the patient's daughter, she has been having cough and fever. At the same time, she had some nausea and vomiting with decreased p.o. intake. We are now being consulted for her acute kidney injury on top of her chronic renal failure. Please note, this patient has had a history of CHF in the past and is currently on diuretics. REVIEW OF SYSTEMS: Positive for cough. Positive for questionable fever, occasional nausea, decreased appetite, decreased energy level. No abdominal pain. No gross hematuria. No dysuria. No urinary frequency. No productive cough, but mostly a dry cough. No headache. Appetite and energy level are decreased. No melena. No hematemesis. No abdominal pain. MEDICATIONS: The patient is currently on the following medications; 1. Acetaminophen 650 mg q.4 p.r.n. 2. Aspirin 81 mg tablet daily. 3. Atorvastatin 80 mg at bedtime. 4. Azithromycin 250 mg IV daily. 5. Carvedilol 12.5 mg p.o. b.i.d. 6. Ceftriaxone 1 g IV daily. 7. Vitamin D of 1000 international units daily. 8. Citalopram 40 mg at bedtime. 9. Clopidogrel 75 mg tablet once a day. 10. Humalog 5 units subcu p.r.n. sliding scale. 11. Insulin glargine 15 units subcu q.a.m. 12. Levothyroxine 75 mcg daily. 13. Protonix 40 mg tablet once a day. 14. Zolpidem 8 mg tablet at bedtime. PAST MEDICAL HISTORY: 1. Chronic renal failure from diabetic nephropathy. 2. Type 2 diabetes mellitus. 3. History of CHF. 4. GERD. 5. Diabetic retinopathy. 6. History of diastolic dysfunction. 7. Intermittent atrial fibrillation. 8. Restless legs syndrome. 9. Hypothyroidism. 10. Hyperlipidemia. 11. Rectal cancer-in remission. PAST SURGICAL HISTORY: 1. Status post colonoscopy. 2. Status post ileostomy with subsequent takedown. 3. Status post resection of rectal cancer. 4. Status post cardiac catheterization. 5. Status post hysterectomy. 6. Status post open cholecystectomy. 7. Status post excision of skin cancer. 8. Status post laser therapy for retina for diabetic retinopathy. 9. Status post left rotator cuff surgery. ALLERGIES: CODEINE. TRAUMA: None. IMMUNIZATION: Up-to-date. HOSPITALIZATIONS: Please see past medical history. FAMILY HISTORY: No family history of ESRD. SOCIAL HISTORY: The patient is . She lives in [place], lives with her son. Smoked for 40 years, 1 pack a day, currently not smoking. 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 No blood transfusion. No drug abuse. Sedentary lifestyle. Alcohol, none. Education, high school. PHYSICAL EXAMINATION: VITAL SIGNS: Blood pressure is noted at 135/76, heart rate 76, respiratory rate 20, temperature 98, pulse ox 93%. GENERAL: The patient is awake, alert, comfortable, somewhat lethargic, not in distress. SKIN: Adequate turgor. HEENT: She has pinkish conjunctivae. Anicteric sclerae. NECK: No neck mass. No carotid bruits. No JVD. CHEST: No deformities. LUNGS: Decreased breath sounds. No wheezing. No crackles. HEART: Normal sinus rhythm. No murmur. No gallops. No rubs. ABDOMEN: Globular, soft, nontender. No masses. EXTREMITIES: Trace edema. IMAGING STUDIES: Chest x-ray of February 02, 2019, shows stable appearance. No evidence of CHF. No pleural fluid. CT scan of the abdomen and pelvis shows no renal obstruction. There is a bilateral pleural effusion, right greater than left. No CT evidence of ureter calculi or obstruction. There is colonic diverticulosis, increased perinephric inflammatory changes. LABORATORY DATA: Laboratories of February 02, 2019, urinalysis turbid, white cells none seen, RBCs 0-3. Sodium 143, potassium 5, chloride 105, carbon dioxide 26, BUN 102, creatinine 3.39, calcium is 8.8. ASSESSMENT AND PLAN: 1. Acute kidney injury on top of her chronic renal failure-possibility of a superimposed hemodynamically-mediated renal dysfunction. The patient is currently on torsemide. My plan is to give her albumin infusion 25 g IV q.6 and extend for another day if no significant improvement in renal function. If the renal function further progresses, consider holding off torsemide. There is no indication for any dialytic intervention at the present time. 2. Chronic renal failure. This is secondary to her diabetic nephropathy. Her baseline creatinine is about 2.5 mg%. 3. Fever-unclear etiology, although a bronchitis could be a possibility. Please note, her chest x-ray did not show any evidence of pneumonia. In addition, urinalysis did not show any overt urinary tract infection. Overall agree with current management. We will recheck basic metabolic panel and CBC in a.m. Job ID: [id number]
[2019-02-03] MEDS: Albumin 25% 25 GM/100 ML BOT IVPB SCH ×4 (12:31→23:59)
[2019-02-03] MEDS: Azithromycin 500 MG in Sodium Chloride 0.9% 250 ML 250 ML IVPB SCH (12:31)
[2019-02-03] MEDS: Mupirocin 2% Ointment 22 GM Tube TOP SCH ×2 (12:32→20:23)
[2019-02-03] MEDS: Atorvastatin Calcium 40 MG TAB PO SCH (20:22)
[2019-02-03] MEDS: Pregabalin 75 MG CAP PO SCH (20:22)
[2019-02-03] MEDS: Zolpidem Tartrate 5 MG TAB PO SCH (20:23)
[2019-02-03] MEDS: Citalopram 20 MG TAB PO SCH (20:23)
[2019-02-03] MEDS: Pramipexole Di-HCl 1 MG TAB PO SCH (20:24)
[2019-02-04] MEDS: Sodium Chloride 0.9% 1,000 ML IV SCH (00:06)
[2019-02-04] MEDS: Levothyroxine Sodium 75 MCG TAB PO SCH (05:37)
[2019-02-04] MEDS: Albumin 25% 25 GM/100 ML BOT IVPB SCH ×6 (05:37→21:49)
[2019-02-04 06:32] LABS: Hemoglobin A1c 7.5 % (4.0-6.0)
[2019-02-04 06:34] LABS: Hemoglobin 10.2 g/dL (12.0-16.0); Mean Corpuscular HGB CONC 29.6 g/dL (32.0-36.0); Mean Corpuscular Hemoglobin 29.4 pg (27.0-31.0); Mean Corpuscular Volume 99.4 fL (78.0-98.0); Mean Platelet Volume 9.4 fL (7.4-10.4); Platelet Count 87 thou/uL (130-400); RBC Distribution Width 14.4 % (11.5-14.5); Red Blood Cell (RBC) Count 3.49 mill/uL (4.20-5.40); White Blood Cell (WBC) Count 10.9 thou/uL (4.8-10.8)
[2019-02-04 06:35] LABS: #Lymphocytes 0.4 thou/uL (1.20-3.40); #Monocytes 0.5 thou/uL (0.11-0.59); #Neutrophils 9.9 thou/uL (1.40-6.50); %Basophils 0.2 % (0.0-1.0); %Eosinophils 0.2 % (0.0-10.0); %Lymphocytes 3.3 % (21.0-51.0); %Monocytes 4.9 % (0.0-10.0); %Neutrophils 91.5 % (42.0-75.0)
[2019-02-04 06:48] LABS: Anion Gap 23 mmol/L (10-20); BUN (Urea Nitrogen) 113 mg/dL (9.8-20.1); Calc. Creatinine Clearance 20 mL/min (70-130); Calcium 9.2 mg/dL (7.8-10.44); Carbon Dioxide 18 mmol/L (23-31); Chloride 102 mmol/L (98-107); Estimated GFR-MDRD 12; Glucose 128 mg/dL (83-110); Potassium 5.5 mmol/L (3.5-5.1); Sodium 137 mmol/L (136-145)
[2019-02-04 07:23] LABS: Burr Cells SLIGHT = 2-5 cells (100X) (0-1/hpf); MDiff Complete? YES; Platelet Morphology Comment Appears Decreased; Polychromasia SLIGHT = 2-3 cells (100X) (0-2/hpf)
[2019-02-04] MEDS ORDERED: Albumin 25% 25 GM/100 ML BOT IVPB ONE (08:59)
[2019-02-04] MEDS: Insulin Glargine 15 UNITS in Pre-Filled Syringe 1 EACH SC SCH (09:09)
[2019-02-04] MEDS ORDERED: Sodium Chloride 0.9% 1,000 ML IV SCH (09:11)
--- NOTE | 2019-02-04 09:18 | RAD ---
Exam: Chest one view HISTORY:Pneumonia Comparison: 02/02/2019 FINDINGS: Cardiac silhouette:Cardiomegaly Aorta: Atherosclerosis. Pulmonary vessels: Normal Costophrenic angles: Bilateral pleural effusions, right greater than left LUNGS: Bibasilar opacities. Pneumothorax: None Osseous abnormalities: None IMPRESSION: Bibasilar pleural-parenchymal changes, right greater than left.
[2019-02-04] MEDS: Carvedilol 25 MG TAB PO SCH ×2 (09:55→21:08)
[2019-02-04] MEDS: Aspirin Chewable 81 MG TAB PO SCH (09:55)
[2019-02-04] MEDS: Multivitamin W/ Minerals 1 TAB PO SCH (09:56)
[2019-02-04] MEDS: Clopidogrel Bisulfate 75 MG TAB PO SCH (09:56)
[2019-02-04] MEDS: Lactinex Tablet PO SCH (09:56)
[2019-02-04] MEDS: Mupirocin 2% Ointment 22 GM Tube TOP SCH ×3 (09:57→21:07)
--- NOTE | 2019-02-04 10:01 | PRG ---
DATE OF SERVICE: 02/04/2019 SUBJECTIVE: Ms. Mullen is an 83-year-old white female, followed up by the Renal Service for her chronic renal failure. She also had a superimposed acute kidney injury. Creatinine continues to worsen. She has been given albumin infusion. My plan is to extend it for another day. She is also on normal saline 70 mL/h. We will be discontinuing her torsemide today. The patient was noted to be sleepy. For that reason, the PCP has discontinued the Lyrica. No acute complaints today. OBJECTIVE: VITAL SIGNS: Blood pressure is noted at 132/79, heart rate 82, respiratory rate 20, O2 saturation is 96%, temperature 97.9. GENERAL: The patient is sleepy, but minimally arousable, not in distress. SKIN: Adequate turgor. HEENT: She has slightly pale conjunctivae. Anicteric sclerae. NECK: No neck mass. No carotid bruits. No JVD. CHEST: No deformities. LUNGS: Decreased breath sounds. HEART: Normal sinus rhythm. No murmur. No gallops. No rubs. ABDOMEN: Globular, soft, nontender. No masses. EXTREMITIES: Trace edema. MEDICATIONS: Medications of February 04, 2019, reviewed. LABORATORY DATA: Laboratories of February 04, 2019; white count 10.9, hemoglobin 10.2. Sodium 137, potassium 5.5, chloride 102, carbon dioxide 18, BUN is 113, creatinine 3.68, GFR 12 mL/minute, glucose 115. ASSESSMENT AND PLAN: 1. Acute kidney injury on top of her chronic renal failure, superimposed prerenal azotemia. Albumin infusion will be continued. I would suggest we increase normal saline to at least 125 mL an hour due to the worsening renal dysfunction. Please note, BUN is more than 100. 2. Fever? bronchitis, currently on IV antibiotics. 3. Sleepiness. Agree to hold off Lyrica. 4. No indication for an emergent hemodialysis. Recheck basic metabolic profile and CBC in a.m. Job ID: [id number]
[2019-02-04] MEDS: Torsemide 20 MG TAB PO SCH (10:14)
--- NOTE | 2019-02-04 11:12 | HP ---
CHIEF COMPLAINT: Shortness of breath, pyelonephritis, and acute renal insufficiency. HISTORY OF PRESENT ILLNESS: The patient is an 83-year-old female, who lives at home with the care of her son. Her son most recently has been placed into [facility] for treatment of a cellulitis of his foot. This patient began to feel ill two days prior to arrival with increasing cough, shortness of breath, and finally EMS was called when the other daughter could not move her in her room due to general weakness and feeling sick. She had begun having cough, nausea, vomiting, and fever. When EMS arrived, her O2 saturation was about low 80%. They put her on a non rebreather and got her up to 100% at that point. Her blood pressure was 85/42, pulse rate was in the 130s. Upon arrival at [facility] ER department, she has stabilized significantly with O2 saturation as mentioned previously, 200%, temperature on arrival was 102.3. Initial chest x-ray failed to show any significant illness. However on CT of the abdomen due to generalized abdomen tenderness, bilateral pleural effusions were noted, but most importantly, stranding around the left kidney was noted. The patient's renal function was noted to be BUN 97, creatinine 3.17, and her WBCs were 12.1 with a distinct left shift. Dr. Doyle was contacted for admission. Blood cultures have been obtained, antibiotics begun, and she was placed in the hospital at this point. PAST MEDICAL HISTORY: Significant for insulin-dependent diabetes and obstructive sleep apnea, both of which she is rarely compliant with diet and refuses to wear, CPAP, Auto PAP rather. She has hypertension, hyperlipidemia, and anxiety disorder. She was recently hospitalized for pancolitis due to C diff. 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 She has diabetic neuropathy; restless legs syndrome; congestive heart failure, most recently with an echo this last summer with a 45% to 50% ejection fraction and severely enlarged left atrium, it is more of a diastolic dysfunction. She has atrial fibrillation. She also has hypothyroidism, dyslipidemia, chronic insomnia, renal insufficiency, GERD, and osteoarthritis. She has had ventricular tachycardia and DVTs, pancreatitis, and coronary artery disease. There has been episodes of hyperglycemia due to noncompliance with medication and history of rectal cancer. PAST SURGICAL HISTORY: Includes hysterectomy, cholecystectomy, rotator cuff repair, coronary artery disease with bypass grafting, colostomy and reversal of colostomy due to rectal cancer, bilateral cataract removal, left arm deformity due to fall and fracture persistent, because there was no surgical intervention, it is chronically deformed. PSYCHIATRIC HISTORY: Significant for anxiety and depression. ALLERGIES: SHE IS ALLERGIC TO CODEINE AND ALSO IBUPROFEN. MEDICATIONS: Her list of medications includes; 1. Protonix 40 mg daily. 2. Aspirin 81 mg daily. 3. Citalopram 40 mg daily. 4. Lipitor 80 mg nightly. 5. Humalog KwikPen 23 to 28 units sliding scale. 6. Lantus SoloStar 20 units subcu daily. 7. Carvedilol 12.5 mg b.i.d. 8. Lunesta 3 mg nightly. 9. Mirapex 1.5 mg, taken one-half at bedtime. 10. Torsemide 25 mg every morning. 11. Lyrica 150 mg b.i.d. 12. Plavix 75 mg daily. 13. Levothyroxine 75 mcg daily. She also had not been taking that correctly, but is now taking it correctly. REVIEW OF SYSTEMS: CONSTITUTIONAL: At the time of admission, she was febrile, fatigued, weak, and unable to care for herself. HEENT: Denies sores or drainage from ears, nose, or throat. CHEST: She states that she has cough and chronic dyspnea. CARDIOVASCULAR: Denies chest pain or palpitations at this time. GI: On abdomen exam, she states she has had nausea and vomiting, but denies diarrhea. : Denies dysuria or blood in urine or stool. MUSCULOSKELETAL: Complains of right lower extremity tenderness and swelling which is old, but recently there has been erythema and heat in the right lower extremity. SKIN: She has redness and irritation in the right lower anterior tibia area and most recently this last week, she broke out in a vesicular patch rash on her back with radiation lesions around to the front diagnosed as shingles. NEUROLOGIC: She denies any trouble with mentation, or headaches or blurred vision. PHYSICAL EXAMINATION: VITAL SIGNS: At the time of admission, blood pressure is up to 167/84, pulse 102, respirations are 13, O2 saturation is 100% on non-rebreather, and temperature is 102.3. Unable to rate her pain at this particular time. GENERAL: She appears ill and in mild respiratory distress. This is due to splinting from the pain of inspiring with left flank pain. HEENT: Normocephalic and atraumatic. Pupils are equal, round, and reactive to light with arcus senilis bilaterally. TMs, nares, and pharynx are clear. Membranes are moist. CHEST: Clear breath sounds bilaterally. HEART: Regular rate and rhythm. Tachycardic. BREASTS: Deferred. BACK: Reveals left CVA tenderness and shingles outbreak, radiating around to the front. ABDOMEN: Soft and nontender without hepatosplenomegaly. : Deferred. EXTREMITIES: Without clubbing or cyanosis. There is 3+ edema in bilateral lower extremities with erythema and tenderness on exam. SKIN: The aforementioned shingles outbreak on her back with radicular pattern distribution, there is some drying taking place, right lower extremity to anterior tibia area with redness, tenderness, and heat and erythema. NEUROLOGIC: Cranial nerves are intact. Sensory exam is intact. Unable to test gait and cerebral function at this time. Mental status is at baseline and is nonfocal. LABORATORY DATA: Lab work on admission shows WBCs at 12.1, hemoglobin 11.1, hematocrit 35.8 with platelets at 111, neutrophils 92.7, lymphocytes of 2. Sodium is at 143, potassium 5.1, chloride 103, CO2 is at 28, BUN 97, creatinine 3.17, glucose 148, lactic acid 1.1, calcium 9.1, total bilirubin 0.6, AST 26, ALT 26, and alkaline phos 74. Urine shows 200 protein, ketones with trace, blood 1+. Chest exam shows no acute disease and clear. CT of the abdomen, however reveals, 1. Bilateral pleural effusions, right larger than left. 2. No CT evidence of renal calculi or obstruction. 3. Shows colonic diverticulosis. 4. Shows increased perinephric inflammatory changes indicative of left-sided pyelonephritis. ASSESSMENT: 1. Sepsis. 2. Urinary tract infection, probable early pyelonephritis. 3. Pleural effusion. 4. Acute kidney injury. 5. Insulin-dependent diabetes-noncompliant. 6. Obstructive sleep apnea, noncompliant. 7. Cellulitis of the right lower extremity. 8. Active shingles outbreak. PLAN: 1. Plan will be to continue antibiotics. Provide probiotics to lessen the chance of recurrence of C diff. 2. Call in Nephrology-Dr. Flores to consult on the patient. 3. Serially re-evaluate the patient and prevent exposure to the shingles. Job ID: [id number]
[2019-02-04] MEDS ORDERED: Furosemide 40 MG/4 ML VIAL SLOW IVP SCH (12:00)
[2019-02-04 12:15] LABS: Actual Bicarbonate (HCO3a) 20.4 mEq/L (22-28); Base Excess (BEa) -8.5 mEq/L (-2.0 to +3.0); CO2 Tension 58.7 mmHg (35.0-45.0); Calcium, Ionized 1.13 mmol/L (1.12-1.30); Carboxyhemoglobin (COHb) 0.9 gm% (0.0-3.0); Hemoglobin (Hb) 10.5 g/dL (12.0-16.0); O2 Tension (PaO2) 108.6 mmHg (> 60.0); Potassium - ABG Lab 5.45 mmol/L (3.70-5.30)
[2019-02-04] MEDS ORDERED: Furosemide 100 MG/10 ML VIAL SLOW IVP SCH (12:15)
[2019-02-04 12:22] LABS: Puncture Site LRA; pH, Arterial 7.16 (7.35-7.45)
[2019-02-04 12:23] LABS: ALV-art Gradient 67.575 (0-20)
[2019-02-04] MEDS: Sodium Bicarbonate 140 MEQ in Dextrose 5% in Water 1,000 ML IV SCH (13:11)
[2019-02-04] MEDS: Azithromycin 500 MG in Sodium Chloride 0.9% 250 ML 250 ML IVPB SCH (13:11)
[2019-02-04] MEDS: cefTRIAXone\\ROCEPHIN 1 GM in Sodium Chloride 0.9% 100 ML IVPB SCH (13:34)
--- NOTE | 2019-02-04 14:08 | CON ---
DATE OF CONSULTATION: 02/04/2019 CRITICAL CARE TIME: 35 minutes. REASON FOR CONSULTATION: Acute respiratory failure. HISTORY OF PRESENT ILLNESS: The patient is an 83-year-old female, who was initially admitted to this facility on 02/03/[address] Doyle. She was admitted for sepsis-type syndrome. She was seen in consultation by Nephrology because she had an elevated creatinine. This morning, she was noted to be more lethargic. She was brought to the ICU for initiation of BiPAP. Up to this point, I do not have an ABG result. She has awakened since being placed on BiPAP. PAST MEDICAL HISTORY: 1. Chronic renal insufficiency. 2. ROBERT, noncompliant with CPAP, diastolic cardiac dysfunction with repeated episodes of congestive heart failure, insulin-dependent diabetes mellitus, insomnia, gastroesophageal reflux, chronic atrial fibrillation, deep venous thrombosis, coronary artery disease, and pancreatitis. PAST SURGICAL HISTORY: Hysterectomy, cholecystectomy, right external rotator cuff repair, coronary artery bypass grafting surgery, cancer surgery, and cataract removal. ALLERGIES: CODEINE AND IBUPROFEN. SOCIAL HISTORY: Nonsmoker. Does not consume alcohol. Does not use illicit drugs. MEDICATIONS PRIOR TO ADMISSION: 1. Lunesta. 2. Lipitor. 3. Lantus insulin. 4. Humalog insulin. 5. Pregabalin. 6. Coreg. 7. Mirapex. 8. Celexa. 9. Vitamin D. 10. Protonix. 11. Plavix. 12. Probiotic. 13. Demadex. 14. Aspirin. 15. Synthroid. 16. Talwin. 17. Oxymetazoline nasal spray. CURRENT INPATIENT MEDICATIONS: 1. Acidophilus. 2. Albumin. 3. Aspirin. 4. Lipitor. 5. Azithromycin. 6. Carvedilol. 7. Ceftriaxone. 8. Vitamin D3. 9. Plavix. 10. Humalog insulin. 11. . 12. Synthroid. 13. Zofran. 14. Protonix. 15. Mirapex. PHYSICAL EXAMINATION: VITAL SIGNS: Temperature 97.9, pulse 114, blood pressure 127/87, O2 saturation 94%. She does awaken on BiPAP, but does not follow commands very well. HEENT: Pupils react. Sclerae anicteric. Oropharynx, CPAP mask on. NECK: No adenopathy or JVD. LUNGS: Diminished breath sounds in both bases. CARDIOVASCULAR: S1 and S2, irregularly irregular without murmur. ABDOMEN: Soft, nontender to palpation. EXTREMITIES: No clubbing or cyanosis. She has 2+ edema. LABORATORY DATA: Sodium 137, potassium 5.5, chloride 102, CO2 of 18, BUN 113, creatinine 3.6, and glucose 128. Hemoglobin A1c is 7.5. TSH 2.17. White blood cell count 10.9, hematocrit 34.7, and platelet count 87, and 91% neutrophils. Urinalysis showed no white blood cells. Chest x-ray shows bilateral pulmonary edema, right greater than left. There is a right pleural effusion, which is small. ASSESSMENT: 1. Pulmonary edema versus pneumonia. Based on the fact that she has been receiving aggressive IV fluid resuscitation in the face of chronic kidney disease, I wonder if this is just not all fluid overload. 2. Acute hypoxic respiratory failure, requiring mechanical ventilation. 3. Multiple other problems as listed above. PLAN: 1. I am going to give her one dose of IV Lasix and see how she responds. I would be very cautious in hydrating her. 2. Continue BiPAP. 3. Check ABG. 4. Adjust medications appropriately for compromised renal function. I would probably hold the Mirapex for now as it is renally excreted. If medication needed for restless legs syndrome, then I would choose ropinirole instead. Job ID: [id number]
[2019-02-04 15:06] LABS: Actual Bicarbonate (HCO3a) 18.5 mEq/L (22-28); Base Excess (BEa) -9.2 mEq/L (-2.0 to +3.0); CO2 Tension 48.3 mmHg (35.0-45.0); Calcium, Ionized 1.11 mmol/L (1.12-1.30); Carboxyhemoglobin (COHb) 0.8 gm% (0.0-3.0); Hemoglobin (Hb) 10.3 g/dL (12.0-16.0); O2 Tension (PaO2) 105.2 mmHg (> 60.0); Potassium - ABG Lab 5.35 mmol/L (3.70-5.30)
--- NOTE | 2019-02-04 16:05 | CON ---
DATE OF CONSULTATION: 02/04/2019 REASON FOR CONSULTATION: Atrial fibrillation with rapid ventricular response. PRIMARY GASTROENTEROLOGY NURSE: Gerri Barlow MD HISTORY OF PRESENT ILLNESS: Ms. Mullen is a pleasant 83-year-old woman, who is a patient of Dr. Yuri Barlow. She has a history of chronic atrial fibrillation. She is currently on aspirin and Plavix. She recently presented with fever of 101 and 102 on 2 separate occasions. She was treated for UTI and possible pneumonia. She began having difficulty breathing and had increased heart rate present today. She was then transferred to the ICU for further recommendations. She is currently on a BiPAP. She does awaken to voice, but appears somnolent. PAST MEDICAL HISTORY: Rectal cancer, DVT, PE, hip fracture, previous stroke, hyperlipidemia, diabetes mellitus, hypertension, previous anemia, obstructive sleep apnea, chronic atrial fibrillation. HOME MEDICATIONS: Include: 1. Iron sulfate. 2. Pantoprazole. 3. Aspirin. 4. Plavix. 5. Calcitriol. 6. Coreg. 7. Levothyroxine. 8. NovoLog. 9. Mirapex. 10. Torsemide. 11. Tylenol. 12. Atorvastatin. 13. Lantus. 14. Citalopram. PAST SURGICAL HISTORY: Eye surgery, cholecystectomy, hysterectomy, rotator cuff repair, previous angio in 2009 with mild coronary artery disease. FAMILY HISTORY: Positive for CAD. ALLERGIES: CODEINE. REVIEW OF SYSTEMS: Unobtainable. She is currently sedated and somnolent. PHYSICAL EXAMINATION: GENERAL: She is currently somnolent. VITAL SIGNS: Blood pressure 97/47, pulse 94, and temperature afebrile. NEUROLOGIC: The patient is alert and oriented x3 with no focal neurologic deficits. HEENT: Sclerae without icterus. Mouth has moist mucous membranes with normal pallor. NECK: No JVD. Carotid upstroke brisk. No bruits bilaterally. LUNGS: Clear to auscultation with unlabored respirations. BACK: No scoliosis or kyphosis. CARDIAC: Irregularly irregular rate and rhythm with normal S1 and S2. No S3 or S4 noted. No significant rubs, murmurs, thrills, or gallops noted throughout the precordium. PMI is not displaced. There is no parasternal heave. ABDOMEN: Soft, nontender, nondistended. No peritoneal signs present. No hepatosplenomegaly. No abnormal striae. EXTREMITIES: 2+ femoral and 2+ dorsalis pedis pulses. No cyanosis, clubbing, or edema. SKIN: No gross abnormalities. PERTINENT LABORATORY DATA: Hemoglobin 10.2. Creatinine 3.68, which is up from 3.39. EKG shows atrial fibrillation with nonspecific ST-T wave changes. BNP of 838. IMPRESSION: 1. Atrial fibrillation with rapid ventricular response. 2. Febrile illness of unknown etiology ? pneumonia. 3. Previous history of diastolic dysfunction. 4. Hypertension. 5. Hyperlipidemia. RECOMMENDATIONS: The patient appears to be rate controlled. She is currently not on medications. She initially had increased heart rate likely related to hypoxia. She is currently requiring CPAP and doing well. From a CV standpoint, I would recommend close observation. She is currently on antibiotic therapy. She has received hydration for increase in her creatinine. Otherwise, from a CV standpoint, I have no further recommendations. She is currently getting albumin in addition to a Zithromax. She has received 1 dose of Lasix. Job ID: [id number]
[2019-02-04 17:11] LABS: ALV-art Gradient 83.975 (0-20); Puncture Site LRA
[2019-02-04] MEDS: Atorvastatin Calcium 40 MG TAB PO SCH (21:08)
[2019-02-05] MEDS: Albumin 25% 25 GM/100 ML BOT IVPB SCH ×3 (03:08→21:11)
[2019-02-05 04:33] LABS: Anion Gap 19 mmol/L (10-20); BUN (Urea Nitrogen) 123 mg/dL (9.8-20.1); Calc. Creatinine Clearance 18 mL/min (70-130); Calcium 8.7 mg/dL (7.8-10.44); Carbon Dioxide 23 mmol/L (23-31); Chloride 103 mmol/L (98-107); Estimated GFR-MDRD 11; Glucose 170 mg/dL (83-110); Sodium 140 mmol/L (136-145)
[2019-02-05] MEDS: Levothyroxine Sodium 75 MCG TAB PO SCH (05:26)
[2019-02-05 05:46] LABS: #Eosinphils 0.1 thou/uL (0.0-0.7); #Lymphocytes 0.6 thou/uL (1.20-3.40); #Monocytes 0.5 thou/uL (0.11-0.59); #Neutrophils 6.1 thou/uL (1.40-6.50); %Basophils 0.3 % (0.0-1.0); %Eosinophils 0.9 % (0.0-10.0); %Lymphocytes 8.2 % (21.0-51.0); %Monocytes 6.9 % (0.0-10.0); %Neutrophils 83.8 % (42.0-75.0); Hemoglobin 9.7 g/dL (12.0-16.0); Mean Corpuscular HGB CONC 30.6 g/dL (32.0-36.0); Mean Corpuscular Hemoglobin 29.8 pg (27.0-31.0); Mean Corpuscular Volume 97.6 fL (78.0-98.0); Mean Platelet Volume 9.5 fL (7.4-10.4); Platelet Count 91 thou/uL (130-400); RBC Distribution Width 14.3 % (11.5-14.5); Red Blood Cell (RBC) Count 3.24 mill/uL (4.20-5.40); White Blood Cell (WBC) Count 7.2 thou/uL (4.8-10.8)
[2019-02-05] MEDS ORDERED: Furosemide 20 MG/2 ML VIAL IVP SCH (08:00)
[2019-02-05] MEDS ORDERED: Albumin 25% 25 GM/100 ML BOT IVPB SCH (08:14)
[2019-02-05] MEDS: Multivitamin W/ Minerals 1 TAB PO SCH (08:54)
[2019-02-05] MEDS: Clopidogrel Bisulfate 75 MG TAB PO SCH (08:54)
[2019-02-05] MEDS: Carvedilol 25 MG TAB PO SCH ×2 (08:54→21:11)
[2019-02-05] MEDS: Aspirin Chewable 81 MG TAB PO SCH (08:54)
[2019-02-05] MEDS: Lactinex Tablet PO SCH (08:54)
[2019-02-05] MEDS: Insulin Glargine 15 UNITS in Pre-Filled Syringe 1 EACH SC SCH (08:55)
[2019-02-05] MEDS: Mupirocin 2% Ointment 22 GM Tube TOP SCH ×3 (09:11→21:11)
--- NOTE | 2019-02-05 09:11 | PRG ---
DATE OF SERVICE: 02/05/2019 35 minutes of critical care time. SUBJECTIVE: The patient remains on noninvasive ventilation. She is much more awake than she was yesterday. She has not made any significant urine. OBJECTIVE: VITAL SIGNS: Temperature 97.1, pulse 71, blood pressure 123/69. Intake 1673, output 324, all that through urine. HEENT: Unremarkable. NECK: No adenopathy or JVD. CHEST: Diminished breath sounds at bases. CARDIAC: S1, S2. Regular. ABDOMEN: Soft. EXTREMITIES: Edematous. LABORATORY DATA: Sodium 140, potassium 5, chloride 103, CO2 23, BUN 123, creatinine 4.1, glucose 170. White blood cell count 7.2, hematocrit 31.6, and platelet count 91. ASSESSMENT: 1. Gross fluid overload, which is likely secondary to acute on chronic renal failure with fluid retention. 2. Acute hypoxic respiratory failure. 3. Obstructive sleep apnea, noncompliant with CPAP at home. 4. History of congestive heart failure, diastolic. 5. Insulin-dependent diabetes mellitus. 6. Chronic atrial fibrillation. PLAN: In my opinion, she will probably need dialysis to facilitate fluid removal. I am going to try an additional dose of Lasix, but I doubt that will help. Right now, she is oxygenating and maintaining fine on BiPAP. We will update family when they are available. Job ID: [id number]
[2019-02-05] MEDS: Sodium Bicarbonate 140 MEQ in Dextrose 5% in Water 1,000 ML IV SCH (09:17)
--- NOTE | 2019-02-05 09:25 | PRG ---
DATE OF SERVICE: 02/05/2019 SERVICE: Renal Medicine. SUBJECTIVE: Ms. Lorna Mullen is an 83-year-old white female, followed up by the Renal Service for her chronic renal failure. Yesterday, she became more somnolent and became hypoxemic. She went into acute respiratory distress. She is now transferred to ICU for BiPAP. She still has very minimal urine output. We have empirically volume depleted this patient with albumin, but renal function remains unimproved. Creatinine is higher today at a value of 4.07 with a BUN of 123. Our plan is to empirically continue diuresis for this patient with continuous albumin infusion to enhance the effect of diuretics as well as to maintain intravascular volume. OBJECTIVE: VITAL SIGNS: Blood pressure is 123/69, heart rate 68, respiratory rate 24, pulse oximetry 98%. GENERAL: The patient is awake, on BiPAP, not in distress, obese. SKIN: Adequate turgor. HEENT: She has pinkish conjunctivae. Anicteric sclerae. NECK: No neck mass. No carotid bruits. No JVD. CHEST: No deformities. LUNGS: Clear breath sounds. HEART: Normal sinus rhythm. No murmur. No gallops. No rubs. ABDOMEN: Globular, soft, nontender. No masses. EXTREMITIES: Trace edema. MEDICATIONS: Medications of February 05, 2019 were reviewed. LABORATORY DATA: Laboratories of February 05, 2019; white count 7.2, hemoglobin 9.7, sodium 140, potassium 5, chloride 103, carbon dioxide 23, BUN 123, creatinine 4.0, and calcium 8.7. February 04, 2019, chest x-ray showed bilateral pleural effusions, right greater than left. ASSESSMENT AND PLAN: 1. Acute respiratory distress - stable currently on BiPAP and oxygenating adequately. Start Lasix 80 mg IV q.12. Start also albumin infusion. 2. Acute kidney injury/chronic renal failure. Supportive care superimposed hemodynamically-mediated renal dysfunction. Continue albumin infusion at 25 g IV q.6h. Please note, diuretics has been started. 3. Borderline anemia. We will continue to observe. 4. We will hold dialysis. If no improvement in the next 24 hours, we will consider dialytic intervention. We will discuss this with the patient's son. 5. Overall agree with supportive care. Job ID: [id number]
[2019-02-05] MEDS: Insulin Regular 300 UNITS/3 ML VIAL SC PRN ×2 (11:52→17:22)
--- NOTE | 2019-02-05 12:36 | PQF ---
CLINICAL DOCUMENTATION IMPROVEMENT CLARIFICATION FORM: ICD-10 Updated PLEASE DO AN ADDENDUM TO THE PROGRESS NOTE WITH ANY DOCUMENTATION UPDATES OR ADDITIONS AND CARRY THROUGH TO DC SUMMARY. THANK YOU. DATE: 02/05/19 ATTN: DR. DICKERSON Please exercise your independent, professional judgment in responding to the clarification form. Clinical indicators are provided on the bottom of this form for your review Please check appropriate box(s) to clarify if the following diagnosis has been ruled in or ruled out: "PNEUMONIA" [ ] Ruled in diagnosis [ ] Continue to treat [ ] Resolved [ ] Ruled out diagnosis [ ] Cannot rule out diagnosis [ x] Other diagnosis [ ] Unable to determine In addition, please specify: Present on Admission (POA): [ x] Yes [ ] No [ ] Unable to determine For continuity of documentation, please document condition throughout progress notes and discharge summary. Thank You. CLINICAL INDICATORS - SIGNS / SYMPTOMS / LABS / RESULTS AND LOCATION IN MR CONSULTATION REPORT (PULMONARY) 02/04: "PULMONARY EDEMA VS PNEUMONIA. BASED ON THE FACT THAT SHE HAS BEEN RECEIVING AGGRESSIVE IV FLUID RESUSCITATION IN THE FACE OF CHRONIC KIDNEY DISEASE, I WONDER IF THIS IS JUST NOT ALL FLUID OVERLOAD. " CONSULTATION REPORT (CARDIOLOGY) 02/04: "FEBRILE ILLNESS OF UNKNOWN ETIOLOGY ? PNEUMONIA" NURSING NOTE 02/03: "LEFT LUNG FIELD VERY COARSE" WBC 02/02: 12.1 PULSE 102 (IN ER) TEMP 102.3 RISKS: H/O DIABETES (ER NOTE 02/02) ADVANCED AGE FORMER SMOKER (ER NOTE 02/02) TREATMENT: CHEST XRAY 02/02 NONREBREATHER MASK (IN ER) IV ROCEPHIN (ER-PRESENT) IV AZITHROMYCIN (ER-PRESENT) PULMONARY CONSULT ABGS 02/04 (This form is maintained as a part of the permanent medical record) 2014 [employer]. All Rights Reserved [email or web address] Office: [phone] [facility]
--- NOTE | 2019-02-05 12:46 | PQF ---
CLINICAL DOCUMENTATION IMPROVEMENT CLARIFICATION FORM: ICD-10 Updated PLEASE DO AN ADDENDUM TO THE PROGRESS NOTE WITH ANY DOCUMENTATION UPDATES OR ADDITIONS AND CARRY THROUGH TO DC SUMMARY. THANK YOU. DATE: 02/05/19 ATTN : DR. DICKERSON Please exercise your independent, professional judgment in responding to the clarification form. Clinical indicators are provided on the bottom of this form for your review Please check appropriate box(s): HEART FAILURE: A. ACUITY [ ] Acute [ ] Acute on Chronic [ x ] Chronic B. TYPE [ ] Systolic / HFrEF [ x ] Diastolic / HFpEF [ ] Combined Systolic / Diastolic [ ] Hypertensive Heart and Kidney disease [ ] Hypertensive Heart Disease [ ] Hypertensive Kidney Disease [ ] Other diagnosis [ ] Unable to determine In addition, please specify: Present on Admission (POA): [ x ] Yes [ ] No [ ] Unable to determine For continuity of documentation, please document condition throughout progress notes and discharge summary. Thank You. CLINICAL INDICATORS - SIGNS / SYMPTOMS / LABS / RESULTS AND LOCATION IN EMR CONSULTATION REPORT (PULMONARY) 02/04: "PULMONARY EDEMA VS PNEUMONIA. BASED ON THE FACT THAT SHE HAS BEEN RECEIVING AGGRESSIVE IV FLUID RESUSCITATION IN THE FACE OF CHRONIC KIDNEY DISEASE, I WONDER IF THIS IS JUST NOT ALL FLUID OVERLOAD. " BNP 02/04: 838.4 RISKS: IV FLUID RESUSCITATION (PULMONARY NOTE 02/04) H/O CONGESTIVE HEART FAILURE, DIASTOLIC (PULMONARY PROGRESS NOTE 02/05) ACUTE ON CHRONIC RENAL FAILURE WITH FLUID RETENTION (PULMONARY PROGRESS NOTE ) TREATMENT: IV LASIX (02/04-PRESENT) CHEST XRAY 02/02 SUPPLEMENTAL OXYGEN SAP Regulated Program Manager [employer] (This form is maintained as a part of the permanent medical record) 2014 [email or web address]. All Rights Reserved [email or web address] [email or web address] Office: [phone] [facility]
[2019-02-05] MEDS: Azithromycin 500 MG in Sodium Chloride 0.9% 250 ML 250 ML IVPB SCH (12:57)
[2019-02-05] MEDS: Acetaminophen 325 MG TAB PO PRN ×2 (12:57→21:13)
--- NOTE | 2019-02-05 13:57 | PDOC.CPN ---
- Subjective Date: 02/05/19 Time: 08:30 Interval history: The pt seen and examined. No overnight events. She is very lethargic and did not open her eyes this AM. Responded to pain stimulation - Objective Allergies/Adverse Reactions: Allergies Allergy/AdvReac Type Severity Reaction Status Date / Time codeine Allergy Verified 09/10/18 15:23 ibuprofen [From Motrin] Allergy Verified 02/02/19 15:45 Visit Medications: Current Medications Acetaminophen (Tylenol) 650 mg PO Q4H PRN PRN Reason: Headache/Fever or Pain Last Admin: 02/05/19 12:57 Dose: 650 mg Acidophilus (Floranex) 1 tab PO DAILY [facility] [place] Last Admin: 02/05/19 08:54 Dose: 1 tab Albumin Human (Albumin 25%) 25 gm IVPB 0200,0800,1400,2000 [facility] [place] Stop: 02/06/19 08:01 Albuterol/Ipratropium (Duoneb) 3 ml NEB QID-RT [facility] Last Admin: 02/05/19 11:47 Dose: 3 ml Aspirin (Aspirin Chewable) 81 mg PO QAM-WM [facility] [place] Last Admin: 02/05/19 08:54 Dose: 81 mg Atorvastatin Calcium (Lipitor) 80 mg PO HS [facility] Last Admin: 02/04/19 21:08 Dose: 80 mg Carvedilol (Coreg) 12.5 mg PO BID [facility] [place] Last Admin: 02/05/19 08:54 Dose: 12.5 mg Cholecalciferol (Vitamin D3) 1,000 units PO DAILY [facility] [place] Last Admin: 02/05/19 09:07 Dose: 1,000 units Clopidogrel Bisulfate (Plavix) 75 mg PO DAILY [facility] [place] Last Admin: 02/05/19 08:54 Dose: 75 mg Dextrose/Water (Dextrose 50%) 25 gm IVP PRN PRN PRN Reason: HYPOGLYCEMIA PROTOCOL Furosemide (Lasix) 80 mg SLOW IVP 0600,1400 [facility] Glucagon (Glucagon) 1 mg IM PRN PRN PRN Reason: HYPOGLYCEMIA PROTOCOL Ceftriaxone Sodium 1 gm/ (Sodium Chloride) 100 mls @ 200 mls/hr IVPB 1400 [facility] Last Admin: 02/04/19 13:34 Dose: 100 mls Azithromycin 500 mg/ Sodium (Chloride) 250 mls @ 250 mls/hr IVPB 1300 [facility] Last Admin: 02/05/19 12:57 Dose: 250 mls Dextrose/Water (D5w) 1,000 mls @ 0 mls/hr IV INF PRN PRN Reason: HYPOGLYCEMIA PROTOCOL Insulin Glargine 15 units/ (Miscellaneous Medication) 0.15 mls @ 0 mls/hr SC QAM [facility] [place] Last Admin: 02/05/19 08:55 Dose: 0.15 mls Sodium Bicarbonate 140 meq/ (Dextrose/Water) 1,140 mls @ 50 mls/hr IV .[id number] [facility] [place] Last Admin: 02/05/19 09:17 Dose: 1,140 mls Insulin Human Lispro (Humalog) 5 units SC PRN PRN PRN Reason: BLOOD GLUCOSE > 200 Insulin Human Regular (Humulin R) 0 units SC .MILD SLIDING PRN; Protocol PRN Reason: MILD SLIDING SCALE Last Admin: 02/05/19 11:52 Dose: 2 unit Iron/Minerals/Multivitamins (Theragran M) 1 tab PO DAILY [facility] [place] Last Admin: 02/05/19 08:54 Dose: 1 tab Levothyroxine Sodium (Synthroid) 75 mcg PO 0600 [facility] [place] Last Admin: 02/05/19 05:26 Dose: 75 mcg Mupirocin (Bactroban 2% Ointment) 0 gm TOP TID [facility] [place] Last Admin: 02/05/19 09:11 Dose: 1 applic Ondansetron HCl (Zofran) 4 mg SLOW IVP Q6H PRN PRN Reason: Nausea/Vomiting Oxymetazoline HCl (Nasal Decongestant) 0 ml NS BIDPRN PRN PRN Reason: NASAL CONGESTION Pantoprazole Sodium (Protonix) 40 mg PO DAILY [facility] [place] Last Admin: 02/05/19 08:54 Dose: 40 mg Pentazocine HCl/Naloxone HCl (Talwin Nx) 0.5 tab PO Q6H PRN PRN Reason: Moderate to Severe Pain (6-10) Sodium Chloride (Flush - Normal Saline) 10 ml IVF PRN PRN PRN Reason: Saline Flush Vital Signs & Weight: Vital Signs Temp Pulse Resp Pulse Ox 02/05/19 12:00 97.1 F L 95 02/05/19 11:47 71 19 99 02/05/19 08:00 98.6 F 99 02/05/19 07:16 72 02/05/19 07:14 68 24 H 98 02/05/19 04:00 97.1 F L 02/05/19 02:57 90 Weight 222 lb 7.143 oz - Physical Exam General: other (lethergic) Neck: supple neck Cardiac: regular rate and rhythm, S1/S2 Lungs: decreased breath sounds Skin: clear Musculoskeletal: decreased range of motion - Labs Result Diagrams: 02/05/19 03:32 02/05/19 03:32 - Telemetry Sinus rhythms and dysrhythmias: sinus rhythm - Assessment/Plan Assessment/Plan: 1. Afib with RVR - remains in SR; On ASA and Coreg; 2. Acute on Chronic Diastolic HF with grade III dd in 11/2017 - on Lasix 80mg IV BID and Coreg; not on ADRIAN/ARB due to hx of CKD 3. ANGELICA on CKD - managed by Dr Flores 4. HTN - stable 5. DM type 2 - 6. HLD - on statin 7. Hypothyrodism - 8. Anemia - 9. 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 Hx of TIA/CVA - on Plavix 11. S/p of multiple falls with s/p subarachnoid hemorrhage in 09/2018 - * Echo in 09/2018 with EF 45-50%, mild ERV, mod-severe dilated LA, mod ERA, mod MR, mild AR, mild VT, and severe TR (diastolic dysfunction still persists). Pt. seen and eval. by me.I agree with the A/P by the SENIOR ENGINEERING TEAM LEADER. Family is at bedside. They tell me that dialysis is being considered. She is a little responsive this PM. The afib has converted to NSR. Continue present meds. Chest: bibasilar rales. RRR. 2+ edema. gjmays.
[2019-02-05] MEDS: Furosemide 100 MG/10 ML VIAL SLOW IVP SCH (14:19)
[2019-02-05] MEDS: cefTRIAXone\\ROCEPHIN 1 GM in Sodium Chloride 0.9% 100 ML IVPB SCH (14:20)
[2019-02-05] MEDS: Atorvastatin Calcium 40 MG TAB PO SCH (21:11)
[2019-02-06] MEDS: Albumin 25% 25 GM/100 ML BOT IVPB SCH ×2 (01:23→09:50)
[2019-02-06 05:20] LABS: #Eosinphils 0.1 thou/uL (0.0-0.7); #Lymphocytes 0.5 thou/uL (1.20-3.40); #Monocytes 0.4 thou/uL (0.11-0.59); %Basophils 0.4 % (0.0-1.0); %Eosinophils 1.6 % (0.0-10.0); %Lymphocytes 7.8 % (21.0-51.0); %Monocytes 7.3 % (0.0-10.0); %Neutrophils 82.8 % (42.0-75.0); Hemoglobin 9.7 g/dL (12.0-16.0); Mean Corpuscular Hemoglobin 30.7 pg (27.0-31.0); Mean Corpuscular Volume 95.9 fL (78.0-98.0); Mean Platelet Volume 9.9 fL (7.4-10.4); Platelet Count 81 thou/uL (130-400); RBC Distribution Width 14.6 % (11.5-14.5); Red Blood Cell (RBC) Count 3.17 mill/uL (4.20-5.40)
[2019-02-06 05:32] LABS: Anion Gap 18 mmol/L (10-20); BUN (Urea Nitrogen) 116 mg/dL (9.8-20.1); Calc. Creatinine Clearance 16 mL/min (70-130); Calcium 8.3 mg/dL (7.8-10.44); Carbon Dioxide 27 mmol/L (23-31); Chloride 100 mmol/L (98-107); Estimated GFR-MDRD 10; Glucose 167 mg/dL (83-110); Potassium 4.9 mmol/L (3.5-5.1); Sodium 140 mmol/L (136-145)
[2019-02-06] MEDS: Furosemide 100 MG/10 ML VIAL SLOW IVP SCH ×2 (06:15→14:52)
[2019-02-06] MEDS: Levothyroxine Sodium 75 MCG TAB PO SCH (06:16)
--- NOTE | 2019-02-06 08:13 | PRG ---
DATE OF SERVICE: 02/06/2019 SUBJECTIVE: The patient remains in the CCU. She has required intermittent BiPAP, but is currently off the BiPAP. She continues to feel very short of breath. OBJECTIVE: VITAL SIGNS: On exam, temperature is 98.0, pulse 97, blood pressure 123/64, and O2 saturation generally in the low to mid 90s on nasal cannula. Intake for 24 hours 2817, output 235. Weight is measured at 222 pounds, but I am not sure that is accurate. HEENT: Unremarkable. NECK: No adenopathy or JVD. LUNGS: She has diminished breath sounds in both bases. CARDIAC: S1 and S2. Regular. ABDOMEN: Soft and edematous. EXTREMITIES: 2+ edema throughout. LABORATORY DATA: Sodium 140, potassium 4.9, chloride 100, CO2 of 27, BUN 116, creatinine 4.3, and glucose 167. White blood cell count 6.0, hematocrit 30, and platelet count 81. IMAGING DATA: Chest x-ray shows bilateral infiltrates and a fairly sizable effusion on the right side. ASSESSMENT: 1. Acute kidney injury with continued oliguria. Her BUN and creatinine are steadily increasing despite attempts at volume resuscitating the patient. 2. Obstructive sleep apnea. 3. History of congestive heart failure, diastolic. 4. Insulin-dependent diabetes mellitus. 5. Chronic atrial fibrillation. RECOMMENDATIONS: Basically, the family needs to make a decision regarding dialysis. She is at the point where she either needs to have dialysis or be placed on palliative care. I do think we can take her off the bicarbonate drip. It does not appear that any attempts at diuresis are helping. Job ID: [id number]
[2019-02-06] MEDS ORDERED: Heparin 10,000 UNITS/ 10 ML VIAL ONE (09:00)
--- NOTE | 2019-02-06 09:15 | PRG ---
DATE OF SERVICE: 02/06/2019 SERVICE: Renal Medicine. SUBJECTIVE: Ms. Mullen is an 83-year-old white female, who was initially admitted due to fever and cough. Empiric antibiotics have been given to the patient. During this hospitalization, renal function has worsened. The possibility of a hemodynamically-mediated renal dysfunction remains. However, in spite of volume given to her, she did not improve her renal function, consideration for ATN remains. In addition, the patient has been transferred to ICU for further and closer monitoring. I discussed the case with the family and they want to try everything including dialysis. OBJECTIVE: VITAL SIGNS: Blood pressure is 121/97, heart rate 100, respiratory rate 13, and pulse ox 93%. GENERAL: Noted to be awake, lethargic, not in overt distress. SKIN: Adequate turgor. HEENT: She has pinkish conjunctivae. Anicteric sclerae. NECK: No neck mass. No carotid bruits. No JVD. CHEST: No deformities. LUNGS: Clear breath sounds. No wheezing. No crackles. HEART: Normal sinus rhythm. No murmur. No gallops. No rubs. ABDOMEN: Globular, soft, and nontender. No masses. EXTREMITIES: Trace edema. MEDICATIONS: Medications of February 06, 2019, was reviewed. LABORATORY DATA: Laboratories of February 06, 2019, shows a white count of 6, hemoglobin 9.7. Sodium 140, potassium 4.9, chloride 100, carbon dioxide 27, BUN 116, creatinine 4.37, GFR 10 mL/minute, and calcium 8.3. ASSESSMENT AND PLAN: 1. Acute kidney injury/chronic renal failure, worsening renal dysfunction. Urine output is very minimal. Unresponsive to the current diuretic regimen. We will proceed with dialysis. We will do a 1-hour hemodialysis with 1 L fluid removal only as tolerated. We will consult Dr. Martinez/Cody for placement of a femoral dialysis catheter. 2. Fever/bronchitis, on empiric IV antibiotics. Agree with current management. Overall, prognosis remains poor. Job ID: [id number]
--- NOTE | 2019-02-06 09:20 | RAD ---
PORTABLE CHEST: HISTORY: Pneumonia. CCU followup. COMPARISON: 02/04/2019 FINDINGS: Opacification in the right lung base is unchanged in appearance, indicating effusion and/or right erin g base consolidation and atelectasis. Left lung remains aerated and clear. Cardiomegaly again noted. IMPRESSION: No interval change apparent. POS: OFF
[2019-02-06 09:46] LABS: Hep B Core Total Ab Non-Reactive (NonReactive); Hep B Core Total Index 0.08 S/CO (0-0.79); Hep B Surf AB Non-Reactive (NonReactive); Hep B Surf Ag Non-Reactive S/CO (NonReactive); Hep C IgG Ab Non-Reactive (NonReactive); Hep C Index 0.11 S/CO (0-0.79)
[2019-02-06] MEDS: Aspirin Chewable 81 MG TAB PO SCH (09:50)
[2019-02-06] MEDS: Multivitamin W/ Minerals 1 TAB PO SCH (09:50)
[2019-02-06] MEDS: Clopidogrel Bisulfate 75 MG TAB PO SCH (09:50)
[2019-02-06] MEDS: Acetaminophen 325 MG TAB PO PRN ×2 (09:51→21:18)
[2019-02-06] MEDS: Carvedilol 25 MG TAB PO SCH ×2 (09:51→21:15)
[2019-02-06] MEDS: Insulin Glargine 15 UNITS in Pre-Filled Syringe 1 EACH SC SCH (10:27)
[2019-02-06] MEDS: Lactinex Tablet PO SCH (10:27)
[2019-02-06] MEDS: Mupirocin 2% Ointment 22 GM Tube TOP SCH ×3 (10:28→22:42)
[2019-02-06] MEDS: Azithromycin 500 MG in Sodium Chloride 0.9% 250 ML 250 ML IVPB SCH (12:59)
[2019-02-06] MEDS: cefTRIAXone\\ROCEPHIN 1 GM in Sodium Chloride 0.9% 100 ML IVPB SCH (14:50)
--- NOTE | 2019-02-06 20:00 | OP ---
DATE OF PROCEDURE: 02/06/2019 PREOPERATIVE DIAGNOSIS: Acute renal failure. POSTOPERATIVE DIAGNOSIS: Acute renal failure. PROCEDURE PERFORMED: Placement of right femoral Trialysis catheter. INDICATIONS FOR PROCEDURE: An 83-year-old woman with acute renal failure, requires emergent dialysis. I was asked to place a temporary dialysis access to facilitate the process. DESCRIPTION OF PROCEDURE: Informed consent was obtained from the patient's power of energy attorney. The patient was placed in supine position. Right groin was sterilely prepped and draped in usual fashion. Right femoral artery was palpated at the groin. The skin medial to this was anesthetized with 1% lidocaine. The right femoral vein was then cannulated with an 18-gauge introducer needle, returning dark venous blood. A guidewire was passed through the needle and advanced into the right femoral vein without resistance. Needle was withdrawn over the guidewire. A stab incision was made adjacent to the guidewire using #11-scalpel. The dilator was then passed over the guidewire dilating the subcutaneous tissues. Dilator was removed, and a triple-lumen Trialysis catheter was advanced over the guidewire and placed in the right femoral vein without resistance down to the hub. Guidewire was removed. Dark venous blood was aspirated from all 3 ports, which were individually flushed with saline followed by heparin. The catheter was secured to right groin using 3-0 nylon suture at two points. Sterile dressings were applied. The patient tolerated the procedure without any apparent complication and remains hemodynamically stable following completion of procedure. Job ID: [id number]
[2019-02-06] MEDS: Atorvastatin Calcium 40 MG TAB PO SCH (21:14)
--- NOTE | 2019-02-06 22:37 | PDOC.CPN ---
- Subjective Date: 02/06/19 Time: 18:15 - Review of Systems ROS unobtainable: due to mental status - Objective Allergies/Adverse Reactions: Allergies Allergy/AdvReac Type Severity Reaction Status Date / Time codeine Allergy Verified 09/10/18 15:23 ibuprofen [From Motrin] Allergy Verified 02/02/19 15:45 Visit Medications: Current Medications Acetaminophen (Tylenol) 650 mg PO Q4H PRN PRN Reason: Headache/Fever or Pain Last Admin: 02/06/19 21:18 Dose: 650 mg Acidophilus (Floranex) 1 tab PO DAILY [facility] Last Admin: 02/06/19 10:27 Dose: 1 tab Albuterol/Ipratropium (Duoneb) 3 ml NEB QID-RT [facility] Last Admin: 02/06/19 19:13 Dose: 3 ml Aspirin (Aspirin Chewable) 81 mg PO QAM-WM [facility] Last Admin: 02/06/19 09:50 Dose: 81 mg Atorvastatin Calcium (Lipitor) 80 mg PO HS [facility] Last Admin: 02/06/19 21:14 Dose: 80 mg Carvedilol (Coreg) 12.5 mg PO BID [facility] Last Admin: 02/06/19 21:15 Dose: 12.5 mg Cholecalciferol (Vitamin D3) 1,000 units PO DAILY [facility] Last Admin: 02/06/19 10:27 Dose: Not Given Clopidogrel Bisulfate (Plavix) 75 mg PO DAILY [facility] Last Admin: 02/06/19 09:50 Dose: 75 mg Dextrose/Water (Dextrose 50%) 25 gm IVP PRN PRN PRN Reason: HYPOGLYCEMIA PROTOCOL Furosemide (Lasix) 80 mg SLOW IVP 0600,1400 [facility] Last Admin: 02/06/19 14:52 Dose: 80 mg Glucagon (Glucagon) 1 mg IM PRN PRN PRN Reason: HYPOGLYCEMIA PROTOCOL Ceftriaxone Sodium 1 gm/ (Sodium Chloride) 100 mls @ 200 mls/hr IVPB 1400 [facility] Last Admin: 02/06/19 14:50 Dose: 100 mls Azithromycin 500 mg/ Sodium (Chloride) 250 mls @ 250 mls/hr IVPB 1300 [facility] Last Admin: 02/06/19 12:59 Dose: 250 mls Dextrose/Water (D5w) 1,000 mls @ 0 mls/hr IV INF PRN PRN Reason: HYPOGLYCEMIA PROTOCOL Insulin Glargine 15 units/ (Miscellaneous Medication) 0.15 mls @ 0 mls/hr SC QAM [facility] Last Admin: 02/06/19 10:27 Dose: 0.15 mls Insulin Human Lispro (Humalog) 5 units SC PRN PRN PRN Reason: BLOOD GLUCOSE > 200 Insulin Human Regular (Humulin R) 0 units SC .MILD SLIDING PRN; Protocol PRN Reason: MILD SLIDING SCALE Last Admin: 02/05/19 17:22 Dose: 3 unit Iron/Minerals/Multivitamins (Theragran M) 1 tab PO DAILY [facility] Last Admin: 02/06/19 09:50 Dose: 1 tab Levothyroxine Sodium (Synthroid) 75 mcg PO 0600 [facility] Last Admin: 02/06/19 06:16 Dose: 75 mcg Mupirocin (Bactroban 2% Ointment) 0 gm TOP TID [facility] Last Admin: 02/06/19 15:00 Dose: 1 applic Ondansetron HCl (Zofran) 4 mg SLOW IVP Q6H PRN PRN Reason: Nausea/Vomiting Oxymetazoline HCl (Nasal Decongestant) 0 ml NS BIDPRN PRN PRN Reason: NASAL CONGESTION Pantoprazole Sodium (Protonix) 40 mg PO DAILY [facility] Last Admin: 02/06/19 09:50 Dose: 40 mg Pentazocine HCl/Naloxone HCl (Talwin Nx) 0.5 tab PO Q6H PRN PRN Reason: Moderate to Severe Pain (6-10) Sodium Chloride (Flush - Normal Saline) 10 ml IVF PRN PRN PRN Reason: Saline Flush Vital Signs & Weight: Vital Signs Temp Pulse Pulse Pulse Resp BP BP 02/06/19 20:00 97.4 F L 02/06/19 19:13 103 H 16 02/06/19 19:11 103 H 16 02/06/19 16:00 97.5 F L 02/06/19 15:50 92 02/06/19 15:48 91 17 02/06/19 12:00 97.7 F 02/06/19 11:37 95 96 130/78 120/85 Pulse Ox Pulse Ox Pulse Ox 02/06/19 20:00 02/06/19 19:13 99 02/06/19 19:11 99 02/06/19 16:00 02/06/19 15:50 02/06/19 15:48 98 10/30/19 12:00 02/06/19 11:37 93 L 91 L Weight 222 lb 10.67 oz - CHADS-VASc Congestive heart failure: 1 Hypertension: 1 Age >75: 2 Diabetes mellitus: 1 Stroke/TIA/thrombo-embolism: 2 Female: 1 Risk Score: 8 - Quality Measures Condition: Atrial Fibrillation/Flutter (hx or current) CV meds: Beta Aguilar: Yes, ADRIAN/ARB: No (Acute on chronic renal failure), Statin : No - Physical Exam General: no apparent distress (Has bipap on) HEENT: normocephaly Cardiac: regular rate and rhythm, tachycardia, systolic murmur, other (mildly tachycardic. Appears to be in NSR.) Lungs: bibasilar rales Neuro: no lateralizing findings Abdomen: active bowel sounds Extremities: 2+ LE edema Musculoskeletal: fluid collection - Labs Result Diagrams: 02/06/19 04:24 02/06/19 04:24 - Assessment/Plan Assessment/Plan: 1. Afib with RVR - remains in SR; On ASA and Coreg; 2. Acute on Chronic Diastolic HF with grade III dd in 11/2017 - on Lasix 80mg IV BID and Coreg; not on ADRIAN/ARB due to acute/ CKD 3. ANGELICA on CKD -pt. started on dialysis. managed by Dr Flores 4. HTN - stable 5. DM type 2 - 6. HLD - on statin 7. Hypothyrodism - 8. Anemia - 9. 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 Hx of TIA/CVA - on Plavix 11. S/p of multiple falls with s/p subarachnoid hemorrhage in 09/2018 - * Echo in 09/2018 with EF 45-50%, mild ERV, mod-severe dilated LA, mod ERA, mod MR, mild AR, mild KS, and severe TR (diastolic dysfunction still persists).
[2019-02-07 05:15] LABS: Anion Gap 18 mmol/L (10-20); BUN (Urea Nitrogen) 109 mg/dL (9.8-20.1); Calc. Creatinine Clearance 17 mL/min (70-130); Calcium 8.4 mg/dL (7.8-10.44); Carbon Dioxide 27 mmol/L (23-31); Chloride 101 mmol/L (98-107); Estimated GFR-MDRD 11; Glucose 90 mg/dL (83-110); Potassium 4.4 mmol/L (3.5-5.1); Sodium 142 mmol/L (136-145)
[2019-02-07] MEDS: Furosemide 100 MG/10 ML VIAL SLOW IVP SCH (05:38)
[2019-02-07] MEDS: Levothyroxine Sodium 75 MCG TAB PO SCH (05:39)
[2019-02-07 06:06] LABS: Band 16 % (5-11); Elliptocytes SLIGHT = 2-5 cells (100X) (0-1/hpf); Lymphocytes 5 % (21-51); MDiff Complete? YES; Mean Corpuscular HGB CONC 30.9 g/dL (32.0-36.0); Mean Corpuscular Hemoglobin 29.8 pg (27.0-31.0); Mean Corpuscular Volume 96.4 fL (78.0-98.0); Mean Platelet Volume 10.3 fL (7.4-10.4); Neutrophil 79 % (42-75); Platelet Count 89 thou/uL (130-400); Platelet Morphology Comment Appears Decreased; RBC Distribution Width 14.5 % (11.5-14.5); Red Blood Cell (RBC) Count 3.35 mill/uL (4.20-5.40)
--- NOTE | 2019-02-07 08:02 | RAD ---
XR Chest 1 View Portable History: Pneumonia Comparison: Radiograph prior day Findings: Worsening consolidation left upper lobe. Large bilateral effusions. No apical pneumothorax is appreciated. Heart size continues to be enlarged. Impression: Worsening left upper lobe consolidation versus artifact from overlying hand. Repeat radio graphs recommended.
--- NOTE | 2019-02-07 08:17 | PRG ---
DATE OF SERVICE: 02/07/2019 TIME SPENT: 35 minutes critical care time. SUBJECTIVE: The patient remains on noninvasive ventilation. She is undergoing dialysis this morning. This is our 2nd session. Yesterday she had 700 mL of fluid removed. OBJECTIVE: VITAL SIGNS: Temperature is 97.6, pulse 101, blood pressure 114/67, O2 saturation 100%. Intake for 24 hours 1394, output 425 plus another 700 removed by dialysis. HEENT: Unremarkable. NECK: No adenopathy or JVD. LUNGS: Coarse breath sounds bilaterally. CARDIAC: S1, S2. Slightly tachycardic. ABDOMEN: Soft and nontender. EXTREMITIES: Edematous. LABORATORY DATA: Sodium 142, potassium 4.4, chloride 101, CO2 27, BUN 109, creatinine 4.0, and glucose 90. White count 7, hematocrit 32.3, and platelet count 89. ASSESSMENT: 1. Acute hypoxic respiratory failure, requiring mechanical ventilation. 2. Fluid overloaded secondary to acute kidney injury with oliguria. 3. Acute renal failure. 4. History of congestive heart failure/diastolic. 5. Insulin-dependent diabetes mellitus. 6. Chronic atrial fibrillation. PLAN: I do not believe she is wean-able from the BiPAP at this time until a significant amount of fluid is removed. Her x-ray shows bilateral pulmonary edema, which has continued to worsen as her fluid balance worsens. Overall, I think her prognosis is quite poor. I am desperately trying to keep from intubating her, but ultimately it may come to that. Job ID: [id number]
[2019-02-07] MEDS: Mupirocin 2% Ointment 22 GM Tube TOP SCH ×3 (08:21→20:05)
[2019-02-07] MEDS: Lactinex Tablet PO SCH (08:23)
[2019-02-07] MEDS: Carvedilol 25 MG TAB PO SCH ×2 (08:23→20:02)
[2019-02-07] MEDS: Aspirin Chewable 81 MG TAB PO SCH (08:23)
[2019-02-07] MEDS: Clopidogrel Bisulfate 75 MG TAB PO SCH (08:24)
[2019-02-07] MEDS: Insulin Glargine 15 UNITS in Pre-Filled Syringe 1 EACH SC SCH (08:36)
[2019-02-07] MEDS: Multivitamin W/ Minerals 1 TAB PO SCH (08:39)
--- NOTE | 2019-02-07 08:51 | PRG ---
DATE OF SERVICE: 02/07/2019 SERVICE: Renal Medicine. SUBJECTIVE: Ms. Mullen is an 83-year-old white female, who is being followed up by the Renal Service for her acute kidney injury on top of her chronic renal failure. She was found to be in respiratory distress and currently is in the unit. On chest x-ray, it shows a worsening left upper lobe consolidation and large bilateral effusions. She is currently undergoing hemodialysis due to the progressive azotemia. We were able to remove 1.9 L of fluid today. She is breathing better. OBJECTIVE: VITAL SIGNS: Blood pressure is 126/73, heart rate is 110, respiratory rate 13, pulse oximetry 100%. She is on a nasal BiPAP. GENERAL: She is awake, alert, on nasal BiPAP. HEENT: Pinkish conjunctivae. Anicteric sclerae. No neck mass. No carotid bruits. No JVD. CHEST: No deformities. LUNGS: Decreased breath sounds. HEART: Normal sinus rhythm. No murmurs, gallops, or rubs. ABDOMEN: Globular, soft, nontender. No masses. EXTREMITIES: Positive for edema. MEDICATIONS: Medications of February 07, 2019, reviewed. LABORATORY DATA: Laboratories of February 07, 2019; white count 7, hemoglobin 10, sodium 142, potassium 4.4, chloride 101, carbon dioxide 27, BUN 109, creatinine 4.03, and calcium 8.4. ASSESSMENT AND PLAN: 1. Congestive heart failure/bilateral pleural effusion. We will max out fluid removal with dialysis. She is scheduled for daily dialysis. We removed about 1.9 L of fluid today. 2. Chronic renal failure/acute kidney injury - progressive azotemia. Hemodialysis has been initiated due to volume overload. The patient is scheduled for daily dialysis. As previously mentioned, maxing out fluid removal with dialysis. 3. Overall prognosis remains guarded. Job ID: [id number]
--- NOTE | 2019-02-07 09:14 | PDOC.CPN ---
- Subjective Date: 02/07/19 Time: 09:00 - Review of Systems ROS unobtainable: due to mental status - Objective Allergies/Adverse Reactions: Allergies Allergy/AdvReac Type Severity Reaction Status Date / Time codeine Allergy Verified 09/10/18 15:23 ibuprofen [From Motrin] Allergy Verified 02/02/19 15:45 Visit Medications: Current Medications Acetaminophen (Tylenol) 650 mg PO Q4H PRN PRN Reason: Headache/Fever or Pain Last Admin: 02/06/19 21:18 Dose: 650 mg Acidophilus (Floranex) 1 tab PO DAILY [facility] Last Admin: 02/07/19 08:23 Dose: 1 tab Albuterol/Ipratropium (Duoneb) 3 ml NEB QID-RT [facility] Last Admin: 02/07/19 06:54 Dose: 3 ml Aspirin (Aspirin Chewable) 81 mg PO QAM-WM [facility] Last Admin: 02/07/19 08:23 Dose: 81 mg Atorvastatin Calcium (Lipitor) 80 mg PO HS [facility] Last Admin: 02/06/19 21:14 Dose: 80 mg Carvedilol (Coreg) 12.5 mg PO BID [facility] Last Admin: 02/07/19 08:23 Dose: 12.5 mg Cholecalciferol (Vitamin D3) 1,000 units PO DAILY [facility] Last Admin: 02/07/19 08:23 Dose: 1,000 units Clopidogrel Bisulfate (Plavix) 75 mg PO DAILY [facility] Last Admin: 02/07/19 08:24 Dose: 75 mg Dextrose/Water (Dextrose 50%) 25 gm IVP PRN PRN PRN Reason: HYPOGLYCEMIA PROTOCOL Glucagon (Glucagon) 1 mg IM PRN PRN PRN Reason: HYPOGLYCEMIA PROTOCOL Ceftriaxone Sodium 1 gm/ (Sodium Chloride) 100 mls @ 200 mls/hr IVPB 1400 [facility] Last Admin: 02/06/19 14:50 Dose: 100 mls Dextrose/Water (D5w) 1,000 mls @ 0 mls/hr IV INF PRN PRN Reason: HYPOGLYCEMIA PROTOCOL Insulin Glargine 15 units/ (Miscellaneous Medication) 0.15 mls @ 0 mls/hr SC QAM [facility] Last Admin: 02/07/19 08:36 Dose: 0.15 mls Insulin Human Lispro (Humalog) 5 units SC PRN PRN PRN Reason: BLOOD GLUCOSE > 200 Insulin Human Regular (Humulin R) 0 units SC .MILD SLIDING PRN; Protocol PRN Reason: MILD SLIDING SCALE Last Admin: 02/05/19 17:22 Dose: 3 unit Iron/Minerals/Multivitamins (Theragran M) 1 tab PO DAILY [facility] Last Admin: 02/07/19 08:39 Dose: Not Given Levothyroxine Sodium (Synthroid) 75 mcg PO 0600 [facility] Last Admin: 02/07/19 05:39 Dose: 75 mcg Mupirocin (Bactroban 2% Ointment) 0 gm TOP TID [facility] Last Admin: 02/07/19 08:21 Dose: 1 applic Ondansetron HCl (Zofran) 4 mg SLOW IVP Q6H PRN PRN Reason: Nausea/Vomiting Oxymetazoline HCl (Nasal Decongestant) 0 ml NS BIDPRN PRN PRN Reason: NASAL CONGESTION Pantoprazole Sodium (Protonix) 40 mg PO DAILY [facility] Last Admin: 02/07/19 08:23 Dose: 40 mg Pentazocine HCl/Naloxone HCl (Talwin Nx) 0.5 tab PO Q6H PRN PRN Reason: Moderate to Severe Pain (6-10) Sodium Chloride (Flush - Normal Saline) 10 ml IVF PRN PRN PRN Reason: Saline Flush Vital Signs & Weight: Vital Signs Temp Pulse Resp Pulse Ox 02/07/19 08:00 98.7 F 02/07/19 06:54 101 H 17 99 02/07/19 04:00 97.6 F 02/07/19 00:00 98.3 F Weight 222 lb 3.615 oz - Quality Measures Condition: Atrial Fibrillation/Flutter (hx or current) CV meds: Beta Aguilar: Yes, ADRIAN/ARB: No (Acute on chronic renal failure), Statin : No - Physical Exam General: other (lethargic.) HEENT: normocephaly Neck: no thromegaly Cardiac: irregularly regular, tachycardia Lungs: decreased breath sounds, other (poor inspiratory effort.on high flow O2) Neuro: weakness, other (lethargic, minimally engagement) Abdomen: non-tender, decreased bowel sounds Extremities: 1+ LE edema - Labs Result Diagrams: 02/07/19 04:40 02/07/19 04:40 - Telemetry Supraventricular conduction: atrial fibrillation - Assessment/Plan Assessment/Plan: 1. Afib with RVR - back in atrial fibrillation.rate low 100's to 120; On ASA and Coreg;Will add low dose digoxin to help control the V-response. 2. Acute on Chronic Diastolic HF with grade III dd in 11/2017 - on Lasix 80mg IV BID and Coreg; not on ADRIAN/ARB due to acute/ CKD 3. ANGELICA on CKD -pt. started on dialysis. managed by Dr Flores 4. HTN - stable 5. DM type 2 - 6. HLD - on statin 7. Hypothyrodism - 8. Anemia - 9. 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 Hx of TIA/CVA - on Plavix 11. S/p of multiple falls with s/p subarachnoid hemorrhage in 09/2018 - 12. Severe deconditioning. Pt. not eating. 13. Respiratory insufficiency. On high flow 02 but tachpneic and will place back on bi PAP. * Echo in 09/2018 with EF 45-50%, mild ERV, mod-severe dilated LA, mod ERA, mod MR, mild AR, mild NV, and severe TR (diastolic dysfunction still persists). Overall poor prognosis.
[2019-02-07] MEDS: Digoxin 0.5 MG/2 ML AMP SLOW IVP SCH ×3 (10:10→23:17)
[2019-02-07] MEDS: cefTRIAXone\\ROCEPHIN 1 GM in Sodium Chloride 0.9% 100 ML IVPB SCH (14:01)
[2019-02-07] MEDS: Acetaminophen 325 MG TAB PO PRN (18:07)
[2019-02-07] MEDS: Atorvastatin Calcium 40 MG TAB PO SCH (20:34)
[2019-02-08] MEDS: Acetaminophen 325 MG TAB PO PRN (04:39)
[2019-02-08 04:50] LABS: #Eosinphils 0.1 thou/uL (0.0-0.7); #Lymphocytes 0.6 thou/uL (1.20-3.40); #Monocytes 0.5 thou/uL (0.11-0.59); #Neutrophils 5.1 thou/uL (1.40-6.50); %Basophils 0.4 % (0.0-1.0); %Eosinophils 0.9 % (0.0-10.0); %Lymphocytes 8.8 % (21.0-51.0); %Monocytes 7.9 % (0.0-10.0); Mean Corpuscular HGB CONC 31.1 g/dL (32.0-36.0); Mean Corpuscular Hemoglobin 29.9 pg (27.0-31.0); Mean Corpuscular Volume 96.2 fL (78.0-98.0); Mean Platelet Volume 8.9 fL (7.4-10.4); Platelet Count 101 thou/uL (130-400); RBC Distribution Width 14.4 % (11.5-14.5); Red Blood Cell (RBC) Count 3.35 mill/uL (4.20-5.40); White Blood Cell (WBC) Count 6.2 thou/uL (4.8-10.8)
[2019-02-08 05:08] LABS: Anion Gap 13 mmol/L (10-20); BUN (Urea Nitrogen) 75 mg/dL (9.8-20.1); Calc. Creatinine Clearance 23 mL/min (70-130); Calcium 8.6 mg/dL (7.8-10.44); Carbon Dioxide 31 mmol/L (23-31); Chloride 101 mmol/L (98-107); Estimated GFR-MDRD 15; Potassium 3.8 mmol/L (3.5-5.1); Sodium 141 mmol/L (136-145)
[2019-02-08 05:13] LABS: Glucose 56 mg/dL (83-110)
[2019-02-08] MEDS: Digoxin 0.5 MG/2 ML AMP SLOW IVP SCH (05:23)
[2019-02-08] MEDS: Levothyroxine Sodium 75 MCG TAB PO SCH (05:23)
--- NOTE | 2019-02-08 07:41 | PRG ---
DATE OF SERVICE: 02/08/2019 TIME SPENT: 35 minutes of critical care time. SUBJECTIVE: The patient remains on BiPAP. She has now received 2 sessions of dialysis. She looks somewhat better. OBJECTIVE: VITAL SIGNS: On exam, temperature is 98.1, pulse 81, blood pressure 135/76, and O2 saturation 97% on 30% oxygen. Intake for 24 hours 523, output 1272 for negative fluid balance of 749. Her weight is down to 220 pounds. HEENT: Unremarkable. NECK: No adenopathy or JVD. LUNGS: Inspiratory crackles predominantly at the bases. CARDIAC: S1 and S2. Regular. ABDOMEN: Soft and nontender. EXTREMITIES: No clubbing or cyanosis. She has less peripheral edema. LABORATORY DATA: White blood cell count 6.2, hematocrit 32.2, and platelet count 101. Sodium of 141, potassium 3.8, chloride 101, CO2 of 31, BUN 75, creatinine 3.1, and glucose 56. IMAGING DATA: Her chest x-ray shows gross improvement in the left-sided appearance. Right side still has significant edema and probably a layering pleural effusion. ASSESSMENT: 1. Acute renal failure. 2. Acute respiratory failure, necessitating noninvasive positive-pressure ventilation. 3. History of diastolic congestive heart failure. 4. Diabetes mellitus, chronic atrial fibrillation. PLAN: 1. Continue hemodialysis with fluid removal. 2. Consider right therapeutic thoracentesis if the x-ray does not begin clearing with dialysis. 3. Wean off BiPAP as tolerated. Job ID: [id number]
--- NOTE | 2019-02-08 08:37 | RAD ---
Chest one view HISTORY: Pneumonia. Follow-up. COMPARISON: 02/07/2019. FINDINGS: Cardiac silhouette is magnified, enlarged, and shifted leftward. Increasing opacity through out the right hemithorax. Pulmonary vasculature is engorged. Calcification of the aorta. IMPRESSION: Appearance of developing right pleural effusion, with leftward shift of the mediastinum. Pulmonary vascular congestion. Atherosclerosis.
--- NOTE | 2019-02-08 09:48 | PRG ---
DATE OF SERVICE: 02/08/2019 SUBJECTIVE: Ms. Mullen is an 83-year-old white female, who is being followed up for acute kidney injury over here on top of chronic renal failure. Renal function was worsening and she was in volume overload and that is why she was initiated on dialysis. We removed about 1.9 L of fluid yesterday. The patient is currently to be dialyzed today. We will attempt another 2 L fluid removal as tolerated by the patient. She is actually breathing better. OBJECTIVE: VITAL SIGNS: Blood pressure is 135/76, heart rate 100, respiratory rate 24, pulse ox 97%, currently on BiPAP. GENERAL: Awake, alert, comfortable, not in overt distress. SKIN: Adequate turgor. HEENT: Slightly pale conjunctivae. Anicteric sclerae. NECK: No neck mass. No carotid bruits. No JVD. CHEST: No deformities. LUNGS: Decreased breath sounds. HEART: Normal sinus rhythm. No murmur. No gallops or rubs. ABDOMEN: Globular, soft, nontender. EXTREMITIES: Trace edema. MEDICATIONS: Medications of February 08, 2019, was reviewed. LABORATORY DATA: Laboratories of February 08, 2019, white count 6.2, hemoglobin 10. Sodium 141, potassium 3.8, chloride 101, carbon dioxide 31, BUN 75, creatinine 3.08, calcium 8.6. ASSESSMENT AND PLAN: 1. Acute kidney injury on top of her chronic renal failure, stable, tolerating hemodialysis. In addition, fluid removal will be continued and removed as tolerated by the patient. 2. Congestive heart failure/shortness of breath, clinically much improved. Continue to remove fluid as tolerated by the patient. 3. Acute respiratory failure, much improved. Currently, on p.r.n. BiPAP. 4. Agree with current management. Job ID: [id number]
[2019-02-08] MEDS: Dextrose 50% Abboject 50 ML SYRINGE IVP PRN ×2 (10:40→20:46)
[2019-02-08 10:54] LABS: Fluid, Triglycerides 38 mg/dL (Not Available); Pleural Fluid, Amylase Less than 30 U/L (Not Available); Pleural Fluid, Glucose 67 mg/dL; Pleural Fluid, LDH 140 U/L (Not Available); Pleural Fluid, Protein 3.7 g/dL
[2019-02-08] MEDS: Multivitamin W/ Minerals 1 TAB PO SCH (10:59)
[2019-02-08] MEDS: Lactinex Tablet PO SCH (10:59)
[2019-02-08] MEDS: Clopidogrel Bisulfate 75 MG TAB PO SCH (10:59)
[2019-02-08] MEDS: valACYclovir 500 MG TAB PO SCH (11:00)
[2019-02-08 11:09] LABS: Fluid, pH - Pleural Fld Greater than 7.50 (7.60 - 7.66)
[2019-02-08] MEDS ORDERED: Heparin 1,000 UNITS/ML VIAL ONE (11:11)
[2019-02-08] MEDS: Aspirin Chewable 81 MG TAB PO SCH (11:16)
[2019-02-08] MEDS: Carvedilol 25 MG TAB PO SCH ×2 (11:16→20:35)
[2019-02-08] MEDS: Mupirocin 2% Ointment 22 GM Tube TOP SCH ×3 (11:18→20:36)
[2019-02-08 12:11] LABS: RBC Count-Automated (BF) 1267 /cumm; WBC/Nucleated-Auto (BF) 351 uL
[2019-02-08 12:12] LABS: BF Color Yellow; Body Fluid Source Thoracentesis Fluid; Clarity Hazy (Clear); Tube # 3
[2019-02-08 12:14] LABS: BF Segmented Neutrophils 9 %; Cell Count Non Hematic 84 %; Lymphocytes 7 %
--- NOTE | 2019-02-08 12:34 | OP ---
DATE OF PROCEDURE: 02/08/2019 PROCEDURE PERFORMED: Right thoracentesis. PREOPERATIVE DIAGNOSIS: Right pleural effusion. POSTOPERATIVE DIAGNOSIS: Right pleural effusion. ANESTHESIA: Local, 1% lidocaine without epinephrine. DESCRIPTION OF PROCEDURE: Informed consent was signed by the patient's daughter. Risks were explained and the patient agreed to proceed. The patient was placed in the sitting position. The right posterior hemothorax was first scanned with an ultrasound to identify the location of effusion, which was approximately in the 5th and 6th interspace at the midscapular line posteriorly. The site was then cleansed with chlorhexidine and draped sterilely. The entry site was anesthetized with 1% lidocaine without epinephrine. A Hbwl-U-Vcuerjqg catheter was used to enter the pleural space. Approximately 1.9 L of dark andrea pleural fluid was removed. The patient tolerated the procedure well. Job ID: [id number]
[2019-02-08] MEDS: Pentazocine HCl/Naloxone HCl 50/0.5 MG TAB PO PRN ×2 (13:47→21:06)
--- NOTE | 2019-02-08 14:33 | PDOC.CPN ---
- Subjective Date: 02/08/19 Time: 08:30 Interval history: The pt seen and examined. No overnight events. No Cardiac complaints. She opened her eyes with verbal stimulation. - Objective Allergies/Adverse Reactions: Allergies Allergy/AdvReac Type Severity Reaction Status Date / Time codeine Allergy Verified 09/10/18 15:23 ibuprofen [From Motrin] Allergy Verified 02/02/19 15:45 Visit Medications: Current Medications Acetaminophen (Tylenol) 650 mg PO Q4H PRN PRN Reason: Headache/Fever or Pain Last Admin: 02/08/19 04:39 Dose: 650 mg Acidophilus (Floranex) 1 tab PO DAILY [facility] Last Admin: 02/08/19 10:59 Dose: Not Given Albuterol/Ipratropium (Duoneb) 3 ml NEB QID-RT [facility] Last Admin: 02/08/19 14:28 Dose: 3 ml Aspirin (Aspirin Chewable) 81 mg PO QAM-WM [facility] Last Admin: 02/08/19 11:16 Dose: Not Given Atorvastatin Calcium (Lipitor) 80 mg PO HS [facility] Last Admin: 02/07/19 20:34 Dose: 80 mg Carvedilol (Coreg) 12.5 mg PO BID [facility] Last Admin: 02/08/19 11:16 Dose: Not Given Cholecalciferol (Vitamin D3) 1,000 units PO DAILY [facility] Last Admin: 02/08/19 11:18 Dose: Not Given Clopidogrel Bisulfate (Plavix) 75 mg PO DAILY [facility] Last Admin: 02/08/19 10:59 Dose: Not Given Dextrose/Water (Dextrose 50%) 25 gm IVP PRN PRN PRN Reason: HYPOGLYCEMIA PROTOCOL Last Admin: 02/08/19 10:40 Dose: 25 gm Digoxin (Lanoxin) 0.125 mg SLOW IVP MoWeSa@0900 [facility] Glucagon (Glucagon) 1 mg IM PRN PRN PRN Reason: HYPOGLYCEMIA PROTOCOL Ceftriaxone Sodium 1 gm/ (Sodium Chloride) 100 mls @ 200 mls/hr IVPB 1400 [facility] Last Admin: 02/07/19 14:01 Dose: 100 mls Dextrose/Water (D5w) 1,000 mls @ 0 mls/hr IV INF PRN PRN Reason: HYPOGLYCEMIA PROTOCOL Insulin Human Lispro (Humalog) 5 units SC PRN PRN PRN Reason: BLOOD GLUCOSE > 200 Insulin Human Regular (Humulin R) 0 units SC .MILD SLIDING PRN; Protocol PRN Reason: MILD SLIDING SCALE Last Admin: 02/05/19 17:22 Dose: 3 unit Iron/Minerals/Multivitamins (Theragran M) 1 tab PO DAILY [facility] Last Admin: 02/08/19 10:59 Dose: Not Given Levothyroxine Sodium (Synthroid) 75 mcg PO 0600 [facility] Last Admin: 02/08/19 05:23 Dose: 75 mcg Mupirocin (Bactroban 2% Ointment) 0 gm TOP TID [facility] Last Admin: 02/08/19 11:18 Dose: 1 applic Ondansetron HCl (Zofran) 4 mg SLOW IVP Q6H PRN PRN Reason: Nausea/Vomiting Oxymetazoline HCl (Nasal Decongestant) 0 ml NS BIDPRN PRN PRN Reason: NASAL CONGESTION Pantoprazole Sodium (Protonix) 40 mg PO DAILY [facility] Last Admin: 02/08/19 11:00 Dose: Not Given Pentazocine HCl/Naloxone HCl (Talwin Nx) 0.5 tab PO Q6H PRN PRN Reason: Moderate to Severe Pain (6-10) Last Admin: 02/08/19 13:47 Dose: 0.5 tab Sodium Chloride (Flush - Normal Saline) 10 ml IVF PRN PRN PRN Reason: Saline Flush Valacyclovir HCl (Valtrex) 1,000 mg PO DAILY [facility] Last Admin: 02/08/19 11:00 Dose: Not Given Vital Signs & Weight: Vital Signs Temp Pulse Resp Pulse Ox 02/08/19 14:28 77 13 98 02/08/19 10:34 75 19 98 02/08/19 07:20 100 24 H 97 02/08/19 07:00 96.7 F L 02/08/19 05:23 83 02/08/19 03:00 98.1 F Weight 220 lb 10.923 oz - Quality Measures Condition: Atrial Fibrillation/Flutter (hx or current) CV meds: Beta Aguilar: Yes, ADRIAN/ARB: No (Acute on chronic renal failure), Statin : No - Physical Exam Cardiac: irregularly regular Lungs: decreased breath sounds Musculoskeletal: decreased range of motion - Labs Result Diagrams: 02/08/19 04:27 02/08/19 04:27 - Telemetry Supraventricular conduction: atrial fibrillation - Assessment/Plan Assessment/Plan: 1. Afib with RVR - well controlled HR with Coreg and Digoxin prn ; On ASA 2. Acute on Chronic Diastolic HF with grade III dd in 11/2017 - on HD; On Coreg; not on ADRIAN/ARB due to acute/ CKD 3. ANGELICA on CKD -pt. started on dialysis. managed by Dr Flores 4. HTN - stable 5. DM type 2 - 6. HLD - on statin 7. Hypothyrodism - 8. Anemia - 9. 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 Hx of TIA/CVA - on Plavix 11. S/p of multiple falls with s/p subarachnoid hemorrhage in 09/2018 - 12. Severe deconditioning. Pt. not eating. 13. Respiratory insufficiency - On bi PAP. 14. Pleural effusion - s/p Thoracentesis with 1.9L output by Dr Mcghee on 02/08 * Echo in 09/2018 with EF 45-50%, mild ERV, mod-severe dilated LA, mod ERA, mod MR, mild AR, mild DE, and severe TR (diastolic dysfunction still persists). Overall poor prognosis. Pt. seen and eval. by me. I agree with the A/P by the RADIAL DRILL PRESS OPERATOR. She is very weak, dialysis being performed at this time. Multiple medical problems. The atrial fib has a controlled ventricular response. She has diastolic CHF, continue present management. The right plueral effusion was tapped this AM. She remains on BiPAP. Chest : decreased BS in bases, R>L. Irreg, controlled HR. Minimal lower extremity edema. Overall poor prognosis. link
[2019-02-08] MEDS: cefTRIAXone\\ROCEPHIN 1 GM in Sodium Chloride 0.9% 100 ML IVPB SCH (15:31)
[2019-02-08] MEDS: Atorvastatin Calcium 40 MG TAB PO SCH (20:36)
[2019-02-09 04:58] LABS: #Eosinphils 0.1 thou/uL (0.0-0.7); #Lymphocytes 0.5 thou/uL (1.20-3.40); #Monocytes 0.6 thou/uL (0.11-0.59); %Basophils 0.1 % (0.0-1.0); %Eosinophils 1.6 % (0.0-10.0); %Lymphocytes 5.8 % (21.0-51.0); %Monocytes 7.2 % (0.0-10.0); %Neutrophils 85.3 % (42.0-75.0); Hemoglobin 9.9 g/dL (12.0-16.0); Mean Corpuscular HGB CONC 30.6 g/dL (32.0-36.0); Mean Corpuscular Hemoglobin 29.8 pg (27.0-31.0); Mean Corpuscular Volume 97.4 fL (78.0-98.0); Mean Platelet Volume 8.5 fL (7.4-10.4); Platelet Count 106 thou/uL (130-400); RBC Distribution Width 14.4 % (11.5-14.5); Red Blood Cell (RBC) Count 3.33 mill/uL (4.20-5.40); White Blood Cell (WBC) Count 8.2 thou/uL (4.8-10.8)
[2019-02-09] MEDS: Levothyroxine Sodium 75 MCG TAB PO SCH (05:10)
[2019-02-09 05:12] LABS: Anion Gap 13 mmol/L (10-20); BUN (Urea Nitrogen) 34 mg/dL (9.8-20.1); Calc. Creatinine Clearance 32 mL/min (70-130); Calcium 8.5 mg/dL (7.8-10.44); Carbon Dioxide 31 mmol/L (23-31); Chloride 98 mmol/L (98-107); Estimated GFR-MDRD 21; Glucose 81 mg/dL (83-110); Potassium 3.9 mmol/L (3.5-5.1); Sodium 138 mmol/L (136-145)
--- NOTE | 2019-02-09 07:43 | RAD ---
XR Chest 1 View Portable History: Pneumonia Comparison: Radiograph prior day Findings: Similar appearance large layering right pleural effusion. Small volume of pleural fluid. He art size is enlarged. No pneumothorax. Impression: Similar examination of the chest.
[2019-02-09] MEDS: Carvedilol 25 MG TAB PO SCH ×2 (08:35→20:43)
[2019-02-09] MEDS: Aspirin Chewable 81 MG TAB PO SCH (08:35)
[2019-02-09] MEDS: Clopidogrel Bisulfate 75 MG TAB PO SCH (08:35)
[2019-02-09] MEDS: Pentazocine HCl/Naloxone HCl 50/0.5 MG TAB PO PRN ×2 (08:36→18:02)
--- NOTE | 2019-02-09 08:56 | PRG ---
DATE OF SERVICE: 02/09/2019 SUBJECTIVE: She was able to go without BiPAP last night. She is currently on high-flow oxygen. She is able to talk some today. She is extremely weak and says she does not particularly feel well. OBJECTIVE: VITAL SIGNS: On exam, temperature is 98.6, pulse 67, and blood pressure 141/59. Intake for 24 hours 457, output 2535 including 2 L out by thoracentesis and looks like another 2 L out by dialysis. HEENT: Unremarkable. NECK: No adenopathy or JVD. LUNGS: Diminished breath sounds at the bases. CARDIAC: S1 and S2. Regular. ABDOMEN: Soft and nontender. EXTREMITIES: Decreased edema. DIAGNOSTIC DATA: White blood cell count 8.2, hematocrit 32.5, and platelet count 106. Sodium 138, potassium 3.9, chloride 98, CO2 of 31, BUN 34, creatinine 2.2, and glucose 81. Her pleural fluid met criteria for exudate by total protein, but the LDH was 140. Chest x-ray shows improvement compared to prior to the thoracentesis. ASSESSMENT: 1. Acute on chronic renal failure. 2. Acute respiratory failure, necessitating noninvasive positive-pressure ventilation - status improved after thoracentesis yesterday. 3. History of diastolic congestive heart failure. 4. Pleural effusion. 5. Diabetes mellitus. 6. Chronic atrial fibrillation. PLAN: 1. Up in a chair as tolerated. 2. Try to get her to eat something. 3. Start DVT prophylaxis with heparin since her platelet count has improved. 4. Dialysis if indicated by Nephrology Service. Job ID: [id number]
[2019-02-09] MEDS: Digoxin 0.5 MG/2 ML AMP SLOW IVP SCH (10:06)
[2019-02-09] MEDS: Heparin 5,000 UNITS/ML VIAL SC SCH ×2 (10:14→20:44)
[2019-02-09] MEDS: Lactinex Tablet PO SCH (10:14)
[2019-02-09] MEDS: Mupirocin 2% Ointment 22 GM Tube TOP SCH ×3 (10:16→20:44)
[2019-02-09] MEDS ORDERED: Heparin 1,000 UNITS/ML VIAL ONE (11:11)
[2019-02-09] MEDS: valACYclovir 500 MG TAB PO SCH (12:03)
[2019-02-09] MEDS: Multivitamin W/ Minerals 1 TAB PO SCH (12:04)
[2019-02-09] MEDS: Multivits W-Minerals Liquid 15mL UDCUP PO SCH (12:04)
[2019-02-09] MEDS: Acetaminophen 325 MG TAB PO PRN (12:09)
--- NOTE | 2019-02-09 13:10 | PRG ---
DATE OF SERVICE: 02/09/2019 SERVICE: Nephrology. SUBJECTIVE: An 83-year-old female with CKD 4, coronary artery disease, CHF, and others, admitted due to worsening shortness of breath, cough, and fever. Nephrology is following the patient for vdity-[id number]-[id number] renal failure, requiring hemodialysis. The patient was initiated on hemodialysis on February 06 due to worsening renal function and marked fluid overload. She is still fluid overloaded with little or no urine output. Complains of generalized weakness. The patient had NG tube placement earlier on for feeding. OBJECTIVE: VITAL SIGNS: Temperature 98.7, pulse rate 68, respiratory rate 18, SpO2 of 97% on high-flow nasal cannula oxygen, and blood pressure is 139/53. GENERAL: Obese female, in no obvious distress. Afebrile. Anicteric. Acyanotic. HEENT: Normocephalic, atraumatic. Oral mucosa is dry. CARDIOVASCULAR: Regular rhythm and rate with normal heart sounds one and two. RESPIRATORY: Fair air entry bilaterally, diminished at both bases with scattered crackles and transmitted breath sounds. No rhonchi were appreciated. GI: Abdomen is obese with wall edema. Soft and nontender with normal bowel sounds. UROGENITAL: Stern catheter is in place with little or no urine in urine bag. EXTREMITIES: Marked edema of all the extremities noted. SALAD CHEF: Conscious and alert. Oriented x3. Moves all extremities, but very weakly. DIAGNOSTIC DATA: CBC showed WBC count of 8.2, hemoglobin of 9.9, MCV of 97.4, and platelet of 106. BMP showed sodium of 138, potassium 3.9, chloride 98, CO2 of 31, BUN 34, creatinine 2.21, glucose 81, and calcium 8.5. ASSESSMENT: 1. Tadcr-td-lxqxomz renal failure, requiring hemodialysis. 2. The patient was initiated on hemodialysis on February 06 with last dialysis being yesterday, February 08. 3. Anasarca/generalized edema and fluid overload: Due to congestive heart failure and ksnki-[id number] renal failure with oliguria. 4. Acute respiratory failure: Improved. Currently on high-flow, high-humidity oxygen. 5. Electrolytes: Acceptable. 6. Acid-base derangement: Acceptable. 7. Anemia of chronic kidney disease. PLAN: 1. We will dialyze the patient today for 4 hours with UF as tolerated. See hemodialysis order. 2. We will monitor electrolytes and replete as needed. 3. We will repeat renal function to monitor for renal recovery in the next few days. Other treatment as per primary attending and other specialties. Job ID: [id number]
[2019-02-09] MEDS: cefTRIAXone\\ROCEPHIN 1 GM in Sodium Chloride 0.9% 100 ML IVPB SCH (14:40)
[2019-02-09] MEDS ORDERED: Pancrelipase DR 12000 1 CAP FS PRN (15:13)
[2019-02-09] MEDS ORDERED: Sodium Bicarbonate Tab 325 MG TAB PER TUBE PRN (15:13)
[2019-02-09] MEDS: Atorvastatin Calcium 40 MG TAB PO SCH (20:43)
[2019-02-10] MEDS: Insulin Regular 300 UNITS/3 ML VIAL SC PRN ×3 (04:23→21:32)
[2019-02-10 05:06] LABS: #Eosinphils 0.1 thou/uL (0.0-0.7); #Lymphocytes 0.4 thou/uL (1.20-3.40); #Monocytes 0.6 thou/uL (0.11-0.59); #Neutrophils 8.3 thou/uL (1.40-6.50); %Basophils 0.3 % (0.0-1.0); %Eosinophils 1.2 % (0.0-10.0); %Lymphocytes 3.9 % (21.0-51.0); %Monocytes 6.3 % (0.0-10.0); %Neutrophils 88.2 % (42.0-75.0); Mean Corpuscular HGB CONC 30.5 g/dL (32.0-36.0); Mean Corpuscular Hemoglobin 29.7 pg (27.0-31.0); Mean Corpuscular Volume 97.4 fL (78.0-98.0); Mean Platelet Volume 8.5 fL (7.4-10.4); Platelet Count 113 thou/uL (130-400); RBC Distribution Width 14.3 % (11.5-14.5); Red Blood Cell (RBC) Count 3.35 mill/uL (4.20-5.40); White Blood Cell (WBC) Count 9.4 thou/uL (4.8-10.8)
[2019-02-10] MEDS: Levothyroxine Sodium 75 MCG TAB PO SCH (05:12)
[2019-02-10 05:22] LABS: Anion Gap 12 mmol/L (10-20); BUN (Urea Nitrogen) 18 mg/dL (9.8-20.1); Calc. Creatinine Clearance 39 mL/min (70-130); Calcium 8.3 mg/dL (7.8-10.44); Carbon Dioxide 29 mmol/L (23-31); Chloride 98 mmol/L (98-107); Estimated GFR-MDRD 27; Glucose 205 mg/dL (83-110); Potassium 3.7 mmol/L (3.5-5.1); Sodium 135 mmol/L (136-145)
[2019-02-10] MEDS: Lactinex Tablet PO SCH (08:08)
[2019-02-10] MEDS: Pantoprazole 40 MG GRANULES PACKET PO SCH (08:08)
[2019-02-10] MEDS: Acetaminophen 325 MG TAB PO PRN (08:08)
[2019-02-10] MEDS: Carvedilol 25 MG TAB PO SCH ×2 (08:08→21:04)
[2019-02-10] MEDS: Clopidogrel Bisulfate 75 MG TAB PO SCH (08:08)
[2019-02-10] MEDS: Aspirin Chewable 81 MG TAB PO SCH (08:08)
[2019-02-10] MEDS: Heparin 5,000 UNITS/ML VIAL SC SCH ×2 (08:08→21:07)
[2019-02-10] MEDS: Multivits W-Minerals Liquid 15mL UDCUP PO SCH (08:09)
[2019-02-10] MEDS: Mupirocin 2% Ointment 22 GM Tube TOP SCH ×3 (08:20→21:12)
[2019-02-10] MEDS: valACYclovir 500 MG TAB PO SCH (08:38)
[2019-02-10] MEDS: Pentazocine HCl/Naloxone HCl 50/0.5 MG TAB PO PRN ×3 (08:53→21:19)
--- NOTE | 2019-02-10 09:01 | PRG ---
DATE OF SERVICE: 02/10/2019 SUBJECTIVE: She remains in the ICU. She has been on high-flow oxygen overnight. She says she is having difficulty breathing. OBJECTIVE: VITAL SIGNS: Temperature is 98.6, O2 saturation 100%, respiratory rate 20, pulse 70, blood pressure 137/52. Intake 1334, output 4000 by dialysis. HEENT: Unremarkable. NECK: No adenopathy or JVD. CHEST: Fairly clear anteriorly bilaterally. CARDIAC: S1, S2 regular. ABDOMEN: Soft. EXTREMITIES: No edema. LABORATORY DATA: White blood cell count 9.4, hematocrit 30.7, and platelet count 113. Sodium 135, potassium 3.7, chloride 98, CO2 of 29, BUN 18, creatinine 1.7, glucose 205. ASSESSMENT: 1. Acute respiratory failure requiring mechanical ventilation, now on high-flow nasal cannula. 2. Pleural effusion-now status post thoracentesis. 3. History of diastolic congestive heart failure. 4. Acute renal failure. 5. Chronic atrial fibrillation. 6. Diabetes mellitus. PLAN: 1. Up in a chair as tolerated. 2. Wean high-flow as tolerated. 3. Volume status seems to be much better with the dialysis therapy. 4. Stop antibiotics after tomorrow if she is stable. Job ID: [id number]
[2019-02-10] MEDS: cefTRIAXone\\ROCEPHIN 1 GM in Sodium Chloride 0.9% 100 ML IVPB SCH (13:59)
--- NOTE | 2019-02-10 15:11 | PRG ---
DATE OF SERVICE: 02/10/2019 SERVICE: Nephrology. SUBJECTIVE: An 83-year-old female with known history of CKD, congestive heart failure, and others, admitted due to worsening shortness of breath and generalized edema. Renal function worsened associated with severe anasarca and respiratory distress and the patient was initiated on hemodialysis. She is more awake and conversational, but however continued to be oxygen dependent. Last hemodialysis was yesterday and the patient tolerated the procedure well. OBJECTIVE: VITAL SIGNS: Temperature 98.4, pulse rate 68, respiratory rate 12, SpO2 100% on high-flow nasal cannula, and blood pressure is 124/51. GENERAL: Obese female, in no obvious distress. Afebrile. Anicteric. HEENT: Normocephalic and atraumatic. Oral mucosa is moist. CARDIOVASCULAR: Regular rhythm and rate with normal heart sounds. RESPIRATORY: Fair air entry bilaterally, diminished at both bases with crackles and transmitted breath sounds. No rhonchi or use of accessory muscles appreciated. GI: Obese, soft, and nontender with normal bowel sounds. UROGENITAL: Stern catheter is in place. EXTREMITIES: Moderate edema of both lower extremities noted. LEGAL INSTRUCTOR: Conscious and alert and oriented x3. Moves all extremities, but weakly. DIAGNOSTIC DATA: CBC showed WBC count of 9.3, hemoglobin of 10, MCV of 97.4, platelet of 113. BMP showed sodium of 135, potassium 3.7, chloride 98, CO2 of 29, BUN 18, creatinine 1.78, glucose 205, and calcium 8.3. ASSESSMENT: 1. Aexpo-ad-qslvsgk renal failure, now on hemodialysis. 2. Anasarca/generalized edema/fluid overload due to congestive heart failure and paokn-fx-fiadeem renal failure. 3. Acute respiratory failure with hypoxia. 4. Nrrxp-ji-ejwsfzh congestive heart failure. 5. Anemia of chronic kidney disease. PLAN: Electrolytes and acid-base are acceptable. The patient is still fluid overloaded, but this has improved greatly. Respiratory status also has improved. There is no immediate need for hemodialysis today. We will give the patient a break and monitor renal function for renal recovery. We will also monitor intake and output. Tube feeding to continue as per Pulmonary and Critical Care. Job ID: [id number]
[2019-02-10] MEDS: Atorvastatin Calcium 40 MG TAB PO SCH (21:04)
[2019-02-11] MEDS: Levothyroxine Sodium 75 MCG TAB PO SCH (05:26)
[2019-02-11] MEDS: Insulin Regular 300 UNITS/3 ML VIAL SC PRN ×2 (05:30→21:51)
[2019-02-11 05:32] LABS: #Eosinphils 0.2 thou/uL (0.0-0.7); #Lymphocytes 0.5 thou/uL (1.20-3.40); #Monocytes 0.7 thou/uL (0.11-0.59); #Neutrophils 8.3 thou/uL (1.40-6.50); %Basophils 0.3 % (0.0-1.0); %Eosinophils 1.6 % (0.0-10.0); %Lymphocytes 5.6 % (21.0-51.0); %Monocytes 6.9 % (0.0-10.0); %Neutrophils 85.7 % (42.0-75.0); Mean Corpuscular HGB CONC 30.2 g/dL (32.0-36.0); Mean Corpuscular Hemoglobin 29.9 pg (27.0-31.0); Mean Corpuscular Volume 98.8 fL (78.0-98.0); Mean Platelet Volume 8.8 fL (7.4-10.4); Platelet Count 122 thou/uL (130-400); RBC Distribution Width 14.7 % (11.5-14.5); Red Blood Cell (RBC) Count 3.36 mill/uL (4.20-5.40); White Blood Cell (WBC) Count 9.7 thou/uL (4.8-10.8)
[2019-02-11 05:58] LABS: Anion Gap 13 mmol/L (10-20); BUN (Urea Nitrogen) 30 mg/dL (9.8-20.1); Calc. Creatinine Clearance 24 mL/min (70-130); Calcium 8.5 mg/dL (7.8-10.44); Carbon Dioxide 30 mmol/L (23-31); Chloride 96 mmol/L (98-107); Estimated GFR-MDRD 17; Glucose 187 mg/dL (83-110); Potassium 4.1 mmol/L (3.5-5.1); Sodium 135 mmol/L (136-145)
--- NOTE | 2019-02-11 07:22 | PRG ---
DATE OF SERVICE: 02/11/2019 SUBJECTIVE: This patient remains on high-flow oxygen, but overall continues to slowly look better. OBJECTIVE: VITAL SIGNS: On exam, temperature is 97.8, pulse 68, blood pressure 123/49, and O2 saturation 100% on high-flow oxygen set at 38%. HEENT: Unremarkable. NECK: No adenopathy or JVD. CHEST: Clear anteriorly. CARDIAC: S1 and S2. Regular. ABDOMEN: Soft. EXTREMITIES: Question of some exudate around a right femoral dialysis catheter. LABORATORY DATA: White blood cell count 9.7, hematocrit 33.2, and platelet count 122. Sodium 135, potassium 4.1, chloride 96, CO2 of 30, BUN 30, creatinine 2.6, and glucose 187. ASSESSMENT: 1. Acute renal failure. 2. Pleural effusion - status post thoracentesis. 3. Diastolic heart failure. 4. Chronic atrial fibrillation. 5. Diabetes mellitus. PLAN: 1. She is going to need a more long-term dialysis catheter placed. I have communicated with Dr. Martinez. The catheter was originally placed by Dr. Goodman. Dr. Goodman is out of town. Dr. Martinez will be out of town. We will have to wait until Dr. Ross gets back tomorrow and ask her to see if she can place a long-term dialysis catheter. At the current time, the patient is on antibiotic. She is afebrile and has not manifested a white count. 2. Pain control is an issue. She is currently on Tolin for pain control. In the past, she has been on Lyrica. It is also noted that she has been on Celexa. We will go ahead and add those two back, increase her time in a chair as tolerated. Job ID: [id number]
[2019-02-11] MEDS ORDERED: Insulin Glargine 10 UNITS in Pre-Filled Syringe 1 EACH SC SCH (08:15)
--- NOTE | 2019-02-11 08:28 | RAD ---
FRONTAL VIEW CHEST: COMPARISON: 02/09/2019. INDICATION: Pneumonia. FINDINGS: Diffuse hazy density of the right lung remains. There is left basilar density superimposed upon enlar ged cardiac silhouette. Vascular congestion is present, similar. IMPRESSION: 1. Bilateral pleural effusions remain, right greater than left, similar in appearance. 2. Congestive heart failure.. Transcribed Date/Time: 02/11/2019 8:39 AM
[2019-02-11] MEDS: valACYclovir 500 MG TAB PO SCH (08:40)
[2019-02-11] MEDS: Multivits W-Minerals Liquid 15mL UDCUP PO SCH (08:40)
[2019-02-11] MEDS: Lactinex Tablet PO SCH (08:41)
[2019-02-11] MEDS: Pregabalin 75 MG CAP PER TUBE SCH (08:41)
[2019-02-11] MEDS: Digoxin 0.5 MG/2 ML AMP SLOW IVP SCH (08:41)
[2019-02-11] MEDS: Pantoprazole 40 MG GRANULES PACKET PO SCH (08:41)
[2019-02-11] MEDS: Clopidogrel Bisulfate 75 MG TAB PO SCH (08:41)
[2019-02-11] MEDS: Aspirin Chewable 81 MG TAB PO SCH (08:41)
[2019-02-11] MEDS: Heparin 5,000 UNITS/ML VIAL SC SCH ×2 (08:42→20:05)
[2019-02-11] MEDS: Carvedilol 25 MG TAB PO SCH ×2 (08:42→20:04)
[2019-02-11] MEDS: Citalopram 20 MG TAB PER TUBE SCH (08:42)
[2019-02-11] MEDS: Mupirocin 2% Ointment 22 GM Tube TOP SCH ×3 (08:43→20:05)
--- NOTE | 2019-02-11 09:12 | PRG ---
DATE OF SERVICE: 02/11/2019 SUBJECTIVE: Ms. Mullen is an 83-year-old white female, followed up by the Renal Service for acute kidney injury on top of her chronic renal failure. Due to volume overload, this patient has been dialyzed. The plan is to do another dialysis session for 4 hours with maximal fluid removal. OBJECTIVE: VITAL SIGNS: Blood pressure is noted at 127/57, heart rate 68, respiratory rate 16. GENERAL: Noted awake, somewhat confused, on nasal BiPAP. HEENT: Slightly pale conjunctivae. Anicteric sclerae. No neck mass. No carotid bruits. No JVD. CHEST: No deformities. LUNGS: Decreased breath sounds. HEART: Normal sinus rhythm. No murmur. No gallops. No rubs. ABDOMEN: Globular, soft, nontender. No masses. Positive for bowel sounds. Negative for epigastric bruits. EXTREMITIES: No edema. No deformities. MEDICATIONS: Medications of February 11, 2019, were reviewed. LABORATORY DATA: Laboratories of February 11, 2019, was reviewed, shows a white count 9.7, hemoglobin of 10. Sodium 135, potassium 4.1, chloride 96, carbon dioxide 30, BUN 30, creatinine 2.69, glucose 187, calcium 8.5. ASSESSMENT AND PLAN: 1. Chronic renal failure/end-stage renal disease. We will do a 4-hour hemodialysis today. We will max out fluid removal as tolerated by the patient. Chest x-ray still shows CHF with some pleural effusion. 2. Mild anemia. Continue to observe. 3. Congestive heart failure, maxing out fluid removal with dialysis. Job ID: [id number]
[2019-02-11] MEDS: Pentazocine HCl/Naloxone HCl 50/0.5 MG TAB PO PRN ×2 (09:48→20:12)
[2019-02-11] MEDS: cefTRIAXone\\ROCEPHIN 1 GM in Sodium Chloride 0.9% 100 ML IVPB SCH (14:11)
[2019-02-11] MEDS: Atorvastatin Calcium 40 MG TAB PO SCH (20:04)
[2019-02-12] MEDS: Insulin Regular 300 UNITS/3 ML VIAL SC PRN ×2 (05:06→10:40)
[2019-02-12] MEDS: Levothyroxine Sodium 75 MCG TAB PO SCH (05:06)
[2019-02-12 05:29] LABS: #Eosinphils 0.1 thou/uL (0.0-0.7); #Lymphocytes 0.5 thou/uL (1.20-3.40); #Monocytes 0.5 thou/uL (0.11-0.59); #Neutrophils 6.2 thou/uL (1.40-6.50); %Basophils 0.4 % (0.0-1.0); %Eosinophils 1.2 % (0.0-10.0); %Lymphocytes 6.8 % (21.0-51.0); %Monocytes 7.4 % (0.0-10.0); %Neutrophils 84.2 % (42.0-75.0); Hemoglobin 9.5 g/dL (12.0-16.0); Mean Corpuscular HGB CONC 30.5 g/dL (32.0-36.0); Mean Corpuscular Hemoglobin 30.2 pg (27.0-31.0); Mean Corpuscular Volume 98.9 fL (78.0-98.0); Mean Platelet Volume 8.8 fL (7.4-10.4); Platelet Count 130 thou/uL (130-400); RBC Distribution Width 14.8 % (11.5-14.5); Red Blood Cell (RBC) Count 3.14 mill/uL (4.20-5.40); White Blood Cell (WBC) Count 7.3 thou/uL (4.8-10.8)
[2019-02-12 05:53] LABS: Anion Gap 12 mmol/L (10-20); BUN (Urea Nitrogen) 22 mg/dL (9.8-20.1); Calc. Creatinine Clearance 29 mL/min (70-130); Calcium 8.5 mg/dL (7.8-10.44); Carbon Dioxide 31 mmol/L (23-31); Chloride 96 mmol/L (98-107); Estimated GFR-MDRD 21; Glucose 221 mg/dL (83-110); Sodium 135 mmol/L (136-145)
[2019-02-12] MEDS: Aspirin Chewable 81 MG TAB PO SCH (08:18)
[2019-02-12] MEDS: Lactinex Tablet PO SCH (08:34)
[2019-02-12] MEDS: Citalopram 20 MG TAB PER TUBE SCH (08:34)
[2019-02-12] MEDS: Carvedilol 25 MG TAB PO SCH ×2 (08:35→20:36)
[2019-02-12] MEDS: Clopidogrel Bisulfate 75 MG TAB PO SCH (08:35)
[2019-02-12] MEDS: Pantoprazole 40 MG GRANULES PACKET PO SCH (08:35)
[2019-02-12] MEDS: Pregabalin 75 MG CAP PER TUBE SCH (08:36)
[2019-02-12] MEDS: Mupirocin 2% Ointment 22 GM Tube TOP SCH ×3 (08:37→20:37)
[2019-02-12] MEDS: Heparin 5,000 UNITS/ML VIAL SC SCH ×2 (08:39→20:36)
--- NOTE | 2019-02-12 09:10 | RAD ---
PORTABLE CHEST: HISTORY: Respiratory distress. COMPARISON: Prior day's study. FINDINGS: Heart size is enlarged with atherosclerotic changes of the aorta. NG tube is below the hemidiaphragm. Right-sided pleural and parenchymal lung changes are stable. IMPRESSION: Stable examination. POS: PAOLA
[2019-02-12] MEDS: Multivits W-Minerals Liquid 15mL UDCUP PO SCH (09:20)
--- NOTE | 2019-02-12 09:26 | PRG ---
DATE OF SERVICE: 02/12/2019 SUBJECTIVE: Ms. Mullen is an 83-year-old white female, who has been initially on dialysis due to volume overload. Currently this morning, she voices no new complaints. No chest pain or shortness of breath. She underwent hemodialysis yesterday for 4 hours and we removed several liters of fluid. OBJECTIVE: VITAL SIGNS: Blood pressure is 129/57, heart rate 61, respiratory rate 13, and pulse ox 97%. GENERAL: Awake, lethargic, not in overt distress. SKIN: Adequate turgor. HEENT: Slightly pale conjunctivae. Anicteric sclerae. NECK: No neck mass. No carotid bruits. No JVD. CHEST: No deformities. LUNGS: Decreased breath sounds. HEART: Normal sinus rhythm. No murmur. No gallops. No rubs. ABDOMEN: Globular, soft, and nontender. No masses. EXTREMITIES: Trace edema. MEDICATIONS: Medications of February 12, 2019, reviewed. LABORATORY DATA: Laboratories of February 12, 2019; white count 7.2, hemoglobin 9.5. Sodium 135, potassium 4, chloride 96, carbon dioxide 31, BUN 22, creatinine 2.28, glucose 221, and calcium 8.5. ASSESSMENT AND PLAN: 1. Chronic renal failure/end-stage renal disease. Continue Monday, Monday, and Monday hemodialysis. Fluid removal to be removed only as tolerated by the patient. 2. Congestive heart failure, clinically much improved with fluid removal from the dialysis. Overall, prognosis still remains guarded. Continue supportive care. Recheck basic metabolic and CBC in a.m. Job ID: [id number]
[2019-02-12] MEDS: valACYclovir 500 MG TAB PO SCH (10:20)
--- NOTE | 2019-02-12 11:53 | PDOC.CPN ---
- Subjective Date: 02/12/19 Time: 11:50 Interval history: The pt seen and examined. No overnight events. No cardiac complaints. - Objective Allergies/Adverse Reactions: Allergies Allergy/AdvReac Type Severity Reaction Status Date / Time codeine Allergy Verified 09/10/18 15:23 ibuprofen [From Motrin] Allergy Verified 02/02/19 15:45 Visit Medications: Current Medications Acetaminophen (Tylenol) 650 mg PO Q4H PRN PRN Reason: Headache/Fever or Pain Last Admin: 02/10/19 08:08 Dose: 650 mg Acidophilus (Floranex) 1 tab PO DAILY [facility] Last Admin: 02/12/19 08:34 Dose: 1 tab Albuterol/Ipratropium (Duoneb) 3 ml NEB QID-RT [facility] Last Admin: 02/12/19 10:57 Dose: 3 ml Lipase/Protease/Amylase ([place] [id number]) 1 cap FS .PER PROTOCOL PRN PRN Reason: TUBE OCCLUSION PROTOCOL Aspirin (Aspirin Chewable) 81 mg PO QAM-WM [facility] Last Admin: 02/12/19 08:18 Dose: 81 mg Atorvastatin Calcium (Lipitor) 80 mg PO HS [facility] Last Admin: 02/11/19 20:04 Dose: 80 mg Carvedilol (Coreg) 12.5 mg PO BID [facility] Last Admin: 02/12/19 08:35 Dose: 12.5 mg Cholecalciferol (Vitamin D3) 1,000 units PO DAILY [facility] Last Admin: 02/12/19 08:34 Dose: 1,000 units Citalopram Hydrobromide (Celexa) 40 mg PER TUBE DAILY [facility] Last Admin: 02/12/19 08:34 Dose: 40 mg Clopidogrel Bisulfate (Plavix) 75 mg PO DAILY [facility] Last Admin: 02/12/19 08:35 Dose: 75 mg Dextrose/Water (Dextrose 50%) 25 gm IVP PRN PRN PRN Reason: HYPOGLYCEMIA PROTOCOL Last Admin: 02/08/19 20:46 Dose: 25 gm Digoxin (Lanoxin) 0.125 mg SLOW IVP MoWeSa@0900 [facility] Last Admin: 02/11/19 08:41 Dose: 0.125 mg Glucagon (Glucagon) 1 mg IM PRN PRN PRN Reason: HYPOGLYCEMIA PROTOCOL Heparin Sodium (Porcine) (Heparin) 5,000 units SC BID [facility] Last Admin: 02/12/19 08:39 Dose: 5,000 units Ceftriaxone Sodium 1 gm/ (Sodium Chloride) 100 mls @ 200 mls/hr IVPB 1400 [facility] Last Admin: 02/11/19 14:11 Dose: 100 mls Dextrose/Water (D5w) 1,000 mls @ 0 mls/hr IV INF PRN PRN Reason: HYPOGLYCEMIA PROTOCOL Insulin Human Lispro (Humalog) 5 units SC PRN PRN PRN Reason: BLOOD GLUCOSE > 200 Insulin Human Regular (Humulin R) 0 units SC .MILD SLIDING PRN; Protocol PRN Reason: MILD SLIDING SCALE Last Admin: 02/12/19 10:40 Dose: 3 unit Iron/Minerals/Multivitamins (Certa Alexa Liquid) 15 ml PO DAILY [facility] Last Admin: 02/12/19 09:20 Dose: 15 ml Levothyroxine Sodium (Synthroid) 75 mcg PO 0600 [facility] Last Admin: 02/12/19 05:06 Dose: 75 mcg Mupirocin (Bactroban 2% Ointment) 0 gm TOP TID [facility] Last Admin: 02/12/19 08:37 Dose: 1 applic Ondansetron HCl (Zofran) 4 mg SLOW IVP Q6H PRN PRN Reason: Nausea/Vomiting Oxymetazoline HCl (Nasal Decongestant) 0 ml NS BIDPRN PRN PRN Reason: NASAL CONGESTION Pantoprazole Sodium (Protonix) 40 mg PO DAILY [facility] Last Admin: 02/12/19 08:35 Dose: 40 mg Pentazocine HCl/Naloxone HCl (Talwin Nx) 0.5 tab PO Q6H PRN PRN Reason: Moderate to Severe Pain (6-10) Last Admin: 02/11/19 20:12 Dose: 0.5 tab Pregabalin (Lyrica) 75 mg PER TUBE DAILY [facility] Last Admin: 02/12/19 08:36 Dose: 75 mg Sodium Bicarbonate (Bicarbonate, Sodium) 650 mg PER TUBE .PER PROTOCOL PRN PRN Reason: ENTERAL TUBE OCCLUSION Sodium Chloride (Flush - Normal Saline) 10 ml IVF PRN PRN PRN Reason: Saline Flush Vital Signs & Weight: Vital Signs Temp Pulse Resp Pulse Ox 02/12/19 10:57 65 12 95 02/12/19 07:29 67 12 100 02/12/19 07:21 100 02/12/19 07:00 98.6 F 02/12/19 04:00 98.1 F 02/12/19 00:00 99.1 F Admit Weight 238 lb 1.588 oz Weight 202 lb 6.15 oz - Quality Measures Condition: Atrial Fibrillation/Flutter (hx or current) CV meds: Beta Aguilar: Yes, ADRIAN/ARB: No (Acute on chronic renal failure), Statin : No - Labs Result Diagrams: 02/12/19 05:14 02/12/19 05:14 - Assessment/Plan Assessment/Plan: 1. Afib with RVR - well controlled HR with Coreg and Digoxin 0.125mg IV on Mon, Wed, Sat; On ASA 2. Acute on Chronic Diastolic HF with grade III dd in 11/2017 - on HD; On Coreg ; not on ADRIAN/ARB due to acute/ CKD 3. ANGELICA on CKD - On HD on MWF; managed by Dr Flores 4. HTN - stable 5. DM type 2 - 6. HLD - on statin 7. Hypothyrodism - 8. Anemia - 9. 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 Hx of TIA/CVA - on Plavix 11. S/p of multiple falls with s/p subarachnoid hemorrhage in 09/2018 - 12. Severe deconditioning. Pt. not eating. 13. Respiratory insufficiency - stable with 2LNC 14. Pleural effusion - s/p Thoracentesis with 1.9L output by Dr Mcghee on 02/08 * Echo in 09/2018 with EF 45-50%, mild ERV, mod-severe dilated LA, mod ERA, mod MR, mild AR, mild DC, and severe TR (diastolic dysfunction still persists). Overall poor prognosis. Pt. seen and eval. by me. I agree with the a/P by the WEBSPH[employer] MESSAGE BROKER DEVELOPER. She is tolerating dialysis and the edema is decreasing since my last visit last week, She sat on the side of the bed and stood earlier per family. She is still very deconditioned.Chest: decreased BS but poor inspiratory effort. CV: irreg. rhythm. No gross murmurs audible. Extr: 1-2+ edema. ABD: + BS, no discomfort.
[2019-02-12] MEDS: cefTRIAXone\\ROCEPHIN 1 GM in Sodium Chloride 0.9% 100 ML IVPB SCH (13:30)
--- NOTE | 2019-02-12 14:33 | ULT ---
EXAM: US Vessel Mapping Dialysis Acc PROVIDED CLINICAL HISTORY: End-stage renal disease. Evaluate for dialysis access. COMPARISON: None FINDINGS: Normal flow is seen within the bilateral internal jugular and subclavian veins. Normal luminal compre ssibility and flow is seen involving each axillary vein. Right upper extremity cephalic vein diameters: Upper arm-3.2 mm Mid arm-3.2 mm Lower arm-3 mm Antecubital fossa-3.1 mm Proximal forearm-0.8 mm Mid forearm-1.3 mm Distal forearm-0.8 mm Right upper extremity basilic vein diameters: Upper arm-5.4 mm Mid arm-2.7 mm Distal arm-1.3 mm Antecubital fossa-1.7 mm Proximal forearm-1.3 mm Mid forearm-1 mm Distal forearm-1 mm Left upper extremity cephalic vein diameters: Upper arm-3.5 mm Mid arm-3.5 mm Distal arm-4.4 mm Antecubital fossa-2 mm Proximal forearm-2.5 mm Mid forearm-2.3 mm Distal forearm-1.4 mm Left upper extremity basilic vein diameters: Upper arm-6.6 mm Mid arm-4 mm Distal arm-4.3 mm Antecubital fossa-2.4 mm Proximal forearm-2.1 mm Mid forearm-1.3 mm Distal forearm-1.1 mm Right upper extremity arterial diameters: Brachial artery-5.9 mm Radial artery-1.9 mm Ulnar artery-2 mm Left upper extremity arterial diameters: Brachial artery-4.9 mm Radial artery-2.1 mm Ulnar artery-2.1 mm IMPRESSION: Upper extremity venous diameters are as described above.
--- NOTE | 2019-02-12 16:26 | PRG ---
DATE OF SERVICE: 02/12/2019 SERVICE: Pulmonary Medicine. INTERVAL HISTORY: The patient is doing fine from respiratory standpoint. She got placed on 2L nasal cannula. Otherwise, she looks fairly comfortable from a respiratory standpoint. Mentation noyola, things are about the same. She is currently in a bed-bound state, not really able to provide much in the way of interval history. She can follow some simple commands. IMAGING STUDIES: VITAL SIGNS: Afebrile, pulse 67, blood pressure 102/46, respirations 15, and saturation 98%, currently on 2L nasal cannula. GENERAL: The patient is awake and alert, in no apparent distress. HEENT: Normocephalic and atraumatic. Sclerae white. Conjunctivae pink. Oral mucosa is moist without lesions. LUNGS: Decent air entry. There is no prolonged expiratory phase or wheezing appreciated. HEART: Normal rate and regular. ABDOMEN: Soft, nontender, and nondistended. Bowel sounds are positive. MUSCULOSKELETAL: No cyanosis or clubbing. There is no pitting in the bilateral lower extremities. NEUROLOGIC: Grossly nonfocal. LABORATORY DATA: WBC 7.3, hemoglobin 9.5, and platelets 130,000. Sodium 135, chloride 96, and creatinine 2.28 and gently downtrending. Urinalysis was previously unremarkable. Thoracentesis fluid was consistent with a transudate with normal pH. Hepatitis serologies were unremarkable. All culture results remain negative to date. IMAGING STUDIES: Chest x-ray demonstrates right-sided pleural and parenchymal changes are stable. NG tube courses below the level of the diaphragm. ASSESSMENT: 1. Acute kidney injury on chronic kidney disease, 4, returned to baseline. 2. Pleural effusion, transudate. 3. Chronic diastolic heart failure. 4. Atrial fibrillation, chronic. 5. Type 2 diabetes mellitus. DISCUSSION AND PLAN: The patient is doing fine from our respiratory standpoint. Pulmonary will continue to follow while the patient remains in this location. Apparently long-term dialysis is being considered. I will continue to follow while the patient remains in the ICU. Job ID: [id number] MTDD
--- NOTE | 2019-02-12 16:41 | CON ---
DATE OF CONSULTATION: REASON FOR CONSULTATION: Need for dialysis access. HISTORY OF PRESENT ILLNESS: Ms. Mullen is an 83-year-old woman with multiple medical problems, who presented to the emergency room with fluid overload, shortness of breath, right pleural effusion, and fever. She was admitted for suspected pyelonephritis and worsening heart failure as well as worsening renal failure. She did end up going on dialysis through a femoral catheter placed by Dr. Goodman and has been on dialysis since February 06. Her daughter states that her swelling and her shortness of breath have significantly improved on dialysis and they would like to continue with dialysis. A tunneled dialysis catheter and fistula have been requested for that purpose. The source of the patient's initial fever is still unclear. CT of the chest, abdomen, and pelvis showed some stranding around the kidney. The urine cultures and blood cultures were both negative. No evidence of pneumonia was seen on chest imaging, although she did have a large pleural effusion, for which she has undergone thoracentesis by Dr. Mcghee. PAST MEDICAL HISTORY: Diastolic dysfunction, heart failure with last ejection fraction 45% according to other notes, diabetes which is poorly controlled due to noncompliance, obstructive sleep apnea which is also complicated by noncompliance with auto PAP machine, morbid obesity, hyperlipidemia, coronary artery disease, history of pancolitis due to C difficile, history of subarachnoid hemorrhage after a fall, distant history of CVA, atrial fibrillation, hypothyroidism, chronic renal insufficiency, GERD, osteoarthritis, history of ventricular tachycardia and DVTs, history of pancreatitis, and history of rectal cancer. PAST SURGICAL HISTORY: Rotator cuff repair, recent femoral Trialysis catheter for dialysis, total abdominal hysterectomy, cholecystectomy, low anterior resection with diverting colostomy and later colostomy takedown, bilateral cataracts. ALLERGIES: DAUGHTER REPORTS AN ALLERGY TO CODEINE. THERE IS ALSO AN ALLERGY TO IBUPROFEN NOTED IN THE CHART. MEDICATIONS: Outpatient medications include; 1. Protonix. 2. Aspirin. 3. Plavix. 4. Citalopram. 5. Lipitor. 6. Sliding scale insulin. 7. Lantus. 8. Carvedilol. 9. Lunesta. 10. Mirapex. 11. Torsemide. 12. Lyrica. 13. Synthroid. Inpatient medications include; 1. Floranex. 2. DuoNeb. 3. Aspirin. 4. Lipitor. 5. Coreg. 6. Ceftriaxone. 7. Vitamin D. 8. Citalopram. 9. Plavix. 10. Digoxin. 11. Sliding scale insulin. 12. Subcu heparin. 13. Multivitamin with iron. 14. Synthroid. 15. Bactroban ointment. 16. Protonix. 17. Lyrica. 18. Sodium bicarbonates. 19. Multiple p.r.n.'s. LABORATORY DATA: White count is 7.3, hematocrit 31, platelets 130. No left shift. BUN and creatinine are 22 and 2.28, this was as high as 4.37 before beginning dialysis. Electrolytes are unremarkable. Bicarb is 31. Blood urine and thoracentesis fluid are all negative, and influenza testing is negative. AFB cultures have been sent and there is no growth to date. PHYSICAL EXAMINATION: VITAL SIGNS: The patient has been afebrile except for the high temperature in the ER. Blood pressure 122/43, respirations 14, 97% saturated on nasal cannula O2, heart rate of 64. GENERAL: Reveals an obese, chronically ill-appearing, weak, elderly woman, in no acute distress. She is not flushed or toxic in appearance. She is not jaundiced or icteric HEENT: Unremarkable. NECK: Supple. I do not appreciate any lymphadenopathy or thyroid nodules. HEART: Regular in its rate and rhythm. I do not appreciate any murmurs. LUNGS: Clear to auscultation anteriorly. ABDOMEN: Soft and obese. She has some tenderness to palpation in bilateral upper quadrant, but no rigidity, rebound, or guarding. No palpable masses or hernias. She has an overhanging pannus and a femoral catheter in place. EXTREMITIES: Warm and well perfused with mild edema, more on the right than the left, and she has some tenderness to palpation of the edematous limbs. No significant upper extremity edema. No palpable forearm or antecubital veins. The patient is unable to cooperate with Markus testing. ASSESSMENT: Acute on chronic renal failure with fluid overload complicated by chronic heart failure. The patient is in very poor medical condition with multiple preexisting illnesses, which are poorly managed due to noncompliance. I discussed her condition with her daughter, who is at the bedside. She and the patient would like to proceed with tunneled hemodialysis catheter because it has alleviated her shortness of breath, which brought her to the hospital. She will require a fistula intermediate frame tender if she persists on dialysis; however, her medical condition is quite poor. If we are able to do a catheter and fistula at the same time, we will schedule her for this, but otherwise we will defer the fistula until she is in somewhat better condition. I have ordered vein mapping, which is still pending. Inherent risks of catheter placement were discussed with the daughter. These include, but are not limited to bleeding, infection, risks of anesthesia, hemothorax, pneumothorax, need for other procedures. She understands and accepts these risks and wishes to proceed. The patient will be made n.p.o. after midnight and we will get her on the schedule for tomorrow for a catheter and possibly a fistula if time and the patient's condition allow. Job ID: [id number]
[2019-02-12] MEDS: Atorvastatin Calcium 40 MG TAB PO SCH (20:37)
[2019-02-13 04:42] LABS: #Eosinphils 0.1 thou/uL (0.0-0.7); #Lymphocytes 0.5 thou/uL (1.20-3.40); #Monocytes 0.6 thou/uL (0.11-0.59); #Neutrophils 6.5 thou/uL (1.40-6.50); %Basophils 0.4 % (0.0-1.0); %Eosinophils 1.5 % (0.0-10.0); %Monocytes 8.3 % (0.0-10.0); %Neutrophils 83.8 % (42.0-75.0); Hemoglobin 9.4 g/dL (12.0-16.0); Mean Corpuscular HGB CONC 30.2 g/dL (32.0-36.0); Mean Corpuscular Hemoglobin 29.9 pg (27.0-31.0); Mean Platelet Volume 8.6 fL (7.4-10.4); Platelet Count 134 thou/uL (130-400); RBC Distribution Width 15.1 % (11.5-14.5); Red Blood Cell (RBC) Count 3.14 mill/uL (4.20-5.40); White Blood Cell (WBC) Count 7.7 thou/uL (4.8-10.8)
[2019-02-13 05:02] LABS: Anion Gap 11 mmol/L (10-20); BUN (Urea Nitrogen) 33 mg/dL (9.8-20.1); Calc. Creatinine Clearance 21 mL/min (70-130); Calcium 8.6 mg/dL (7.8-10.44); Carbon Dioxide 31 mmol/L (23-31); Chloride 95 mmol/L (98-107); Estimated GFR-MDRD 15; Glucose 171 mg/dL (83-110); Sodium 133 mmol/L (136-145)
[2019-02-13] MEDS: Levothyroxine Sodium 75 MCG TAB PO SCH (05:12)
[2019-02-13] MEDS ORDERED: Propofol 500 MG/50 ML VIAL ONE (07:24)
--- NOTE | 2019-02-13 08:25 | RAD ---
PORTABLE CHEST: HISTORY: Respiratory distress. COMPARISON: 02/12/2019 study. FINDINGS: NG tube is difficult to visualize on this exam. Heart size is enlarged. Pleural and parenchymal erin g changes are stable. IMPRESSION: Stable exam. POS: TPC
[2019-02-13] MEDS: Digoxin 0.5 MG/2 ML AMP SLOW IVP SCH (08:29)
[2019-02-13] MEDS: Pantoprazole 40 MG GRANULES PACKET PO SCH (08:30)
[2019-02-13] MEDS: Aspirin Chewable 81 MG TAB PO SCH (08:30)
[2019-02-13] MEDS: Pregabalin 75 MG CAP PER TUBE SCH (08:30)
[2019-02-13] MEDS: Carvedilol 25 MG TAB PO SCH ×2 (08:30→21:55)
[2019-02-13] MEDS: Clopidogrel Bisulfate 75 MG TAB PO SCH (08:30)
[2019-02-13] MEDS: Lactinex Tablet PO SCH (08:31)
[2019-02-13] MEDS: Citalopram 20 MG TAB PER TUBE SCH (08:31)
[2019-02-13] MEDS: Heparin 5,000 UNITS/ML VIAL SC SCH ×2 (08:32→21:57)
[2019-02-13] MEDS ORDERED: Bupivacaine HCl 0.25%/Epi 0.0005/PF 10 ML VIAL FS ONE (08:34)
[2019-02-13] MEDS ORDERED: Heparin 10,000 UNITS/1 ML VIAL ONE (08:34)
[2019-02-13] MEDS ORDERED: Sodium Chloride 0.9% 20 ML ONE (08:34)
[2019-02-13] MEDS ORDERED: Lidocaine 2% PF 5 ML VIAL ONE (08:34)
[2019-02-13] MEDS: Mupirocin 2% Ointment 22 GM Tube TOP SCH ×3 (08:35→21:58)
[2019-02-13] MEDS ORDERED: Fentanyl 100 MCG/2 ML VIAL ONE (08:43)
--- NOTE | 2019-02-13 09:10 | PRG ---
DATE OF SERVICE: 02/13/2019 SERVICE: Renal Medicine. SUBJECTIVE: Ms. Mullen is an 83-year-old white female, who was initiated on hemodialysis due to volume overload. She is currently tolerating dialysis. She is scheduled for placement of a cuffed hemodialysis catheter today. The patient is slightly feeling better. She is undergoing physical therapy. OBJECTIVE: VITAL SIGNS: Blood pressure 149/65, heart rate 61, respiratory rate 13, pulse ox 98%. GENERAL: She is awake, alert, comfortable, not in distress. SKIN: Adequate turgor. HEENT: Slightly pale conjunctivae. Anicteric sclerae. NECK: No neck mass. No carotid bruits. No JVD. CHEST: No deformities. LUNGS: Clear breath sounds. HEART: Normal sinus rhythm. No murmurs, no gallops, no rubs. ABDOMEN: Globular, soft, nontender. No masses. EXTREMITIES: Trace edema. MEDICATIONS: Medications of February 13, 2019, was reviewed. LABORATORY DATA: Laboratories of February 13, 2019; white count 7.7, hemoglobin 9.4. Sodium 133, potassium 4, chloride 95, carbon dioxide 31, BUN 33, creatinine 2.99, calcium is 8.6. ASSESSMENT AND PLAN: 1. Chronic renal failure/end-stage renal disease, continuing Monday, Monday, and Monday hemodialysis. We will schedule her for 4-hour hemodialysis. Fluid removal as tolerated. The patient is scheduled for a cuffed hemodialysis catheter placement. AV fistula will be placed later on. 2. Anemia. The patient will be placed on a weekly Epogen regimen 7500 units subcu every week. 3. Agree with current management. Job ID: [id number]
--- NOTE | 2019-02-13 09:19 | PDOC.CPN ---
- Subjective Date: 02/13/19 Time: 08:30 Interval history: The pt seen and examined. No overnight events. No cardiac complaints. - Objective Allergies/Adverse Reactions: Allergies Allergy/AdvReac Type Severity Reaction Status Date / Time codeine Allergy Verified 09/10/18 15:23 ibuprofen [From Motrin] Allergy Verified 02/02/19 15:45 Visit Medications: Current Medications Acetaminophen (Tylenol) 650 mg PO Q4H PRN PRN Reason: Headache/Fever or Pain Last Admin: 02/10/19 08:08 Dose: 650 mg Acidophilus (Floranex) 1 tab PO DAILY [facility] Last Admin: 02/13/19 08:31 Dose: 1 tab Albuterol/Ipratropium (Duoneb) 3 ml NEB QID-RT [facility] Last Admin: 02/13/19 07:49 Dose: 3 ml Lipase/Protease/Amylase ([place] [id number]) 1 cap FS .PER PROTOCOL PRN PRN Reason: TUBE OCCLUSION PROTOCOL Aspirin (Aspirin Chewable) 81 mg PO QAM-WM [facility] Last Admin: 02/13/19 08:30 Dose: 81 mg Atorvastatin Calcium (Lipitor) 80 mg PO HS [facility] Last Admin: 02/12/19 20:37 Dose: 80 mg Carvedilol (Coreg) 12.5 mg PO BID [facility] Last Admin: 02/13/19 08:30 Dose: 12.5 mg Cholecalciferol (Vitamin D3) 1,000 units PO DAILY [facility] Last Admin: 02/13/19 08:37 Dose: 1,000 units Citalopram Hydrobromide (Celexa) 40 mg PER TUBE DAILY [facility] Last Admin: 02/13/19 08:31 Dose: 40 mg Clopidogrel Bisulfate (Plavix) 75 mg PO DAILY [facility] Last Admin: 02/13/19 08:30 Dose: 75 mg Dextrose/Water (Dextrose 50%) 25 gm IVP PRN PRN PRN Reason: HYPOGLYCEMIA PROTOCOL Last Admin: 02/08/19 20:46 Dose: 25 gm Digoxin (Lanoxin) 0.125 mg SLOW IVP MoWeSa@0900 [facility] Last Admin: 02/13/19 08:29 Dose: 0.125 mg Epoetin [id number]-epbx (Retacrit) 7,500 unit SC Q7D [facility] Glucagon (Glucagon) 1 mg IM PRN PRN PRN Reason: HYPOGLYCEMIA PROTOCOL Heparin Sodium (Porcine) (Heparin) 5,000 units SC BID [facility] Last Admin: 02/13/19 08:32 Dose: Not Given Dextrose/Water (D5w) 1,000 mls @ 0 mls/hr IV INF PRN PRN Reason: HYPOGLYCEMIA PROTOCOL Insulin Human Lispro (Humalog) 5 units SC PRN PRN PRN Reason: BLOOD GLUCOSE > 200 Insulin Human Regular (Humulin R) 0 units SC .MILD SLIDING PRN; Protocol PRN Reason: MILD SLIDING SCALE Last Admin: 02/12/19 10:40 Dose: 3 unit Iron/Minerals/Multivitamins (Certa Alexa Liquid) 15 ml PO DAILY [facility] Last Admin: 02/12/19 09:20 Dose: 15 ml Levothyroxine Sodium (Synthroid) 75 mcg PO 0600 [facility] Last Admin: 02/13/19 05:12 Dose: 75 mcg Mupirocin (Bactroban 2% Ointment) 0 gm TOP TID [facility] Last Admin: 02/13/19 08:35 Dose: 1 applic Ondansetron HCl (Zofran) 4 mg SLOW IVP Q6H PRN PRN Reason: Nausea/Vomiting Oxymetazoline HCl (Nasal Decongestant) 0 ml NS BIDPRN PRN PRN Reason: NASAL CONGESTION Pantoprazole Sodium (Protonix) 40 mg PO DAILY [facility] Last Admin: 02/13/19 08:30 Dose: 40 mg Pentazocine HCl/Naloxone HCl (Talwin Nx) 0.5 tab PO Q6H PRN PRN Reason: Moderate to Severe Pain (6-10) Last Admin: 02/11/19 20:12 Dose: 0.5 tab Pregabalin (Lyrica) 75 mg PER TUBE DAILY [facility] Last Admin: 02/13/19 08:30 Dose: 75 mg Sodium Bicarbonate (Bicarbonate, Sodium) 650 mg PER TUBE .PER PROTOCOL PRN PRN Reason: ENTERAL TUBE OCCLUSION Sodium Chloride (Flush - Normal Saline) 10 ml IVF PRN PRN PRN Reason: Saline Flush Vital Signs & Weight: Vital Signs Temp Pulse Resp Pulse Ox 02/13/19 08:29 65 02/13/19 07:49 65 13 02/13/19 07:20 99 02/13/19 07:00 98.5 F 02/13/19 04:00 97.9 F 02/13/19 00:00 97.6 F Admit Weight 238 lb 1.588 oz Weight 204 lb 12.951 oz - Quality Measures Condition: Atrial Fibrillation/Flutter (hx or current) CV meds: Beta Aguilar: Yes, ADRIAN/ARB: No (Acute on chronic renal failure), Statin : No - Physical Exam General: alert & oriented x3 HEENT: mucus membranes moist Neck: supple neck Cardiac: irregularly regular Lungs: decreased breath sounds Skin: clear - Labs Result Diagrams: 02/13/19 03:52 02/13/19 03:52 - Telemetry Supraventricular conduction: atrial fibrillation - Assessment/Plan Assessment/Plan: 1. Afib with RVR - well controlled HR with Coreg and Digoxin 0.125mg IV on Mon, Wed, Sat; On ASA 2. Acute on Chronic Diastolic HF with grade III dd in 11/2017 - on HD; On Coreg ; not on ADRIAN/ARB due to acute/ CKD 3. ESRD - On HD on MWF; managed by Dr Flores 4. HTN - stable 5. DM type 2 - 6. HLD - on statin 7. Hypothyrodism - 8. Anemia - On Epogen 9. 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 Hx of TIA/CVA - on Plavix 11. S/p of multiple falls with s/p subarachnoid hemorrhage in 09/2018 - 12. Severe deconditioning. Pt. not eating. 13. Respiratory insufficiency - stable with 2LNC 14. Pleural effusion - s/p Thoracentesis with 1.9L output by Dr Mcghee on 02/08 * Echo in 09/2018 with EF 45-50%, mild ERV, mod-severe dilated LA, mod ERA, mod MR, mild AR, mild MI, and severe TR (diastolic dysfunction still persists). pt. seen and eval. by me. She is presently undergoing dialysis. I agree with the A/P by the NOC ENGINEER. She did have some HR's in the 30's today for a few seconds. The HR is otherwise controlled with the Atrial fib. Chest clear anteriorly. irreg. rhythm. If she continue to have bradycardia episodes or worsening of the arrhythmias , she may need a pacemaker.
[2019-02-13] MEDS ORDERED: CEFAZOLIN 1 GM VIAL ONE (10:08)
[2019-02-13] MEDS: Multivits W-Minerals Liquid 15mL UDCUP PO SCH (10:31)
[2019-02-13] MEDS: EPOETIN ALFA-EPBX (ESRD) 4,000 UNIT/ML VIAL SC SCH (10:35)
--- NOTE | 2019-02-13 10:36 | RAD ---
XR Chest 1 View Portable History: Line placement Comparison: Radiograph's same day Findings: Interval placement of a dialysis central venous catheter without complication. No pneumotho rax. Effusions and pulmonary edema are similar. Impression: Uncomplicated placement of a dialysis catheter.
[2019-02-13] MEDS ORDERED: Heparin 10,000 UNITS/ 10 ML VIAL ONE (11:11)
--- NOTE | 2019-02-13 12:40 | PRG ---
DATE OF SERVICE: 02/13/2019 SERVICE: Pulmonary Medicine. INTERVAL HISTORY: The patient continues to have profound weakness. She seems to be a little bit more alert today. She is able sit on the side of the bed without significant difficulties or falling. She denies any shortness of breath or chest discomfort. There were no significant overnight events. PHYSICAL EXAMINATION: VITAL SIGNS: Afebrile, pulse 68, blood pressure 162/69, respirations 13, saturations 98% on 2 L nasal cannula. GENERAL: The patient is awake and alert, in no apparent distress. LUNGS: Very good air entry. Dependent crackles are minimal. No prolonged expiratory phase or wheezing is appreciated. HEART: Normal rate, regular. ABDOMEN: Soft, nontender, and nondistended. Bowel sounds are positive. MUSCULOSKELETAL: No cyanosis or clubbing. No pitting edema. NEUROLOGIC: Grossly nonfocal other than diffuse weakness. LABORATORY DATA: WBC 7.7, hemoglobin 9.4, platelets 134,000 and rebounding beautifully. All culture results remain negative to date. IMAGING: Chest x-ray demonstrates uncomplicated placement of a tunneled dialysis catheter in the right IJ. There is a small pleural effusion on the right. No significant effusion on the left. Cardiomegaly is noted with an enlarged carinal angle. There is likely a layering effusion on the right. ASSESSMENT: 1. Acute hypoxic respiratory failure. 2. Acute kidney injury on chronic kidney disease 4, progressing and requiring dialysis. 3. Pleural effusion, transudate. 4. Chronic diastolic heart failure. 5. Atrial fibrillation, chronic. 6. Type 2 diabetes mellitus. 7. Profound weakness/deconditioning. DISCUSSION AND PLAN: I will get anti cocholinesterase antibodies to make certain that she does not have an autoimmune disease causing her weakness. That being said, we will continue supportive care through time including physical therapy. She is going to be too weak to leave the hospital and go directly back home. She will require placement in a fci facility to pursue strengthening through time. Pulmonary/Critical Care will continue to follow along. Job ID: [id number] [facility]
[2019-02-13] MEDS: Atorvastatin Calcium 40 MG TAB PO SCH (21:55)
[2019-02-13] MEDS: Acetaminophen 325 MG TAB PO PRN (21:55)
[2019-02-14 04:21] LABS: #Eosinphils 0.1 thou/uL (0.0-0.7); #Lymphocytes 0.5 thou/uL (1.20-3.40); #Monocytes 0.6 thou/uL (0.11-0.59); %Basophils 0.5 % (0.0-1.0); %Eosinophils 0.7 % (0.0-10.0); %Lymphocytes 5.7 % (21.0-51.0); %Monocytes 6.8 % (0.0-10.0); %Neutrophils 86.4 % (42.0-75.0); Hemoglobin 9.7 g/dL (12.0-16.0); Mean Corpuscular HGB CONC 30.9 g/dL (32.0-36.0); Mean Corpuscular Hemoglobin 30.3 pg (27.0-31.0); Mean Platelet Volume 8.4 fL (7.4-10.4); Platelet Count 149 thou/uL (130-400); RBC Distribution Width 15.1 % (11.5-14.5); White Blood Cell (WBC) Count 9.2 thou/uL (4.8-10.8)
[2019-02-14 04:43] LABS: Anion Gap 14 mmol/L (10-20); BUN (Urea Nitrogen) 18 mg/dL (9.8-20.1); Calc. Creatinine Clearance 33 mL/min (70-130); Calcium 8.6 mg/dL (7.8-10.44); Carbon Dioxide 27 mmol/L (23-31); Chloride 97 mmol/L (98-107); Estimated GFR-MDRD 24; Glucose 132 mg/dL (83-110); Sodium 134 mmol/L (136-145)
[2019-02-14] MEDS: Acetaminophen 325 MG TAB PO PRN (06:30)
[2019-02-14] MEDS: Levothyroxine Sodium 75 MCG TAB PO SCH (06:30)
--- NOTE | 2019-02-14 08:04 | RAD ---
EXAM: CHEST ONE VIEW HISTORY: Pneumonia. Follow-up evaluation. COMPARISON: 02/13/2019 FINDINGS: A tunneled right internal jugular vein hemodialysis catheter remains in place with tip of the cathete r overlying the proximal SVC. The cardiac silhouette is magnified by projection. Pulmonary vasculature is borderline increased. There is increased density again seen within the right hemithora x which may be related to pleural fluid layering posteriorly with associated atelectasis. There is atelectasis present at the left lung base. Chest is overall stable compared to the prior exam. IMPRESSION: Persistent right pleural and parenchymal lung changes with increased density seen throughout the righ t hemithorax similar to prior study and is probably related to pleural fluid layering posteriorly.
[2019-02-14] MEDS: Carvedilol 25 MG TAB PO SCH ×2 (08:42→20:26)
[2019-02-14] MEDS: Citalopram 20 MG TAB PER TUBE SCH (08:42)
[2019-02-14] MEDS: Clopidogrel Bisulfate 75 MG TAB PO SCH (08:43)
[2019-02-14] MEDS: Pantoprazole 40 MG GRANULES PACKET PO SCH (08:43)
[2019-02-14] MEDS: Heparin 5,000 UNITS/ML VIAL SC SCH ×2 (08:43→20:28)
[2019-02-14] MEDS: Pregabalin 75 MG CAP PER TUBE SCH (08:44)
--- NOTE | 2019-02-14 08:57 | PDOC.CPN ---
- Subjective Date: 02/14/19 Time: 08:30 Interval history: The pt seen and examined. No overnight events. No cardiac complaints. She is more alerted today. She complains of discomfort in her BLE - Objective Allergies/Adverse Reactions: Allergies Allergy/AdvReac Type Severity Reaction Status Date / Time codeine Allergy Verified 09/10/18 15:23 ibuprofen [From Motrin] Allergy Verified 02/02/19 15:45 Visit Medications: Current Medications Acetaminophen (Tylenol) 650 mg PO Q4H PRN PRN Reason: Headache/Fever or Pain Last Admin: 02/14/19 06:30 Dose: 650 mg Acidophilus (Floranex) 1 tab PO DAILY [facility] Last Admin: 02/13/19 08:31 Dose: 1 tab Albuterol/Ipratropium (Duoneb) 3 ml NEB QID-RT [facility] Last Admin: 02/14/19 07:19 Dose: 3 ml Lipase/Protease/Amylase ([place] [address]) 1 cap FS .PER PROTOCOL PRN PRN Reason: TUBE OCCLUSION PROTOCOL Aspirin (Aspirin Chewable) 81 mg PO QAM-WM [facility] Last Admin: 02/13/19 08:30 Dose: 81 mg Atorvastatin Calcium (Lipitor) 80 mg PO HS [facility] Last Admin: 02/13/19 21:55 Dose: 80 mg Carvedilol (Coreg) 12.5 mg PO BID [facility] Last Admin: 02/14/19 08:42 Dose: 12.5 mg Cholecalciferol (Vitamin D3) 1,000 units PO DAILY [facility] Last Admin: 02/13/19 08:37 Dose: 1,000 units Citalopram Hydrobromide (Celexa) 40 mg PER TUBE DAILY [facility] Last Admin: 02/14/19 08:42 Dose: 40 mg Clopidogrel Bisulfate (Plavix) 75 mg PO DAILY [facility] Last Admin: 02/14/19 08:43 Dose: 75 mg Dextrose/Water (Dextrose 50%) 25 gm IVP PRN PRN PRN Reason: HYPOGLYCEMIA PROTOCOL Last Admin: 02/08/19 20:46 Dose: 25 gm Digoxin (Lanoxin) 0.125 mg SLOW IVP MoWeSa@0900 [facility] Last Admin: 02/13/19 08:29 Dose: 0.125 mg Epoetin Jorje-epbx (Retacrit) 7,500 unit SC Q7D [facility] Last Admin: 02/13/19 10:35 Dose: 7,500 unit Glucagon (Glucagon) 1 mg IM PRN PRN PRN Reason: HYPOGLYCEMIA PROTOCOL Heparin Sodium (Porcine) (Heparin) 5,000 units SC BID [facility] Last Admin: 02/14/19 08:43 Dose: 5,000 units Dextrose/Water (D5w) 1,000 mls @ 0 mls/hr IV INF PRN PRN Reason: HYPOGLYCEMIA PROTOCOL Insulin Human Lispro (Humalog) 5 units SC PRN PRN PRN Reason: BLOOD GLUCOSE > 200 Insulin Human Regular (Humulin R) 0 units SC .MILD SLIDING PRN; Protocol PRN Reason: MILD SLIDING SCALE Last Admin: 02/12/19 10:40 Dose: 3 unit Iron/Minerals/Multivitamins (Certa Alexa Liquid) 15 ml PO DAILY [facility] Last Admin: 02/13/19 10:31 Dose: 15 ml Levothyroxine Sodium (Synthroid) 75 mcg PO 0600 [facility] Last Admin: 02/14/19 06:30 Dose: 75 mcg Ondansetron HCl (Zofran) 4 mg SLOW IVP Q6H PRN PRN Reason: Nausea/Vomiting Oxymetazoline HCl (Nasal Decongestant) 0 ml NS BIDPRN PRN PRN Reason: NASAL CONGESTION Pantoprazole Sodium (Protonix) 40 mg PO DAILY [facility] Last Admin: 02/14/19 08:43 Dose: 40 mg Pentazocine HCl/Naloxone HCl (Talwin Nx) 0.5 tab PO Q6H PRN PRN Reason: Moderate to Severe Pain (6-10) Last Admin: 02/11/19 20:12 Dose: 0.5 tab Pregabalin (Lyrica) 75 mg PER TUBE DAILY [facility] Last Admin: 02/14/19 08:44 Dose: 75 mg Sodium Bicarbonate (Bicarbonate, Sodium) 650 mg PER TUBE .PER PROTOCOL PRN PRN Reason: ENTERAL TUBE OCCLUSION Sodium Chloride (Flush - Normal Saline) 10 ml IVF PRN PRN PRN Reason: Saline Flush Vital Signs & Weight: Vital Signs Temp Pulse Resp Pulse Ox 02/14/19 07:30 99 F 02/14/19 07:19 62 15 93 L 02/14/19 04:00 97.5 F L 02/14/19 00:03 98 02/14/19 00:00 98.2 F Admit Weight 238 lb 1.588 oz Weight 203 lb 7.787 oz - Quality Measures Condition: Atrial Fibrillation/Flutter (hx or current) CV meds: Beta Aguilar: Yes, ADRIAN/ARB: No (Acute on chronic renal failure), Statin : No - Physical Exam General: alert & oriented x3 Cardiac: irregularly regular Lungs: decreased breath sounds Musculoskeletal: decreased range of motion - Labs Result Diagrams: 02/14/19 04:02 02/14/19 04:02 - Telemetry Supraventricular conduction: atrial fibrillation - Assessment/Plan Assessment/Plan: 1. Afib with RVR - well controlled HR with Coreg and Digoxin 0.125mg IV on Mon, Wed, Sat; On ASA 2. Acute on Chronic Diastolic HF with grade III dd in 11/2017 - on HD; On Coreg ; not on ADRIAN/ARB due to acute/ CKD 3. ESRD - On HD on MWF; managed by Dr Flores 4. HTN - stable 5. DM type 2 - 6. HLD - on statin 7. Hypothyrodism - 8. Anemia - On Epogen 9. 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 Hx of TIA/CVA - on Plavix 11. S/p of multiple falls with s/p subarachnoid hemorrhage in 09/2018 - 12. Severe deconditioning. Pt. not eating. 13. Respiratory insufficiency - stable with 2LNC 14. Pleural effusion - s/p Thoracentesis with 1.9L output by Dr Mcghee on 02/08 15. Bradycardia -- HR's in the 30's for a few seconds on 02/13/2019; if she continue to have bradycardia episodes or worsening of the arrhythmias , she may need a pacemaker. * Echo in 09/2018 with EF 45-50%, mild ERV, mod-severe dilated LA, mod ERA, mod MR, mild AR, mild WI, and severe TR (diastolic dysfunction still persists). Pt. seen and eval. by me. She is eating a little today but the NG tube is still in. Chest : decr. BS , no wheeze or rales noted. CV: irreg/ireg. no signif. edema.Continue present treatment. Will need to decide about OAC prior to d/c. May be at incr. risk of falls or bleed.
--- NOTE | 2019-02-14 09:22 | PRG ---
DATE OF SERVICE: 02/14/2019 SUBJECTIVE: Ms. Mullen is an 83-year-old white female, seen by the Renal Service for acute kidney injury on top of her chronic renal failure. She was initiated on hemodialysis due to volume overload. She has been tolerating hemodialysis. We were able to successfully remove fluid with her. In addition, a cuffed hemodialysis catheter was placed yesterday. Plan AV fistula will be done in the next week or so. No other complaints today. She feels a little better. No chest pain or shortness of breath. OBJECTIVE: VITAL SIGNS: Blood pressure 142/60, heart rate 61, respiratory rate 13, and pulse ox 99%. GENERAL: Awake, alert, comfortable, not in distress. SKIN: Adequate turgor. HEENT: She has slightly pale conjunctivae. Anicteric sclerae. No neck mass. No carotid bruits. No JVD. CHEST: No deformities. LUNGS: Decreased breath sounds. HEART: Normal sinus rhythm. No murmur. No gallops. No rubs. ABDOMEN: Globular, soft, nontender. No masses. EXTREMITIES: Trace edema. MEDICATIONS: Medications of February 14, 2019, reviewed. LABORATORY DATA: February 14, 2019; white count 9.2, hemoglobin 9.7. Sodium 134, potassium 4, chloride 97, carbon dioxide 27, BUN is 18, creatinine 1.98, calcium 8.6. ASSESSMENT AND PLAN: 1. Borderline anemia. Continuing weekly Epogen. 2. Chronic renal failure/end-stage renal disease. Continuing current hemodialysis regimen. Fluid removal as tolerated by the patient. 3. Congestive heart failure, clinically much improved. Chest x-ray on February 13, 2019, showed no pneumothorax. She is still with pleural effusion and pulmonary edema. 4. Repeat chest x-ray on February 14, 2019, showed right pleural effusion, decreased lung markings. 5. Overall agree with current management. ADDENDUM: ASSESSMENT AND PLAN: 1. Chronic renal failure/end-stage renal disease. We will continue current Monday, Monday, and Monday hemodialysis with fluid removal as tolerated by the patient. We will attempt to do outpatient hemodialysis placement with this patient. 2. Congestive heart failure, clinically improving. Chest x-ray still shows increased lung marking. 3. Borderline anemia. Currently, on weekly Epogen. Overall, agree with current management. Job ID: [id number]
[2019-02-14] MEDS: Lactinex Tablet PO SCH (09:25)
[2019-02-14] MEDS: Multivits W-Minerals Liquid 15mL UDCUP PO SCH (09:25)
[2019-02-14] MEDS: Aspirin Chewable 81 MG TAB PO SCH (09:31)
--- NOTE | 2019-02-14 16:03 | PRG ---
DATE OF SERVICE: 02/14/2019 SERVICE: Pulmonary Medicine. INTERVAL HISTORY: The patient is doing outstanding from respiratory standpoint. Denies any current chest discomfort, fevers, or chills. She has no shortness of breath. Otherwise, there has been no interval change to her condition. PHYSICAL EXAMINATION: VITAL SIGNS: Afebrile, pulse 56, blood pressure 137/56, respirations 16, and saturation 99% on 3 L nasal cannula. GENERAL: The patient is awake and alert, in no apparent distress. LUNGS: Good air entry. There are no crackles present in the dependent regions. No prolonged expiratory phase or wheezing is appreciated. HEART: Normal rate, regular. ABDOMEN: Soft, nontender, nondistended. Bowel sounds are positive. MUSCULOSKELETAL: No cyanosis or clubbing. No pitting in the bilateral lower extremities. NEUROLOGIC: Nonfocal. LABORATORY DATA: Hemoglobin 9.7. Basic metabolic profile is otherwise unremarkable. Creatinine downtrending to 1.98 with help of dialysis. Basic metabolic profile is otherwise unremarkable. IMAGING: Chest x-ray demonstrates layering effusion on the right side. No other acute cardiopulmonary abnormalities are identified. ASSESSMENT: 1. Acute hypoxic respiratory failure. 2. Pleural effusion, transudate. 3. Acute kidney injury on chronic kidney disease 4, requiring dialysis for volume issues. 4. Chronic diastolic heart failure. 5. Atrial fibrillation, chronic. 6. Type 2 diabetes mellitus. 7. Profound weakness/deconditioning. DISCUSSION AND PLAN: At this point, from medical standpoint, the patient is stable for transition out of the ICU. We will transition her to the telemetry unit for the time being. Ultimately, the patient does not have a significant improvement in her functional status, she is at very high risk for repeat complications through time, that will ultimately result in her passing away. She will be well served by transitioning to a medical facility, where she can pursue aggressive rehabilitation and/or conditioning. Pulmonary will continue to follow for the time being. Job ID: [id number]
[2019-02-14] MEDS: Pentazocine HCl/Naloxone HCl 50/0.5 MG TAB PO PRN (16:51)
[2019-02-14] MEDS ORDERED: Milk Of Magnesia 30 ML UDCUP PO SCH (20:15)
[2019-02-14] MEDS: Atorvastatin Calcium 40 MG TAB PO SCH (20:25)
[2019-02-14] MEDS: Docusate 100 MG CAP PO SCH (20:25)
[2019-02-15 05:37] LABS: Anion Gap 15 mmol/L (10-20); BUN (Urea Nitrogen) 28 mg/dL (9.8-20.1); Calc. Creatinine Clearance 22 mL/min (70-130); Calcium 8.7 mg/dL (7.8-10.44); Carbon Dioxide 25 mmol/L (23-31); Chloride 95 mmol/L (98-107); Estimated GFR-MDRD 15; Glucose 198 mg/dL (83-110); Potassium 4.4 mmol/L (3.5-5.1); Sodium 131 mmol/L (136-145)
[2019-02-15] MEDS: Levothyroxine Sodium 75 MCG TAB PO SCH (05:49)
[2019-02-15 06:33] LABS: #Lymphocytes 0.5 thou/uL (1.20-3.40); #Monocytes 0.6 thou/uL (0.11-0.59); #Neutrophils 6.9 thou/uL (1.40-6.50); %Basophils 0.4 % (0.0-1.0); %Eosinophils 0.5 % (0.0-10.0); %Lymphocytes 6.6 % (21.0-51.0); %Monocytes 7.6 % (0.0-10.0); %Neutrophils 84.9 % (42.0-75.0); Hemoglobin 9.6 g/dL (12.0-16.0); Mean Corpuscular HGB CONC 29.8 g/dL (32.0-36.0); Mean Corpuscular Hemoglobin 29.4 pg (27.0-31.0); Mean Corpuscular Volume 98.5 fL (78.0-98.0); Mean Platelet Volume 8.1 fL (7.4-10.4); Platelet Count 163 thou/uL (130-400); RBC Distribution Width 15.1 % (11.5-14.5); Red Blood Cell (RBC) Count 3.26 mill/uL (4.20-5.40); White Blood Cell (WBC) Count 8.1 thou/uL (4.8-10.8)
--- NOTE | 2019-02-15 09:28 | PRG ---
DATE OF SERVICE: 02/15/2019 SERVICE: Renal Medicine. SUBJECTIVE: Ms. Mullen is an 83-year-old white female undergoing hemodialysis. She developed acute pulmonary edema. For that reason, she was initiated on dialysis. She is tolerating said dialysis. Attempting fluid removal as tolerated by the patient. She voices no new complaints. No chest pain or shortness of breath. OBJECTIVE: VITAL SIGNS: Blood pressure 125/63, heart rate 59, respiratory rate 18, and pulse ox 100%. GENERAL: Awake, alert, comfortable, not in overt distress. SKIN: Adequate turgor. HEENT: Pinkish conjunctivae. Anicteric sclerae. NECK: No neck mass. No carotid bruits. No JVD. CHEST: No deformities. LUNGS: Decreased breath sounds. HEART: Normal sinus rhythm. No murmur. No gallops. No rubs. ABDOMEN: Globular, soft, nontender. No masses. EXTREMITIES: No edema. No deformities. MEDICATIONS: Medications of February 15, 2019, reviewed. LABORATORY DATA: Laboratories, February 15, 2019; white count 8.1, hemoglobin 9.6. Sodium 131, potassium 4.4, chloride 95, carbon dioxide 25, BUN 28, creatinine 2.94, glucose 298, calcium 8.7. ASSESSMENT AND PLAN: 1. Chronic renal failure/end-stage renal disease. Continuing 3 times a week hemodialysis regimen. Fluid removal only as tolerated by the patient. 2. Anemia. Continuing weekly Epogen. 3. Congestive heart failure/volume overload, much improved with fluid removal with dialysis. Agree with current management. Awaiting placement of AV fistula. Job ID: [id number]
[2019-02-15] MEDS ORDERED: Heparin 10,000 UNITS/ 10 ML VIAL ONE (10:00)
--- NOTE | 2019-02-15 12:37 | PDOC.CPN ---
- Subjective Date: 02/15/19 Time: 08:30 Interval history: The pt seen and examined. No overnight events. No cardiac complaints. - Objective Allergies/Adverse Reactions: Allergies Allergy/AdvReac Type Severity Reaction Status Date / Time codeine Allergy Verified 09/10/18 15:23 ibuprofen [From Motrin] Allergy Verified 02/02/19 15:45 Visit Medications: Current Medications Acetaminophen (Tylenol) 650 mg PO Q4H PRN PRN Reason: Headache/Fever or Pain Last Admin: 02/14/19 06:30 Dose: 650 mg Acidophilus (Floranex) 1 tab PO DAILY [facility] Last Admin: 02/14/19 09:25 Dose: 1 tab Albuterol/Ipratropium (Duoneb) 3 ml NEB QID-RT [facility] Last Admin: 02/15/19 10:12 Dose: Not Given Lipase/Protease/Amylase ([place] [id number]) 1 cap FS .PER PROTOCOL PRN PRN Reason: TUBE OCCLUSION PROTOCOL Aspirin (Aspirin Chewable) 81 mg PO QAM-WM [facility] Last Admin: 02/14/19 09:31 Dose: 81 mg Atorvastatin Calcium (Lipitor) 80 mg PO HS [facility] Last Admin: 02/14/19 20:25 Dose: 80 mg Carvedilol (Coreg) 12.5 mg PO BID [facility] Last Admin: 02/14/19 20:26 Dose: 12.5 mg Cholecalciferol (Vitamin D3) 1,000 units PO DAILY [facility] Last Admin: 02/14/19 09:31 Dose: 1,000 units Citalopram Hydrobromide (Celexa) 40 mg PER TUBE DAILY [facility] Last Admin: 02/14/19 08:42 Dose: 40 mg Clopidogrel Bisulfate (Plavix) 75 mg PO DAILY [facility] Last Admin: 02/14/19 08:43 Dose: 75 mg Dextrose/Water (Dextrose 50%) 25 gm IVP PRN PRN PRN Reason: HYPOGLYCEMIA PROTOCOL Last Admin: 02/08/19 20:46 Dose: 25 gm Digoxin (Lanoxin) 0.125 mg SLOW IVP MoWeSa@0900 [facility] Last Admin: 02/13/19 08:29 Dose: 0.125 mg Docusate Sodium (Colace) 100 mg PO BID [facility] Last Admin: 02/14/19 20:25 Dose: 100 mg Epoetin Jorje-epbx (Retacrit) 7,500 unit SC Q7D [facility] Last Admin: 02/13/19 10:35 Dose: 7,500 unit Glucagon (Glucagon) 1 mg IM PRN PRN PRN Reason: HYPOGLYCEMIA PROTOCOL Heparin Sodium (Porcine) (Heparin) 5,000 units SC BID [facility] Last Admin: 02/14/19 20:28 Dose: 5,000 units Dextrose/Water (D5w) 1,000 mls @ 0 mls/hr IV INF PRN PRN Reason: HYPOGLYCEMIA PROTOCOL Insulin Human Lispro (Humalog) 5 units SC PRN PRN PRN Reason: BLOOD GLUCOSE > 200 Insulin Human Regular (Humulin R) 0 units SC .MILD SLIDING PRN; Protocol PRN Reason: MILD SLIDING SCALE Last Admin: 02/12/19 10:40 Dose: 3 unit Iron/Minerals/Multivitamins (Certa Alexa Liquid) 15 ml PO DAILY [facility] Last Admin: 02/14/19 09:25 Dose: 15 ml Levothyroxine Sodium (Synthroid) 75 mcg PO 0600 [facility] Last Admin: 02/15/19 05:49 Dose: 75 mcg Ondansetron HCl (Zofran) 4 mg SLOW IVP Q6H PRN PRN Reason: Nausea/Vomiting Oxymetazoline HCl (Nasal Decongestant) 0 ml NS BIDPRN PRN PRN Reason: NASAL CONGESTION Pantoprazole Sodium (Protonix) 40 mg PO DAILY [facility] Last Admin: 02/14/19 08:43 Dose: 40 mg Pentazocine HCl/Naloxone HCl (Talwin Nx) 0.5 tab PO Q6H PRN PRN Reason: Moderate to Severe Pain (6-10) Last Admin: 02/14/19 16:51 Dose: 0.5 tab Pregabalin (Lyrica) 75 mg PER TUBE DAILY [facility] Last Admin: 02/14/19 08:44 Dose: 75 mg Sodium Bicarbonate (Bicarbonate, Sodium) 650 mg PER TUBE .PER PROTOCOL PRN PRN Reason: ENTERAL TUBE OCCLUSION Sodium Chloride (Flush - Normal Saline) 10 ml IVF PRN PRN PRN Reason: Saline Flush Vital Signs & Weight: Vital Signs Temp Pulse Resp BP Pulse Ox 02/15/19 07:45 100 02/15/19 07:43 59 L 18 125/63 100 02/15/19 07:28 57 L 16 100 02/15/19 04:00 97.1 F L 67 13 123/59 L 99 Admit Weight 238 lb 1.588 oz Weight 210 lb 1.6 oz - Quality Measures Condition: Atrial Fibrillation/Flutter (hx or current) CV meds: Beta Aguilar: Yes, ADRIAN/ARB: No (Acute on chronic renal failure), Statin : No - Physical Exam General: alert & oriented x3 Neck: supple neck Cardiac: irregularly regular Lungs: decreased breath sounds Musculoskeletal: decreased range of motion - Labs Result Diagrams: 02/15/19 05:52 02/15/19 04:44 - Telemetry Supraventricular conduction: atrial fibrillation - Assessment/Plan Assessment/Plan: 1. Afib with RVR - well controlled HR with Coreg and Digoxin 0.125mg IV on Mon, Wed, Sat; On ASA. Will need to decide about OAC prior to d/c. May be at incr. risk of falls or bleed. 2. Acute on Chronic Diastolic HF with grade III dd in 11/2017 - on HD; On Coreg ; not on ADRIAN/ARB due to acute/ CKD 3. ESRD - On HD on MWF; managed by Dr Flores 4. HTN - stable 5. DM type 2 - 6. HLD - on statin 7. Hypothyrodism - 8. Anemia - On Epogen 9. 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 Hx of TIA/CVA - on Plavix 11. S/p of multiple falls with s/p subarachnoid hemorrhage in 09/2018 - 12. Severe deconditioning. Pt. not eating. 13. Respiratory insufficiency - stable with 2LNC 14. Pleural effusion - s/p Thoracentesis with 1.9L output by Dr Mcghee on 02/08 15. Bradycardia -- HR's in the 30's for a few seconds on 02/13/2019; if she continue to have bradycardia episodes or worsening of the arrhythmias , she may need a pacemaker. * Echo in 09/2018 with EF 45-50%, mild ERV, mod-severe dilated LA, mod ERA, mod MR, mild AR, mild VT, and severe TR (diastolic dysfunction still persists). Pt. seen and eval. by me. She was in dialysis. She denies any complaints. Chest with decreased BS at the bases. Irreg/irreg. Mild edema. I agree with the A/P by the LAB[employer]DER. Continue present treatments. She is not a good candidate for OAC.
[2019-02-15] MEDS: Pregabalin 75 MG CAP PER TUBE SCH (12:44)
[2019-02-15] MEDS: Lactinex Tablet PO SCH (12:45)
[2019-02-15] MEDS: Citalopram 20 MG TAB PER TUBE SCH (12:45)
[2019-02-15] MEDS: Docusate 100 MG CAP PO SCH ×2 (12:46→22:16)
[2019-02-15] MEDS: Heparin 5,000 UNITS/ML VIAL SC SCH ×2 (12:46→22:17)
[2019-02-15] MEDS: Multivits W-Minerals Liquid 15mL UDCUP PO SCH (12:46)
[2019-02-15] MEDS: Aspirin Chewable 81 MG TAB PO SCH (12:46)
[2019-02-15] MEDS: Pantoprazole 40 MG GRANULES PACKET PO SCH (12:46)
[2019-02-15] MEDS: Carvedilol 25 MG TAB PO SCH ×2 (12:47→22:17)
[2019-02-15] MEDS: Clopidogrel Bisulfate 75 MG TAB PO SCH (12:49)
--- NOTE | 2019-02-15 15:33 | PRG ---
DATE OF SERVICE: 02/15/2019 SERVICE: Pulmonary Medicine. INTERVAL HISTORY: The patient is doing great from respiratory standpoint. She is tolerating dialysis just fine. She has no complaints of chest discomfort, nausea, or vomiting. Her strength appears slightly improved today. Otherwise, there has been no interval change to her condition. PHYSICAL EXAMINATION: VITAL SIGNS: Afebrile, pulse 67, blood pressure 119/51, respirations 18, saturation 100% on 3 L nasal cannula. GENERAL: The patient is awake and alert, in no apparent distress. LUNGS: Very good air entry without any prolonged expiratory phase or wheezing present. HEART: Normal rate and regular. ABDOMEN: Soft, nontender, nondistended. Bowel sounds are positive. MUSCULOSKELETAL: No cyanosis or clubbing. There is no pitting in the bilateral lower extremities. NEUROLOGIC: Grossly nonfocal. She demonstrates diffuse weakness. LABORATORY DATA: WBC 8.1, hemoglobin 9.6, platelets 163,000 and rebounding. Creatinine 2.94. Basic metabolic profile is otherwise unremarkable. ASSESSMENT: 1. Acute hypoxic respiratory failure. 2. Pleural effusion, transudate. 3. End-stage renal disease, requiring dialysis for volume-related issues. 4. Chronic diastolic heart failure. 5. Atrial fibrillation. 6. Type 2 diabetes mellitus. 7. Profound weakness/deconditioning. DISCUSSION AND PLAN: The patient is doing fine from respiratory standpoint. At this point, I will follow intermittently during this hospital stay. We will continue working on mobilizing the patient and physical therapy. Hopefully, over the weekend, she will actually strengthen up a touch. Placement is being worked on. Without significant conditioning, this patient is at very high risk of repeat complications and returning to the hospital. If that happens and we do not have anything to fix her weakness, transition to comfort care only should strongly be considered. Job ID: [id number]
[2019-02-15] MEDS: Atorvastatin Calcium 40 MG TAB PO SCH (22:16)
[2019-02-16 06:06] LABS: Anion Gap 12 mmol/L (10-20); BUN (Urea Nitrogen) 16 mg/dL (9.8-20.1); Calc. Creatinine Clearance 28 mL/min (70-130); Calcium 8.9 mg/dL (7.8-10.44); Carbon Dioxide 29 mmol/L (23-31); Chloride 100 mmol/L (98-107); Estimated GFR-MDRD 20; Glucose 137 mg/dL (83-110); Potassium 4.1 mmol/L (3.5-5.1); Sodium 137 mmol/L (136-145)
[2019-02-16] MEDS: Levothyroxine Sodium 75 MCG TAB PO SCH (06:40)
[2019-02-16 07:25] LABS: #Eosinphils 0.1 thou/uL (0.0-0.7); #Lymphocytes 0.6 thou/uL (1.20-3.40); #Monocytes 0.8 thou/uL (0.11-0.59); #Neutrophils 5.3 thou/uL (1.40-6.50); %Basophils 0.4 % (0.0-1.0); %Eosinophils 1.1 % (0.0-10.0); %Lymphocytes 9.2 % (21.0-51.0); %Monocytes 11.4 % (0.0-10.0); %Neutrophils 77.9 % (42.0-75.0); Hemoglobin 9.8 g/dL (12.0-16.0); MDiff Complete? YES; Macrocytosis SLIGHT = 6-15 cells (100X) (0-5/hpf); Mean Corpuscular HGB CONC 29.4 g/dL (32.0-36.0); Mean Corpuscular Hemoglobin 29.2 pg (27.0-31.0); Mean Corpuscular Volume 99.4 fL (78.0-98.0); Mean Platelet Volume 7.9 fL (7.4-10.4); Ovalocytes SLIGHT = 2-5 cells (100X) (0-1/hpf); Platelet Count 194 thou/uL (130-400); RBC Distribution Width 15.3 % (11.5-14.5); Red Blood Cell (RBC) Count 3.36 mill/uL (4.20-5.40); White Blood Cell (WBC) Count 6.8 thou/uL (4.8-10.8)
[2019-02-16] MEDS: Heparin 5,000 UNITS/ML VIAL SC SCH ×2 (09:05→22:08)
[2019-02-16] MEDS: Acetaminophen 325 MG TAB PO PRN (09:06)
[2019-02-16] MEDS: Pantoprazole 40 MG GRANULES PACKET PO SCH (09:06)
[2019-02-16] MEDS: Lactinex Tablet PO SCH (09:06)
[2019-02-16] MEDS: Aspirin Chewable 81 MG TAB PO SCH (09:07)
[2019-02-16] MEDS: Pregabalin 75 MG CAP PER TUBE SCH (09:08)
[2019-02-16] MEDS: Clopidogrel Bisulfate 75 MG TAB PO SCH (09:08)
[2019-02-16] MEDS: Citalopram 20 MG TAB PER TUBE SCH (09:08)
[2019-02-16] MEDS: Docusate 100 MG CAP PO SCH ×2 (09:10→22:09)
--- NOTE | 2019-02-16 10:41 | PRG ---
DATE OF SERVICE: 02/16/2019 SUBJECTIVE: Ms. Mullen is an 83-year-old white female, who was initiated on dialysis due to volume overload and progressive azotemia. She has been tolerating her dialysis. We are doing on Monday, Monday, and Monday. She underwent dialysis yesterday without any difficulty. No new complaints today. She is more awake. OBJECTIVE: VITAL SIGNS: Blood pressure 112/65, heart rate 75, respiratory rate 16, temperature 98.5, and pulse ox 100%. GENERAL: Awake, alert, comfortable, not in distress. SKIN: Adequate turgor. HEENT: Pinkish conjunctivae. Anicteric sclerae. NECK: No neck mass. No carotid bruits. No JVD. CHEST: No deformities. LUNGS: Clear breath sounds. HEART: Normal sinus rhythm. No murmurs, gallops, or rubs. ABDOMEN: Globular, soft, nontender. No masses. EXTREMITIES: No edema. No deformities. MEDICATIONS: Medications of February 16, 2019, reviewed. LABORATORY DATA: Laboratories of February 16, 2019; white count 6.8, hemoglobin 9.8. Sodium 137, potassium 4.1, chloride 100, carbon dioxide 29, BUN 16, creatinine 2.36, glucose 137, and calcium 8.9. ASSESSMENT AND PLAN: 1. Chronic renal failure/end-stage renal disease. Doing well. Continuing Monday, Monday, and Monday dialysis. Fluid removal as tolerated. 2. Congestive heart failure, clinically resolved. Fluid removal with dialysis. 3. Anemia. Continuing weekly Epogen with this patient. Tolerating said treatment. Overall, agree with current management. Job ID: [id number]
[2019-02-16] MEDS ORDERED: Pramipexole Di-HCl 1 MG TAB PO SCH (11:00)
[2019-02-16] MEDS: Insulin Regular 300 UNITS/3 ML VIAL SC PRN ×3 (11:46→22:29)
[2019-02-16] MEDS: Multivits W-Minerals Liquid 15mL UDCUP PO SCH (11:47)
[2019-02-16] MEDS: Digoxin 0.5 MG/2 ML AMP SLOW IVP SCH (12:42)
[2019-02-16] MEDS: Carvedilol 25 MG TAB PO SCH ×2 (13:02→22:09)
--- NOTE | 2019-02-16 15:50 | PDOC.CPN ---
- Subjective Date: 02/16/19 Time: 15:48 Interval history: Her HR is consistently in the low 40's. She is more somnolent daughter feels it is due to some medications she received for restless legs and her anti depressants. She is protecting her airway. - Review of Systems ROS unobtainable: due to mental status - Objective Allergies/Adverse Reactions: Allergies Allergy/AdvReac Type Severity Reaction Status Date / Time codeine Allergy Verified 09/10/18 15:23 ibuprofen [From Motrin] Allergy Verified 02/02/19 15:45 Visit Medications: Current Medications Acetaminophen (Tylenol) 650 mg PO Q4H PRN PRN Reason: Headache/Fever or Pain Last Admin: 02/16/19 09:06 Dose: 650 mg Acidophilus (Floranex) 1 tab PO DAILY [facility] Last Admin: 02/16/19 09:06 Dose: 1 tab Albuterol/Ipratropium (Duoneb) 3 ml NEB QID-RT [facility] Last Admin: 02/16/19 14:20 Dose: 3 ml Lipase/Protease/Amylase ([place] [id number]) 1 cap FS .PER PROTOCOL PRN PRN Reason: TUBE OCCLUSION PROTOCOL Aspirin (Aspirin Chewable) 81 mg PO QAM-WM [facility] Last Admin: 02/16/19 09:07 Dose: 81 mg Atorvastatin Calcium (Lipitor) 80 mg PO HS [facility] Last Admin: 02/15/19 22:16 Dose: 80 mg Carvedilol (Coreg) 12.5 mg PO BID [facility] Last Admin: 02/16/19 13:02 Dose: 12.5 mg Cholecalciferol (Vitamin D3) 1,000 units PO DAILY [facility] Last Admin: 02/16/19 09:07 Dose: 1,000 units Citalopram Hydrobromide (Celexa) 40 mg PER TUBE DAILY [facility] Last Admin: 02/16/19 09:08 Dose: 40 mg Clopidogrel Bisulfate (Plavix) 75 mg PO DAILY [facility] Last Admin: 02/16/19 09:08 Dose: 75 mg Dextrose/Water (Dextrose 50%) 25 gm IVP PRN PRN PRN Reason: HYPOGLYCEMIA PROTOCOL Last Admin: 02/08/19 20:46 Dose: 25 gm Docusate Sodium (Colace) 100 mg PO BID [facility] Last Admin: 02/16/19 09:10 Dose: 100 mg Epoetin Jorje-epbx (Retacrit) 7,500 unit SC Q7D [facility] Last Admin: 02/13/19 10:35 Dose: 7,500 unit Glucagon (Glucagon) 1 mg IM PRN PRN PRN Reason: HYPOGLYCEMIA PROTOCOL Heparin Sodium (Porcine) (Heparin) 5,000 units SC BID [facility] Last Admin: 02/16/19 09:05 Dose: 5,000 units Dextrose/Water (D5w) 1,000 mls @ 0 mls/hr IV INF PRN PRN Reason: HYPOGLYCEMIA PROTOCOL Insulin Human Lispro (Humalog) 5 units SC PRN PRN PRN Reason: BLOOD GLUCOSE > 200 Insulin Human Regular (Humulin R) 0 units SC .MILD SLIDING PRN; Protocol PRN Reason: MILD SLIDING SCALE Last Admin: 02/16/19 11:46 Dose: 2 unit Iron/Minerals/Multivitamins (Certa Alexa Liquid) 15 ml PO DAILY [facility] Last Admin: 02/16/19 11:47 Dose: 15 ml Levothyroxine Sodium (Synthroid) 75 mcg PO 0600 [facility] Last Admin: 02/16/19 06:40 Dose: 75 mcg Ondansetron HCl (Zofran) 4 mg SLOW IVP Q6H PRN PRN Reason: Nausea/Vomiting Oxymetazoline HCl (Nasal Decongestant) 0 ml NS BIDPRN PRN PRN Reason: NASAL CONGESTION Pantoprazole Sodium (Protonix) 40 mg PO DAILY [facility] Last Admin: 02/16/19 09:06 Dose: 40 mg Pentazocine HCl/Naloxone HCl (Talwin Nx) 0.5 tab PO Q6H PRN PRN Reason: Moderate to Severe Pain (6-10) Last Admin: 02/14/19 16:51 Dose: 0.5 tab Pramipexole Dihydrochloride (Mirapex) 1 mg PO QAM [facility] Pramipexole Dihydrochloride (Mirapex) 1.5 mg PO HS [facility] Pregabalin (Lyrica) 75 mg PER TUBE DAILY [facility] Last Admin: 02/16/19 09:08 Dose: 75 mg Sodium Bicarbonate (Bicarbonate, Sodium) 650 mg PER TUBE .PER PROTOCOL PRN PRN Reason: ENTERAL TUBE OCCLUSION Sodium Chloride (Flush - Normal Saline) 10 ml IVF PRN PRN PRN Reason: Saline Flush Vital Signs & Weight: Vital Signs Temp Pulse Resp BP Pulse Ox 02/16/19 14:20 57 L 16 99 02/16/19 12:42 55 L 02/16/19 12:00 98.2 F 60 16 116/57 L 100 02/16/19 10:34 63 16 100 02/16/19 07:56 98.5 F 75 16 112/65 100 02/16/19 06:36 99 02/16/19 06:32 67 16 99 02/16/19 04:00 97.9 F 68 20 118/57 L 98 Admit Weight 238 lb 1.588 oz Weight 203 lb 1.6 oz - Quality Measures Condition: Atrial Fibrillation/Flutter (hx or current) CV meds: Beta Aguilar: Yes, ADRIAN/ARB: No (Acute on chronic renal failure), Statin : No - Physical Exam General: no apparent distress HEENT: normocephaly Neck: supple neck Cardiac: irregularly regular Lungs: normal breath sounds Neuro: no lateralizing findings Abdomen: active bowel sounds Extremities: no edema Skin: clear Musculoskeletal: no pain - Labs Result Diagrams: 02/16/19 05:42 02/16/19 05:42 - Telemetry Supraventricular conduction: atrial fibrillation (HR 40's) - Assessment/Plan Assessment/Plan: 1. Afib with RVR 2. Acute on Chronic Diastolic HF 3. ESRD - On HD on MWF with Dr Flores 4. HTN 5. DM type 2 6. HLD 7. Hypothyrodism 8. Anemia 9. Hx of DVT/PE 10. Hx of TIA/CVA 11. S/p of multiple falls with s/p subarachnoid hemorrhage in 09/2018 - 12. Severe deconditioning 13. Respiratory insufficiency 14. Pleural effusion - s/p Thoracentesis with 1.9L output by Dr Mcghee on 02/08 15. Bradycardia PLAN: - Will stop digoxin completely. - If she remains low will stop amiodarone and if she goes RVR she will likely need a PPM. - Continue rate control otherwise.
[2019-02-16] MEDS: Pramipexole Di-HCl 1 MG TAB PO SCH (22:09)
[2019-02-16] MEDS: Atorvastatin Calcium 40 MG TAB PO SCH (22:10)
[2019-02-17] MEDS: Levothyroxine Sodium 75 MCG TAB PO SCH (05:21)
[2019-02-17] MEDS: Insulin Regular 300 UNITS/3 ML VIAL SC PRN ×3 (06:21→17:42)
[2019-02-17] MEDS: Heparin 5,000 UNITS/ML VIAL SC SCH ×2 (09:20→20:56)
[2019-02-17] MEDS: Pregabalin 75 MG CAP PER TUBE SCH (09:21)
[2019-02-17] MEDS: Lactinex Tablet PO SCH (09:22)
[2019-02-17] MEDS: Aspirin Chewable 81 MG TAB PO SCH (09:22)
[2019-02-17] MEDS: Pramipexole Di-HCl 1 MG TAB PO SCH ×2 (09:22→20:55)
[2019-02-17] MEDS: Clopidogrel Bisulfate 75 MG TAB PO SCH (09:22)
[2019-02-17] MEDS: Docusate 100 MG CAP PO SCH ×2 (09:22→20:56)
[2019-02-17] MEDS: Citalopram 20 MG TAB PER TUBE SCH (09:23)
[2019-02-17] MEDS: Pantoprazole 40 MG GRANULES PACKET PO SCH (09:23)
[2019-02-17] MEDS: Carvedilol 25 MG TAB PO SCH ×2 (09:23→20:55)
--- NOTE | 2019-02-17 09:54 | PRG ---
DATE OF SERVICE: 02/17/2019 SUBJECTIVE: Ms. Mullen is an 83-year-old white female, who is being followed by the Renal Service for her maintenance hemodialysis. We have initiated hemodialysis due to volume overload. This morning she is more awake and alert. She denies any chest pain or shortness of breath. OBJECTIVE: VITAL SIGNS: Blood pressure is ranging from 84/71 to 139/66 with a heart rate of 90, respiratory rate 12, temperature 97.6, and pulse ox 100% on room air. GENERAL: The patient is awake, alert, and comfortable, not in overt distress. SKIN: Adequate turgor. HEENT: She has a slightly pale conjunctivae. Anicteric sclerae. NECK: No neck mass. No carotid bruits. No JVD. CHEST: No deformities. LUNGS: Clear breath sounds. HEART: Normal sinus rhythm. No murmur. No gallops. No rubs. ABDOMEN: Globular, soft, and nontender. No masses. EXTREMITIES: No edema. No deformities. MEDICATIONS: Medications of February 17, 2019, reviewed. LABORATORY DATA: Laboratories of February 17, 2019, none done. ASSESSMENT AND PLAN: 1. Chronic renal failure/end-stage renal disease, stable. We are currently continuing her three times a week hemodialysis regimen with fluid removal as tolerated by the patient. 2. Anemia. Continuing weekly Epogen. 3. Bradycardia. Currently off her digoxin. We will recheck basic metabolic and CBC in a.m. I agree with current management. Job ID: [id number]
[2019-02-17] MEDS: Multivits W-Minerals Liquid 15mL UDCUP PO SCH (11:57)
--- NOTE | 2019-02-17 14:42 | PDOC.CPN ---
- Subjective Date: 02/17/19 Time: 14:40 Interval history: Doing well. HR in the 60's. - Review of Systems ROS unobtainable: due to mental status - Objective Allergies/Adverse Reactions: Allergies Allergy/AdvReac Type Severity Reaction Status Date / Time codeine Allergy Verified 09/10/18 15:23 ibuprofen [From Motrin] Allergy Verified 02/02/19 15:45 Visit Medications: Current Medications Acetaminophen (Tylenol) 650 mg PO Q4H PRN PRN Reason: Headache/Fever or Pain Last Admin: 02/16/19 09:06 Dose: 650 mg Acidophilus (Floranex) 1 tab PO DAILY [facility] Last Admin: 02/17/19 09:22 Dose: 1 tab Albuterol/Ipratropium (Duoneb) 3 ml NEB QID-RT [facility] Last Admin: 02/17/19 13:37 Dose: 3 ml Lipase/Protease/Amylase ([place] [id number]) 1 cap FS .PER PROTOCOL PRN PRN Reason: TUBE OCCLUSION PROTOCOL Aspirin (Aspirin Chewable) 81 mg PO QAM-WM [facility] Last Admin: 02/17/19 09:22 Dose: 81 mg Atorvastatin Calcium (Lipitor) 80 mg PO HS [facility] Last Admin: 02/16/19 22:10 Dose: 80 mg Carvedilol (Coreg) 12.5 mg PO BID [facility] Last Admin: 02/17/19 09:23 Dose: 12.5 mg Cholecalciferol (Vitamin D3) 1,000 units PO DAILY [facility] Last Admin: 02/17/19 09:22 Dose: 1,000 units Citalopram Hydrobromide (Celexa) 40 mg PER TUBE DAILY [facility] Last Admin: 02/17/19 09:23 Dose: 40 mg Clopidogrel Bisulfate (Plavix) 75 mg PO DAILY [facility] Last Admin: 02/17/19 09:22 Dose: 75 mg Dextrose/Water (Dextrose 50%) 25 gm IVP PRN PRN PRN Reason: HYPOGLYCEMIA PROTOCOL Last Admin: 02/08/19 20:46 Dose: 25 gm Docusate Sodium (Colace) 100 mg PO BID [facility] Last Admin: 02/17/19 09:22 Dose: 100 mg Epoetin Jorje-epbx (Retacrit) 7,500 unit SC Q7D [facility] Last Admin: 02/13/19 10:35 Dose: 7,500 unit Glucagon (Glucagon) 1 mg IM PRN PRN PRN Reason: HYPOGLYCEMIA PROTOCOL Heparin Sodium (Porcine) (Heparin) 5,000 units SC BID [facility] Last Admin: 02/17/19 09:20 Dose: 5,000 units Dextrose/Water (D5w) 1,000 mls @ 0 mls/hr IV INF PRN PRN Reason: HYPOGLYCEMIA PROTOCOL Insulin Human Lispro (Humalog) 5 units SC PRN PRN PRN Reason: BLOOD GLUCOSE > 200 Insulin Human Regular (Humulin R) 0 units SC .MILD SLIDING PRN; Protocol PRN Reason: MILD SLIDING SCALE Last Admin: 02/17/19 11:57 Dose: 2 unit Iron/Minerals/Multivitamins (Certa Alexa Liquid) 15 ml PO DAILY [facility] Last Admin: 02/17/19 11:57 Dose: 15 ml Levothyroxine Sodium (Synthroid) 75 mcg PO 0600 [facility] Last Admin: 02/17/19 05:21 Dose: 75 mcg Ondansetron HCl (Zofran) 4 mg SLOW IVP Q6H PRN PRN Reason: Nausea/Vomiting Oxymetazoline HCl (Nasal Decongestant) 0 ml NS BIDPRN PRN PRN Reason: NASAL CONGESTION Pantoprazole Sodium (Protonix) 40 mg PO DAILY [facility] Last Admin: 02/17/19 09:23 Dose: 40 mg Pentazocine HCl/Naloxone HCl (Talwin Nx) 0.5 tab PO Q6H PRN PRN Reason: Moderate to Severe Pain (6-10) Last Admin: 02/14/19 16:51 Dose: 0.5 tab Pramipexole Dihydrochloride (Mirapex) 1 mg PO QAM [facility] Last Admin: 02/17/19 09:22 Dose: 1 mg Pramipexole Dihydrochloride (Mirapex) 1.5 mg PO HS [facility] Last Admin: 02/16/19 22:09 Dose: 1.5 mg Pregabalin (Lyrica) 75 mg PER TUBE DAILY [facility] Last Admin: 02/17/19 09:21 Dose: 75 mg Sodium Bicarbonate (Bicarbonate, Sodium) 650 mg PER TUBE .PER PROTOCOL PRN PRN Reason: ENTERAL TUBE OCCLUSION Sodium Chloride (Flush - Normal Saline) 10 ml IVF PRN PRN PRN Reason: Saline Flush Vital Signs & Weight: Vital Signs Temp Pulse Resp BP Pulse Ox 02/17/19 13:37 65 14 98 02/17/19 12:00 97.7 F 60 20 143/65 H 94 L 02/17/19 10:31 67 161/67 H 02/17/19 09:39 61 12 94 L 02/17/19 09:00 73 132/63 02/17/19 08:59 97 02/17/19 08:00 98.5 F 57 L 12 132/63 97 02/17/19 07:27 57 L 14 95 02/17/19 03:22 97.8 F 72 18 139/66 93 L Admit Weight 238 lb 1.588 oz Weight 203 lb 6 oz - Quality Measures Condition: Atrial Fibrillation/Flutter (hx or current) CV meds: Beta Aguilar: Yes, ADRIAN/ARB: No (Acute on chronic renal failure), Statin : No - Physical Exam General: no apparent distress HEENT: mucus membranes moist Neck: supple neck Cardiac: irregularly regular Lungs: clear to auscultation Neuro: no lateralizing findings Abdomen: active bowel sounds, soft, non-tender Extremities: no edema Skin: clear Musculoskeletal: no pain - Labs Result Diagrams: 02/16/19 05:42 02/16/19 05:42 - Telemetry Supraventricular conduction: atrial fibrillation - Assessment/Plan Assessment/Plan: 1. Afib, rate controlled. 2. Acute on Chronic Diastolic HF 3. ESRD - On HD on MWF with Dr Flores 4. HTN 5. DM type 2 6. HLD 7. Hypothyrodism 8. Anemia 9. Hx of DVT/PE 10. Hx of TIA/CVA 11. S/p of multiple falls with s/p subarachnoid hemorrhage in 09/2018 - 12. Severe deconditioning 13. Respiratory insufficiency 14. Pleural effusion - s/p Thoracentesis with 1.9L output by Dr Mcghee on 02/08 15. Bradycardia PLAN: - Continue to hold digoxin. - If she remains low will stop amiodarone and if she goes RVR she will likely need a PPM. - Currently rate control is adequate.
[2019-02-17] MEDS ORDERED: Insulin Regular 300 UNITS/3 ML VIAL SC PRN (16:55)
[2019-02-17] MEDS: Atorvastatin Calcium 40 MG TAB PO SCH (20:54)
[2019-02-18 04:59] LABS: #Basophils 0.1 thou/uL (0.0-0.2); #Eosinphils 0.1 thou/uL (0.0-0.7); #Lymphocytes 0.7 thou/uL (1.20-3.40); #Monocytes 0.6 thou/uL (0.11-0.59); #Neutrophils 5.2 thou/uL (1.40-6.50); %Basophils 0.8 % (0.0-1.0); %Lymphocytes 10.4 % (21.0-51.0); %Monocytes 8.9 % (0.0-10.0); %Neutrophils 78.9 % (42.0-75.0); Mean Corpuscular HGB CONC 30.4 g/dL (32.0-36.0); Mean Corpuscular Hemoglobin 29.6 pg (27.0-31.0); Mean Corpuscular Volume 97.6 fL (78.0-98.0); Platelet Count 229 thou/uL (130-400); RBC Distribution Width 16.1 % (11.5-14.5); Red Blood Cell (RBC) Count 3.36 mill/uL (4.20-5.40); White Blood Cell (WBC) Count 6.6 thou/uL (4.8-10.8)
[2019-02-18 05:19] LABS: Anion Gap 13 mmol/L (10-20); BUN (Urea Nitrogen) 39 mg/dL (9.8-20.1); Calc. Creatinine Clearance 19 mL/min (70-130); Calcium 9.2 mg/dL (7.8-10.44); Carbon Dioxide 25 mmol/L (23-31); Chloride 100 mmol/L (98-107); Estimated GFR-MDRD 13; Glucose 162 mg/dL (83-110); Potassium 4.3 mmol/L (3.5-5.1); Sodium 134 mmol/L (136-145)
[2019-02-18] MEDS: Levothyroxine Sodium 75 MCG TAB PO SCH (06:10)
[2019-02-18] MEDS: Insulin Regular 300 UNITS/3 ML VIAL SC PRN ×2 (06:31→17:39)
--- NOTE | 2019-02-18 09:01 | PRG ---
DATE OF SERVICE: 02/18/2019 SUBJECTIVE: Ms. Mullen is an 83-year-old white female, who was followed by the Renal Service for her chronic renal failure. This has worsen over time and the patient was also volume overloaded, hence initiation of dialysis. She is currently on maintenance hemodialysis. She is tolerating said treatment. She is doing well overall. No other complaints. OBJECTIVE: VITAL SIGNS: Blood pressure is 142/65, heart rate 52, respiratory rate 16, temperature 97.6, and pulse ox 97%. GENERAL: Noted to be awake, alert, and comfortable, not in distress. SKIN: Adequate turgor. HEENT: Pinkish conjunctivae. Anicteric sclerae. NECK: No neck mass. No carotid bruits. No JVD. CHEST: No deformities. LUNGS: Clear breath sounds. HEART: Normal sinus rhythm. No murmur. No gallops. No rubs. ABDOMEN: Globular, soft, and nontender. No masses. EXTREMITIES: No edema. No deformities. MEDICATIONS: Medications of February 18, 2019, reviewed. LABORATORY DATA: Laboratories of February 18, 2019; white count 6.6, hemoglobin 10. Sodium 134, potassium 4.3, chloride 100, carbon dioxide 25, BUN 39, creatinine 3.31, glucose 162, and calcium 9.2. ASSESSMENT AND PLAN: 1. Chronic renal failure/end-stage renal disease, stable. We will continue current Monday, Monday, and Monday hemodialysis. Tolerating said treatment. Fluid removal as tolerated. 2. Borderline anemia, currently being maintained on weekly Epogen. 3. Congestive heart failure, clinically much improved with fluid removal with dialysis. We will recheck another CBC and basic metabolic in a.m. Job ID: [id number]
--- NOTE | 2019-02-18 12:07 | PRG ---
DATE OF SERVICE: 02/18/2019 SERVICE: Pulmonary Medicine. INTERVAL HISTORY: The patient remains extraordinarily weak. She is able to get out of bed into a chair based on what she tells me. She is a two-person assist. Otherwise, there has been no interval change to her condition. She indicates that she is breathing comfortably and has not had any chest discomfort. She is tolerating p.o., she is having normal bowel movements. PHYSICAL EXAMINATION: VITAL SIGNS: Afebrile, pulse 52, blood pressure 142/65, respirations 16, saturation 97% on 1 L nasal cannula. GENERAL: The patient is awake and alert, in no apparent distress. LUNGS: Decent air entry. Dependent crackles are minimal. No prolonged expiratory phase or wheezing is appreciated. HEART: Normal rate, regular. ABDOMEN: Soft, nontender, nondistended, bowel sounds are positive. MUSCULOSKELETAL: No cyanosis or clubbing. There is no pitting in the bilateral lower extremities. NEUROLOGIC: Grossly nonfocal. LABORATORY DATA: WBC 6.6, hemoglobin 10.0, platelets 229,000. Sodium 134, which is gently downtrending, creatinine 3.31. Basic metabolic profile is otherwise unremarkable. ASSESSMENT: 1. Acute hypoxic respiratory failure, resolving. 2. Pleural effusion, transudate. 3. End-stage renal disease, on dialysis for volume related issues. 4. Chronic diastolic heart failure. 5. Atrial fibrillation. 6. Type 2 diabetes mellitus. 7. Profound weakness/deconditioning. DISCUSSION AND PLAN: From purely respiratory perspective, the patient is stable for transition out of the hospital. Pulmonary will continue to follow, intermittently during this hospital stay. Dr. Mcghee will resume care in the morning. Please call if the patient has any respiratory issues. Job ID: [id number]
[2019-02-18] MEDS: Carvedilol 25 MG TAB PO SCH ×2 (13:58→20:27)
--- NOTE | 2019-02-18 14:24 | PDOC.CPN ---
- Subjective Date: 02/18/19 Time: 14:24 Interval history: The pt seen and examined. No overnight events. No cardiac complaints. - Objective Allergies/Adverse Reactions: Allergies Allergy/AdvReac Type Severity Reaction Status Date / Time codeine Allergy Verified 09/10/18 15:23 ibuprofen [From Motrin] Allergy Verified 02/02/19 15:45 Visit Medications: Current Medications Acetaminophen (Tylenol) 650 mg PO Q4H PRN PRN Reason: Headache/Fever or Pain Last Admin: 02/16/19 09:06 Dose: 650 mg Acidophilus (Floranex) 1 tab PO DAILY [facility] Last Admin: 02/17/19 09:22 Dose: 1 tab Albuterol/Ipratropium (Duoneb) 3 ml NEB QID-RT [facility] Last Admin: 02/18/19 10:24 Dose: 3 ml Lipase/Protease/Amylase ([place] [id number]) 1 cap FS .PER PROTOCOL PRN PRN Reason: TUBE OCCLUSION PROTOCOL Aspirin (Aspirin Chewable) 81 mg PO QAM-WM [facility] Last Admin: 02/17/19 09:22 Dose: 81 mg Atorvastatin Calcium (Lipitor) 80 mg PO HS [facility] Last Admin: 02/17/19 20:54 Dose: 80 mg Carvedilol (Coreg) 12.5 mg PO BID [facility] Last Admin: 02/18/19 13:58 Dose: Not Given Cholecalciferol (Vitamin D3) 1,000 units PO DAILY [facility] Last Admin: 02/17/19 09:22 Dose: 1,000 units Citalopram Hydrobromide (Celexa) 40 mg PER TUBE DAILY [facility] Last Admin: 02/17/19 09:23 Dose: 40 mg Clopidogrel Bisulfate (Plavix) 75 mg PO DAILY [facility] Last Admin: 02/17/19 09:22 Dose: 75 mg Dextrose/Water (Dextrose 50%) 25 gm IVP PRN PRN PRN Reason: HYPOGLYCEMIA PROTOCOL Last Admin: 02/08/19 20:46 Dose: 25 gm Docusate Sodium (Colace) 100 mg PO BID [facility] Last Admin: 02/17/19 20:56 Dose: 100 mg Epoetin Jorje-epbx (Retacrit) 7,500 unit SC Q7D [facility] Last Admin: 02/13/19 10:35 Dose: 7,500 unit Glucagon (Glucagon) 1 mg IM PRN PRN PRN Reason: HYPOGLYCEMIA PROTOCOL Heparin Sodium (Porcine) (Heparin) 5,000 units SC BID [facility] Last Admin: 02/17/19 20:56 Dose: 5,000 units Dextrose/Water (D5w) 1,000 mls @ 0 mls/hr IV INF PRN PRN Reason: HYPOGLYCEMIA PROTOCOL Insulin Human Lispro (Humalog) 5 units SC PRN PRN PRN Reason: BLOOD GLUCOSE > 200 Insulin Human Regular (Humulin R) 0 units SC .MILD SLIDING PRN; Protocol PRN Reason: MILD SLIDING SCALE Last Admin: 02/18/19 06:31 Dose: 2 unit Insulin Human Regular (Humulin R) 0 units SC .BEDTIME SLIDING SC PRN; Protocol PRN Reason: BEDTIME SLIDING SCALE Iron/Minerals/Multivitamins (Certa Alexa Liquid) 15 ml PO DAILY [facility] Last Admin: 02/17/19 11:57 Dose: 15 ml Levothyroxine Sodium (Synthroid) 75 mcg PO 0600 [facility] Last Admin: 02/18/19 06:10 Dose: 75 mcg Ondansetron HCl (Zofran) 4 mg SLOW IVP Q6H PRN PRN Reason: Nausea/Vomiting Oxymetazoline HCl (Nasal Decongestant) 0 ml NS BIDPRN PRN PRN Reason: NASAL CONGESTION Pantoprazole Sodium (Protonix) 40 mg PO DAILY [facility] Last Admin: 02/17/19 09:23 Dose: 40 mg Pentazocine HCl/Naloxone HCl (Talwin Nx) 0.5 tab PO Q6H PRN PRN Reason: Moderate to Severe Pain (6-10) Last Admin: 02/14/19 16:51 Dose: 0.5 tab Pramipexole Dihydrochloride (Mirapex) 1 mg PO QAM [facility] Last Admin: 02/17/19 09:22 Dose: 1 mg Pramipexole Dihydrochloride (Mirapex) 1.5 mg PO HS [facility] Last Admin: 02/17/19 20:55 Dose: 1.5 mg Pregabalin (Lyrica) 75 mg PER TUBE DAILY [facility] Last Admin: 02/17/19 09:21 Dose: 75 mg Sodium Bicarbonate (Bicarbonate, Sodium) 650 mg PER TUBE .PER PROTOCOL PRN PRN Reason: ENTERAL TUBE OCCLUSION Sodium Chloride (Flush - Normal Saline) 10 ml IVF PRN PRN PRN Reason: Saline Flush Vital Signs & Weight: Vital Signs Temp Pulse Resp BP Pulse Ox 02/18/19 12:00 97.8 F 64 16 112/45 L 99 02/18/19 10:24 53 L 14 99 02/18/19 08:00 97.6 F 52 L 16 142/65 H 97 02/18/19 07:25 55 L 18 94 L 02/18/19 04:00 97.6 F 68 18 161/55 H 93 L Admit Weight 238 lb 1.588 oz Weight 206 lb 4.8 oz - Quality Measures Condition: Atrial Fibrillation/Flutter (hx or current) CV meds: Beta Aguilar: Yes, ADRIAN/ARB: No (Acute on chronic renal failure), Statin : No - Physical Exam General: alert & oriented x3 HEENT: mucus membranes moist Neck: supple neck Cardiac: irregularly regular Lungs: decreased breath sounds Abdomen: unremarkable Skin: other (Shingles on back) Musculoskeletal: decreased range of motion - Labs Result Diagrams: 02/18/19 04:52 02/18/19 04:52 - Telemetry Supraventricular conduction: atrial fibrillation - Assessment/Plan Assessment/Plan: 1. Afib with RVR - well controlled HR with Coreg and Digoxin 0.125mg IV on Mon, Wed, Sat; On ASA. Not good candidate for OAC due to high risk of falls, anemia , and s/p subarachniod hemorrhage in 09/2018; 2. Acute on Chronic Diastolic HF with grade III dd in 11/2017 - on HD; On Coreg ; not on ADRIAN/ARB due to acute/ CKD 3. ESRD - On HD on MWF; managed by Dr Flores 4. HTN - stable 5. DM type 2 - 6. HLD - on statin 7. Hypothyrodism - 8. Anemia - On Epogen 9. 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 Hx of TIA/CVA - on Plavix 11. S/p of multiple falls with s/p subarachnoid hemorrhage in 09/2018 - 12. Severe deconditioning. Pt. not eating. 13. Respiratory insufficiency - stable with 2LNC 14. Pleural effusion - s/p Thoracentesis with 1.9L output by Dr Mcghee on 02/08 15. Bradycardia -- HR's in the 30's for a few seconds on 02/13/2019; if she continue to have bradycardia episodes or worsening of the arrhythmias , she may need a pacemaker. * Echo in 09/2018 with EF 45-50%, mild ERV, mod-severe dilated LA, mod ERA, mod MR, mild AR, mild AK, and severe TR (diastolic dysfunction still persists).
[2019-02-18] MEDS ORDERED: Heparin 5,000 UNITS/ML VIAL SC SCH (14:30)
[2019-02-18] MEDS ORDERED: Pramipexole Di-HCl 1 MG TAB PO SCH (14:30)
[2019-02-18] MEDS: Heparin 5,000 UNITS/ML VIAL SC SCH ×2 (14:50→20:27)
[2019-02-18] MEDS: Acetaminophen 325 MG TAB PO PRN (14:54)
[2019-02-18] MEDS: Multivits W-Minerals Liquid 15mL UDCUP PO SCH (14:54)
[2019-02-18] MEDS: Pantoprazole 40 MG GRANULES PACKET PO SCH (14:54)
[2019-02-18] MEDS: Lactinex Tablet PO SCH (14:54)
[2019-02-18] MEDS: Pregabalin 75 MG CAP PER TUBE SCH (14:55)
[2019-02-18] MEDS: Docusate 100 MG CAP PO SCH ×2 (14:56→20:26)
[2019-02-18] MEDS: Citalopram 20 MG TAB PER TUBE SCH (14:56)
[2019-02-18] MEDS: Clopidogrel Bisulfate 75 MG TAB PO SCH (14:56)
[2019-02-18] MEDS: Aspirin Chewable 81 MG TAB PO SCH (14:57)
[2019-02-18] MEDS: Pramipexole Di-HCl 1 MG TAB PO SCH ×3 (14:58→20:28)
[2019-02-18] MEDS ORDERED: Bisacodyl 5 MG TAB PO PRN (17:31)
[2019-02-18] MEDS ORDERED: Milk Of Magnesia 30 ML UDCUP PO SCH (17:45)
[2019-02-18] MEDS: Atorvastatin Calcium 40 MG TAB PO SCH (20:26)
[2019-02-18] MEDS: Megestrol Acetate 800 MG/20 ML UDCUP PO SCH (20:26)
[2019-02-19 05:48] LABS: #Basophils 0.1 thou/uL (0.0-0.2); #Eosinphils 0.1 thou/uL (0.0-0.7); #Lymphocytes 0.7 thou/uL (1.20-3.40); #Monocytes 0.5 thou/uL (0.11-0.59); %Basophils 1.3 % (0.0-1.0); %Eosinophils 0.9 % (0.0-10.0); %Lymphocytes 10.8 % (21.0-51.0); %Monocytes 8.4 % (0.0-10.0); %Neutrophils 78.7 % (42.0-75.0); Hemoglobin 10.2 g/dL (12.0-16.0); Mean Corpuscular HGB CONC 31.1 g/dL (32.0-36.0); Mean Corpuscular Hemoglobin 30.5 pg (27.0-31.0); Mean Corpuscular Volume 97.9 fL (78.0-98.0); Mean Platelet Volume 7.7 fL (7.4-10.4); Platelet Count 237 thou/uL (130-400); RBC Distribution Width 16.3 % (11.5-14.5); Red Blood Cell (RBC) Count 3.35 mill/uL (4.20-5.40); White Blood Cell (WBC) Count 6.3 thou/uL (4.8-10.8)
[2019-02-19] MEDS: Levothyroxine Sodium 75 MCG TAB PO SCH (05:59)
[2019-02-19 06:13] LABS: Anion Gap 10 mmol/L (10-20); BUN (Urea Nitrogen) 25 mg/dL (9.8-20.1); Calc. Creatinine Clearance 27 mL/min (70-130); Carbon Dioxide 32 mmol/L (23-31); Chloride 98 mmol/L (98-107); Estimated GFR-MDRD 20; Glucose 202 mg/dL (83-110); Potassium 4.2 mmol/L (3.5-5.1); Sodium 136 mmol/L (136-145)
[2019-02-19] MEDS: Clopidogrel Bisulfate 75 MG TAB PO SCH (08:31)
[2019-02-19] MEDS: Aspirin Chewable 81 MG TAB PO SCH (08:31)
[2019-02-19] MEDS: Heparin 5,000 UNITS/ML VIAL SC SCH ×2 (08:31→21:48)
--- NOTE | 2019-02-19 09:19 | PRG ---
DATE OF SERVICE: 02/19/2019 SERVICE: Renal Medicine. SUBJECTIVE: Ms. Mullen is an 83-year-old white female, who was seen by the Renal Service for her worsening renal dysfunction, has been initiated with hemodialysis. She is tolerating current hemodialysis regimen. She underwent dialysis yesterday without any difficulty. Fluid removal was done. No other complaints today. OBJECTIVE: VITAL SIGNS: Blood pressure is 153/67, heart rate 50, respiratory rate 16, temperature 97.6 and pulse oximetry is 100%. GENERAL: Noted to be sleepy, but arousable, comfortable, not in distress. SKIN: Adequate turgor. HEENT: She has pinkish conjunctivae. Anicteric sclerae. NECK: No neck mass. No carotid bruits. No JVD. CHEST: No deformities. LUNGS: Clear breath sounds. HEART: Normal sinus rhythm. No murmur. No gallops. No rubs. ABDOMEN: Globular, soft, nontender. No masses. EXTREMITIES: No edema. No deformities. MEDICATIONS: Of February 19, 2019, reviewed. LABORATORY DATA: Of February 19, 2019; white count 6.3, hemoglobin 10.2. Sodium 136, potassium 4.2, chloride 98, carbon dioxide 32 BUN 25, creatinine 2.37, glucose 202, and calcium 9. Hemoglobin 10.2. ASSESSMENT AND PLAN: 1. End-stage renal disease/chronic renal failure continuing Monday, Monday, and Monday hemodialysis regimen. Fluid removal only as tolerated. No changes will be made with the current dialysis regimen. 2. Anemia - the patient has been has been started on weekly Epogen. Continue current regimen. 3. Decreased mentation/sleepiness. We will discontinue Lyrica. 4. Metabolic alkalosis. We will also discontinue sodium bicarbonate tab. 5. Recheck basic metabolic and CBC in a.m. Job ID: [id number]
--- NOTE | 2019-02-19 09:33 | PRG ---
DATE OF SERVICE: 02/19/2019 SUBJECTIVE: The patient is doing better, had no acute complaints. She is scheduled for a left forearm AV fistula today. OBJECTIVE: VITAL SIGNS: Temperature 97.6, pulse 50, respirations 16, O2 saturation 100%, and blood pressure 153/67. HEENT: Unremarkable. NECK: No adenopathy or JVD. CHEST: Fairly clear anteriorly. CARDIAC: S1 and S2, regular without audible murmur. ABDOMEN: Soft and nontender. EXTREMITIES: She has a right tunneled IJ dialysis catheter in place. ASSESSMENT: 1. Status post acute respiratory failure requiring noninvasive ventilation. 2. Transudative pleural effusion. 3. Chronic diastolic heart failure. 4. Atrial fibrillation. 5. End-stage renal disease, requiring dialysis. PLAN: The patient is doing quite well from a respiratory standpoint. There is a fairly little to add at this time. I will follow along peripherally. Job ID: [id number]
[2019-02-19] MEDS ORDERED: ePHEDrine/0.9% NaCl/PF SYRINGE 50 mg/10 ml ONE (09:45)
[2019-02-19] MEDS ORDERED: Ondansetron PF 4 MG/2 ML Vial ONE (09:45)
[2019-02-19] MEDS ORDERED: Glycopyrrolate 0.2 MG/ML 5 ML SYRINGE ONE (09:45)
[2019-02-19] MEDS ORDERED: Lidocaine 1% PF 5 ML VIAL ONE (09:45)
[2019-02-19] MEDS ORDERED: Bupivacaine HCl 0.5%/Epinephrine 1:200,000/PF 30 ml Vial ONE ×2 (09:45→12:30)
[2019-02-19] MEDS: Megestrol Acetate 800 MG/20 ML UDCUP PO SCH ×2 (10:18→21:48)
[2019-02-19] MEDS: Citalopram 20 MG TAB PER TUBE SCH (10:19)
[2019-02-19] MEDS: Docusate 100 MG CAP PO SCH ×2 (10:19→21:48)
[2019-02-19] MEDS: Carvedilol 25 MG TAB PO SCH ×2 (10:19→21:48)
[2019-02-19] MEDS: Pantoprazole 40 MG GRANULES PACKET PO SCH (10:20)
[2019-02-19] MEDS: Ketotifen Fumarate 0.025% Ophth Soln 5 ml Bottle EA EYE SCH (10:20)
[2019-02-19] MEDS ORDERED: Heparin 10,000 UNITS/ 10 ML VIAL ONE (11:11)
[2019-02-19] MEDS: Lactinex Tablet PO SCH (11:13)
[2019-02-19] MEDS: Multivits W-Minerals Liquid 15mL UDCUP PO SCH (11:13)
[2019-02-19] MEDS ORDERED: Famotidine/PF 20 mg/2ml Vial ONE (11:53)
[2019-02-19] MEDS ORDERED: Fentanyl 100 MCG/2 ML VIAL ONE ×2 (11:53→12:23)
--- NOTE | 2019-02-19 11:54 | PDOC.CPN ---
- Subjective Date: 02/19/19 Time: 08:30 Interval history: The pt seen and examined. No overnight events. No cardiac complaints. - Objective Allergies/Adverse Reactions: Allergies Allergy/AdvReac Type Severity Reaction Status Date / Time codeine Allergy Verified 09/10/18 15:23 ibuprofen [From Motrin] Allergy Verified 02/02/19 15:45 Visit Medications: Current Medications Acetaminophen (Tylenol) 650 mg PO Q4H PRN PRN Reason: Headache/Fever or Pain Last Admin: 02/18/19 14:54 Dose: 650 mg Acidophilus (Floranex) 1 tab PO DAILY [facility] Last Admin: 02/19/19 11:13 Dose: 1 tab Albuterol/Ipratropium (Duoneb) 3 ml NEB QID-RT [facility] Last Admin: 02/19/19 10:55 Dose: 3 ml Lipase/Protease/Amylase ([place] [id number]) 1 cap FS .PER PROTOCOL PRN PRN Reason: TUBE OCCLUSION PROTOCOL Aspirin (Aspirin Chewable) 81 mg PO QAM-WM [facility] Last Admin: 02/19/19 08:31 Dose: Not Given Atorvastatin Calcium (Lipitor) 80 mg PO HS [facility] Last Admin: 02/18/19 20:26 Dose: 80 mg Carvedilol (Coreg) 12.5 mg PO BID [facility] Last Admin: 02/19/19 10:19 Dose: 12.5 mg Cholecalciferol (Vitamin D3) 1,000 units PO DAILY [facility] Last Admin: 02/19/19 10:19 Dose: 1,000 units Citalopram Hydrobromide (Celexa) 40 mg PER TUBE DAILY [facility] Last Admin: 02/19/19 10:19 Dose: 40 mg Clopidogrel Bisulfate (Plavix) 75 mg PO DAILY [facility] Last Admin: 02/19/19 08:31 Dose: Not Given Dextrose/Water (Dextrose 50%) 25 gm IVP PRN PRN PRN Reason: HYPOGLYCEMIA PROTOCOL Last Admin: 02/08/19 20:46 Dose: 25 gm Docusate Sodium (Colace) 100 mg PO BID [facility] Last Admin: 02/19/19 10:19 Dose: 100 mg Epoetin Jorje-epbx (Retacrit) 7,500 unit SC Q7D [facility] Last Admin: 02/13/19 10:35 Dose: 7,500 unit Glucagon (Glucagon) 1 mg IM PRN PRN PRN Reason: HYPOGLYCEMIA PROTOCOL Heparin Sodium (Porcine) (Heparin) 5,000 units SC BID [facility] Last Admin: 02/19/19 08:31 Dose: Not Given Dextrose/Water (D5w) 1,000 mls @ 0 mls/hr IV INF PRN PRN Reason: HYPOGLYCEMIA PROTOCOL Insulin Human Lispro (Humalog) 5 units SC PRN PRN PRN Reason: BLOOD GLUCOSE > 200 Insulin Human Regular (Humulin R) 0 units SC .MILD SLIDING PRN; Protocol PRN Reason: MILD SLIDING SCALE Last Admin: 02/18/19 17:39 Dose: 2 unit Insulin Human Regular (Humulin R) 0 units SC .BEDTIME SLIDING SC PRN; Protocol PRN Reason: BEDTIME SLIDING SCALE Last Admin: 02/18/19 20:45 Dose: 2 unit Iron/Minerals/Multivitamins (Certa Alexa Liquid) 15 ml PO DAILY [facility] Last Admin: 02/19/19 11:13 Dose: 15 ml Ketotifen Fumarate (Zaditor 0.025% [facility]) 1 drop EA EYE DAILY [facility] Last Admin: 02/19/19 10:20 Dose: 1 each Levothyroxine Sodium (Synthroid) 75 mcg PO 0600 [facility] Last Admin: 02/19/19 05:59 Dose: Not Given Megestrol Acetate (Megace) 200 mg PO BID [facility] Last Admin: 02/19/19 10:18 Dose: 200 mg Ondansetron HCl (Zofran) 4 mg SLOW IVP Q6H PRN PRN Reason: Nausea/Vomiting Oxymetazoline HCl (Nasal Decongestant) 0 ml NS BIDPRN PRN PRN Reason: NASAL CONGESTION Pantoprazole Sodium (Protonix) 40 mg PO DAILY [facility] Last Admin: 02/19/19 10:20 Dose: 40 mg Pentazocine HCl/Naloxone HCl (Talwin Nx) 0.5 tab PO Q6H PRN PRN Reason: Moderate to Severe Pain (6-10) Last Admin: 02/14/19 16:51 Dose: 0.5 tab Pramipexole Dihydrochloride (Mirapex) 1 mg PO QAM [facility] Last Admin: 02/18/19 20:27 Dose: 1 mg Pramipexole Dihydrochloride (Mirapex) 1.5 mg PO HS [facility] Last Admin: 02/18/19 20:28 Dose: 1.5 mg Sodium Chloride (Flush - Normal Saline) 10 ml IVF PRN PRN PRN Reason: Saline Flush Vital Signs & Weight: Vital Signs Temp Pulse Resp BP Pulse Ox 02/19/19 11:48 97.8 F 68 16 138/64 98 02/19/19 10:55 58 L 18 100 02/19/19 07:45 97.6 F 50 L 16 153/67 H 100 02/19/19 07:25 100 02/19/19 07:22 50 L 16 100 02/19/19 04:00 97.5 F L 67 18 133/60 98 Admit Weight 238 lb 1.588 oz Weight 205 lb - Quality Measures Condition: Atrial Fibrillation/Flutter (hx or current) CV meds: Beta Aguilar: Yes, ADRIAN/ARB: No (Acute on chronic renal failure), Statin : No - Physical Exam General: alert & oriented x3 HEENT: mucus membranes moist Cardiac: irregularly regular Lungs: decreased breath sounds Neuro: cranial nerve 2-12 intact Abdomen: unremarkable Skin: clear Musculoskeletal: decreased range of motion - Labs Result Diagrams: 02/20/19 05:10 02/20/19 05:10 - Telemetry Supraventricular conduction: atrial fibrillation - Assessment/Plan Assessment/Plan: 1. Afib with RVR - well controlled HR with Coreg and Digoxin 0.125mg IV on Mon, Wed, Sat; On ASA. Not good candidate for OAC due to high risk of falls, anemia , and s/p subarachniod hemorrhage in 09/2018; 2. Acute on Chronic Diastolic HF with grade III dd in 11/2017 - on HD; On Coreg ; not on ADRIAN/ARB due to acute/ CKD 3. ESRD - On HD on MWF; managed by Dr Flores 4. HTN - stable 5. DM type 2 - 6. HLD - on statin 7. Hypothyrodism - 8. Anemia - On Epogen 9. 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 Hx of TIA/CVA - on Plavix 11. S/p of multiple falls with s/p subarachnoid hemorrhage in 09/2018 - 12. Severe deconditioning. Pt. not eating. 13. Respiratory insufficiency - stable with 2LNC 14. Pleural effusion - s/p Thoracentesis with 1.9L output by Dr Mcghee on 02/08 15. Bradycardia -- HR's in the 30's for a few seconds on 02/13/2019; if she continue to have bradycardia episodes or worsening of the arrhythmias , she may need a pacemaker. * Echo in 09/2018 with EF 45-50%, mild ERV, mod-severe dilated LA, mod ERA, mod MR, mild AR, mild NV, and severe TR (diastolic dysfunction still persists). Pt. seen and eval. by me. She is sleepy after the procedure for the dialysis fistula. Chest clear.Irreg. I agree with the A/P by the BANKER MASON. [place]
[2019-02-19] MEDS ORDERED: Midazolam HCl 2 mg/2 ml Vial ONE (12:23)
[2019-02-19] MEDS ORDERED: Protamine Sulfate 50 MG/5 ML VIAL ONE (12:30)
[2019-02-19] MEDS ORDERED: Lidocaine 2% PF 5 ML VIAL ONE (12:30)
[2019-02-19] MEDS ORDERED: Heparin 5,000 UNITS/ML VIAL ONE (12:30)
[2019-02-19] MEDS ORDERED: PROPOFOL 60 ML ONE (12:39)
[2019-02-19] MEDS ORDERED: Ondansetron HCl/PF 4 MG/2 ML Vial IVP PRN (15:11)
[2019-02-19] MEDS: Atorvastatin Calcium 40 MG TAB PO SCH (21:47)
[2019-02-19] MEDS: Pramipexole Di-HCl 1 MG TAB PO SCH (21:48)
[2019-02-20] MEDS: Acetaminophen 325 MG TAB PO PRN ×2 (06:15→14:30)
[2019-02-20] MEDS: Levothyroxine Sodium 75 MCG TAB PO SCH (06:15)
[2019-02-20 06:35] LABS: Hemoglobin 10.2 g/dL (12.0-16.0); Mean Corpuscular HGB CONC 30.9 g/dL (32.0-36.0); Mean Corpuscular Hemoglobin 30.7 pg (27.0-31.0); Mean Corpuscular Volume 99.5 fL (78.0-98.0); Mean Platelet Volume 7.4 fL (7.4-10.4); Platelet Count 215 thou/uL (130-400); RBC Distribution Width 16.6 % (11.5-14.5); Red Blood Cell (RBC) Count 3.32 mill/uL (4.20-5.40); White Blood Cell (WBC) Count 6.7 thou/uL (4.8-10.8)
[2019-02-20 06:45] LABS: Anion Gap 14 mmol/L (10-20); BUN (Urea Nitrogen) 32 mg/dL (9.8-20.1); Calc. Creatinine Clearance 21 mL/min (70-130); Calcium 9.1 mg/dL (7.8-10.44); Carbon Dioxide 28 mmol/L (23-31); Chloride 97 mmol/L (98-107); Estimated GFR-MDRD 15; Glucose 94 mg/dL (83-110); Potassium 4.7 mmol/L (3.5-5.1); Sodium 134 mmol/L (136-145)
--- NOTE | 2019-02-20 08:38 | PRG ---
DATE OF SERVICE: 02/20/2019 SERVICE: Renal Medicine. SUBJECTIVE: Ms. Mullen is an 83-year-old white female, who was initiated with hemodialysis due to progressive azotemia and CHF. She is currently undergoing hemodialysis. She is tolerating said dialysis regimen. No other complaints today. Due to her decreased mentation, Lyrica has been discontinued. No complaints of chest pain or shortness of breath. OBJECTIVE: VITAL SIGNS: Blood pressure 129/59, heart rate 69, respiratory rate 16, temperature 98.3 and pulse oximetry 99%. GENERAL: Awake, alert, comfortable, not in distress. SKIN: Adequate turgor. HEENT: Pinkish conjunctivae. Anicteric sclerae. NECK: No neck mass. No carotid bruits. No JVD. CHEST: No deformities. LUNGS: Clear breath sounds. HEART: Normal sinus rhythm. No murmurs, gallops, or rubs. ABDOMEN: Globular, soft, nontender. No masses. EXTREMITIES: No edema. No deformities. MEDICATIONS: Of February 20, 2019, reviewed. LABORATORY DATA: Of February 20, 2019, sodium 134, potassium 4.7, chloride 97, carbon dioxide 28, BUN 32, creatinine 3.08, glucose 94, and calcium 9.1. White count 6.7, hemoglobin 10.2. ASSESSMENT AND PLAN: 1. Chronic renal failure/end-stage renal disease, currently undergoing hemodialysis. Fluid removal will be removed as tolerated. Tolerating said treatment. Continue Monday, Monday, and Monday dialysis. 2. Anemia, on weekly Epogen. 3. Congestive heart failure, clinically much improved with fluid removal with dialysis. Overall, agree with current management. Job ID: [id number]
[2019-02-20 09:05] LABS: Band 3 % (5-11); Eosinophils 1 % (0-10); Hypochromia SLIGHT = 6-15 cells (100X) (0-5/hpf); Lymphocytes 6 % (21-51); MDiff Complete? YES; Monocytes 7 % (0-10); Neutrophil 78 % (42-75); Platelet Morphology Comment Appears Adequate; Polychromasia SLIGHT = 2-3 cells (100X) (0-2/hpf); Reactive Lymphocytes 5 % (0-10)
[2019-02-20] MEDS ORDERED: Heparin 10,000 UNITS/ 10 ML VIAL ONE (09:30)
--- NOTE | 2019-02-20 11:20 | PDOC.CPN ---
- Subjective Date: 02/20/19 Time: 08:30 Interval history: The pt seen and examined. No overnight events. No cardiac complaints. - Objective Allergies/Adverse Reactions: Allergies Allergy/AdvReac Type Severity Reaction Status Date / Time codeine Allergy Verified 09/10/18 15:23 ibuprofen [From Motrin] Allergy Verified 02/02/19 15:45 Visit Medications: Current Medications Acetaminophen (Tylenol) 650 mg PO Q4H PRN PRN Reason: Headache/Fever or Pain Last Admin: 02/20/19 06:15 Dose: 650 mg Acidophilus (Floranex) 1 tab PO DAILY [facility] Last Admin: 02/19/19 11:13 Dose: 1 tab Albuterol/Ipratropium (Duoneb) 3 ml NEB QID-RT [facility] Last Admin: 02/20/19 10:22 Dose: Not Given Lipase/Protease/Amylase ([place] [id number]) 1 cap FS .PER PROTOCOL PRN PRN Reason: TUBE OCCLUSION PROTOCOL Aspirin (Aspirin Chewable) 81 mg PO QAM-WM [facility] Last Admin: 02/19/19 08:31 Dose: Not Given Atorvastatin Calcium (Lipitor) 80 mg PO HS [facility] Last Admin: 02/19/19 21:47 Dose: Not Given Carvedilol (Coreg) 12.5 mg PO BID [facility] Last Admin: 02/19/19 21:48 Dose: Not Given Cholecalciferol (Vitamin D3) 1,000 units PO DAILY [facility] Last Admin: 02/19/19 10:19 Dose: 1,000 units Citalopram Hydrobromide (Celexa) 40 mg PER TUBE DAILY [facility] Last Admin: 02/19/19 10:19 Dose: 40 mg Clopidogrel Bisulfate (Plavix) 75 mg PO DAILY [facility] Last Admin: 02/19/19 08:31 Dose: Not Given Dextrose/Water (Dextrose 50%) 25 gm IVP PRN PRN PRN Reason: HYPOGLYCEMIA PROTOCOL Last Admin: 02/08/19 20:46 Dose: 25 gm Docusate Sodium (Colace) 100 mg PO BID [facility] Last Admin: 02/19/19 21:48 Dose: Not Given Epoetin Jorje-epbx (Retacrit) 7,500 unit SC Q7D [facility] Last Admin: 02/13/19 10:35 Dose: 7,500 unit Glucagon (Glucagon) 1 mg IM PRN PRN PRN Reason: HYPOGLYCEMIA PROTOCOL Heparin Sodium (Porcine) (Heparin) 5,000 units SC BID [facility] Last Admin: 02/19/19 21:48 Dose: Not Given Dextrose/Water (D5w) 1,000 mls @ 0 mls/hr IV INF PRN PRN Reason: HYPOGLYCEMIA PROTOCOL Insulin Human Lispro (Humalog) 5 units SC PRN PRN PRN Reason: BLOOD GLUCOSE > 200 Insulin Human Regular (Humulin R) 0 units SC .MILD SLIDING PRN; Protocol PRN Reason: MILD SLIDING SCALE Last Admin: 02/18/19 17:39 Dose: 2 unit Insulin Human Regular (Humulin R) 0 units SC .BEDTIME SLIDING SC PRN; Protocol PRN Reason: BEDTIME SLIDING SCALE Last Admin: 02/18/19 20:45 Dose: 2 unit Iron/Minerals/Multivitamins (Certa Alexa Liquid) 15 ml PO DAILY [facility] Last Admin: 02/19/19 11:13 Dose: 15 ml Ketotifen Fumarate (Zaditor 0.025% [facility]) 1 drop EA EYE DAILY [facility] Last Admin: 02/19/19 10:20 Dose: 1 each Levothyroxine Sodium (Synthroid) 75 mcg PO 0600 [facility] Last Admin: 02/20/19 06:15 Dose: 75 mcg Megestrol Acetate (Megace) 200 mg PO BID [facility] Last Admin: 02/19/19 21:48 Dose: Not Given Ondansetron HCl (Zofran) 4 mg SLOW IVP Q6H PRN PRN Reason: Nausea/Vomiting Oxymetazoline HCl (Nasal Decongestant) 0 ml NS BIDPRN PRN PRN Reason: NASAL CONGESTION Pantoprazole Sodium (Protonix) 40 mg PO DAILY [facility] Last Admin: 02/19/19 10:20 Dose: 40 mg Pentazocine HCl/Naloxone HCl (Talwin Nx) 0.5 tab PO Q6H PRN PRN Reason: Moderate to Severe Pain (6-10) Last Admin: 02/14/19 16:51 Dose: 0.5 tab Pramipexole Dihydrochloride (Mirapex) 1 mg PO QAM [facility] Last Admin: 02/18/19 20:27 Dose: 1 mg Pramipexole Dihydrochloride (Mirapex) 1.5 mg PO HS [facility] Last Admin: 02/19/19 21:48 Dose: Not Given Sodium Chloride (Flush - Normal Saline) 10 ml IVF PRN PRN PRN Reason: Saline Flush Vital Signs & Weight: Vital Signs Temp Pulse Resp BP BP Pulse Ox 02/20/19 07:33 99 02/20/19 03:40 98.3 F 69 16 129/59 L 99 02/19/19 23:25 98.4 F 58 L 18 121/56 L 98 Admit Weight 238 lb 1.588 oz Weight 200 lb 4.8 oz - Quality Measures Condition: Atrial Fibrillation/Flutter (hx or current) CV meds: Beta Aguilar: Yes, ADRIAN/ARB: No (Acute on chronic renal failure), Statin : No - Physical Exam General: alert & oriented x3 Neck: supple neck Cardiac: irregularly regular Lungs: decreased breath sounds Extremities: no cyanosis Skin: clear Musculoskeletal: decreased range of motion - Labs Result Diagrams: 02/20/19 05:10 02/20/19 05:10 - Telemetry Supraventricular conduction: atrial fibrillation - Assessment/Plan Assessment/Plan: 1. Afib with RVR - well controlled HR with Coreg and Digoxin 0.125mg IV on Mon, Wed, Sat; On ASA. Not good candidate for OAC due to high risk of falls, anemia , and s/p subarachniod hemorrhage in 09/2018; 2. Acute on Chronic Diastolic HF with grade III dd in 11/2017 - on HD; On Coreg ; not on ADRIAN/ARB due to acute/ CKD 3. ESRD - On HD on MWF; managed by Dr Flores 4. HTN - stable 5. DM type 2 - 6. HLD - on statin 7. Hypothyrodism - 8. Anemia - On Epogen 9. 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 Hx of TIA/CVA - on Plavix 11. S/p of multiple falls with s/p subarachnoid hemorrhage in 09/2018 - 12. Severe deconditioning. Pt. not eating. 13. Respiratory insufficiency - stable with 2LNC 14. Pleural effusion - s/p Thoracentesis with 1.9L output by Dr Mcghee on 02/08 15. Bradycardia -- HR's in the 30's for a few seconds on 02/13/2019; if she continue to have bradycardia episodes or worsening of the arrhythmias , she may need a pacemaker. * Echo in 09/2018 with EF 45-50%, mild ERV, mod-severe dilated LA, mod ERA, mod MR, mild AR, mild CT, and severe TR (diastolic dysfunction still persists). Much more alert today. Eating dinner with assistance. Chest clear. Sounds like a Regular rhythm but still in Afib. on the monitor. I agree with the A/P by the BRAZER ASSEMBLER.
[2019-02-20] MEDS: Pramipexole Di-HCl 1 MG TAB PO SCH ×2 (11:57→20:53)
[2019-02-20] MEDS: Aspirin Chewable 81 MG TAB PO SCH (11:57)
[2019-02-20] MEDS: Citalopram 20 MG TAB PER TUBE SCH (11:58)
[2019-02-20] MEDS: Carvedilol 25 MG TAB PO SCH ×2 (11:58→20:53)
[2019-02-20] MEDS: Clopidogrel Bisulfate 75 MG TAB PO SCH (11:58)
[2019-02-20] MEDS: EPOETIN ALFA-EPBX (ESRD) 4,000 UNIT/ML VIAL SC SCH (11:59)
[2019-02-20] MEDS: Ketotifen Fumarate 0.025% Ophth Soln 5 ml Bottle EA EYE SCH (12:00)
[2019-02-20] MEDS: Docusate 100 MG CAP PO SCH ×2 (12:00→20:53)
[2019-02-20] MEDS: Lactinex Tablet PO SCH (12:00)
[2019-02-20] MEDS: Megestrol Acetate 800 MG/20 ML UDCUP PO SCH ×2 (12:01→20:52)
[2019-02-20] MEDS: Heparin 5,000 UNITS/ML VIAL SC SCH ×2 (12:01→20:52)
[2019-02-20] MEDS: Pantoprazole 40 MG GRANULES PACKET PO SCH (12:02)
[2019-02-20] MEDS: Multivits W-Minerals Liquid 15mL UDCUP PO SCH (12:03)
--- NOTE | 2019-02-20 14:31 | PDOC.OP ---
Operative Note - Operative Note Operative Note: DATE OF PROCEDURE: . PROCEDURE: Left Mireya AV fistula. SURGEON: Yasmeen Ross M.D. PREOPERATIVE DIAGNOSIS: End-stage renal failure. POSTOPERATIVE DIAGNOSIS: End-stage renal failure. HISTORY: Patient with end-stage renal failure who requires permanent access for ongoing hemodialysis. After reviewing vein mapping the decision was made to proceed with a primary fistula on the left. PROCEDURE: After informed consent was obtained and appropriate preoperative antibiotics administered, the patient was taken to the operating room and was placed in supine position and general anesthesia was administered. A preoperative block had been placed by anesthesia and adequacy confirmed. The patient's arm was prepped and draped in standard sterile fashion. The palpable cephalic vein and radial artery were marked on the skin. An incision was made between these 2 structures and dissection carried down to the cephalic vein. This was felt to be of adequate caliber and quality to support an AV fistula. The cephalic vein was interrogated but had a stricture just adjacent to its junction with another branch of the cephalic vein, making it inadequate for fistula use. The adjacent branch however appeared to be adequate. This was dissected free and interrogated with cardiac dilators and easily accepted up to a 3mm dilator. The vein was flushed with heparinized saline and clamped. The radial artery was identified and dissected free and although somewhat calcified was felt to be of adequate caliber and quality to support a fistula. This was dissected free. Heparin was administered systemically and allowed to circulate for 3 minutes. After the heparin had circulated for 3 minutes, the radial artery was clamped proximally and distally. An anterior arteriotomy was created with an 11 blade and extended with Iqbal scissors. The vein was spatulated and an end-to-side anastomosis was created with excellent technical result. Prior to tying down the anastomosis, the arterial inflow was released flushing the anastomosis. The anastomosis was then secured and hemostasis was verified. Flow was established first through the fistula following which flow was restored through the artery. The patient had a palpable thrill in the cephalic vein as well as a good Doppler signal to the level of the antecubital fossa. The wound was irrigated and examined for hemostasis was again confirmed to be excellent. The subcutaneous tissues were reapproximated with a running 3- 0 Monocryl sutures and the skin was closed with running 4-0 subcuticular Monocryl suture. Dermabond dressings were placed. Prior to leaving the operating room the fistula was again examined by Doppler and a good bruit confirmed. The patient was then taken to recovery in good condition. Estimated blood loss was minimal. There were no complications. There were no specimens.
--- NOTE | 2019-02-20 14:44 | PDOC.OP ---
Operative Note - Operative Note Operative Note: DATE OF PROCEDURE: PROCEDURE: Placement of right internal jugular tunneled hemodialysis catheter with ultrasound and fluoroscopic guidance. SURGEON: Yasmeen Ross M.D. PREOPERATIVE DIAGNOSIS: Acute/Chronic renal failure. POSTOPERATIVE DIAGNOSIS: Acute/Chronic renal failure. HISTORY: Patient with renal failure which has acutely worsened with fluid retention. She has a femoral dialysis catheter in place and has been tolerating hemodialysis with improved respiratory status. Tunneled hemodialysis catheter for ongoing dialysis has been requested by the patients slab grinder. PROCEDURE: After informed consent was obtained and appropriate preoperative antibiotics were administered, the patient was taken to the Operating Room, placed in the supine position and monitored anesthesia care was administered. The neck and chest were prepped and draped in a standard sterile fashion and the patient placed in Trendelenburg position. A sterile ultrasound probe was used to identify the patent compressible right IJ vein which was accessed under direct ultrasound guidance. A wire was threaded through the needle and confirmed by ultrasound to be within the patent compressible vessel with the tip in the vena cava by fluoroscopy. Local anesthesia was infused to the skin and subcutaneous tissues of the right neck and chest. An infraclavicular incision was made and a catheter tunneled from the infraclavicular to the right IJ access site. The right IJ was sequentially dilated over the wire following which a dilator and sheath were placed over the wire and the dilator and wire removed leaving the sheath in place. The catheter was tunneled through the sheath which was then split and removed leaving the catheter in place. This was confirmed by fluoroscopy to be in good position in the superior vena cava with no kinking of the course of the catheter. Both ports easily aspirated dark venous nonpulsatile blood and easily flushed without resistance. Heparin was instilled to the quantity specified on the hub, and the hub was secured to the skin with 3-0 nylon sutures. The skin incision at the neck was closed in two layers with 4-0 Monocryl suture and Dermabond dressings were placed. The skin at the exit site was snugged up around the catheter with 4-0 Monocryl suture and Dermabond was placed there as well. Once the Dermabond was dry, a Biopatch and Tegaderm dressing was placed at the exit site. The patient was taken to Recovery in good condition. Estimated blood loss was minimal. There were no complications. There were no specimens.
[2019-02-20] MEDS: Pentazocine HCl/Naloxone HCl 50/0.5 MG TAB PO PRN (18:00)
[2019-02-20] MEDS: Atorvastatin Calcium 40 MG TAB PO SCH (20:52)
[2019-02-21 04:08] LABS: QuantiFERON-TB Gold Plus Negative (Negative)
[2019-02-21] MEDS: Levothyroxine Sodium 75 MCG TAB PO SCH (05:46)
[2019-02-21] MEDS: Pentazocine HCl/Naloxone HCl 50/0.5 MG TAB PO PRN (05:46)
[2019-02-21 06:27] VITALS: BMI 38.0
[2019-02-21 07:51] VITALS: BP 125/58; TEMP 97.8
[2019-02-21] MEDS: Megestrol Acetate 800 MG/20 ML UDCUP PO SCH (08:19)
[2019-02-21] MEDS: Carvedilol 25 MG TAB PO SCH (08:20)
[2019-02-21] MEDS: Docusate 100 MG CAP PO SCH (08:20)
[2019-02-21] MEDS: Aspirin Chewable 81 MG TAB PO SCH (08:20)
[2019-02-21] MEDS: Pantoprazole 40 MG GRANULES PACKET PO SCH (08:20)
[2019-02-21] MEDS: Lactinex Tablet PO SCH (08:21)
[2019-02-21] MEDS: Citalopram 20 MG TAB PER TUBE SCH (08:21)
[2019-02-21] MEDS: Pramipexole Di-HCl 1 MG TAB PO SCH (08:21)
[2019-02-21] MEDS: Heparin 5,000 UNITS/ML VIAL SC SCH (08:21)
[2019-02-21] MEDS: Clopidogrel Bisulfate 75 MG TAB PO SCH (08:21)
[2019-02-21] MEDS: Ketotifen Fumarate 0.025% Ophth Soln 5 ml Bottle EA EYE SCH (08:22)
--- NOTE | 2019-02-21 09:06 | PRG ---
DATE OF SERVICE: 02/21/2019 SUBJECTIVE: Ms. Mullen is an 83-year-old white female, followed up by Renal Service for her chronic renal failure/ESRD. The patient currently on maintenance hemodialysis and tolerating said treatment. In the interim, the patient received left Mireya AV fistula. She voices no new complaints today. OBJECTIVE: VITAL SIGNS: Blood pressure 125/58, heart rate 65, respiratory rate 16, temperature 97.8, and pulse ox 97%. GENERAL: Noted to be awake, alert, comfortable, not in distress. SKIN: Adequate turgor. HEENT: She has pinkish conjunctivae. Anicteric sclerae. NECK: No neck mass. No carotid bruits. No JVD. CHEST: No deformities. LUNGS: Clear breath sounds. HEART: Normal sinus rhythm. No murmur. No gallops. No rubs. ABDOMEN: Globular, soft, and nontender. No masses. EXTREMITIES: No edema. No deformities. MEDICATIONS: Medications of 02/21/2019 were reviewed. LABORATORY DATA: On 02/20/2019: Sodium 134, potassium 4.7, chloride 97, carbon dioxide 28, BUN 32, and creatinine 3.08. On 02/21/2019: Glucose 163. On 02/20/2019: Hemoglobin 10.2. ASSESSMENT AND PLAN: 1. End-stage renal disease, stable. We will continue current hemodialysis regimen. Fluid removal as tolerated by the patient. No changes with the current Monday, Monday, and Monday hemodialysis regimen. 2. Anemia, continuing weekly Epogen with this patient. P.r.n. blood transfusion. 3. Please note a left Mireya arteriovenous fistula has been placed by her surgeon. Continue supportive care. 4. Congestive heart failure, clinically much improved with fluid removal from dialysis. We will recheck basic metabolic and CBC in a.m. Job ID: [id number]
[2019-02-21] MEDS: Multivits W-Minerals Liquid 15mL UDCUP PO SCH (11:08)
--- NOTE | 2019-02-21 13:01 | PDOC.CPN ---
- Subjective Date: 02/21/19 Time: 08:30 Interval history: The pt seen and examined. No overnight events. No cardiac complaints. - Objective Allergies/Adverse Reactions: Allergies Allergy/AdvReac Type Severity Reaction Status Date / Time codeine Allergy Verified 09/10/18 15:23 ibuprofen [From Motrin] Allergy Verified 02/02/19 15:45 Vital Signs & Weight: Vital Signs Temp Pulse Resp BP Pulse Ox 02/21/19 10:29 65 16 02/21/19 08:04 100 02/21/19 08:01 88 20 100 02/21/19 07:50 97.8 F 65 16 125/58 L 97 02/21/19 04:00 97.9 F 66 20 140/69 100 Admit Weight 238 lb 1.588 oz Weight 208 lb - Quality Measures Condition: Atrial Fibrillation/Flutter (hx or current) CV meds: Beta Aguilar: Yes, ADRIAN/ARB: No (Acute on chronic renal failure), Statin : No - Physical Exam General: alert & oriented x3 Neck: supple neck Cardiac: irregularly regular Lungs: decreased breath sounds Musculoskeletal: decreased range of motion - Labs Result Diagrams: 02/20/19 05:10 02/20/19 05:10 - Telemetry Supraventricular conduction: atrial fibrillation - Assessment/Plan Assessment/Plan: 1. Afib with RVR - well controlled HR with Coreg and Digoxin 0.125mg IV on Mon, Wed, Sat; On ASA. Not good candidate for OAC due to high risk of falls, anemia , and s/p subarachniod hemorrhage in 09/2018; 2. Acute on Chronic Diastolic HF with grade III dd in 11/2017 - on HD; On Coreg ; not on ADRIAN/ARB due to acute/ CKD 3. ESRD - On HD on MWF; managed by Dr Flores 4. HTN - stable 5. DM type 2 - 6. HLD - on statin 7. Hypothyrodism - 8. Anemia - On Epogen 9. 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 Hx of TIA/CVA - on Plavix 11. S/p of multiple falls with s/p subarachnoid hemorrhage in 09/2018 - 12. Severe deconditioning. Pt. not eating. 13. Respiratory insufficiency - stable with 2LNC 14. Pleural effusion - s/p Thoracentesis with 1.9L output by Dr Mcghee on 02/08 15. Bradycardia -- HR's in the 30's for a few seconds on 02/13/2019; if she continue to have bradycardia episodes or worsening of the arrhythmias , she may need a pacemaker. * Echo in 09/2018 with EF 45-50%, mild ERV, mod-severe dilated LA, mod ERA, mod MR, mild AR, mild CO, and severe TR (diastolic dysfunction still persists). * From Cardiac standpoint, the pt is stable to tx to rahab. * the pt will f/u with Dr Barlow' office in 2-4 wks after she is discharged from Rehab.
--- NOTE | 2019-02-22 22:34 | PQF ---
MERCEDES TORRES [place] MD [id number] [id number] CLINICAL DOCUMENTATION CLARIFICATION FORM: POST DISCHARGE Addendum to original discharge summary date: __chronic renal failure - diabetic nephropathty - ESRD Late entry note date: __ DATE: 02/22/19 ATTN: Frank Rose Please exercise your independent, professional judgment in responding to the clarification form. Clinical indicators are provided on the bottom of this form for your review Please check appropriate box(s) to clarify if the following diagnosis has been ruled in or ruled out: Sepsis [x ] Ruled in diagnosis [ x ] Continue to treat [ ] Resolved [ ] Ruled out diagnosis [ ] Cannot rule out diagnosis [ ] Other diagnosis [ ] Unable to determine In addition, please specify: Present on Admission (POA): [ ] Yes [ ] No [ ] Unable to determine For continuity of documentation, please document condition throughout progress notes and discharge summary. Thank You. CLINICAL INDICATORS - SIGNS / SYMPTOMS / LABS ER note p1 02/02 Patient did meet at least 2 criteria for SIRS scoring ER note p2 02/02 Vital Sign: Temp 98.5 BP 117/54, Pulse 102, resp 20 H&P p1 02/02 Dr Doyle She had begun having cough, nause, vomiting and fever H&P p1 02/02 Dr Doyle Her blood pressure was 85/42, pulse rate was in 130s RISK FACTORS ER note p1 02/02 Pleural Effusion ER note p1 02/02 Sepsis ER note p1 02/02 Zoster ER note p1 02/02 ANGELICA H&P p1 02/02 Urinary tract infection, probably early pyelonephritis H&P p1 02/02 Cellulitis of RLE H&P p1 02/02 Active shingles outbreak TREATMENTS H&P p1 02/02 Blood cultures obtained JUN 17 Valtrex PO JUN 17 IV Rocephin JUN 17 IV Azithromycin (This form is maintained as a part of the permanent medical record) 2014 [employer]. All Rights Reserved [email or web address] [not provided] MTDD
== END 2019-02-21 12:22 | DRG 853 ==
LOC: ERS 11:14 → T4-A 13:34 → CCU 02-04 10:58 → 2NO 02-14 13:31 → 2SE 02-15 19:41
PROVIDERS: ADMIT Specialist; ATTEND Specialist
PROC: 5A09457 Assistance with Respiratory Ventilation, 24-96 Consecutive Hours, Continuous Positive Airway Pressure (ICD-10-PCS; 2019-02-04)
PROC: 06HY33Z Insertion of Infusion Device into Lower Vein, Percutaneous Approach (ICD-10-PCS; 2019-02-06)
PROC: 5A1D70Z Performance of Urinary Filtration, Intermittent, Less than 6 Hours Per Day (ICD-10-PCS; 2019-02-06)
PROC: 0W993ZZ Drainage of Right Pleural Cavity, Percutaneous Approach (ICD-10-PCS; 2019-02-08)
PROC: 0BH17EZ Insertion of Endotracheal Airway into Trachea, Via Natural or Artificial Opening (ICD-10-PCS; 2019-02-12)
PROC: 5A1935Z Respiratory Ventilation, Less than 24 Consecutive Hours (ICD-10-PCS; 2019-02-12)
PROC: 031C0ZF Bypass Left Radial Artery to Lower Arm Vein, Open Approach (ICD-10-PCS; principal; 2019-02-19)
PROC: 0JH63XZ Insertion of Tunneled Vascular Access Device into Chest Subcutaneous Tissue and Fascia, Percutaneous Approach (ICD-10-PCS; 2019-02-20)
PROC: 02HV33Z Insertion of Infusion Device into Superior Vena Cava, Percutaneous Approach (ICD-10-PCS; 2019-02-20)
PROC: B518ZZA Fluoroscopy of Superior Vena Cava, Guidance (ICD-10-PCS; 2019-02-20)
PROC: B548ZZA Ultrasonography of Superior Vena Cava, Guidance (ICD-10-PCS; 2019-02-20)
DX: A41.9 Sepsis, unspecified organism (principal); J96.01 Acute respiratory failure with hypoxia; I50.33 Acute on chronic diastolic (congestive) heart failure; N18.6 End stage renal disease; N17.9 Acute kidney failure, unspecified; L03.115 Cellulitis of right lower limb; I48.20 Chronic atrial fibrillation, unspecified; J91.8 Pleural effusion in other conditions classified elsewhere; E87.2 Acidosis; I13.2 Hypertensive heart and chronic kidney disease with heart failure and with stage 5 chronic kidney disease, or end stage renal disease; N39.0 Urinary tract infection, site not specified; G47.33 Obstructive sleep apnea (adult) (pediatric); B02.9 Zoster without complications; E11.22 Type 2 diabetes mellitus with diabetic chronic kidney disease; E11.319 Type 2 diabetes mellitus with unspecified diabetic retinopathy without macular edema; G25.81 Restless legs syndrome; I08.3 Combined rheumatic disorders of mitral, aortic and tricuspid valves; E11.65 Type 2 diabetes mellitus with hyperglycemia; J40 Bronchitis, not specified as acute or chronic; E03.9 Hypothyroidism, unspecified; E78.5 Hyperlipidemia, unspecified; D63.1 Anemia in chronic kidney disease; R00.1 Bradycardia, unspecified; Z79.899 Other long term (current) drug therapy; Z79.82 Long term (current) use of aspirin; Z79.4 Long term (current) use of insulin; Z79.890 Hormone replacement therapy; Z79.02 Long term (current) use of antithrombotics/antiplatelets; Z90.49 Acquired absence of other specified parts of digestive tract; Z90.710 Acquired absence of both cervix and uterus; Z85.048 Personal history of other malignant neoplasm of rectum, rectosigmoid junction, and anus; Z85.828 Personal history of other malignant neoplasm of skin; Z88.5 Allergy status to narcotic agent; Z87.891 Personal history of nicotine dependence; Z91.19 Patient's noncompliance with other medical treatment and regimen; Z28.21 Immunization not carried out because of patient refusal; Z86.711 Personal history of pulmonary embolism; Z86.718 Personal history of other venous thrombosis and embolism; Z86.73 Personal history of transient ischemic attack (TIA), and cerebral infarction without residual deficits
CPT/HCPCS: 36415; 36416; 51701; 71045; 74176; 80048; 80053; 81003; 81015; 82150; 82805; 82945; 83036; 83519; 83605; 83615; 83880; 83986; 84157; 84443; 84478; 85025; 85060; 86480; 86704; 86706; 86803; 87040; 87070; 87086; 87116; 87205; 87206; 87340; 87804; 88112; 88305; 89051; 90935; 93970; 94640; 94660; 96360; 96361; 96365; 96367; C1752; C1769; G0257; G0365; J0131; J0456; J0670; J0690; J0696; J1160; J1642; J1644; J1815; J1940; J2001; J2250; J2405; J2704; J2720; J3010; J3490; J7050; J7070; J7620; P9047; Q5105; S0028

== ENCOUNTER 2019-05-10 06:18 | Day surgery (SDC) | payer MEDICARE, BC ==
[2019-05-09 09:59] VITALS: BMI 34.7
[2019-05-10] MEDS ORDERED: Bupivacaine 0.25% HCL 30 ML VIAL ONE (06:39)
[2019-05-10] MEDS ORDERED: Heparin 5,000 UNITS/ML VIAL ONE (06:39)
[2019-05-10] MEDS ORDERED: Lidocaine 1% w/Epinephrine 1:100K 20 ML VIAL ONE (06:39)
[2019-05-10] MEDS ORDERED: Ioversol 68 % 50 ML VIAL ONE (06:39)
[2019-05-10] MEDS ORDERED: Midazolam HCl 2 mg/2 ml Vial ONE (06:39)
[2019-05-10] MEDS ORDERED: Fentanyl 100 MCG/2 ML VIAL ONE ×2 (06:39→07:12)
[2019-05-10] MEDS ORDERED: Protamine Sulfate 50 MG/5 ML VIAL ONE (06:39)
[2019-05-10 07:00] LABS: Hemoglobin 10.8 g/dL (12.0-16.0); Mean Platelet Volume 7.8 fL (7.4-10.4); Platelet Count 138 thou/uL (130-400); RBC Distribution Width 16.4 % (11.5-14.5); Red Blood Cell (RBC) Count 3.28 mill/uL (4.20-5.40); White Blood Cell (WBC) Count 5.7 thou/uL (4.8-10.8)
[2019-05-10 07:11] LABS: Anion Gap 12 mmol/L (10-20); BUN (Urea Nitrogen) 18 mg/dL (9.8-20.1); Calc. Creatinine Clearance 22 mL/min (70-130); Carbon Dioxide 31 mmol/L (23-31); Chloride 97 mmol/L (98-107); Estimated GFR-MDRD 16; Glucose 144 mg/dL (83-110); Potassium 3.6 mmol/L (3.5-5.1); Sodium 136 mmol/L (136-145)
[2019-05-10] MEDS ORDERED: PROPOFOL 40 ML ONE (07:12)
[2019-05-10] MEDS ORDERED: Acetaminophen 500 MG TAB ONE (07:16)
[2019-05-10 07:24] LABS: #Eosinphils 0.1 thou/uL (0.0-0.7); #Lymphocytes 0.6 thou/uL (1.20-3.40); #Monocytes 0.4 thou/uL (0.11-0.59); #Neutrophils 4.4 thou/uL (1.40-6.50); %Basophils 0.4 % (0.0-1.0); %Eosinophils 2.4 % (0.0-10.0); %Lymphocytes 11.3 % (21.0-51.0); %Monocytes 7.7 % (0.0-10.0); %Neutrophils 78.2 % (42.0-75.0); Elliptocytes SLIGHT = 2-5 cells (100X) (0-1/hpf); Hypochromia SLIGHT = 6-15 cells (100X) (0-5/hpf); MDiff Complete? YES; Platelet Morphology Comment Appears Adequate; Schistocytes SLIGHT = 2-5 cells (100X) (0-1/hpf)
[2019-05-10] MEDS ORDERED: Phenylephrine HCL 10 MG/ML VIAL ONE (09:04)
[2019-05-10] MEDS ORDERED: Bupivacaine HCl 0.5%/Epinephrine 1:200,000/PF 30 ml Vial ONE (09:35)
[2019-05-10] MEDS ORDERED: Glycopyrrolate 0.2 MG/ML 5 ML SYRINGE ONE ×2 (09:35)
[2019-05-10] MEDS ORDERED: ePHEDrine/0.9% NaCl/PF SYRINGE 50 mg/10 ml ONE (09:35)
[2019-05-10] MEDS ORDERED: PROPOFOL 200 MG/20 ML VIAL ONE (09:35)
[2019-05-10] MEDS ORDERED: PHENYLEPHRINE-NS 100 MCG/ML 10 ML SYRINGE ONE (09:35)
[2019-05-10] MEDS ORDERED: Heparin 10,000 UNITS/ 10 ML VIAL ONE (11:29)
--- NOTE | 2019-05-10 15:27 | PDOC.OP ---
Operative Note - Operative Note Operative Note: DATE OF PROCEDURE: 05/10/2019 PROCEDURE: Left cephalic upper arm AV fistula. SURGEON: Yasmeen Ross M.D. PROMOTION OFFICER: [place] Das MS 3 PREOPERATIVE DIAGNOSIS: End-stage renal failure. POSTOPERATIVE DIAGNOSIS: End-stage renal failure. HISTORY: Patient with end-stage renal failure who requires permanent access for ongoing hemodialysis. After reviewing vein mapping the decision was made to proceed with a primary fistula on the left arm. The previous Mireya fistula on that side failed to mature but the upper arm cephalic and basilic both look adequate. PROCEDURE: After informed consent was obtained and appropriate preoperative antibiotics administered, the patient was taken to the operating room and was placed in supine position and anesthesia was administered. A preoperative block had been administered and adequacy of block was confirmed. The palpable antecubital vein was marked on the skin as was the palpable brachial pulse. An incision was made between these 2 structures and dissection carried down to the antecubital vein complex. There was a large perforating branch proceeding down towards the brachial artery which was dissected free circumferentially. This was felt to be of adequate caliber and quality to support an AV fistula. The vein was ligated distally, divided and spatulated, and interrogated with cardiac dilators and easily accepted up to a 3.5 mm dilator up the cephalic distribution. The vein was flushed with heparinized saline and clamped. The brachial artery was identified and dissected free circumferentially. Heparin was administered systemically and allowed to circulate for 3 minutes. After the heparin had circulated for 3 minutes, the artery was clamped proximally and distally. An anterior arteriotomy was created with an 11 blade and extended with Iqbal scissors. The vein was spatulated and an end-to-side anastomosis was created with excellent technical result. Prior to tying down the anastomosis, the arterial inflow was released flushing the anastomosis. The anastomosis was then secured and hemostasis was verified. Flow was established first through the fistula following which flow was restored through the artery. The patient had a palpable thrill in the cephalic outflow as well as a good Doppler signal in the same distribution. The wound was irrigated and examined for hemostasis was again confirmed to be excellent. The subcutaneous tissues were reapproximated with a running 3-0 Monocryl sutures and the skin was closed with running 4-0 subcuticular Monocryl suture. Dermabond dressings were placed. Prior to leaving the operating room the fistula was again examined by Doppler and a good bruit confirmed. The patient was then taken to recovery in good condition. Estimated blood loss was minimal. There were no complications. There were no specimens.
--- NOTE | 2019-05-13 00:12 | EKG ---
Test Reason : PREOP Blood Pressure : / mmHG Vent. Rate : 067 BPM Atrial Rate : 067 BPM P-R Int : 140 ms QRS Dur : 088 ms QT Int : 472 ms P-R-T Axes : 004 032 047 degrees QTc Int : 498 ms Normal sinus rhythm Prolonged QT Abnormal ECG Confirmed by Kelley LYLE ([id number]) on 05/13/2019 12:12:30 AM Referred By: LALIT Confirmed By:Kelley LYLE
== END 2019-05-10 12:35 | disposition home or self-care (01) ==
LOC: SDC 06:18
PROVIDERS: ATTEND Surgery
PROC: 03180ZD Bypass Left Brachial Artery to Upper Arm Vein, Open Approach (ICD-10-PCS; principal; 2019-05-10)
DX: I13.2 Hypertensive heart and chronic kidney disease with heart failure and with stage 5 chronic kidney disease, or end stage renal disease (principal); E11.22 Type 2 diabetes mellitus with diabetic chronic kidney disease; N18.6 End stage renal disease; I50.32 Chronic diastolic (congestive) heart failure; M19.90 Unspecified osteoarthritis, unspecified site; G47.33 Obstructive sleep apnea (adult) (pediatric); E78.5 Hyperlipidemia, unspecified; I48.91 Unspecified atrial fibrillation; G25.81 Restless legs syndrome; E11.42 Type 2 diabetes mellitus with diabetic polyneuropathy; K21.9 Gastro-esophageal reflux disease without esophagitis; E03.9 Hypothyroidism, unspecified; F41.9 Anxiety disorder, unspecified; G47.00 Insomnia, unspecified; I25.10 Atherosclerotic heart disease of native coronary artery without angina pectoris; Z86.73 Personal history of transient ischemic attack (TIA), and cerebral infarction without residual deficits; Z79.02 Long term (current) use of antithrombotics/antiplatelets; Z79.4 Long term (current) use of insulin; Z79.82 Long term (current) use of aspirin; Z79.899 Other long term (current) drug therapy; Z88.5 Allergy status to narcotic agent; Z88.6 Allergy status to analgesic agent; Z99.2 Dependence on renal dialysis; Z95.1 Presence of aortocoronary bypass graft
CPT/HCPCS: 36415; 80048; 85025; 93005; 93010; J0670; J0690; J1644; J2250; J2370; J2704; J2720; J3010; Q9967; S0020

== ENCOUNTER 2019-07-12 06:15 | Emergency (ER) | payer MEDICARE, BC ==
[2019-07-12 07:16] LABS: Band 5 % (5-11); Eosinophils 1 % (0-10); Hemoglobin 11.7 g/dL (12.0-16.0); Lymphocytes 9 % (21-51); MDiff Complete? YES; Macrocytosis SLIGHT = 6-15 cells (100X) (0-5/hpf); Mean Corpuscular HGB CONC 31.5 g/dL (32.0-36.0); Mean Platelet Volume 9.9 fL (7.4-10.4); Monocytes 10 % (0-10); Neutrophil 67 % (42-75); Platelet Count 76 thou/uL (130-400); Platelet Morphology Comment Appears Decreased; Polychromasia SLIGHT = 2-3 cells (100X) (0-2/hpf); RBC Distribution Width 16.4 % (11.5-14.5); Reactive Lymphocytes 6 % (0-10); Red Blood Cell (RBC) Count 3.44 mill/uL (4.20-5.40); White Blood Cell (WBC) Count 5.8 thou/uL (4.8-10.8)
[2019-07-12 07:19] LABS: ALT (SGPT) 23 U/L (8-55); AST (SGOT) 37 U/L (5-34); Albumin 3.5 g/dL (3.4-4.8); Alkaline Phosphatase 124 U/L (40-110); Anion Gap 15 mmol/L (10-20); BUN (Urea Nitrogen) 22 mg/dL (9.8-20.1); Calc. Creatinine Clearance 0 mL/min (70-130); Calcium 8.4 mg/dL (7.8-10.44); Carbon Dioxide 31 mmol/L (23-31); Chloride 95 mmol/L (98-107); Estimated GFR-MDRD 12; Globulin 3.6 g/dL (2.4-3.5); Glucose 112 mg/dL (83-110); Magnesium 1.7 mg/dL (1.6-2.6); Potassium 4.2 mmol/L (3.5-5.1); Protein, Total 7.1 g/dL (6.0-8.3); Sodium 137 mmol/L (136-145)
[2019-07-12 07:25] LABS: Bilirubin Negative (Negative); Blood, Urine 2+ (Negative); Clarity Turbid (Clear); Glucose, Urine (Dipstick) Normal (Negative); Leukocyte 500 Leu/uL (Negative); Nitrite Negative (Negative); Protein, Urine (Dipstick) 100 mg/dL (Neg-Trace); Squamous Epithelial 21-50 HPF (0-3)
[2019-07-12 07:41] LABS: Bacteria/HPF 1+ HPF (None Seen)
[2019-07-12 07:41] LABS: CKMB 2.9 ng/mL (0-6.6)
[2019-07-12 07:42] LABS: Unclassified Crystals 1+ HPF (None Seen)
--- NOTE | 2019-07-12 07:43 | RAD ---
EXAM: XR Chest 1 View Portable PROVIDED CLINICAL HISTORY: Weakness COMPARISON: 02/14/2019 FINDINGS: Cardiac silhouette appears enlarged. Vascular calcification involves the aortic arch. Right IJ dialys is catheter noted, tip overlying expected location of SVC. Right basilar subsegmental atelectasis and/or infiltrate. Blunting of right costophrenic angle. Left lung appears clear. No evidence for pne umothorax. IMPRESSION: Right basilar pleural and/or parenchymal opacity. Follow-up recommended.
[2019-07-12 07:45] LABS: WBC/HPF 21-50 HPF (0-3)
[2019-07-12 07:46] LABS: Yeast-Budding None Seen HPF (None Seen)
[2019-07-12 07:48] LABS: Renal Epithelial 0-3 HPF (None Seen)
[2019-07-12] MEDS ORDERED: Acetaminophen 500 MG TAB ONE (08:21)
[2019-07-12] MEDS ORDERED: Pregabalin 75 MG CAP PO SCH (08:30)
== END 2019-07-12 08:50 | disposition home or self-care (01) ==
LOC: ERS 06:15
DX: R53.1 Weakness (principal); E11.9 Type 2 diabetes mellitus without complications; I50.9 Heart failure, unspecified; I49.9 Cardiac arrhythmia, unspecified; I48.91 Unspecified atrial fibrillation; E03.9 Hypothyroidism, unspecified; E78.2 Mixed hyperlipidemia; Z87.891 Personal history of nicotine dependence; Z79.02 Long term (current) use of antithrombotics/antiplatelets; Z79.4 Long term (current) use of insulin; Z79.899 Other long term (current) drug therapy
CPT/HCPCS: 51701; 71045; 80053; 81003; 81015; 82553; 83735; 84484; 85025; 93005; A4353

== ENCOUNTER 2019-07-23 16:10 | Inpatient (IN) | payer MEDICARE, BC ==
[2019-07-23 16:55] LABS: #Lymphocytes 0.9 thou/uL (1.20-3.40); #Monocytes 0.5 thou/uL (0.11-0.59); #Neutrophils 4.3 thou/uL (1.40-6.50); %Basophils 0.6 % (0.0-1.0); %Eosinophils 0.4 % (0.0-10.0); %Monocytes 8.9 % (0.0-10.0); %Neutrophils 75.2 % (42.0-75.0); Hemoglobin 12.2 g/dL (12.0-16.0); Mean Corpuscular HGB CONC 30.1 g/dL (32.0-36.0); Mean Corpuscular Hemoglobin 33.3 pg (27.0-31.0); Platelet Count 104 thou/uL (130-400); RBC Distribution Width 15.2 % (11.5-14.5); Red Blood Cell (RBC) Count 3.65 mill/uL (4.20-5.40); White Blood Cell (WBC) Count 5.7 thou/uL (4.8-10.8)
[2019-07-23 16:55] LABS: Bacteria/HPF 4+ HPF (None Seen); Bilirubin Negative (Negative); Blood, Urine 2+ (Negative); Clarity Extra Turbid (Clear); Glucose, Urine (Dipstick) Normal (Negative); Leukocyte 500 Leu/uL (Negative); Nitrite Negative (Negative); Protein, Urine (Dipstick) 100 mg/dL (Neg-Trace); WBC/HPF Greater than 50 HPF (0-3)
--- NOTE | 2019-07-23 17:00 | RAD ---
PORTABLE CHEST: 07/23/19 PROVIDED CLINICAL HISTORY: Altered mental status. FINDINGS: Comparison 07/12/19. Cardiomegaly persists as does atherosclerosis and right sided IJ dialysis catheter. Pleural fluid wit hin the right minor fissure is noted. No focal consolidation or pneumothorax apparent. Blunting of th e right costophrenic angle likely reflects pleural fluid here as well and is similar to prior. IMPRESSION: Cardiomegaly and right pleural fluid. POS: ZACKERY
--- NOTE | 2019-07-23 17:17 | CT ---
CT BRAIN 07/23/19 PROVIDED CLINICAL HISTORY: Altered mental status. FINDINGS: Comparison 09/10/18. The ventricular system appears normal in size and morphology. There is no evidence for intracranial h emorrhage or mass effect. Chronic microvascular ischemic changes appear similar to prior. The extracr anial soft tissues and osseous structures demonstrate an unremarkable CT appearance. IMPRESSION: No evidence for intracranial hemorrhage or mass effect. POS: ZACKERY
[2019-07-23 17:25] LABS: ALT (SGPT) 28 U/L (8-55); AST (SGOT) 44 U/L (5-34); Albumin 3.7 g/dL (3.4-4.8); Alkaline Phosphatase 147 U/L (40-110); Anion Gap 12 mmol/L (10-20); BUN (Urea Nitrogen) 20 mg/dL (9.8-20.1); Bilirubin, Total 0.6 mg/dL (0.2-1.2); Calc. Creatinine Clearance 0 mL/min (70-130); Carbon Dioxide 30 mmol/L (23-31); Chloride 103 mmol/L (98-107); Estimated GFR-MDRD 11; Globulin 3.9 g/dL (2.4-3.5); Glucose 144 mg/dL (83-110); Potassium 4.4 mmol/L (3.5-5.1); Protein, Total 7.6 g/dL (6.0-8.3); Sodium 141 mmol/L (136-145)
[2019-07-23] MEDS ORDERED: cefTRIAXone\\ROCEPHIN 1 GM VIAL ONE (18:19)
[2019-07-23 20:00] LABS: Cocaine Metabolite Screen Not Detected (NotDetected); Medtox Reader # READER 4; Phencyclidine (PCP) Not Detected (NotDetected); THC/Cannabinoid Screen Not Detected (NotDetected)
[2019-07-23 20:01] LABS: Amphetamine Not Detected (NotDetected); Barbiturates Screen Not Detected (NotDetected); Benzodiazepine Screen Not Detected (NotDetected); Medtox Control Line Valid? VALID (VALID); Methadone Not Detected (NotDetected); Methamphetamine Not Detected (NotDetected); Opiate Screen Not Detected (NotDetected); Oxycodone Screen Not Detected (NotDetected); Tricyclic Screen Not Detected (NotDetected)
[2019-07-23 23:18] VITALS: BMI 35.7
[2019-07-24 07:46] LABS: Anion Gap 14 mmol/L (10-20); BUN (Urea Nitrogen) 23 mg/dL (9.8-20.1); Calc. Creatinine Clearance 15 mL/min (70-130); Calcium 8.7 mg/dL (7.8-10.44); Carbon Dioxide 26 mmol/L (23-31); Chloride 103 mmol/L (98-107); Estimated GFR-MDRD 10; Glucose 88 mg/dL (83-110); Potassium 3.9 mmol/L (3.5-5.1); Sodium 139 mmol/L (136-145)
[2019-07-24 08:12] LABS: #Eosinphils 0.1 thou/uL (0.0-0.7); #Lymphocytes 0.6 thou/uL (1.20-3.40); #Monocytes 0.6 thou/uL (0.11-0.59); #Neutrophils 3.7 thou/uL (1.40-6.50); %Basophils 0.3 % (0.0-1.0); %Eosinophils 1.2 % (0.0-10.0); %Lymphocytes 11.7 % (21.0-51.0); %Monocytes 11.7 % (0.0-10.0); Band 2 % (5-11); Elliptocytes SLIGHT = 2-5 cells (100X) (0-1/hpf); Eosinophils 1 % (0-10); Hemoglobin 11.6 g/dL (12.0-16.0); Hypochromia MODERATE=16-30 cells (100X) (0-5/hpf); Lymphocytes 19 % (21-51); MDiff Complete? YES; Macrocytosis SLIGHT = 6-15 cells (100X) (0-5/hpf); Mean Corpuscular HGB CONC 30.3 g/dL (32.0-36.0); Mean Corpuscular Hemoglobin 33.7 pg (27.0-31.0); Mean Platelet Volume 8.7 fL (7.4-10.4); Monocytes 7 % (0-10); Neutrophil 69 % (42-75); Platelet Count 95 thou/uL (130-400); Platelet Morphology Comment Appears Decreased; RBC Distribution Width 15.1 % (11.5-14.5); Red Blood Cell (RBC) Count 3.44 mill/uL (4.20-5.40); White Blood Cell (WBC) Count 4.9 thou/uL (4.8-10.8)
[2019-07-24] MEDS ORDERED: Insulin Regular 300 UNITS/3 ML VIAL SC PRN ×2 (08:23)
[2019-07-24] MEDS ORDERED: Dextrose 50% Abboject 50 ML SYRINGE IVP PRN (08:23)
[2019-07-24] MEDS ORDERED: Dextrose 5% in Water 1,000 ML IV PRN (08:23)
[2019-07-24] MEDS: Carvedilol 6.25 MG TAB PO SCH ×2 (08:46→20:30)
[2019-07-24] MEDS: Clopidogrel Bisulfate 75 MG TAB PO SCH (08:46)
[2019-07-24] MEDS: Aspirin Chewable 81 MG TAB PO SCH (08:47)
[2019-07-24] MEDS: Citalopram 20 MG TAB PO SCH (08:47)
--- NOTE | 2019-07-24 08:48 | HP ---
CHIEF COMPLAINT: Urinary tract infection with altered mental status. HISTORY OF PRESENT ILLNESS: The patient is an 84-year-old female on chronic dialysis, who was noted at dialysis to have mental changes. At the end of her dialysis, she became extremely fatigued and sleepy and less arousable. Dialysis sent her to the emergency room for further evaluation. In the ER, she was noted to be arousable as well, but would not stay awake and would keep going to sleep. She could answer questions and follow commands. She denied chest pain, dyspnea, fever, or vomiting. No specific complaints of pain. Workup in the ER was entirely unremarkable except for her unarousability and the urinalysis showed pretty moderate to severe infection. At this point, it was elected to put her in the hospital for IV fluids, IV antibiotics, urine culture, and serial re-evaluation. PAST MEDICAL HISTORY: Significant for insulin-dependent diabetes. The patient is known to be very noncompliant, obstructive sleep apnea. Again, the patient is very noncompliant, refuses to wear her CPAP. Refuses to eat correctly. She also has hypertension, hyperlipidemia, anxiety disorder, recently hospitalized in 2019 for C diff and most recently in January of 2019 for pyelonephritis with acute renal insufficiency. She has had small subarachnoid hemorrhages after a fall in the past. 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 She has diabetic neuropathy, restless legs syndrome, and congestive heart failure. Most recently, echo in the summer showed an ejection fraction 45% to 50% with diastolic dysfunction. She has history of atrial fibrillation, but is not safe for anticoagulation due to multiple falls. She has hypothyroidism, dyslipidemia, chronic insomnia, renal insufficiency, GERD, osteoarthritis, osteoporosis with left wrist fracture, which was allowed to heal in a dysmorphic configuration. She has had a history of ventricular tachycardia, history of DVTs, pancreatitis, coronary artery disease, and episodes of hyperglycemia due to noncompliance with medication. She also has a history of rectal cancer. PAST SURGICAL HISTORY: Includes hysterectomy, cholecystectomy, rotator cuff tear, coronary artery disease with bypass graft, colostomy and reversal due to rectal cancer, bilateral cataract removal, and left arm deformity due to fall. PSYCHIATRIC HISTORY: Significant for anxiety and depression. ALLERGIES: TO CODEINE AND IBUPROFEN. MEDICATIONS ON ADMISSION: Include, 1. Protonix 40 mg a day. 2. Aspirin 81 mg daily. 3. Citalopram 40 mg daily. 4. Lipitor 80 mg q.h.s. 5. She takes Humalog on a sliding scale from 23 to 28 units per meal. 6. Lantus SoloSTAR 20 units subcu daily. 7. Carvedilol 12.5 mg b.i.d. 8. Lunesta 3 mg nightly. 10. She takes Mirapex 1.5 mg 1/2 at bedtime. 11. Torsemide 25 mg in the morning. 12. Lyrica 150 mg b.i.d., this has recently been decreased to 75 due to somnolence. 13. Plavix 75 mg daily. 14. Levothyroxine 75 mcg daily. She had not been taking it on an empty stomach as we found out. REVIEW OF SYSTEMS: The patient is sleepy at the time and is not able to contribute other than denial of pain. PHYSICAL EXAMINATION: VITAL SIGNS: At the time of admission, blood pressure is 114/59, temperature 97.5, pulse 77, respirations 15, O2 saturation 97% on 2.5 L, which were not correctly placed in her nares. GENERAL: This is an obese female, who is alert, arousable, and oriented. HEENT: Normocephalic, atraumatic. Pupils equal with diminished reactivity to light bilaterally at 2 mm. Arcus senilis bilaterally. TMs, nares, and pharynx are clear. NECK: Supple. Trachea midline. CHEST: Clear anteriorly. HEART: Regular rate and rhythm. BREASTS: Deferred. ABDOMEN: Soft, nontender to palpation and examination. EXTREMITIES: Without clubbing, cyanosis, or edema. There is deformity of the left wrist. SKIN: With poor turgor and evidence of bruising NEUROLOGIC: Will arouse to verbal stimuli and answers questions correctly. Still somnolent somewhat. Will follow commands. Sensory is grossly intact. Unable to test gait and cerebellar function. LABORATORY DATA: Thus far shows WBCs at 5.7, hemoglobin 12.2, hematocrit 40 with platelets of 104. The sodium is at 141, potassium 4.4, chloride 103, CO2 of 30 , BUN is 20, creatinine 3.89 with a GFR of 11, glucose of 144, lactic acid at 0.6, calcium 9, total bilirubin 0.6, AST 44, ALT 28, alkaline phos 147. Troponins are negative. Toxicology screen is entirely negative. UA shows 2+ blood, 500 leukocyte esterase, greater than 50 wbc's. She also had a CT of the head, which showed no acute findings, and chest x-ray also again showed no acute findings. Cardiomegaly and right pleural fluid were noted on the chest x-ray. ASSESSMENT: 1. Altered mental status. 2. Urinary tract infection. 3. End-stage renal disease, on dialysis. 4. Insulin-dependent diabetic, noncompliant to medications and diet. 5. Obstructive sleep apnea, again noncompliant to CPAP treatment. PLAN: To treat the infection and serially re-evaluate her and put her on sliding scale treatment for her diabetes. We will also ask Dr. Flores to come and arrange for dialysis while she is in the hospital. Job ID: [id number] [facility]
[2019-07-24] MEDS: cefTRIAXone\\ROCEPHIN 1 GM in Sodium Chloride 0.9% 100 ML IVPB SCH (17:00)
[2019-07-24] MEDS: Pramipexole Di-HCl 0.25 MG TAB PO SCH (20:31)
[2019-07-24] MEDS: Acetaminophen 500 MG TAB PO PRN (20:34)
[2019-07-25] MEDS: Levothyroxine Sodium 75 MCG TAB PO SCH (05:45)
[2019-07-25 06:30] LABS: Hemoglobin A1c 6.8 % (4.0-6.0)
[2019-07-25 06:49] LABS: #Lymphocytes 0.7 thou/uL (1.20-3.40); #Monocytes 0.4 thou/uL (0.11-0.59); #Neutrophils 3.8 thou/uL (1.40-6.50); %Basophils 0.2 % (0.0-1.0); %Eosinophils 0.7 % (0.0-10.0); %Lymphocytes 13.4 % (21.0-51.0); %Monocytes 8.9 % (0.0-10.0); %Neutrophils 76.9 % (42.0-75.0); Hemoglobin 11.4 g/dL (12.0-16.0); Mean Corpuscular Hemoglobin 33.3 pg (27.0-31.0); Mean Platelet Volume 8.5 fL (7.4-10.4); Platelet Count 90 thou/uL (130-400); Red Blood Cell (RBC) Count 3.43 mill/uL (4.20-5.40); White Blood Cell (WBC) Count 4.9 thou/uL (4.8-10.8)
[2019-07-25 07:30] LABS: MDiff Complete? YES; Macrocytosis MODERATE=16-30 cells (100X) (0-5/hpf); Platelet Morphology Comment Appears Decreased; Polychromasia SLIGHT = 2-3 cells (100X) (0-2/hpf)
[2019-07-25 07:31] LABS: Anion Gap 16 mmol/L (10-20); BUN (Urea Nitrogen) 31 mg/dL (9.8-20.1); Calc. Creatinine Clearance 12 mL/min (70-130); Calcium 8.6 mg/dL (7.8-10.44); Carbon Dioxide 25 mmol/L (23-31); Chloride 103 mmol/L (98-107); Estimated GFR-MDRD 8; Glucose 108 mg/dL (83-110); Potassium 4.1 mmol/L (3.5-5.1); Sodium 140 mmol/L (136-145)
[2019-07-25 07:33] LABS: Hemoglobin 11.3 g/dL (12.0-16.0); Mean Corpuscular HGB CONC 28.8 g/dL (32.0-36.0); Mean Corpuscular Hemoglobin 31.9 pg (27.0-31.0); Mean Platelet Volume 8.4 fL (7.4-10.4); Platelet Count 86 thou/uL (130-400); Red Blood Cell (RBC) Count 3.54 mill/uL (4.20-5.40); White Blood Cell (WBC) Count 4.7 thou/uL (4.8-10.8)
[2019-07-25 07:34] LABS: #Lymphocytes 0.7 thou/uL (1.20-3.40); #Monocytes 0.4 thou/uL (0.11-0.59); #Neutrophils 3.6 thou/uL (1.40-6.50); %Basophils 0.1 % (0.0-1.0); %Eosinophils 0.6 % (0.0-10.0); %Lymphocytes 14.3 % (21.0-51.0)
[2019-07-25 08:01] LABS: MDiff Complete? YES; Macrocytosis MODERATE=16-30 cells (100X) (0-5/hpf); Platelet Morphology Comment Appears Decreased; Polychromasia SLIGHT = 2-3 cells (100X) (0-2/hpf)
[2019-07-25] MEDS ORDERED: Heparin 10,000 UNITS/ 10 ML VIAL ONE (08:57)
[2019-07-25] MEDS: Carvedilol 6.25 MG TAB PO SCH ×2 (09:00→21:38)
--- NOTE | 2019-07-25 10:45 | PRG ---
DATE OF SERVICE: 07/25/2019 SUBJECTIVE: Ms. Mullen is an 84-year-old white female with known history of ESRD, who was admitted for mental status change with UTI. We were consulted for her management of her ESRD. She is currently undergoing hemodialysis. No other complaints today. Her mentation was improved. Denies any chest pain or shortness of breath. OBJECTIVE: VITAL SIGNS: Blood pressure was noted , heart rate 80, and respiratory rate 12. GENERAL: The patient is awake, alert, comfortable, not in overt distress. SKIN: Adequate turgor. HEENT: She has pinkish conjunctivae. Anicteric sclerae. NECK: No neck mass. No carotid bruits. No JVD. CHEST: No deformities. LUNGS: Clear breath sounds. HEART: Normal sinus rhythm. No murmur. No gallops. No rubs. ABDOMEN: Globular, soft, nontender. No masses. EXTREMITIES: No edema. No deformities. MEDICATIONS: Medications of July 25, 2019, were reviewed. LABORATORY DATA: Laboratories of July 25, 2019; sodium 140, potassium 4.1, chloride 103, carbon dioxide 25, BUN 31, creatinine 5.25, glucose 108, and calcium 8.6. White count 4.7, hemoglobin 11.3, and hematocrit 39.2. ASSESSMENT AND PLAN: 1. End-stage renal disease, stable, currently undergoing hemodialysis. Attempting 1.2 L fluid removal as tolerated . 2. Urinary tract infection, currently on IV antibiotics. 3. Overall agree with current management. Job ID: [id number]
[2019-07-25] MEDS: Acetaminophen 500 MG TAB PO PRN (12:06)
[2019-07-25] MEDS: Citalopram 20 MG TAB PO SCH (13:58)
[2019-07-25] MEDS: Clopidogrel Bisulfate 75 MG TAB PO SCH (13:58)
[2019-07-25] MEDS: Aspirin Chewable 81 MG TAB PO SCH (13:59)
--- NOTE | 2019-07-25 16:12 | PQF ---
DATE: 07-25-19 ATTN: DR. CAROLINE DICKERSON Please exercise your independent, professional judgment in responding to the clarification form. Clinical indicators are provided on the bottom of this form for your review Please check appropriate box(s): [ x] Encephalopathy: Type: [ ] Acute [ x ] Subacute [ ] Chronic Etiology: [ ] Metabolic [ x ] Toxic [ ] Other (please specify) [ x ] Transient Alteration of Awareness [ x] Other diagnosis ____septic [ ] Unable to determine In addition, please specify: Present on Admission (POA): [ x ] Yes [ ] No [ ] Unable to determine For continuity of documentation, please document condition throughout progress notes and discharge summary. Thank You. CLINICAL INDICATORS - SIGNS / SYMPTOMS / LABS / RESULTS AND LOCATION IN EMR: ER DX 07-23-19: ALTERED MENTAL STATUS, UTI H&P 07-24-19: WAS NOTED AT DIALYSIS TO HAVE MENTAL CHANGES, AT THE END OF HER DIALYSIS SHE BECAME EXTREMELY FATIGUED AND SLEEPY AND LESS AROUSABLE. ASSESSMENT: AMS, UTI, ESRD, INSULIN-DEPENDENT DIABETIC, NONCOMPLIANT TO MEDS AND DIET RISK FACTORS / RESULTS AND LOCATION IN EMR: H&P 07-24-19: HX OF NONCOMPLIANCE, REFUSES TO WEAR HE CPAP, REFUSED TO EAT CORRECTLY, HX OF HYPERGLYCEMIA D/T HER NONCOMPLIANCE WITH HER MEDS. ASSESSMENT : AMS, UTI, ESRD TREATMENTS / RESULTS AND LOCATION IN EMR: ER NOTES 07-23-19: CEFTRIAXONE IV MAR: 07-24-19: SSI (This form is maintained as a part of the permanent medical record) 2014 [employer]. All Rights Reserved [email or web address] Cell [email or web address]
[2019-07-25] MEDS: cefTRIAXone\\ROCEPHIN 1 GM in Sodium Chloride 0.9% 100 ML IVPB SCH (17:07)
[2019-07-25] MEDS: Pramipexole Di-HCl 0.25 MG TAB PO SCH (21:38)
[2019-07-26 06:25] LABS: #Lymphocytes 0.5 thou/uL (1.20-3.40); #Monocytes 0.5 thou/uL (0.11-0.59); #Neutrophils 5.6 thou/uL (1.40-6.50); %Basophils 0.5 % (0.0-1.0); %Eosinophils 0.3 % (0.0-10.0); %Lymphocytes 7.1 % (21.0-51.0); Hemoglobin 11.8 g/dL (12.0-16.0); Mean Corpuscular HGB CONC 30.1 g/dL (32.0-36.0); Mean Platelet Volume 8.7 fL (7.4-10.4); Platelet Count 98 thou/uL (130-400); Red Blood Cell (RBC) Count 3.58 mill/uL (4.20-5.40); White Blood Cell (WBC) Count 6.6 thou/uL (4.8-10.8)
[2019-07-26 06:40] LABS: Anion Gap 16 mmol/L (10-20); BUN (Urea Nitrogen) 21 mg/dL (9.8-20.1); Calc. Creatinine Clearance 17 mL/min (70-130); Calcium 8.7 mg/dL (7.8-10.44); Carbon Dioxide 24 mmol/L (23-31); Chloride 99 mmol/L (98-107); Estimated GFR-MDRD 12; Glucose 116 mg/dL (83-110); Potassium 4.1 mmol/L (3.5-5.1); Sodium 135 mmol/L (136-145)
[2019-07-26] MEDS: Levothyroxine Sodium 75 MCG TAB PO SCH (06:40)
[2019-07-26 07:41] VITALS: BP 174/75; TEMP 97.5
[2019-07-26] MEDS: Citalopram 20 MG TAB PO SCH (09:03)
[2019-07-26] MEDS: Aspirin Chewable 81 MG TAB PO SCH (09:03)
[2019-07-26] MEDS: Clopidogrel Bisulfate 75 MG TAB PO SCH (09:03)
[2019-07-26] MEDS: Carvedilol 6.25 MG TAB PO SCH (09:03)
== END 2019-07-26 11:41 | disposition home or self-care (01) | DRG 689 ==
LOC: ERS 16:10 → 2SE 19:46 → OBSVTOIN 07-24 12:45 → T4-A 07-24 16:08
PROVIDERS: ADMIT Specialist; ATTEND Specialist
PROC: 5A1D70Z Performance of Urinary Filtration, Intermittent, Less than 6 Hours Per Day (ICD-10-PCS; principal; 2019-07-25)
DX: N39.0 Urinary tract infection, site not specified (principal); N18.6 End stage renal disease; G92 Toxic encephalopathy; E11.22 Type 2 diabetes mellitus with diabetic chronic kidney disease; G47.33 Obstructive sleep apnea (adult) (pediatric); I48.91 Unspecified atrial fibrillation; E03.9 Hypothyroidism, unspecified; E78.5 Hyperlipidemia, unspecified; K21.9 Gastro-esophageal reflux disease without esophagitis; M19.90 Unspecified osteoarthritis, unspecified site; M80.032D Age-related osteoporosis with current pathological fracture, left forearm, subsequent encounter for fracture with routine healing; F32.9 Major depressive disorder, single episode, unspecified; I25.10 Atherosclerotic heart disease of native coronary artery without angina pectoris; F41.9 Anxiety disorder, unspecified; Z86.73 Personal history of transient ischemic attack (TIA), and cerebral infarction without residual deficits; Z88.5 Allergy status to narcotic agent; Z88.8 Allergy status to other drugs, medicaments and biological substances; Z90.710 Acquired absence of both cervix and uterus; Z90.49 Acquired absence of other specified parts of digestive tract; Z95.1 Presence of aortocoronary bypass graft; Z79.82 Long term (current) use of aspirin; Z79.4 Long term (current) use of insulin; Z91.14 Patient's other noncompliance with medication regimen; Z91.11 Patient's noncompliance with dietary regimen
CPT/HCPCS: 36415; 36416; 51701; 70450; 71045; 80048; 80053; 80306; 81003; 81015; 82140; 83036; 83605; 84443; 84484; 85025; 87086; 90935; 93005; 94760; 96374; A4353; G0257; J0696; J1644; J3490

== ENCOUNTER 2019-08-13 09:26 | Emergency (ER) | payer MEDICARE, BC ==
[2019-08-13 10:17] LABS: Bacteria/HPF 4+ HPF (None Seen); Bilirubin Negative (Negative); Blood, Urine 2+ (Negative); Clarity Extra Turbid (Clear); Glucose, Urine (Dipstick) 30 mg/dL (Negative); Leukocyte 500 Leu/uL (Negative); Nitrite Negative (Negative); Protein, Urine (Dipstick) 200 mg/dL (Neg-Trace); RBC/HPF 21-50 HPF (0-3); Squamous Epithelial 21-50 HPF (0-3); WBC/HPF Greater than 50 HPF (0-3)
[2019-08-13] MEDS ORDERED: Cephalexin 250 MG CAP ONE (10:49)
== END 2019-08-13 12:18 | disposition home or self-care (01) ==
LOC: ERS 09:26
DX: N39.0 Urinary tract infection, site not specified (principal); E11.9 Type 2 diabetes mellitus without complications; I49.9 Cardiac arrhythmia, unspecified; I48.91 Unspecified atrial fibrillation; E03.9 Hypothyroidism, unspecified; E78.2 Mixed hyperlipidemia; I50.9 Heart failure, unspecified; Z87.891 Personal history of nicotine dependence
CPT/HCPCS: 51701; 81003; 81015; 87086; A4353

== ENCOUNTER 2019-09-17 10:10 | Emergency (ER) | payer MEDICARE, BC | END 2019-09-17 10:30 | disposition home or self-care (01) | LOC: ERS 10:10 | DX: S50.311A Abrasion of right elbow, initial encounter (principal); R60.0 Localized edema; G89.29 Other chronic pain; M25.561 Pain in right knee; M25.562 Pain in left knee; I50.9 Heart failure, unspecified; I49.9 Cardiac arrhythmia, unspecified; I48.91 Unspecified atrial fibrillation; E11.9 Type 2 diabetes mellitus without complications; E03.9 Hypothyroidism, unspecified; E78.2 Mixed hyperlipidemia; Z87.891 Personal history of nicotine dependence; W01.0XXA Fall on same level from slipping, tripping and stumbling without subsequent striking against object, initial encounter | CPT/HCPCS: 99283 ==

== ENCOUNTER 2020-07-07 17:04 | Inpatient (IN) | payer MEDICARE, BC ==
[2020-07-07] MEDS ORDERED: Norepinephrine 8 MG/0.9% NS 250 ML ONE (18:32)
[2020-07-07 18:39] LABS: #Lymphocytes 0.6 thou/uL (1.20-3.40); #Monocytes 0.5 thou/uL (0.11-0.59); #Neutrophils 3.8 thou/uL (1.40-6.50); %Basophils 0.5 % (0.0-1.0); %Eosinophils 0.9 % (0.0-10.0); %Lymphocytes 12.9 % (21.0-51.0); %Monocytes 9.4 % (0.0-10.0); %Neutrophils 76.2 % (42.0-75.0); Hemoglobin 11.4 g/dL (12.0-16.0); Mean Corpuscular HGB CONC 30.1 g/dL (32.0-36.0); Mean Corpuscular Hemoglobin 33.7 pg (27.0-31.0); Mean Platelet Volume 8.6 fL (7.4-10.4); Platelet Count 93 thou/uL (130-400); RBC Distribution Width 16.1 % (11.5-14.5); Red Blood Cell (RBC) Count 3.38 mill/uL (4.20-5.40)
[2020-07-07] MEDS ORDERED: Cefepime 2 GM VIAL ONE (18:44)
[2020-07-07 18:46] LABS: ALT (SGPT) 22 U/L (8-55); AST (SGOT) 30 U/L (5-34); Albumin 3.3 g/dL (3.4-4.8); Alkaline Phosphatase 205 U/L (40-110); Anion Gap 17 mmol/L (10-20); BUN (Urea Nitrogen) 38 mg/dL (9.8-20.1); Bilirubin, Total 0.6 mg/dL (0.2-1.2); Calc. Creatinine Clearance 0 mL/min (70-130); Calcium 7.8 mg/dL (7.8-10.44); Carbon Dioxide 23 mmol/L (23-31); Chloride 99 mmol/L (98-107); Globulin 4.2 g/dL (2.4-3.5); Glucose 163 mg/dL (83-110); Potassium 3.6 mmol/L (3.5-5.1); Protein, Total 7.5 g/dL (5.8-8.1); Sodium 135 mmol/L (136-145)
[2020-07-07 18:50] LABS: INR-International Normal Ratio 1.4; PTT 43.7 sec (22.9-36.1); Prothrombin Time 17.8 sec (12.0-14.7)
[2020-07-07 18:56] LABS: Hypochromia SLIGHT = 6-15 cells (100X) (0-5/hpf); MDiff Complete? YES; Macrocytosis SLIGHT = 6-15 cells (100X) (0-5/hpf); Platelet Morphology Comment Appears Decreased; Polychromasia SLIGHT = 2-3 cells (100X) (0-2/hpf); Target Cells SLIGHT = 2-5 cells (100X) (0-1/hpf); Tear Drops SLIGHT = 2-5 cells (100X) (0-1/hpf)
[2020-07-07 19:11] LABS: CKMB 6.8 ng/mL (0-6.6)
[2020-07-07] MEDS ORDERED: Vancomycin 1 GM/200 ML BAG ONE (19:37)
[2020-07-07] MEDS ORDERED: Rocuronium Bromide 10 MG/ML (10ML VIAL) ONE ×2 (20:21→20:23)
[2020-07-07] MEDS ORDERED: Furosemide 100 MG/10 ML VIAL ONE (20:27)
[2020-07-07 22:25] LABS: SARS-CoV-2 NAA Rapid Test Not Detected (NotDetected)
[2020-07-07] MEDS ORDERED: Lorazepam 2 MG/ML VIAL SLOW IVP PRN (23:29)
[2020-07-07] MEDS ORDERED: Dextrose 5% in Water 1,000 ML IV PRN (23:30)
[2020-07-07] MEDS ORDERED: Norepinephrine 8 MG/0.9% NS 250 ML IVPB SCH ×2 (23:30)
[2020-07-07] MEDS ORDERED: Dextrose 50% Abboject 50 ML SYRINGE IVP PRN (23:30)
[2020-07-07] MEDS ORDERED: Insulin Regular 300 UNITS/3 ML VIAL SC PRN (23:30)
[2020-07-07] MEDS ORDERED: Morphine 2 MG/ML VIAL SLOW IVP PRN (23:31)
[2020-07-07] MEDS ORDERED: Albuterol Sulfate 2.5 mg/3 ml Neb NEB PRN (23:32)
[2020-07-07] MEDS ORDERED: Morphine 4 MG/ML VIAL FS PRN (23:34)
[2020-07-07] MEDS ORDERED: Acetaminophen 650 MG Suppository PR PRN (23:35)
[2020-07-07] MEDS ORDERED: Ondansetron PF 4 MG/2 ML Vial IVP PRN (23:35)
[2020-07-07] MEDS ORDERED: Acetaminophen 325 MG TAB PO PRN (23:35)
[2020-07-07] MEDS ORDERED: Sodium Chloride 0.9% (PF) 10 ML VIAL FS PRN (23:45)
[2020-07-08 07:57] LABS: Mean Corpuscular HGB CONC 29.5 g/dL (32.0-36.0); Mean Corpuscular Hemoglobin 32.9 pg (27.0-31.0); Mean Platelet Volume 7.9 fL (7.4-10.4); Platelet Count 132 thou/uL (130-400); Red Blood Cell (RBC) Count 3.65 mill/uL (4.20-5.40)
[2020-07-08 08:00] LABS: Anion Gap 17 mmol/L (10-20); BUN (Urea Nitrogen) 41 mg/dL (9.8-20.1); Calc. Creatinine Clearance 0 mL/min (70-130); Calcium 8.4 mg/dL (7.8-10.44); Carbon Dioxide 22 mmol/L (23-31); Chloride 98 mmol/L (98-107); Glucose 142 mg/dL (83-110); Sodium 133 mmol/L (136-145)
[2020-07-08] MEDS: Dextrose 5 % And 0.9 % NaCl 1,000 ML IV SCH (09:00)
[2020-07-08] MEDS: Vancomycin HCl 750 MG in Sodium Chloride 0.9% 250 ML 250 ML IVPB SCH (09:21)
[2020-07-08] MEDS: Enoxaparin Sodium 100 MG/ML SYRINGE SC SCH (09:21)
[2020-07-08] MEDS: Pantoprazole 40 MG VIAL IVP SCH ×2 (09:21→20:57)
[2020-07-08 09:49] LABS: Band 1 % (5-11); Eosinophils 1 % (0-10); Lymphocytes 11 % (21-51); MDiff Complete? YES; Macrocytosis MODERATE=16-30 cells (100X) (0-5/hpf); Monocytes 4 % (0-10); Neutrophil 83 % (42-75); Nucleated RBC 1 % (0); Ovalocytes SLIGHT = 2-5 cells (100X) (0-1/hpf); Platelet Morphology Comment Appears Adequate; Polychromasia SLIGHT = 2-3 cells (100X) (0-2/hpf)
[2020-07-08] MEDS ORDERED: Cefepime 0.5 GM in Sodium Chloride 0.9% 100 ML IVPB SCH (15:00)
[2020-07-08] MEDS: rOPINIRole HCl 2 MG TAB PO SCH ×3 (15:18→23:48)
[2020-07-08] MEDS ORDERED: Digoxin 0.5 MG/2 ML AMP SLOW IVP SCH (18:30)
[2020-07-09 04:08] LABS: Anion Gap 18 mmol/L (10-20); BUN (Urea Nitrogen) 31 mg/dL (9.8-20.1); Calc. Creatinine Clearance 15 mL/min (70-130); Calcium 8.5 mg/dL (7.8-10.44); Carbon Dioxide 25 mmol/L (23-31); Chloride 98 mmol/L (98-107); Glucose 98 mg/dL (83-110); Potassium 3.7 mmol/L (3.5-5.1); Sodium 137 mmol/L (136-145)
[2020-07-09 04:52] LABS: Eosinophils 2 % (0-10); Hemoglobin 11.4 g/dL (12.0-16.0); Lymphocytes 9 % (21-51); MDiff Complete? YES; Macrocytosis MODERATE=16-30 cells (100X) (0-5/hpf); Mean Corpuscular HGB CONC 31.7 g/dL (32.0-36.0); Mean Corpuscular Hemoglobin 35.3 pg (27.0-31.0); Mean Platelet Volume 7.8 fL (7.4-10.4); Monocytes 8 % (0-10); Neutrophil 80 % (42-75); Nucleated RBC 1 % (0); Platelet Count 96 thou/uL (130-400); Platelet Morphology Comment Appears Decreased; RBC Distribution Width 16.1 % (11.5-14.5); Red Blood Cell (RBC) Count 3.23 mill/uL (4.20-5.40); White Blood Cell (WBC) Count 7.3 thou/uL (4.8-10.8)
[2020-07-09 06:40] VITALS: BMI 31.1
[2020-07-09] MEDS: Enoxaparin Sodium 100 MG/ML SYRINGE SC SCH (09:13)
[2020-07-09] MEDS: Pantoprazole 40 MG VIAL IVP SCH ×2 (09:14→21:28)
[2020-07-09] MEDS: Vancomycin HCl 750 MG in Sodium Chloride 0.9% 250 ML 250 ML IVPB SCH (09:14)
[2020-07-09] MEDS ORDERED: Morphine 2 MG/ML VIAL SLOW IVP PRN (09:42)
[2020-07-09] MEDS ORDERED: Vancomycin HCl 750 MG in Sodium Chloride 0.9% 250 ML 250 ML IVPB SCH (09:45)
[2020-07-09] MEDS: rOPINIRole HCl 2 MG TAB PO SCH ×3 (10:37→17:20)
[2020-07-09] MEDS ORDERED: Cefepime 0.5 GM, Admixture Fee 1 EACH in Sodium Chloride 0.9% 100 ML IVPB SCH (15:00)
[2020-07-10] MEDS ORDERED: Dextrose 5 % And 0.9 % NaCl 1,000 ML IV SCH (05:00)
[2020-07-10] MEDS: rOPINIRole HCl 2 MG TAB PO SCH ×2 (05:24→06:16)
[2020-07-10] MEDS: Dextrose 5 % And 0.9 % NaCl 1,000 ML IV SCH (05:48)
[2020-07-10 06:34] VITALS: BP 78/42; TEMP 97.2
[2020-07-10] MEDS ORDERED: Lorazepam 2 MG/ML VIAL SLOW IVP PRN ×2 (09:13→09:14)
[2020-07-10] MEDS ORDERED: Morphine 2 MG/ML VIAL SLOW IVP PRN ×2 (09:14→09:15)
[2020-07-10] MEDS: Pantoprazole 40 MG VIAL IVP SCH (09:55)
[2020-07-10] MEDS: Enoxaparin Sodium 100 MG/ML SYRINGE SC SCH (09:55)
== END 2020-07-10 14:13 | disposition hospice, inpatient (51) | DRG 291 ==
LOC: ERS 17:04 → CCU 20:49 → T4-B 07-09 16:40
PROVIDERS: ADMIT Specialist; ATTEND Specialist
PROC: 5A1D70Z Performance of Urinary Filtration, Intermittent, Less than 6 Hours Per Day (ICD-10-PCS; principal; 2020-07-08)
DX: I13.2 Hypertensive heart and chronic kidney disease with heart failure and with stage 5 chronic kidney disease, or end stage renal disease (principal); N18.6 End stage renal disease; I50.33 Acute on chronic diastolic (congestive) heart failure; E87.1 Hypo-osmolality and hyponatremia; G93.40 Encephalopathy, unspecified; N17.9 Acute kidney failure, unspecified; Z66 Do not resuscitate; Z51.5 Encounter for palliative care; I48.91 Unspecified atrial fibrillation; E03.9 Hypothyroidism, unspecified; E78.5 Hyperlipidemia, unspecified; K21.9 Gastro-esophageal reflux disease without esophagitis; E11.22 Type 2 diabetes mellitus with diabetic chronic kidney disease; G25.81 Restless legs syndrome; D69.6 Thrombocytopenia, unspecified; I95.9 Hypotension, unspecified; F41.9 Anxiety disorder, unspecified; Z20.822 Contact with and (suspected) exposure to COVID-19; F32.9 Major depressive disorder, single episode, unspecified; Z86.73 Personal history of transient ischemic attack (TIA), and cerebral infarction without residual deficits; Z99.2 Dependence on renal dialysis; Z90.49 Acquired absence of other specified parts of digestive tract; Z90.710 Acquired absence of both cervix and uterus; Z85.048 Personal history of other malignant neoplasm of rectum, rectosigmoid junction, and anus; Z88.5 Allergy status to narcotic agent; Z88.8 Allergy status to other drugs, medicaments and biological substances; Z79.02 Long term (current) use of antithrombotics/antiplatelets; Z79.82 Long term (current) use of aspirin; Z87.891 Personal history of nicotine dependence
CPT/HCPCS: 36415; 36416; 36556; 51702; 70450; 71045; 71275; 80048; 80053; 82553; 83605; 83880; 84484; 85025; 85610; 85730; 87040; 90935; 93005; 93306; 94660; 96365; 96366; 96368; 96375; 99292; C9113; G0257; J0692; J1650; J1940; J2060; J2270; J3370; J3490; J7050; U0002